=== PATIENT | female | born 1940 | race Caucasian/White ===

== ENCOUNTER 2021-10-03 10:54 | Outpatient (REF) | payer MEDICARE, SELFPAY ==
[2021-10-03 12:48] LABS: Erythrocyte Sedimentation Rate 58 MM/HR (0-20)
== END 2021-10-03 10:55 | disposition home or self-care (01) ==
LOC: HO.LAB 10:54
PROVIDERS: PCP Pediatrics; Visit Provider Psychiatry & Neurology Neurology
DX: G44.209 Tension-type headache, unspecified, not intractable (principal)
CPT/HCPCS: 36415; 85652

== ENCOUNTER 2021-10-26 10:11 | Outpatient (REF) | payer MEDICARE, SELFPAY ==
[2021-10-26 12:42] LABS: Erythrocyte Sedimentation Rate 16 MM/HR (0-20)
== END 2021-10-26 10:12 | disposition home or self-care (01) ==
LOC: HO.LAB 10:11
PROVIDERS: PCP Pediatrics; Visit Provider Psychiatry & Neurology Neurology
DX: G47.00 Insomnia, unspecified (principal)
CPT/HCPCS: 36415; 85652

== ENCOUNTER 2021-12-05 10:27 | Outpatient (REF) | payer MEDICARE, SELFPAY ==
[2021-12-05 12:14] LABS: Erythrocyte Sedimentation Rate 6 MM/HR (0-20)
== END 2021-12-05 10:28 | disposition home or self-care (01) ==
LOC: HO.LAB 10:27
PROVIDERS: Visit Provider Psychiatry & Neurology Neurology
DX: M31.6 Other giant cell arteritis (principal)
CPT/HCPCS: 36415; 85652

== ENCOUNTER 2022-03-06 11:34 | Outpatient (REF) | payer MEDICARE, SELFPAY ==
[2022-03-06 13:15] LABS: C Reactive Protein 0.15 mg/dL (< or = 0.50); T4 Thyroxine 7.5 ug/dL (4.5-12.0); Thyroid Stimulating Hormone 3.64 uIU/mL (0.32-4.0)
[2022-03-06 13:18] LABS: Erythrocyte Sedimentation Rate 10 MM/HR (0-20)
[2022-03-06 13:30] LABS: Folate > 20.0 ng/mL (> or = 4.0); Vitamin B12 740 pg/mL (200-900)
[2022-03-10 17:08] LABS: Homocysteine 11.4 umol/L (<10.4)
== END 2022-03-06 11:35 | disposition home or self-care (01) ==
LOC: HO.LAB 11:34
PROVIDERS: Visit Provider Psychiatry & Neurology Neurology
DX: M31.6 Other giant cell arteritis (principal); F03.90 Unspecified dementia, unspecified severity, without behavioral disturbance, psychotic disturbance, mood disturbance, and anxiety
CPT/HCPCS: 36415; 82607; 82746; 83090; 84436; 84443; 85652; 86140

== ENCOUNTER 2022-03-21 12:51 | Outpatient (REF) | payer MEDICARE, SELFPAY ==
--- NOTE | ~2022-03-21 | CT_ITS ---
EXAMINATION: CT HEAD WITHOUT CONTRAST CLINICAL INFORMATION: Dementia COMPARISON: None TECHNIQUE: Contiguous axial imaging was performed from the skull base to vertex without intravenous administration of contrast. This CT examination was performed using dose optimization techniques as appropriate, variously including the following: *Automated exposure control *Adjustment of mA and/or kV according to patient size (this includes techniques or standardized protocols for targeted exams where dose is matched to indication/reason for exam; i.e. extremities or head) *Use of iterative reconstruction technique DLP: 789 mGy-cm FINDINGS: No intracranial hemorrhage is seen. No abnormal extra-axial fluid collection. No significant mass effect or midline structure shift. [place] to white matter interface maintained. There is some prominence of ventricles, sulci, and cisterns consistent with generalized atrophy. There is mild periventricular white matter low density seen consistent with microangiopathy. There are some regions of diminished density within the insular cortices bilaterally likely related to small vessel disease. There is an approximately 1 cm region of diminished density along the left anterior limb of the internal capsule and putamen without adjacent mass effect. CT/CT head/brain wo IV con IMPRESSION: 1. No acute intracranial pathology. 2. Findings consistent with generalized atrophy and microangiopathy. 3. Low-density region within the left putamen likely ischemic in etiology.
== END 2022-03-21 12:52 | disposition home or self-care (01) ==
LOC: HO.CT 12:51
PROVIDERS: Visit Provider Psychiatry & Neurology Neurology
DX: F03.90 Unspecified dementia, unspecified severity, without behavioral disturbance, psychotic disturbance, mood disturbance, and anxiety (principal)
CPT/HCPCS: 70450

== ENCOUNTER 2022-07-10 13:02 | Outpatient (REF) | payer MEDICARE, SELFPAY ==
[2022-07-10 15:23] LABS: Erythrocyte Sedimentation Rate 8 MM/HR (0-20)
== END 2022-07-10 13:03 | disposition home or self-care (01) ==
LOC: HO.LAB 13:02
PROVIDERS: PCP Pediatrics; Visit Provider Psychiatry & Neurology Neurology
DX: M31.6 Other giant cell arteritis (principal)
CPT/HCPCS: 36415; 85652

== ENCOUNTER 2022-08-10 11:53 | Outpatient (REF) | payer MEDICARE, SELFPAY ==
[2022-08-10 12:32] LABS: MANUAL DIFF FLAG NO
[2022-08-10 12:49] LABS: Basophils Percent Auto 0.4 % (0-2); Eosinophils Absolute Auto 0.1 X10*3/uL (0.0-0.4); Eosinophils Percent Auto 0.8 % (0-4); Hematocrit 45.9 % (37.0-47.0); Hemoglobin 14.9 g/dl (12.0-16.0); Imm Gran Abs Auto 0.04 X10*3/uL (0.00-0.03); Imm Gran Pct Auto 0.5 % (0.0-0.4); Lymphocytes Absolute Auto 1.5 X10*3/uL (1.2-4.9); Lymphocytes Percent Auto 20.4 % (20-40); Mean Corpuscular HGB Conc 32.5 g/dl (31.0-35.0); Mean Corpuscular Hemoglobin 32.2 pg (27.0-33.0); Mean Corpuscular Volume 99.1 fL (80.0-98.0); Mean Platelet Volume 8.9 fL (9.4-12.3); Monocytes Absolute Auto 0.7 X10*3/uL (0.1-1.2); Monocytes Percent Auto 9.2 % (2-11); Neutrophils Absolute Auto 5.1 x10*3/uL (2.0-8.3); Neutrophils Percent Auto 68.7 % (45-73); Platelet Count 243 X10*3/uL (160-400); Red Blood Count 4.63 X10*6/uL (4.20-5.50); Red Cell Distribution Width 12.9 % (11.0-16.0); White Blood Count 7.5 X10*3/uL (4.8-10.8)
[2022-08-10 13:19] LABS: Alanine Aminotransferase 22 U/L (0-31); Albumin Level 4.1 g/dL (3.5-5.0); Alkaline Phosphatase 44 U/L (39-117); Anion Gap 14 (12-20); Aspartate Amino Transferase 22 U/L (5-31); Bilirubin Total 0.8 mg/dL (0.0-1.0); Blood Urea Nitrogen 13 mg/dL (9-16); Calcium 9.4 mg/dL (8.4-10.2); Carbon Dioxide 27 mmol/L (22-29); Chloride 103 mmol/L (96-108); Estimated Glomerular Filt Rate > 60; Glucose Random 81 mg/dL (60-115); Potassium 4.3 mmol/L (3.3-5.1); Sodium 140 mmol/L (135-145); Total Protein 6.5 g/dL (6.5-8.0)
== END 2022-08-10 11:54 | disposition home or self-care (01) ==
LOC: HO.LAB 11:53
PROVIDERS: PCP Pediatrics; Visit Provider Psychiatry & Neurology Neurology
DX: R44.3 Hallucinations, unspecified (principal); R51.9 Headache, unspecified
CPT/HCPCS: 36415; 80053; 85025

== ENCOUNTER 2022-08-11 10:41 | Outpatient (REF) | payer MEDICARE, SELFPAY ==
[2022-08-11 10:50] LABS: Appearance Urine Cloudy; Color Urine Yellow; Glucose Urine UA Negative (Negative); Leukocyte Esterase Urine Small (1+) (Negative); Nitrite Urine Negative (Negative); UMIC TRIGGER UA YES; Urine Blood Negative (Negative); Urine Ketones Negative (Negative); Urine Protein Negative (Neg-Trace)
[2022-08-11 10:56] LABS: Bacteria Urine None Seen (None Seen); Hyaline Casts Urine 0-2 /LPF (0-2); RBC Urine 0-2 /HPF (0-2); Squamous Epithelial Cell Urine 0-2 /HPF (0-2)
== END 2022-08-11 10:42 | disposition home or self-care (01) ==
LOC: HO.LNP 10:41
PROVIDERS: Visit Provider Psychiatry & Neurology Neurology
DX: R44.3 Hallucinations, unspecified (principal)
CPT/HCPCS: 81001

== ENCOUNTER 2023-01-22 06:31 | Outpatient (REF) | payer MEDICARE, SELFPAY ==
[2023-01-22 06:28] LABS: MANUAL DIFF FLAG NO
[2023-01-22 07:20] LABS: Basophils Percent Auto 0.6 % (0-2); Eosinophils Absolute Auto 0.2 X10*3/uL (0.0-0.4); Eosinophils Percent Auto 4.8 % (0-4); Hematocrit 37.8 % (37.0-47.0); Hemoglobin 11.9 g/dl (12.0-16.0); Imm Gran Abs Auto 0.02 X10*3/uL (0.00-0.03); Imm Gran Pct Auto 0.4 % (0.0-0.4); Lymphocytes Absolute Auto 1.9 X10*3/uL (1.2-4.9); Lymphocytes Percent Auto 37.2 % (20-40); Mean Corpuscular HGB Conc 31.5 g/dl (31.0-35.0); Mean Corpuscular Hemoglobin 30.3 pg (27.0-33.0); Mean Corpuscular Volume 96.2 fL (80.0-98.0); Monocytes Absolute Auto 0.6 X10*3/uL (0.1-1.2); Monocytes Percent Auto 12.5 % (2-11); Neutrophils Absolute Auto 2.2 x10*3/uL (2.0-8.3); Neutrophils Percent Auto 44.5 % (45-73); Platelet Count 352 X10*3/uL (160-400); Red Blood Count 3.93 X10*6/uL (4.20-5.50)
[2023-01-22 08:05] LABS: Anion Gap 14 (12-20); Blood Urea Nitrogen 4 mg/dL (9-16); Calcium 8.9 mg/dL (8.4-10.2); Carbon Dioxide 23 mmol/L (22-29); Chloride 106 mmol/L (96-108); Estimated Glomerular Filt Rate > 60; Glucose Random 79 mg/dL (60-115); Potassium 3.7 mmol/L (3.3-5.1); Sodium 139 mmol/L (135-145)
== END 2023-01-22 06:32 | disposition home or self-care (01) ==
LOC: HO.MMNH2L 06:31
PROVIDERS: Visit Provider Family Medicine
DX: Z02.2 Encounter for examination for admission to residential institution (principal); I10 Essential (primary) hypertension
CPT/HCPCS: 36415; 80048; 85025

== ENCOUNTER 2023-01-29 06:10 | Outpatient (REF) | payer MEDICARE, SELFPAY ==
[2023-01-29 06:07] LABS: MANUAL DIFF FLAG NO
[2023-01-29 07:04] LABS: Basophils Percent Auto 0.2 % (0-2); Eosinophils Absolute Auto 0.3 X10*3/uL (0.0-0.4); Eosinophils Percent Auto 5.3 % (0-4); Hematocrit 38.4 % (37.0-47.0); Hemoglobin 12.3 g/dl (12.0-16.0); Imm Gran Abs Auto 0.02 X10*3/uL (0.00-0.03); Imm Gran Pct Auto 0.4 % (0.0-0.4); Lymphocytes Absolute Auto 1.6 X10*3/uL (1.2-4.9); Lymphocytes Percent Auto 33.3 % (20-40); Mean Corpuscular Hemoglobin 30.4 pg (27.0-33.0); Mean Corpuscular Volume 94.8 fL (80.0-98.0); Monocytes Absolute Auto 0.7 X10*3/uL (0.1-1.2); Monocytes Percent Auto 13.7 % (2-11); Neutrophils Absolute Auto 2.3 x10*3/uL (2.0-8.3); Neutrophils Percent Auto 47.1 % (45-73); Platelet Count 273 X10*3/uL (160-400); Red Blood Count 4.05 X10*6/uL (4.20-5.50); Red Cell Distribution Width 14.2 % (11.0-16.0); White Blood Count 4.9 X10*3/uL (4.8-10.8)
[2023-01-29 07:22] LABS: Anion Gap 11 (12-20); Blood Urea Nitrogen 8 mg/dL (9-16); Calcium 8.9 mg/dL (8.4-10.2); Carbon Dioxide 27 mmol/L (22-29); Chloride 107 mmol/L (96-108); Estimated Glomerular Filt Rate > 60; Glucose Random 86 mg/dL (60-115); Potassium 3.5 mmol/L (3.3-5.1); Sodium 141 mmol/L (135-145)
== END 2023-01-29 06:11 | disposition home or self-care (01) ==
LOC: HO.MMNH2L 06:10
PROVIDERS: Visit Provider Family Medicine
DX: Z02.2 Encounter for examination for admission to residential institution (principal); I10 Essential (primary) hypertension
CPT/HCPCS: 36415; 80048; 85025

== ENCOUNTER 2023-02-05 06:18 | Outpatient (REF) | payer MEDICARE, SELFPAY ==
[2023-02-05 06:09] LABS: MANUAL DIFF FLAG NO
[2023-02-05 06:56] LABS: Basophils Percent Auto 0.3 % (0-2); Eosinophils Absolute Auto 0.2 X10*3/uL (0.0-0.4); Eosinophils Percent Auto 2.4 % (0-4); Hematocrit 34.8 % (37.0-47.0); Hemoglobin 11.2 g/dl (12.0-16.0); Imm Gran Abs Auto 0.03 X10*3/uL (0.00-0.03); Imm Gran Pct Auto 0.4 % (0.0-0.4); Lymphocytes Absolute Auto 1.8 X10*3/uL (1.2-4.9); Lymphocytes Percent Auto 24.9 % (20-40); Mean Corpuscular HGB Conc 32.2 g/dl (31.0-35.0); Mean Corpuscular Hemoglobin 30.6 pg (27.0-33.0); Mean Corpuscular Volume 95.1 fL (80.0-98.0); Mean Platelet Volume 9.4 fL (9.4-12.3); Monocytes Percent Auto 13.8 % (2-11); Neutrophils Absolute Auto 4.3 x10*3/uL (2.0-8.3); Neutrophils Percent Auto 58.2 % (45-73); Platelet Count 301 X10*3/uL (160-400); Red Blood Count 3.66 X10*6/uL (4.20-5.50); Red Cell Distribution Width 13.6 % (11.0-16.0); White Blood Count 7.4 X10*3/uL (4.8-10.8)
[2023-02-05 07:30] LABS: Anion Gap 14 (12-20); Blood Urea Nitrogen 6 mg/dL (9-16); Calcium 9.1 mg/dL (8.4-10.2); Carbon Dioxide 25 mmol/L (22-29); Chloride 103 mmol/L (96-108); Estimated Glomerular Filt Rate > 60; Glucose Random 85 mg/dL (60-115); Potassium 3.3 mmol/L (3.3-5.1); Sodium 139 mmol/L (135-145)
== END 2023-02-05 06:19 | disposition home or self-care (01) ==
LOC: HO.MMNH2L 06:18
PROVIDERS: Visit Provider Family Medicine
DX: Z02.2 Encounter for examination for admission to residential institution (principal); I10 Essential (primary) hypertension
CPT/HCPCS: 36415; 80048; 85025

== ENCOUNTER 2023-02-12 07:42 | Outpatient (REF) | payer MEDICARE, SELFPAY ==
[2023-02-12 06:19] LABS: MANUAL DIFF FLAG NO
[2023-02-12 07:30] LABS: Anion Gap 12 (12-20); Blood Urea Nitrogen 5 mg/dL (9-16); Calcium 8.8 mg/dL (8.4-10.2); Carbon Dioxide 26 mmol/L (22-29); Chloride 104 mmol/L (96-108); Estimated Glomerular Filt Rate > 60; Glucose Random 86 mg/dL (60-115); Potassium 3.3 mmol/L (3.3-5.1); Sodium 139 mmol/L (135-145)
[2023-02-12 07:35] LABS: Basophils Percent Auto 0.3 % (0-2); Eosinophils Absolute Auto 0.2 X10*3/uL (0.0-0.4); Eosinophils Percent Auto 3.1 % (0-4); Hematocrit 36.4 % (37.0-47.0); Hemoglobin 11.6 g/dl (12.0-16.0); Imm Gran Abs Auto 0.01 X10*3/uL (0.00-0.03); Imm Gran Pct Auto 0.2 % (0.0-0.4); Lymphocytes Absolute Auto 1.9 X10*3/uL (1.2-4.9); Lymphocytes Percent Auto 30.7 % (20-40); Mean Corpuscular HGB Conc 31.9 g/dl (31.0-35.0); Mean Corpuscular Hemoglobin 30.5 pg (27.0-33.0); Mean Corpuscular Volume 95.8 fL (80.0-98.0); Monocytes Absolute Auto 0.9 X10*3/uL (0.1-1.2); Monocytes Percent Auto 14.7 % (2-11); Neutrophils Absolute Auto 3.1 x10*3/uL (2.0-8.3); Platelet Count 434 X10*3/uL (160-400); Red Cell Distribution Width 13.9 % (11.0-16.0); White Blood Count 6.1 X10*3/uL (4.8-10.8)
== END 2023-02-12 07:43 | disposition home or self-care (01) ==
LOC: HO.MMNH2L 07:42
PROVIDERS: Visit Provider Family Medicine
DX: I10 Essential (primary) hypertension (principal)
CPT/HCPCS: 36415; 80048; 85025

== ENCOUNTER 2023-02-19 06:22 | Outpatient (REF) | payer MEDICARE, SELFPAY ==
[2023-02-19 06:19] LABS: MANUAL DIFF FLAG NO
[2023-02-19 07:07] LABS: Basophils Percent Auto 0.5 % (0-2); Eosinophils Absolute Auto 0.1 X10*3/uL (0.0-0.4); Eosinophils Percent Auto 2.1 % (0-4); Hematocrit 37.6 % (37.0-47.0); Hemoglobin 11.9 g/dl (12.0-16.0); Imm Gran Abs Auto 0.02 X10*3/uL (0.00-0.03); Imm Gran Pct Auto 0.3 % (0.0-0.4); Lymphocytes Absolute Auto 2.5 X10*3/uL (1.2-4.9); Lymphocytes Percent Auto 39.7 % (20-40); Mean Corpuscular HGB Conc 31.6 g/dl (31.0-35.0); Mean Corpuscular Hemoglobin 30.2 pg (27.0-33.0); Mean Corpuscular Volume 95.4 fL (80.0-98.0); Monocytes Absolute Auto 0.6 X10*3/uL (0.1-1.2); Monocytes Percent Auto 10.2 % (2-11); Neutrophils Absolute Auto 2.9 x10*3/uL (2.0-8.3); Neutrophils Percent Auto 47.2 % (45-73); Platelet Count 410 X10*3/uL (160-400); Red Blood Count 3.94 X10*6/uL (4.20-5.50); Red Cell Distribution Width 13.2 % (11.0-16.0); White Blood Count 6.2 X10*3/uL (4.8-10.8)
[2023-02-19 07:17] LABS: Anion Gap 11 (12-20); Blood Urea Nitrogen 6 mg/dL (9-16); Calcium 8.9 mg/dL (8.4-10.2); Carbon Dioxide 28 mmol/L (22-29); Chloride 105 mmol/L (96-108); Estimated Glomerular Filt Rate > 60; Glucose Random 80 mg/dL (60-115); Potassium 3.2 mmol/L (3.3-5.1); Sodium 141 mmol/L (135-145)
== END 2023-02-19 06:23 | disposition home or self-care (01) ==
LOC: HO.MMNH2L 06:22
PROVIDERS: Visit Provider Family Medicine
DX: I10 Essential (primary) hypertension (principal)
CPT/HCPCS: 36415; 80048; 85025

== ENCOUNTER 2023-02-21 05:55 | Outpatient (REF) | payer MEDICARE, SELFPAY ==
[2023-02-21 06:12] LABS: Appearance Urine Cloudy; Color Urine Dark Yellow; Glucose Urine UA Negative (Negative); Leukocyte Esterase Urine Moderate (2+) (Negative); Nitrite Urine Positive (Negative); PH 5.5 (5.0-9.0); UMIC TRIGGER UA YES; Urine Blood Trace (Negative); Urine Ketones Negative (Negative); Urine Protein Trace mg/dL (Neg-Trace)
[2023-02-21 06:29] LABS: Bacteria Urine 4+ (None Seen); Calcium Oxalate Crystals Urine Present; Hyaline Casts Urine 0-2 /LPF (0-2); RBC Urine 0-2 /HPF (0-2); Squamous Epithelial Cell Urine 0-2 /HPF (0-2); WBC Urine >50 /HPF (0-5)
== END 2023-02-21 05:56 | disposition home or self-care (01) ==
LOC: HO.MMNH2L 05:55
PROVIDERS: Visit Provider Family Medicine
DX: R33.9 Retention of urine, unspecified (principal)
CPT/HCPCS: 81001; 87086; 87088; 87186

== ENCOUNTER 2023-02-26 06:45 | Outpatient (REF) | payer MEDICARE, SELFPAY ==
[2023-02-26 06:45] LABS: MANUAL DIFF FLAG NO
[2023-02-26 07:10] LABS: Basophils Percent Auto 0.3 % (0-2); Eosinophils Absolute Auto 0.1 X10*3/uL (0.0-0.4); Eosinophils Percent Auto 1.4 % (0-4); Hematocrit 37.6 % (37.0-47.0); Hemoglobin 12.1 g/dl (12.0-16.0); Imm Gran Abs Auto 0.02 X10*3/uL (0.00-0.03); Imm Gran Pct Auto 0.3 % (0.0-0.4); Lymphocytes Absolute Auto 2.4 X10*3/uL (1.2-4.9); Lymphocytes Percent Auto 33.4 % (20-40); Mean Corpuscular HGB Conc 32.2 g/dl (31.0-35.0); Mean Corpuscular Hemoglobin 30.1 pg (27.0-33.0); Mean Corpuscular Volume 93.5 fL (80.0-98.0); Mean Platelet Volume 8.8 fL (9.4-12.3); Monocytes Absolute Auto 0.7 X10*3/uL (0.1-1.2); Neutrophils Absolute Auto 3.9 x10*3/uL (2.0-8.3); Neutrophils Percent Auto 54.6 % (45-73); Platelet Count 281 X10*3/uL (160-400); Red Blood Count 4.02 X10*6/uL (4.20-5.50); Red Cell Distribution Width 13.8 % (11.0-16.0); White Blood Count 7.2 X10*3/uL (4.8-10.8)
[2023-02-26 07:31] LABS: Anion Gap 11 (12-20); Blood Urea Nitrogen 7 mg/dL (9-16); Calcium 8.9 mg/dL (8.4-10.2); Carbon Dioxide 28 mmol/L (22-29); Chloride 104 mmol/L (96-108); Estimated Glomerular Filt Rate > 60; Glucose Random 76 mg/dL (60-115); Potassium 3.3 mmol/L (3.3-5.1); Sodium 140 mmol/L (135-145)
== END 2023-02-26 06:46 | disposition home or self-care (01) ==
LOC: HO.MMNH2L 06:45
PROVIDERS: Visit Provider Family Medicine
DX: Z02.2 Encounter for examination for admission to residential institution (principal); I10 Essential (primary) hypertension
CPT/HCPCS: 36415; 80048; 85025

== ENCOUNTER 2023-03-12 07:16 | Outpatient (REF) | payer MEDICARE, SELFPAY ==
[2023-03-12 06:12] LABS: MANUAL DIFF FLAG NO
[2023-03-12 07:05] LABS: Basophils Percent Auto 0.2 % (0-2); Eosinophils Percent Auto 0.7 % (0-4); Hematocrit 36.1 % (37.0-47.0); Hemoglobin 11.5 g/dl (12.0-16.0); Imm Gran Abs Auto 0.02 X10*3/uL (0.00-0.03); Imm Gran Pct Auto 0.4 % (0.0-0.4); Lymphocytes Absolute Auto 1.5 X10*3/uL (1.2-4.9); Lymphocytes Percent Auto 27.3 % (20-40); Mean Corpuscular HGB Conc 31.9 g/dl (31.0-35.0); Mean Corpuscular Hemoglobin 30.1 pg (27.0-33.0); Mean Corpuscular Volume 94.5 fL (80.0-98.0); Mean Platelet Volume 9.4 fL (9.4-12.3); Monocytes Percent Auto 17.4 % (2-11); Platelet Count 284 X10*3/uL (160-400); Red Blood Count 3.82 X10*6/uL (4.20-5.50); Red Cell Distribution Width 13.9 % (11.0-16.0); White Blood Count 5.5 X10*3/uL (4.8-10.8)
[2023-03-12 07:47] LABS: Alanine Aminotransferase 9 U/L (0-31); Albumin Level 3.2 g/dL (3.5-5.0); Alkaline Phosphatase 46 U/L (39-117); Anion Gap 14 (12-20); Aspartate Amino Transferase 13 U/L (5-31); Bilirubin Total 0.7 mg/dL (0.0-1.0); Blood Urea Nitrogen 9 mg/dL (9-16); Calcium 9.1 mg/dL (8.4-10.2); Carbon Dioxide 25 mmol/L (22-29); Chloride 104 mmol/L (96-108); Estimated Glomerular Filt Rate > 60; Glucose Random 82 mg/dL (60-115); Potassium 3.5 mmol/L (3.3-5.1); Sodium 139 mmol/L (135-145)
== END 2023-03-12 07:17 | disposition home or self-care (01) ==
LOC: HO.MMNH2L 07:16
PROVIDERS: Visit Provider Family Medicine
DX: R27.8 Other lack of coordination (principal); K52.89 Other specified noninfective gastroenteritis and colitis
CPT/HCPCS: 36415; 80053; 85025

== ENCOUNTER 2023-04-10 06:24 | Outpatient (REF) | payer MEDICARE, SELFPAY ==
[2023-04-10 06:13] LABS: MANUAL DIFF FLAG NO
[2023-04-10 06:31] LABS: Basophils Percent Auto 0.4 % (0-2); Eosinophils Absolute Auto 0.1 X10*3/uL (0.0-0.4); Eosinophils Percent Auto 1.4 % (0-4); Hematocrit 38.7 % (37.0-47.0); Hemoglobin 12.4 g/dl (12.0-16.0); Imm Gran Abs Auto 0.02 X10*3/uL (0.00-0.03); Imm Gran Pct Auto 0.3 % (0.0-0.4); Lymphocytes Absolute Auto 2.9 X10*3/uL (1.2-4.9); Lymphocytes Percent Auto 41.3 % (20-40); Mean Corpuscular Volume 93.5 fL (80.0-98.0); Mean Platelet Volume 9.2 fL (9.4-12.3); Monocytes Absolute Auto 0.7 X10*3/uL (0.1-1.2); Monocytes Percent Auto 9.9 % (2-11); Neutrophils Absolute Auto 3.3 x10*3/uL (2.0-8.3); Neutrophils Percent Auto 46.7 % (45-73); Platelet Count 291 X10*3/uL (160-400); Red Blood Count 4.14 X10*6/uL (4.20-5.50); Red Cell Distribution Width 14.6 % (11.0-16.0)
[2023-04-10 07:10] LABS: Anion Gap 13 (12-20); Blood Urea Nitrogen 11 mg/dL (9-16); Calcium 8.9 mg/dL (8.4-10.2); Carbon Dioxide 27 mmol/L (22-29); Chloride 106 mmol/L (96-108); Estimated Glomerular Filt Rate > 60; Glucose Random 68 mg/dL (60-115); Potassium 3.7 mmol/L (3.3-5.1); Sodium 142 mmol/L (135-145)
== END 2023-04-10 06:25 | disposition home or self-care (01) ==
LOC: HO.MMNH2L 06:24
PROVIDERS: Visit Provider Family Medicine
DX: R27.8 Other lack of coordination (principal); K52.89 Other specified noninfective gastroenteritis and colitis
CPT/HCPCS: 36415; 80048; 85025

== ENCOUNTER 2023-04-14 14:19 | Emergency (ER) | payer MEDICARE, SELFPAY ==
[2023-04-14 14:34] VITALS: BP 113/48; BP 96/50; PULSE 67; RESP 16; TEMP 36.3; O2SAT 96; O2SAT 97; BMI 23.3
--- NOTE | 2023-04-14 15:00 | ED.SYNCOPE ---
HPI - Syncope General Chief Complaint: Syncope Stated Complaint: PERIOD OF UNRESPONSIVENESS Time Seen by Provider: 04/14/23 14:45 Source: patient and family Mode of arrival: EMS History of Present Illness HPI narrative: 82-year-old female who comes from [facility] with son's concerns regarding 2 episodes of his mother not being responsive to him after she ate lunch. When I asked him whether or not she was sleeping he states he did not think so because when he shook her she did not respond. There are no reported fevers, chills, urinary symptoms. And all history is obtained from the son, as patient has dementia. Related Data Allergies Allergy/AdvReac Type Severity Reaction Status Date / Time Penicillins Allergy Unknown Verified 04/14/23 14:42 Review of Systems Review of Systems: Pertinent positives and negatives as stated in [facility] Past Medical History Source: nursing notes reviewed Onset Date is defined in the Problem List Problems that require an onset date and time if occurred within 24 hrs of arrival to the ED Aortic Dissection and Rupture; Neurologic impairment; Cardiopulmonary Arrest; Endotracheal Intubation; Insertion or Replacement of Mechanical Circulatory Assist Device Social History Social History Advance Directives: No Advance Directives Information Provided: No Physical Exam Vital Signs: Vital Signs: Last Vital Signs Temp 97.4 F 04/14/23 14:34 Pulse 71 04/14/23 15:33 Resp 16 04/14/23 15:33 BP 140/73 H 04/14/23 15:33 Pulse Ox 95 04/14/23 15:33 O2 Del Method Room Air 04/14/23 15:33 BMI result Body Mass Index 23.3 VITAL SIGNS: Reviewed. GENERAL: Well developed, well nourished, in no acute distress. HEAD: Normocephalic/atraumatic EYES: PERRLA, EOMI EARS: Ext canals without abnormality NOSE: Nares patent bilateral OROPHARYNX: no oral lesions noted, posterior pharynx clear NECK: Supple, no adenopathy LUNGS: Normal breath sounds. No adventitious sounds or accessory muscle use. SpO2<95> CARDIOVASCULAR: Regular rate and rhythm without noted murmurs, no JVD or lower extremity edema. ABDOMEN: Soft, non-tender, non-distended with bowel sounds. MUSCULOSKELETAL: No tenderness, deformities, or effusions noted on gross inspection. EXTREMITIES: No cyanosis, clubbing or edema. SKIN: Inspection of the skin reveals no rashes NEUROLOGIC: Alert and oriented x 1. Strength and sensation to light touch were grossly intact x 4. Medical Decision Making Medical Decision Making [facility] Narrative: 82-year-old female with history and clinical presentation after review of problem list in documentation it appears that patient has a history of syncopal episodes since November of 2022 and is been worked up for these. We will ensure that there is no evidence arrhythmia, infection, anemia, electrolyte abnormalities for viral illnesses that may be contributing to this episode today. Patient arrives and is noted be hemodynamically stable and responsive on verbal prompting. I reviewed all investigations and hematologic indices are negative for leukocytosis/left shift and there is no anemia or thrombocytopenia. Coagulation studies are within normal limits. Viral testing is negative. Signed out to Dr Russel foreman/radha chemistries Differential Diagnosis Differential Diagnoses: The differential diagnosis associated with the presentation includes Please see the discussion above Admission/Observation Consideration of admission/observation: Escalation of care including admission/observation considered Please see the discussion above Lab Data [facility] Lab Attestation statement: I reviewed the patient's lab results. Please see the discussion above 04/14/23 15:01 04/14/23 15:01 Labs: Lab Results 04/14/23 Range/Units 15:01 WBC 8.9 (4.8-10.8) X10*3/uL RBC 4.25 (4.20-5.50) X10*6/uL Hgb 12.7 (12.0-16.0) g/dl Hct 39.5 (37.0-47.0) % MCV 92.9 (80.0-98.0) fL MCH 29.9 (27.0-33.0) pg MCHC 32.2 (31.0-35.0) g/dl RDW 15.0 (11.0-16.0) % Plt Count 259 (160-400) X10*3/uL MPV 8.6 L (9.4-12.3) fL Immature Gran % (Auto) 0.5 H (0.0-0.4) % Neut % (Auto) 70.9 (45-73) % Lymph % (Auto) 16.1 L (20-40) % [place]clennan % (Auto) 11.3 H (2-11) % Eos % (Auto) 1.0 (0-4) % Baso % (Auto) 0.2 (0-2) % Lymph # (Auto) 1.4 (1.2-4.9) X10*3/uL [place]cl[place]an # (Auto) 1.0 (0.1-1.2) X10*3/uL Eos # (Auto) 0.1 (0.0-0.4) X10*3/uL Baso # (Auto) 0.0 (0.0-0.2) X10*3/uL Abs Immat Gran (auto) 0.04 H (0.00-0.03) X10*3/uL Absolute Neuts (auto) 6.3 (2.0-8.3) x10*3/uL Absolute Nucleated RBC 0.000 (0.0-0.012) X10*3/uL Nucleated RBC % (auto) 0.0 (0.0-0.2) /100WBC PT 11.4 (11.1-13.3) SEC INR 0.9 (0.9-1.1) Troponin I High Sens < 2.7 (<3.5-17.0) ng/L Urine Color Dark Yellow Urine Appearance Turbid Urine pH 5.0 (5.0-9.0) Ur Specific [place] >= 1.030 H (1.005-1.025) Urine Protein 100 (2+) H (Neg-Trace) mg/dL Urine Glucose (UA) Negative (Negative) mg/dL Urine Ketones Trace (Negative) mg/dL Urine Blood Large (3+) H (Negative) Urine Nitrite Negative (Negative) Ur Leukocyte Esterase Large (3+) H (Negative) Influenza Type A (PCR) NEGATIVE (Negative) Influenza Type B (PCR) NEGATIVE (Negative) RSV RNA Qual (PCR) NEGATIVE (Negative) SARS-CoV-2 RNA (RT-PCR) NEGATIVE (Negative) Independent Interpretation I performed an independent interpretation of an: EKG Interpretation: Sinus rhythm with PACs, HR-68, no STEMI, IL/QRS/QTC is within normal limits. External Record Review External record reviewed: Outpatient record, Prior outpatient labs and Prior outpatient radiology Chronic Conditions Dementia Critical Care Time Critical Care Time Critical Care Time: Yes Total Critical Care Time: 30 Attestation: I personally attest to this time spent taking care of the patient. Discharge Plan Discharge Clinical Impression: Vasovagal syncope Patient Disposition: Xfer Other Instructions: Syncope in Older Adults (ED) Additional Instructions: 1. Resume all home medications as prescribed. 2. Recommend follow-up with primary care doctor on Sunday morning for further outpatient evaluation regarding recurrent syncopal episodes. Return to the ER for any worsening symptoms. Referrals: Joseph Mccormakc MD [Primary Care Provider] -
[2023-04-14 15:33] VITALS: BP 140/73; PULSE 71; RESP 16; O2SAT 95
--- NOTE | 2023-04-14 15:48 | MHC.EDTECH ---
THIS PCT ASSUMED CARE OF PT AT 1500 ,PT WAS INCONTINENT OF LARGE AMOUNT OF STOOL ,CARE GIVEN ,BEDDING CHANGE,PT RESTING QUIETLY IN BED .
--- NOTE | 2023-04-14 17:39 | PC.NURSE ---
PT REMAINS A&OX3, MENTATING AT BASELINE. VS WNL. REPORT GIVENT TO RN AT [facility].
== END 2023-04-14 19:30 | disposition other institution (70) ==
PROVIDERS: Emergency Provider Student in an Organized Health Care Education/Training Program; PCP Pediatrics
DX: N39.0 Urinary tract infection, site not specified (principal); B96.4 Proteus (mirabilis) (morganii) as the cause of diseases classified elsewhere; R55 Syncope and collapse; Z20.822 Contact with and (suspected) exposure to COVID-19; Z20.828 Contact with and (suspected) exposure to other viral communicable diseases
CPT/HCPCS: 0241U; 80053; 81001; 84484; 85025; 85610; 87086; 87088; 87186; 93005; 99285

== ENCOUNTER → 2023-04-14 14:45 | Outpatient (BNV) | payer MEDICARE, SELFPAY | PROVIDERS: Emergency Provider Student in an Organized Health Care Education/Training Program; PCP Pediatrics; Visit Provider Internal Medicine Cardiovascular Disease | DX: I49.1 Atrial premature depolarization (principal); R94.31 Abnormal electrocardiogram [ECG] [EKG] | CPT/HCPCS: 93010 ==

== ENCOUNTER 2023-04-18 05:20 | Outpatient (REF) | payer MEDICARE, SELFPAY ==
[2023-04-18 06:33] LABS: Thyroid Stimulating Hormone 1.64 uIU/mL (0.32-4.0)
[2023-04-18 06:39] LABS: Vitamin B12 221 pg/mL (200-900)
[2023-04-20 01:09] LABS: Triiodothyronine T3 Free 2.8 pg/mL (2.3-4.2)
== END 2023-04-18 05:21 | disposition home or self-care (01) ==
LOC: HO.MMNH2L 05:20
PROVIDERS: Visit Provider Family Medicine
DX: E46 Unspecified protein-calorie malnutrition (principal)
CPT/HCPCS: 36415; 82607; 84439; 84443; 84481

== ENCOUNTER 2023-04-30 15:14 | Outpatient (REF) | payer MEDICARE, SELFPAY ==
[2023-04-30 15:32] LABS: Appearance Urine Turbid; Color Urine Yellow; Glucose Urine UA Negative (Negative); Leukocyte Esterase Urine Large (3+) (Negative); Nitrite Urine Positive (Negative); PH >= 9.0 (5.0-9.0); UMIC TRIGGER UA YES; Urine Blood Negative (Negative); Urine Ketones Negative (Negative); Urine Protein Trace mg/dL (Neg-Trace)
[2023-04-30 15:45] LABS: Bacteria Urine 4+ (None Seen); Hyaline Casts Urine 0-2 /LPF (0-2); Other Crystals Urine Present; RBC Urine 0-2 /HPF (0-2); Squamous Epithelial Cell Urine 0-2 /HPF (0-2)
== END 2023-04-30 15:15 | disposition home or self-care (01) ==
LOC: HO.MMNH3L 15:14
PROVIDERS: Visit Provider Family Medicine
DX: R33.8 Other retention of urine (principal)
CPT/HCPCS: 81001; 87086; 87088; 87186

== ENCOUNTER 2023-05-21 06:29 | Outpatient (REF) | payer MEDICARE, SELFPAY ==
[2023-05-21 06:31] LABS: MANUAL DIFF FLAG NO
[2023-05-21 07:27] LABS: Basophils Percent Auto 0.3 % (0-2); Eosinophils Absolute Auto 0.1 X10*3/uL (0.0-0.4); Hematocrit 38.5 % (37.0-47.0); Hemoglobin 12.6 g/dl (12.0-16.0); Imm Gran Abs Auto 0.01 X10*3/uL (0.00-0.03); Imm Gran Pct Auto 0.2 % (0.0-0.4); Lymphocytes Absolute Auto 2.5 X10*3/uL (1.2-4.9); Lymphocytes Percent Auto 42.5 % (20-40); Mean Corpuscular HGB Conc 32.7 g/dl (31.0-35.0); Mean Corpuscular Hemoglobin 30.2 pg (27.0-33.0); Mean Corpuscular Volume 92.3 fL (80.0-98.0); Mean Platelet Volume 8.9 fL (9.4-12.3); Monocytes Absolute Auto 0.7 X10*3/uL (0.1-1.2); Monocytes Percent Auto 12.4 % (2-11); Neutrophils Absolute Auto 2.5 x10*3/uL (2.0-8.3); Neutrophils Percent Auto 42.6 % (45-73); Platelet Count 295 X10*3/uL (160-400); Red Blood Count 4.17 X10*6/uL (4.20-5.50); Red Cell Distribution Width 14.8 % (11.0-16.0); White Blood Count 5.9 X10*3/uL (4.8-10.8)
[2023-05-21 07:38] LABS: Anion Gap 13 (12-20); Blood Urea Nitrogen 10 mg/dL (9-16); Carbon Dioxide 24 mmol/L (22-29); Chloride 107 mmol/L (96-108); Estimated Glomerular Filt Rate > 60; Glucose Random 79 mg/dL (60-115); Potassium 3.6 mmol/L (3.3-5.1); Sodium 140 mmol/L (135-145)
== END 2023-05-21 06:30 | disposition home or self-care (01) ==
LOC: HO.MMNH3L 06:29
PROVIDERS: Visit Provider Family Medicine
DX: R33.8 Other retention of urine (principal); F03.B0 Unspecified dementia, moderate, without behavioral disturbance, psychotic disturbance, mood disturbance, and anxiety; R55 Syncope and collapse
CPT/HCPCS: 36415; 80048; 85025

== ENCOUNTER 2023-06-11 06:18 | Outpatient (REF) | payer MEDICARE, SELFPAY ==
[2023-06-11 05:52] LABS: MANUAL DIFF FLAG NO
[2023-06-11 06:01] LABS: Basophils Percent Auto 0.3 % (0-2); Eosinophils Absolute Auto 0.1 X10*3/uL (0.0-0.4); Hematocrit 40.2 % (37.0-47.0); Hemoglobin 13.2 g/dl (12.0-16.0); Imm Gran Abs Auto 0.02 X10*3/uL (0.00-0.03); Imm Gran Pct Auto 0.3 % (0.0-0.4); Lymphocytes Absolute Auto 2.4 X10*3/uL (1.2-4.9); Mean Corpuscular HGB Conc 32.8 g/dl (31.0-35.0); Mean Corpuscular Hemoglobin 30.2 pg (27.0-33.0); Mean Platelet Volume 8.8 fL (9.4-12.3); Monocytes Absolute Auto 0.6 X10*3/uL (0.1-1.2); Monocytes Percent Auto 9.3 % (2-11); Neutrophils Absolute Auto 2.9 x10*3/uL (2.0-8.3); Neutrophils Percent Auto 48.1 % (45-73); Platelet Count 271 X10*3/uL (160-400); Red Blood Count 4.37 X10*6/uL (4.20-5.50); Red Cell Distribution Width 14.2 % (11.0-16.0); White Blood Count 6.1 X10*3/uL (4.8-10.8)
[2023-06-11 06:36] LABS: Alanine Aminotransferase 15 U/L (0-31); Albumin Level 3.5 g/dL (3.5-5.0); Alkaline Phosphatase 50 U/L (39-117); Anion Gap 10 (12-20); Aspartate Amino Transferase 12 U/L (5-31); Bilirubin Total 0.3 mg/dL (0.0-1.0); Blood Urea Nitrogen 11 mg/dL (9-16); Carbon Dioxide 28 mmol/L (22-29); Chloride 106 mmol/L (96-108); Estimated Glomerular Filt Rate > 60; Glucose Random 73 mg/dL (60-115); Potassium 3.9 mmol/L (3.3-5.1); Sodium 140 mmol/L (135-145); Total Protein 6.2 g/dL (6.5-8.0)
== END 2023-06-11 06:19 | disposition home or self-care (01) ==
LOC: HO.MMNH2L 06:18
PROVIDERS: Visit Provider Family Medicine
DX: R27.8 Other lack of coordination (principal); K52.89 Other specified noninfective gastroenteritis and colitis
CPT/HCPCS: 36415; 80053; 85025

== ENCOUNTER 2023-07-09 06:48 | Outpatient (REF) | payer MEDICARE, SELFPAY ==
[2023-07-09 06:00] LABS: MANUAL DIFF FLAG NO
[2023-07-09 06:23] LABS: Basophils Percent Auto 0.2 % (0-2); Eosinophils Absolute Auto 0.1 X10*3/uL (0.0-0.4); Hematocrit 39.7 % (37.0-47.0); Hemoglobin 13.1 g/dl (12.0-16.0); Imm Gran Abs Auto 0.02 X10*3/uL (0.00-0.03); Imm Gran Pct Auto 0.3 % (0.0-0.4); Lymphocytes Absolute Auto 1.9 X10*3/uL (1.2-4.9); Lymphocytes Percent Auto 33.3 % (20-40); Mean Corpuscular Hemoglobin 30.2 pg (27.0-33.0); Mean Corpuscular Volume 91.5 fL (80.0-98.0); Mean Platelet Volume 8.7 fL (9.4-12.3); Monocytes Absolute Auto 0.6 X10*3/uL (0.1-1.2); Monocytes Percent Auto 9.9 % (2-11); Neutrophils Absolute Auto 3.2 x10*3/uL (2.0-8.3); Neutrophils Percent Auto 55.3 % (45-73); Platelet Count 259 X10*3/uL (160-400); Red Blood Count 4.34 X10*6/uL (4.20-5.50); Red Cell Distribution Width 13.3 % (11.0-16.0); White Blood Count 5.8 X10*3/uL (4.8-10.8)
[2023-07-09 06:37] LABS: Alanine Aminotransferase 25 U/L (0-31); Albumin Level 3.5 g/dL (3.5-5.0); Alkaline Phosphatase 47 U/L (39-117); Anion Gap 11 (12-20); Aspartate Amino Transferase 18 U/L (5-31); Bilirubin Total 0.3 mg/dL (0.0-1.0); Blood Urea Nitrogen 9 mg/dL (9-16); Calcium 8.3 mg/dL (8.4-10.2); Carbon Dioxide 28 mmol/L (22-29); Chloride 106 mmol/L (96-108); Estimated Glomerular Filt Rate > 60; Glucose Random 79 mg/dL (60-115); Potassium 3.8 mmol/L (3.3-5.1); Sodium 141 mmol/L (135-145); Total Protein 5.9 g/dL (6.5-8.0)
== END 2023-07-09 06:49 | disposition home or self-care (01) ==
LOC: HO.MMNH2L 06:48
PROVIDERS: Visit Provider Family Medicine
DX: R27.8 Other lack of coordination (principal); K52.89 Other specified noninfective gastroenteritis and colitis
CPT/HCPCS: 36415; 80053; 85025

== ENCOUNTER 2023-08-13 06:35 | Outpatient (REF) | payer MEDICARE, SELFPAY ==
[2023-08-13 07:37] LABS: Anion Gap 15 (12-20); Blood Urea Nitrogen 9 mg/dL (9-16); Calcium 9.6 mg/dL (8.4-10.2); Carbon Dioxide 28 mmol/L (22-29); Chloride 103 mmol/L (96-108); Estimated Glomerular Filt Rate > 60; Glucose Random 75 mg/dL (60-115); Potassium 3.9 mmol/L (3.3-5.1); Sodium 142 mmol/L (135-145)
[2023-08-13 07:48] LABS: Basophils Percent Auto 0.2 % (0-2); Eosinophils Absolute Auto 0.1 X10*3/uL (0.0-0.4); Hematocrit 43.9 % (37.0-47.0); Hemoglobin 14.4 g/dl (12.0-16.0); Imm Gran Abs Auto 0.02 X10*3/uL (0.00-0.03); Imm Gran Pct Auto 0.3 % (0.0-0.4); Lymphocytes Absolute Auto 2.6 X10*3/uL (1.2-4.9); Lymphocytes Percent Auto 43.8 % (20-40); Mean Corpuscular HGB Conc 32.8 g/dl (31.0-35.0); Mean Corpuscular Hemoglobin 30.7 pg (27.0-33.0); Mean Corpuscular Volume 93.6 fL (80.0-98.0); Mean Platelet Volume 8.9 fL (9.4-12.3); Monocytes Absolute Auto 0.7 X10*3/uL (0.1-1.2); Monocytes Percent Auto 10.9 % (2-11); Neutrophils Absolute Auto 2.6 x10*3/uL (2.0-8.3); Neutrophils Percent Auto 43.8 % (45-73); Platelet Count 293 X10*3/uL (160-400); Red Blood Count 4.69 X10*6/uL (4.20-5.50); Red Cell Distribution Width 13.2 % (11.0-16.0)
== END 2023-08-13 06:36 | disposition home or self-care (01) ==
LOC: HO.MMNH2L 06:35
PROVIDERS: Visit Provider Family Medicine
DX: R27.8 Other lack of coordination (principal); K52.89 Other specified noninfective gastroenteritis and colitis
CPT/HCPCS: 36415; 80048; 85025

== ENCOUNTER 2023-09-10 06:04 | Outpatient (REF) | payer MEDICARE, SELFPAY ==
[2023-09-10 05:49] LABS: MANUAL DIFF FLAG NO
[2023-09-10 07:01] LABS: Basophils Percent Auto 0.3 % (0-2); Eosinophils Absolute Auto 0.1 X10*3/uL (0.0-0.4); Eosinophils Percent Auto 1.3 % (0-4); Hematocrit 40.2 % (37.0-47.0); Hemoglobin 12.9 g/dl (12.0-16.0); Imm Gran Abs Auto 0.02 X10*3/uL (0.00-0.03); Imm Gran Pct Auto 0.3 % (0.0-0.4); Lymphocytes Absolute Auto 2.4 X10*3/uL (1.2-4.9); Lymphocytes Percent Auto 40.7 % (20-40); Mean Corpuscular HGB Conc 32.1 g/dl (31.0-35.0); Mean Corpuscular Hemoglobin 30.6 pg (27.0-33.0); Mean Corpuscular Volume 95.5 fL (80.0-98.0); Mean Platelet Volume 9.2 fL (9.4-12.3); Monocytes Absolute Auto 0.7 X10*3/uL (0.1-1.2); Monocytes Percent Auto 11.4 % (2-11); Neutrophils Absolute Auto 2.8 x10*3/uL (2.0-8.3); Platelet Count 281 X10*3/uL (160-400); Red Blood Count 4.21 X10*6/uL (4.20-5.50); Red Cell Distribution Width 13.4 % (11.0-16.0)
[2023-09-10 07:04] LABS: Alanine Aminotransferase 11 U/L (0-31); Albumin Level 3.6 g/dL (3.5-5.0); Alkaline Phosphatase 47 U/L (39-117); Anion Gap 14 (12-20); Aspartate Amino Transferase 12 U/L (5-31); Bilirubin Total 0.5 mg/dL (0.0-1.0); Blood Urea Nitrogen 10 mg/dL (9-16); Calcium 9.3 mg/dL (8.4-10.2); Carbon Dioxide 25 mmol/L (22-29); Chloride 107 mmol/L (96-108); Estimated Glomerular Filt Rate > 60; Glucose Random 79 mg/dL (60-115); Potassium 3.6 mmol/L (3.3-5.1); Sodium 142 mmol/L (135-145); Total Protein 6.2 g/dL (6.5-8.0)
== END 2023-09-10 06:05 | disposition home or self-care (01) ==
LOC: HO.MMNH2L 06:04
PROVIDERS: Visit Provider Family Medicine
DX: R27.8 Other lack of coordination (principal); K52.89 Other specified noninfective gastroenteritis and colitis
CPT/HCPCS: 36415; 80053; 85025

== ENCOUNTER 2023-09-11 15:30 | Outpatient (REF) | payer MEDICARE, SELFPAY ==
[2023-09-12 07:55] LABS: Appearance Urine Cloudy; Color Urine Yellow; Glucose Urine UA Negative (Negative); Leukocyte Esterase Urine Large (3+) (Negative); Nitrite Urine Negative (Negative); PH 5.5 (5.0-9.0); UMIC TRIGGER UA YES; Urine Blood Small (1+) (Negative); Urine Ketones Negative (Negative); Urine Protein Negative (Neg-Trace)
[2023-09-12 08:08] LABS: Bacteria Urine 3+ (None Seen); Hyaline Casts Urine 0-2 /LPF (0-2); RBC Urine 0-2 /HPF (0-2); Squamous Epithelial Cell Urine 0-2 /HPF (0-2); WBC Urine >50 /HPF (0-5)
== END 2023-09-11 15:31 | disposition home or self-care (01) ==
LOC: HO.MMNH3L 15:30
PROVIDERS: Visit Provider Family Medicine
DX: R41.82 Altered mental status, unspecified (principal); F03.90 Unspecified dementia, unspecified severity, without behavioral disturbance, psychotic disturbance, mood disturbance, and anxiety
CPT/HCPCS: 81001; 87086; 87088; 87186

== ENCOUNTER 2023-10-08 07:02 | Outpatient (REF) | payer MEDICARE, SELFPAY ==
[2023-10-08 06:16] LABS: MANUAL DIFF FLAG NO
[2023-10-08 07:04] LABS: Basophils Percent Auto 0.3 % (0-2); Eosinophils Absolute Auto 0.1 X10*3/uL (0.0-0.4); Eosinophils Percent Auto 1.9 % (0-4); Hematocrit 39.4 % (37.0-47.0); Hemoglobin 12.9 g/dl (12.0-16.0); Imm Gran Abs Auto 0.02 X10*3/uL (0.00-0.03); Imm Gran Pct Auto 0.3 % (0.0-0.4); Lymphocytes Absolute Auto 2.2 X10*3/uL (1.2-4.9); Lymphocytes Percent Auto 37.5 % (20-40); Mean Corpuscular HGB Conc 32.7 g/dl (31.0-35.0); Mean Corpuscular Hemoglobin 30.8 pg (27.0-33.0); Mean Platelet Volume 8.9 fL (9.4-12.3); Monocytes Absolute Auto 0.6 X10*3/uL (0.1-1.2); Monocytes Percent Auto 10.9 % (2-11); Neutrophils Absolute Auto 2.8 x10*3/uL (2.0-8.3); Neutrophils Percent Auto 49.1 % (45-73); Platelet Count 249 X10*3/uL (160-400); Red Blood Count 4.19 X10*6/uL (4.20-5.50); Red Cell Distribution Width 13.2 % (11.0-16.0); White Blood Count 5.8 X10*3/uL (4.8-10.8)
[2023-10-08 07:43] LABS: Anion Gap 13 (12-20); Blood Urea Nitrogen 8 mg/dL (9-16); Calcium 9.3 mg/dL (8.4-10.2); Carbon Dioxide 25 mmol/L (22-29); Chloride 107 mmol/L (96-108); Estimated Glomerular Filt Rate > 60; Glucose Random 69 mg/dL (60-115); Potassium 3.8 mmol/L (3.3-5.1); Sodium 141 mmol/L (135-145)
== END 2023-10-08 07:03 | disposition home or self-care (01) ==
LOC: HO.MMNH2L 07:02
PROVIDERS: Visit Provider Family Medicine
DX: R27.8 Other lack of coordination (principal); K52.89 Other specified noninfective gastroenteritis and colitis
CPT/HCPCS: 36415; 80048; 85025

== ENCOUNTER 2023-11-12 06:13 | Outpatient (REF) | payer MEDICARE, SELFPAY ==
[2023-11-12 06:00] LABS: MANUAL DIFF FLAG NO
[2023-11-12 06:44] LABS: Anion Gap 12 (12-20); Blood Urea Nitrogen 9 mg/dL (9-16); Calcium 8.6 mg/dL (8.4-10.2); Carbon Dioxide 28 mmol/L (22-29); Chloride 103 mmol/L (96-108); Estimated Glomerular Filt Rate > 60; Glucose Random 81 mg/dL (60-115); Potassium 3.6 mmol/L (3.3-5.1); Sodium 139 mmol/L (135-145)
[2023-11-12 07:08] LABS: Basophils Percent Auto 0.3 % (0-2); Eosinophils Absolute Auto 0.1 X10*3/uL (0.0-0.4); Eosinophils Percent Auto 1.5 % (0-4); Hematocrit 39.9 % (37.0-47.0); Hemoglobin 13.1 g/dl (12.0-16.0); Imm Gran Abs Auto 0.03 X10*3/uL (0.00-0.03); Imm Gran Pct Auto 0.5 % (0.0-0.4); Lymphocytes Absolute Auto 2.3 X10*3/uL (1.2-4.9); Lymphocytes Percent Auto 37.6 % (20-40); Mean Corpuscular HGB Conc 32.8 g/dl (31.0-35.0); Mean Corpuscular Hemoglobin 30.9 pg (27.0-33.0); Mean Corpuscular Volume 94.1 fL (80.0-98.0); Mean Platelet Volume 9.1 fL (9.4-12.3); Monocytes Absolute Auto 0.7 X10*3/uL (0.1-1.2); Monocytes Percent Auto 12.1 % (2-11); Platelet Count 253 X10*3/uL (160-400); Red Blood Count 4.24 X10*6/uL (4.20-5.50); Red Cell Distribution Width 13.2 % (11.0-16.0); White Blood Count 6.1 X10*3/uL (4.8-10.8)
== END 2023-11-12 06:14 | disposition home or self-care (01) ==
LOC: HO.MMNH2L 06:13
PROVIDERS: Visit Provider Family Medicine
DX: R27.8 Other lack of coordination (principal); K52.89 Other specified noninfective gastroenteritis and colitis
CPT/HCPCS: 36415; 80048; 85025

== ENCOUNTER 2023-12-11 06:43 | Outpatient (REF) | payer MEDICARE, SELFPAY ==
[2023-12-11 05:53] LABS: MANUAL DIFF FLAG NO
[2023-12-11 06:32] LABS: Basophils Percent Auto 0.2 % (0-2); Eosinophils Absolute Auto 0.1 X10*3/uL (0.0-0.4); Hematocrit 38.2 % (37.0-47.0); Hemoglobin 12.2 g/dl (12.0-16.0); Imm Gran Abs Auto 0.02 X10*3/uL (0.00-0.03); Imm Gran Pct Auto 0.3 % (0.0-0.4); Lymphocytes Absolute Auto 2.3 X10*3/uL (1.2-4.9); Lymphocytes Percent Auto 37.6 % (20-40); Mean Corpuscular HGB Conc 31.9 g/dl (31.0-35.0); Mean Corpuscular Hemoglobin 30.7 pg (27.0-33.0); Mean Corpuscular Volume 96.2 fL (80.0-98.0); Mean Platelet Volume 8.8 fL (9.4-12.3); Monocytes Absolute Auto 0.8 X10*3/uL (0.1-1.2); Monocytes Percent Auto 13.4 % (2-11); Neutrophils Absolute Auto 2.9 x10*3/uL (2.0-8.3); Neutrophils Percent Auto 46.5 % (45-73); Platelet Count 277 X10*3/uL (160-400); Red Blood Count 3.97 X10*6/uL (4.20-5.50); Red Cell Distribution Width 13.2 % (11.0-16.0); White Blood Count 6.1 X10*3/uL (4.8-10.8)
[2023-12-11 07:15] LABS: Alanine Aminotransferase 13 U/L (0-31); Albumin Level 3.3 g/dL (3.5-5.0); Alkaline Phosphatase 42 U/L (39-117); Anion Gap 11 (12-20); Aspartate Amino Transferase 14 U/L (5-31); Blood Urea Nitrogen 9 mg/dL (9-16); Calcium 8.4 mg/dL (8.4-10.2); Carbon Dioxide 26 mmol/L (22-29); Chloride 108 mmol/L (96-108); Estimated Glomerular Filt Rate > 60; Glucose Random 80 mg/dL (60-115); Potassium 3.5 mmol/L (3.3-5.1); Sodium 141 mmol/L (135-145); Total Protein 5.5 g/dL (6.5-8.0)
[2023-12-11 07:31] LABS: Bilirubin Total 0.4 mg/dL (0.0-1.0)
== END 2023-12-11 06:44 | disposition home or self-care (01) ==
LOC: HO.MMNH2L 06:43
PROVIDERS: Visit Provider Hospitalist
DX: R27.8 Other lack of coordination (principal); K52.89 Other specified noninfective gastroenteritis and colitis
CPT/HCPCS: 36415; 80053; 85025

== ENCOUNTER 2023-12-17 05:57 | Outpatient (REF) | payer MEDICARE, SELFPAY ==
[2023-12-17 06:00] LABS: MANUAL DIFF FLAG NO
[2023-12-17 06:54] LABS: Anion Gap 12 (12-20); Basophils Percent Auto 0.3 % (0-2); Blood Urea Nitrogen 7 mg/dL (9-16); Carbon Dioxide 29 mmol/L (22-29); Chloride 106 mmol/L (96-108); Eosinophils Absolute Auto 0.1 X10*3/uL (0.0-0.4); Eosinophils Percent Auto 1.5 % (0-4); Estimated Glomerular Filt Rate > 60; Glucose Random 84 mg/dL (60-115); Hematocrit 40.2 % (37.0-47.0); Imm Gran Abs Auto 0.02 X10*3/uL (0.00-0.03); Imm Gran Pct Auto 0.3 % (0.0-0.4); Lymphocytes Absolute Auto 2.2 X10*3/uL (1.2-4.9); Mean Corpuscular HGB Conc 32.3 g/dl (31.0-35.0); Mean Corpuscular Hemoglobin 30.5 pg (27.0-33.0); Mean Corpuscular Volume 94.4 fL (80.0-98.0); Mean Platelet Volume 9.1 fL (9.4-12.3); Monocytes Absolute Auto 0.7 X10*3/uL (0.1-1.2); Monocytes Percent Auto 11.1 % (2-11); Neutrophils Absolute Auto 2.9 x10*3/uL (2.0-8.3); Neutrophils Percent Auto 49.8 % (45-73); Platelet Count 274 X10*3/uL (160-400); Potassium 3.8 mmol/L (3.3-5.1); Red Blood Count 4.26 X10*6/uL (4.20-5.50); Red Cell Distribution Width 13.2 % (11.0-16.0); Sodium 143 mmol/L (135-145); White Blood Count 5.8 X10*3/uL (4.8-10.8)
[2023-12-17 07:31] LABS: B Type Natriuretic Peptide 23 pg/mL (<100)
== END 2023-12-17 05:58 | disposition home or self-care (01) ==
LOC: HO.MMNH3L 05:57
PROVIDERS: Visit Provider Family Medicine
DX: I10 Essential (primary) hypertension (principal)
CPT/HCPCS: 36415; 80048; 83880; 85025

== ENCOUNTER 2024-01-14 06:38 | Outpatient (REF) | payer MEDICARE, SELFPAY ==
[2024-01-14 06:14] LABS: MANUAL DIFF FLAG NO
[2024-01-14 07:00] LABS: Basophils Percent Auto 0.3 % (0-2); Eosinophils Absolute Auto 0.1 X10*3/uL (0.0-0.4); Eosinophils Percent Auto 1.7 % (0-4); Hematocrit 39.2 % (37.0-47.0); Hemoglobin 12.7 g/dl (12.0-16.0); Imm Gran Abs Auto 0.02 X10*3/uL (0.00-0.03); Imm Gran Pct Auto 0.3 % (0.0-0.4); Lymphocytes Absolute Auto 2.5 X10*3/uL (1.2-4.9); Lymphocytes Percent Auto 38.7 % (20-40); Mean Corpuscular HGB Conc 32.4 g/dl (31.0-35.0); Mean Corpuscular Hemoglobin 30.6 pg (27.0-33.0); Mean Corpuscular Volume 94.5 fL (80.0-98.0); Mean Platelet Volume 8.9 fL (9.4-12.3); Monocytes Absolute Auto 0.6 X10*3/uL (0.1-1.2); Monocytes Percent Auto 9.6 % (2-11); Neutrophils Absolute Auto 3.2 x10*3/uL (2.0-8.3); Neutrophils Percent Auto 49.4 % (45-73); Platelet Count 255 X10*3/uL (160-400); Red Blood Count 4.15 X10*6/uL (4.20-5.50); Red Cell Distribution Width 13.2 % (11.0-16.0); White Blood Count 6.6 X10*3/uL (4.8-10.8)
[2024-01-14 07:25] LABS: Anion Gap 9 (12-20); Blood Urea Nitrogen 8 mg/dL (9-16); Calcium 8.6 mg/dL (8.4-10.2); Carbon Dioxide 27 mmol/L (22-29); Chloride 107 mmol/L (96-108); Estimated Glomerular Filt Rate > 60; Glucose Random 76 mg/dL (60-115); Potassium 3.5 mmol/L (3.3-5.1); Sodium 139 mmol/L (135-145)
== END 2024-01-14 06:39 | disposition home or self-care (01) ==
LOC: HO.MMNH3L 06:38
PROVIDERS: Visit Provider Family Medicine
DX: R27.8 Other lack of coordination (principal); K52.89 Other specified noninfective gastroenteritis and colitis
CPT/HCPCS: 36415; 80048; 85025

== ENCOUNTER 2024-02-11 06:20 | Outpatient (REF) | payer MEDICARE, SELFPAY ==
[2024-02-11 06:00] LABS: MANUAL DIFF FLAG NO
[2024-02-11 07:06] LABS: Basophils Percent Auto 0.3 % (0-2); Eosinophils Absolute Auto 0.1 X10*3/uL (0.0-0.4); Eosinophils Percent Auto 2.1 % (0-4); Hematocrit 41.1 % (37.0-47.0); Hemoglobin 13.3 g/dl (12.0-16.0); Imm Gran Abs Auto 0.01 X10*3/uL (0.00-0.03); Imm Gran Pct Auto 0.2 % (0.0-0.4); Lymphocytes Absolute Auto 2.4 X10*3/uL (1.2-4.9); Lymphocytes Percent Auto 38.6 % (20-40); Mean Corpuscular HGB Conc 32.4 g/dl (31.0-35.0); Mean Corpuscular Hemoglobin 30.6 pg (27.0-33.0); Mean Corpuscular Volume 94.7 fL (80.0-98.0); Mean Platelet Volume 10.1 fL (9.4-12.3); Monocytes Absolute Auto 0.8 X10*3/uL (0.1-1.2); Monocytes Percent Auto 11.9 % (2-11); Neutrophils Percent Auto 46.9 % (45-73); Platelet Count 268 X10*3/uL (160-400); Red Blood Count 4.34 X10*6/uL (4.20-5.50); Red Cell Distribution Width 13.5 % (11.0-16.0); White Blood Count 6.3 X10*3/uL (4.8-10.8)
== END 2024-02-11 06:21 | disposition home or self-care (01) ==
LOC: HO.MMNH2L 06:20
PROVIDERS: Visit Provider Family Medicine
DX: R27.8 Other lack of coordination (principal)
CPT/HCPCS: 36415; 80053; 85025

== ENCOUNTER 2024-03-10 06:30 | Outpatient (REF) | payer MEDICARE, SELFPAY ==
[2024-03-10 06:19] LABS: MANUAL DIFF FLAG NO
[2024-03-10 06:28] LABS: Basophils Percent Auto 0.3 % (0-2); Eosinophils Absolute Auto 0.1 X10*3/uL (0.0-0.4); Eosinophils Percent Auto 1.3 % (0-4); Hematocrit 42.2 % (37.0-47.0); Hemoglobin 13.8 g/dl (12.0-16.0); Imm Gran Abs Auto 0.02 X10*3/uL (0.00-0.03); Imm Gran Pct Auto 0.3 % (0.0-0.4); Lymphocytes Absolute Auto 1.7 X10*3/uL (1.2-4.9); Lymphocytes Percent Auto 28.4 % (20-40); Mean Corpuscular HGB Conc 32.7 g/dl (31.0-35.0); Mean Corpuscular Hemoglobin 30.5 pg (27.0-33.0); Mean Corpuscular Volume 93.4 fL (80.0-98.0); Monocytes Absolute Auto 0.6 X10*3/uL (0.1-1.2); Monocytes Percent Auto 10.4 % (2-11); Neutrophils Absolute Auto 3.6 x10*3/uL (2.0-8.3); Neutrophils Percent Auto 59.3 % (45-73); Platelet Count 261 X10*3/uL (160-400); Red Blood Count 4.52 X10*6/uL (4.20-5.50); Red Cell Distribution Width 13.7 % (11.0-16.0); White Blood Count 6.1 X10*3/uL (4.8-10.8)
[2024-03-10 06:46] LABS: Alanine Aminotransferase 19 U/L (0-31); Albumin Level 3.6 g/dL (3.5-5.0); Alkaline Phosphatase 47 U/L (39-117); Anion Gap 10 (12-20); Aspartate Amino Transferase 18 U/L (5-31); Bilirubin Total 0.5 mg/dL (0.0-1.0); Blood Urea Nitrogen 9 mg/dL (9-16); Calcium 8.6 mg/dL (8.4-10.2); Carbon Dioxide 26 mmol/L (22-29); Chloride 108 mmol/L (96-108); Estimated Glomerular Filt Rate > 60; Glucose Random 85 mg/dL (60-115); Potassium 3.7 mmol/L (3.3-5.1); Sodium 140 mmol/L (135-145); Total Protein 6.1 g/dL (6.5-8.0)
== END 2024-03-10 06:31 | disposition home or self-care (01) ==
LOC: HO.MMNH2L 06:30
PROVIDERS: Visit Provider Family Medicine
DX: R27.8 Other lack of coordination (principal); K52.89 Other specified noninfective gastroenteritis and colitis
CPT/HCPCS: 36415; 80053; 85025

== ENCOUNTER 2024-04-14 06:19 | Outpatient (REF) | payer MEDICARE, SELFPAY ==
[2024-04-14 06:03] LABS: MANUAL DIFF FLAG NO
[2024-04-14 06:44] LABS: Basophils Percent Auto 0.4 % (0-2); Eosinophils Absolute Auto 0.2 X10*3/uL (0.0-0.4); Eosinophils Percent Auto 2.5 % (0-4); Hematocrit 42.6 % (37.0-47.0); Imm Gran Abs Auto 0.02 X10*3/uL (0.00-0.03); Imm Gran Pct Auto 0.3 % (0.0-0.4); Lymphocytes Absolute Auto 2.2 X10*3/uL (1.2-4.9); Lymphocytes Percent Auto 33.4 % (20-40); Mean Corpuscular HGB Conc 32.9 g/dl (31.0-35.0); Mean Corpuscular Hemoglobin 30.6 pg (27.0-33.0); Monocytes Absolute Auto 0.6 X10*3/uL (0.1-1.2); Monocytes Percent Auto 8.8 % (2-11); Neutrophils Absolute Auto 3.6 x10*3/uL (2.0-8.3); Neutrophils Percent Auto 54.6 % (45-73); Platelet Count 264 X10*3/uL (160-400); Red Blood Count 4.58 X10*6/uL (4.20-5.50); Red Cell Distribution Width 13.7 % (11.0-16.0); White Blood Count 6.7 X10*3/uL (4.8-10.8)
[2024-04-14 06:51] LABS: Alanine Aminotransferase 17 U/L (0-31); Albumin Level 3.5 g/dL (3.5-5.0); Alkaline Phosphatase 46 U/L (39-117); Anion Gap 13 (12-20); Aspartate Amino Transferase 19 U/L (5-31); Bilirubin Total 0.4 mg/dL (0.0-1.0); Blood Urea Nitrogen 10 mg/dL (9-16); Calcium 8.8 mg/dL (8.4-10.2); Carbon Dioxide 24 mmol/L (22-29); Chloride 108 mmol/L (96-108); Estimated Glomerular Filt Rate > 60; Glucose Random 78 mg/dL (60-115); Potassium 3.4 mmol/L (3.3-5.1); Sodium 142 mmol/L (135-145); Total Protein 6.1 g/dL (6.5-8.0)
== END 2024-04-14 06:20 | disposition home or self-care (01) ==
LOC: HO.MMNH2L 06:19
PROVIDERS: Visit Provider Family Medicine
DX: R27.8 Other lack of coordination (principal); K52.89 Other specified noninfective gastroenteritis and colitis
CPT/HCPCS: 36415; 80053; 85025

== ENCOUNTER 2024-05-12 06:14 | Outpatient (REF) | payer MEDICARE, SELFPAY ==
[2024-05-12 06:04] LABS: MANUAL DIFF FLAG NO
--- OUTSIDE RECORDS SUMMARY | 2024-05-12 06:16 | XMS_ITS | Clinical Summary ---
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 Better to avoid if possible. Penicillins 01/12/2006 years ago doesn't remember reaction Medications Medication Sig Dispensed Refills Start Date End Date Status donepeziL (ARICEPT) 10 mg tablet TAKE 1 TABLET BY MOUTH AT BEDTIME 10/12/2022 Active QUEtiapine (SEROquel) 25 mg tablet Take 2 Tablets by mouth at bedtime. 09/18/2022 Active diclofenac (VOLTAREN) 1 % topical gel Apply 1 Dose topically 2 times daily. 09/27/2021 Active gabapentin (NEURONTIN) 300 mg capsule Take 1 Capsule by mouth at bedtime. 07/26/2021 Active mometasone (ELOCON) 0.1 % topical solution Apply to scalp hs prn 07/13/2021 Active Lactobac no.41/Bifidobact no.7 (PROBIOTIC-10 ORAL) Take by mouth. A ctive fluticasone (VERAMYST) 27.5 mcg/actuation nasal spray 2 Sprays by Nasal route daily. Active brimonidine-timoloL (Combigan) 0.2-0.5 % ophthalmic solution INSTILL 1 DROP IN BOTH EYES TWICE DAILY DIRECTED 04/13/2021 Active melatonin 3 mg tablet Take 1 tablet by mouth daily as needed (insomnia). 06/07/2021 Active loratadine (CLARITIN) 10 mg tablet TAKE 1 TABLET BY MOUTH DAILY 04/20/2021 Active travoprost (TRAVATAN Z) 0.004 % drops apply to the eye. 04/26/2017 A ctive propylene glycol/peg 400/PF (SYSTANE, PF, OPHT) apply 1 Drop to the eye daily as needed. Active OMEGA-3 FATTY ACIDS ORAL Take by mouth daily. Active LATANOPROST OPHT apply to the eye. A ctive simethicone (MYLICON,GAS-X) 125 mg capsule Take 2 Caps by mouth daily as needed. Active multivit-min/ferrous fumarate (MULTI VITAMIN ORAL) 1 daily Active calcium carbonate-vitamin D3 600 mg-5 mcg (200 unit) per tablet 1 Tab 2 times daily. Active Active Problems Problem Noted Date Diagnosed Date Syncope 10/16/2022 Overview (04/30/2024): 09/29. hosp eval neg. Loop monitor returned unused. Moderate dementia without be havioral disturbance, psychotic disturbance, mood disturbance, or anxiety 04/20/2022 Elevated WBC count 02/06/2022 Overview (04/30/2024): 01/28 Elevated cholesterol 08/02/2015 Wheezing 07/31/2014 Overview (04/30/2024): occ with uri. ?mild underlying asthma Chest pain 07/17/2011 Overview (04/30/2024): 07/19---Mibi normal Irritable bowel 02/13/2011 Overview (04/30/2024): Normal EGD 08/18 Insomnia 08/12/2007 Allergic rhinitis 01/12/2006 Immunizations Name Administration Dates Next Due H1N1 Inj Preservative Free 04/23/2009 Influenza trivalent, 0.5mL ( Fluad) 65yo and older 01/10/2016,01/11/2015 Influenza trivalent, 0.5mL, preservative free (Fluarix; FluLaval; Fluzone) ages 6mo and older (Afluria) 3 years and older 01/08/2017,01/14/2014,12/26/2012,12/13,01/26/2011,01/24/2010,12/30/2008 ,01/16/2008,01/18/2007,02/12/2006,02/07 Influenza, Unspecified 02/20/2021,01/08/2017 Moderna SARS-CoV-2 COVID-19, mRNA, LNP-S, preservative free 02/11/2021 Pneumococcal conjugate 13 va lent (Prevnar 13, PCV13) 2mo and older 02/10/2015 Pneumococcal polysaccharide 23 valent (Pneumovax 23) 2yo and older 03/07/2010 Td Tetanus diptheria (Tdvax) 7yo and older 01/18/2007 Tdap Tetanus diptheria acell ular pertussis (Boostrix; Adacel) 7yo and older 07/11/2016 Varicella live (Varivax) 12m o and older 07/09/2013,03/31/2013 Surgical History Surgery Date Site/Laterality Comments ESOPHAGOGASTRODUODENOSCOPY 08/29/11 PROCEDURE: [place] ESOPHAGOGASTRODUODENOSCOPY TRANSORAL DIAGNOSTIC; COMMENT: normal COLONOSCOPY 2004 PROCEDURE: HISTORICAL COLONOSCOPY; COMMENT: no polyps Medical History Medical History Date Comments Insomnia, unspecified 01/12/2006 DX:Insomni a, unspecified Jaw dislocation 08/12/2007 DX:Jaw dislocati on; COMMENT: , surgery lt. side Allergic rhinitis 01/12/2006 DX:Allergic rh initis Irritable bowel 02/13/2011 DX:Irritable bow el; COMMENT: Normal EGD 08/18 Atrophic vaginitis 07/07/2009 DX:Atrophic v aginitis Anxiety state DX:Anxiety state Depressive disorder DX:Depressiv e disorder Family History Medical History Relation Name Comments Other cancer Father stomach Heart attack Mother Hypertension Mother Hypertension Son 1 Asthma Son 2 Relation Name Status Comments Brother Alive Father Maternal Grandfather Maternal Grandmother Mother Alive Paternal Grandfather Paternal Grandmother Son 1 Son 2 Social History Tobacco Use Types Packs/Day Years Used Date Smoking Tobacco: Never Smokeless Tobacco: Never Alcohol Use Standard Drinks/Week Comments Not Currently 0 (1 standard drink = 0.6 oz pur e alcohol) Sex and Gender Information Value Date Recorded Sex Assigned at Not on file Gender Identity Not on file Sexual Orientation Not on file Obstetrics History Last Filed Vital Signs Vital Sign Reading Time Taken Comments Blood Pressure 135/85 10/03/2022 11:02 AM EDT Pulse 94 10/03/2022 11:02 AM EDT Temperature - - Respiratory Rate - - Oxygen Saturation - - Inhaled Oxygen Concentration - - Weight 67.4 kg (148 lb 9.6 oz) 10/03/2022 11:02 AM EDT Height 154.9 cm (5' 1 ) 10/03/2022 11:02 AM EDT Body Mass Index 28.08 10/03/2022 11:02 AM EDT Plan of Treatment Health Maintenance Due Date Last Done Comments Zoster Vaccines (1 of 2) 09/03/2013 07/09/2013, 03/10 RSV Immunization Patients 60+ Years Old (1 - 1-dose 75+ series) 2013 Depression Screening 03/12/2022 Falls Risk Assessment 03/12/2022 Medicare Annual Wellness Visit 03/12/2022 Social Influencers of Health Screening 03/12/2022 Hypertension/CHF/CAD Annual BMP Blood Test 07/11/2023 02/01/2022 COVID-19 Vaccine ( season) 2023 02/11/2021, 06/16/2020, 05/12/2020 Influenza Vaccine (#1) 2023 , 03/25/2021, 02/20/2021, Additional history exists Cholesterol Screening (Lipid Panel) 01/26/2026 01/26/2021 DTaP,Tdap,and Td Vaccines (3 - Td or Tdap) 07/11/2026 07/11/2016, 01/18/2007 Osteoporosis Screening (Bone Density Screening) 09/02/2030 09/02/2020, 07/30/2017 Varicella Vaccines Aged Out 07/09/2013, 03/31/2013 No longer eligible based on patient's age to complete this topic Pneumococcal Vaccine: 65+ Years Completed 02/10/2015, 03/07/2010 HIB Vaccines Aged Out No longer eligi ble based on patient's age to complete this topic HPV Vaccines Aged Out No longer eligi ble based on patient's age to complete this topic Hepatitis A Vaccines Aged Out No long er eligible based on patient's age to complete this topic Hepatitis B Vaccines Aged Out No long er eligible based on patient's age to complete this topic IPV Vaccines Aged Out No longer eligi ble based on patient's age to complete this topic MMR Vaccines Aged Out No longer eligi ble based on patient's age to complete this topic Meningococcal ACWY Vaccine Aged Out N o longer eligible based on patient's age to complete this topic RSV Immunization Patients Under 20 months Aged Out No longer eligible based on patient's age to complete this topic Procedures Procedure Name Priority Date/Time Associated Diagnosis Comments ANNUAL BMP BLOOD TEST Routine 02/01/2022 LIPID PANEL Routine 01/26/2021 DXA BONE DENSITY STUDY 1+ SITS AXIAL SKEL Routine 09/02/2020 2:47 PM EDT Encounter for screening for osteoporosis from Last 3 Months or Most Recently Relevant to Health Maintenance Results * Annual BMP Blood Test (02/01/2022) [facility] Annual BMP Blood Test abstracted Historical Provider MD CHIRAG JHA E * (ABNORMAL) Lipid panel (01/26/2021) [facility] LDL/HDL Ratio 2 0 - 4 Triglycerides 120 0 - 150 mg/dL Cholesterol 208(A) 0 - 200 mg/dL HDL 102 40 mg/dL LDL Cholesterol 82 0 - 100 mg/dL Blood Venous blood specimen / Unknown Historical Provider LAB BLOOD ORDERAB LES * DXA BONE DENSITY STUDY 1+ SITS AXIAL SKEL (09/02/2020 2:47 PM EDT) Anatomical Region Laterality Modality Bone Densitometr y 07/02/2020 1:10 PM EDT Narrative 09/02/2020 4:13 PM EDT BONE DENSITY ? Lumbar Spine T-score is +1.1 ?? (SD relative to 20-29 y/o adult) Z-score is +3.8 ??(SD relative to age matched peers) This is normal by criteria defined by the WHO. Left Hip T-score is -1.2 Z-score is +1.2 This is consistent with osteopenia by criteria defined by the WHO. Comparison exam(s): no statistically significant change in the bone density of the hip when compared to most recent bone density examination ?? Confidence level is +/-95%. Impression: Based on the World Health Organization criteria, Deann Eduardo should be classified as having osteopenia. This patient has a 21% risk of major osteoporotic fracture and a 11% risk of hip fracture over the next 10 years. (World Health Organization Fracture Risk Assessment) [facility] Department of Internal Medicine recommends using National Osteoporosis Foundation (NOF) guidelines in treatment decisions related to osteoporosis. NOF guidelines suggest considering treatment for postmenopausal women and men aged 50 or older presenting with the following: History of hip or vertebral fracture. T-score less than or equal to -2.5 (DXA) at the femoral neck, total hip, or spine, after appropriate evaluation to exclude secondary causes. Low bone mass (T-score between -1.0 and -2.5 at the femoral neck or spine) AND a 10-year probability of a hip fracture greater than or equal to 3% OR a 10-year probability of a major osteoporosis-related fracture greater than or equal to 20% based on the [place]-adapted WHO algorithm Please note that all treatment decisions require clinical judgment and consideration of individual patient factors, including patient preferences, co-morbidities, previous drug use, risk factors not captured in the FRAX model (e.g., frailty, falls, vitamin D deficiency, increased bone turnover, interval significant decline in bone density) and possible under- or over-estimation of fracture risk by FRAX. Procedure Note Haja Jeter MD - 03/28/2022 BONE DENSITY Lumbar Spine T-score is +1.1 (SD relative to 20-29 y/o adult) Z-score is +3.8 (SD relative to age matched peers) This is normal by criteria defined by the WHO. Left Hip T-score is -1.2 Z-score is +1.2 This is consistent with osteopenia by criteria defined by the WHO. Comparison exam(s): no statistically significant change in the bonedensity of the hip when compared to most recent bone density examination Confidence level is +/-95%. Impression: Based on the World Health Organization criteria, Deann Coeould be classified as having osteopenia. This patient has a 21% risk ofmajor osteoporotic fracture and a 11% risk of hip fracture over the next10 years. (World Health Organization Fracture Risk Assessment) [facility] Department of Internal Medicine recommendsusing National Osteoporosis Foundation (NOF) guidelines in treatmentdecisions related to osteoporosis. NOF guidelines suggest consideringtreatment for postmenopausal women and men aged 50 or older presentingwith the following: History of hip or vertebral fracture. T-score less than or equal to -2.5 (DXA) at the femoral neck, total hip,or spine, after appropriate evaluation to exclude secondary causes. Low bone mass (T-score between -1.0 and -2.5 at the femoral neck or spine)AND a 10-year probability of a hip fracture greater than or equal to 3% ORa 10-year probability of a major osteoporosis-related fracture greaterthan or equal to 20% based on the [place]-adapted WHO algorithm Please note that all treatment decisions require clinical judgment andconsideration of individual patient factors, including patientpreferences, co-morbidities, previous drug use, risk factors not capturedin the FRAX model (e.g., frailty, falls, vitamin D deficiency, increasedbone turnover, interval significant decline in bone density) and possibleunder- or over-estimation of fracture risk by FRAX. C Al Mccormack MD IMG DXA PROCEDURES from Last 3 Months or Most Recently Relevant to Health Maintenance Care Teams Handhole Machine Operator Relationship Specialty Start Date End Date Melchor Mccormack MD [address] [place] [id number] PCP - General 05/21/10
--- OUTSIDE RECORDS SUMMARY | 2024-05-12 06:16 | XMS_ITS | Data Portability ---
Author Organization [facility] [employer] [facility], Main Office Address 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 Role Phone CHRIS GARCIA Primary Care Provider [phone] RODERICK RASTA 3RD FLOOR OTHER [phone] Assessment Encounter Date Assessment Date Assessment LastModified by Organization Details LastModified Time 10/26/2023 10/26/2023 Spent 30 reviewing records, seeing pt, consulting with staff and documenting [email or web address] Not available 10/26/2023 12:34:28 12/19/2023 12/19/2023 Labs 12/16: Na 143-K 3.8-Bun 7-cr 0.7-wbc 5.8-hgb 13-hct 40.2-plt 274 Not available 12/23/2023 22:53:26 02/14/2024 02/14/2024 Labs 12/16: Na 143-K 3.8-Bun 7-cr 0.7-wbc 5.8-hgb 13-hct 40.2-plt 274 Not available 02/18/2024 11:21:33 Plan of Treatment Reminders Order Date Submit Date Provider Last Modified By Organization Details Last Modified Time Details Appointments None record ed. Lab None record ed. Referral None record ed. Procedures None record ed. Surgeries None record ed. Imaging None record ed. Medication Orders None record ed. Patient TargetsNo targets recorded. Patient InstructionsNo instructions recorded. Reason for Referral None Reported. Problems Name Problem SNOMED Code Status Onset Date Resolution Date Notes Provider Name and Address Organization Details Recorded Time Dementia 99287742 Active 2022 DMITRIY LEBRON NP [address] [facility], [address], [place], [address], [facility] 12:17:21 Retention of urine 840371003 Active 2022 DMITRIY LEBRON, [employer] [address], [address], [place], [address], [facility] 3 12:17:26 Constipatio n 04074193 Active 2022 DMITRIY LEBRON, [employer] [address], [address], [place], [address], [facility] 3 12:17:32 Glaucoma 96604586 Active 2022 DMITRIY LEBRON, [employer] [address], [address], [place], [address], [facility] 3 12:17:39 Falls 833624152 Active 2022 DMITRIY LEBRON, [employer] [address], [address], [place], [address], [facility] 3 12:19:11 History of syncope 5694536917522 09 Active 2022 DMITRIY LEBRON, [employer] [address], [address], [place], [address], [facility] 3 12:19:19 Chronic migraine without aura 3722500623902 05 Active 2022 DMITRIY LEBRON, [employer] [address], [address], [place], [address], [facility] 3 12:24:31 COVID-19 415417085 Active 2022 DMITRIY LEBRON, [employer] [address] [facility], [address], [place], [address], [facility] 3 13:42:03 Stercoral colitis 871650097 Active 2022 Odalys Barber MD [address], [address], [place], [address], [facility] 3 10:42:17 Glaucoma 34207937 Active 2022 Odalys Barber MD [address], [address], [place], [address], [facility] 3 10:50:01 Acute urinary tract infection 601499930 Active 2022 DMITRIY LEBRON NP [address] [facility], [address], [place], [address], [facility] 3 13:22:34 Recurrent urinary tract infection 281792176 Active 2022 Odalys Barber MD [address], [address], [place], [address], [facility] [employer] [facility] 3 21:21:00 Chronic pain 43872050 Active 2023 Odalys Barber MD [address], [address], [place], [address], [facility] [facility] 4 14:05:27 Indigestion 991012601 Active 2023 KEVIN ESPINOZA [address] [facility], [address], [place], [address], [facility] [employer] [facility] 4 13:47:57 Problem Notes None recorded. Medical Equipment None Reported. Allergies Allergen ID Allergen Name Allergen Category Reaction Reaction Severity Criticality Documentation Date Start Date Code Code System Note Provider Name and Address Organization Details Recorded Time 97575 Product containin g penicilli n and antibioti c (product) medicatio n Not available Not available Not available 11/17/2022 06946 05 SNOMED Not Available Not Available Not Available Medications Name Sig Start Date Stop Date Status Note LastModified by Organization Details LastModified Time Flomax 0.4 mg capsule Take 2 capsules every day by oral route. 2022 active Not Available Not Available Not Avai lable prednisone 10 mg tablet Take 1 tablet every day by oral route. 2022 active Not Available Not Available Not Avai lable lorazepam 0.5 mg tablet take 2 tabs one time only. then take 1 tab every 6 hours prn for 14 days 2023 active Not Available Not Available Not Avai lable amitriptyline 10 mg tablet Take 1 tablet every day by oral route at bedtime. 2022 active Not Available Not Available Not Avai lable Aricept 10 mg tablet Take 1 tablet every day by oral route. 2022 active Not Available Not Available Not Avai lable oxycodone 5 mg tablet Take 1 tablet every 6 hours by oral route as needed. 2022 active Not Available Not Available Not Avai lable Seroquel 50 mg tablet Take 1 tablet every day by oral route at bedtime. 2022 active Not Available Not Available Not Avai lable AZO D-Mannose 500 mg capsule Take 2 capsules twice a day by oral route. 2022 active Not Available Not Available Not Avai lable Vitals Date Recorded Body height Heart rate Systolic blood pressure Diastolic blood pressure Provider Name and Address Organization Details Last Updated DateTime 10/26/2023 157.48 cm 86 /min 138 mm[Hg] 82 mm[Hg] Barbara Anton [address] [facility], [facility] [address], [place], [address] , [facility] 10/26/2023 12:28:05 Date Recorded Body height Body temperature Oxygen saturation Oxygen saturation in Arterial blood by Pulse oximetry Respiratory rate Heart rate Systolic blood pressure Diastolic blood pressure Provider Name and Address Organization Details Last Updated DateTime 4 157.48 cm 97.6 [degF] 94 % 94 % 18 /min 87 /min 124 mm[Hg] 76 mm[Hg] KEVIN ESPINOZA [address] [place] [address], [facility] [address], [place], [address], [facility] 4 19:07:01 Date Recorded Body height Heart rate Respiratory rate Body temperature Oxygen saturation Oxygen saturation in Arterial blood by Pulse oximetry Provider Name and Address Organization Details Last Updated DateTime 4 157.48 cm 80 /min 18 /min 98 [degF] 95 % 95 % KEVIN ESPINOZA [address] [facility], [facility] [address], [place], [address], [facility] 4 22:44:52 Date Recorded Body height Heart rate Respiratory rate Oxygen saturation Oxygen saturation in Arterial blood by Pulse oximetry Systolic blood pressure Diastolic blood pressure Provider Name and Address Organization Details Last Updated DateTime 4 157.48 cm 92 /min 18 /min 96 % 96 % 133 mm[Hg] 72 mm[Hg] KEVIN ESPINOZA [address] [facility], [facility] [address], [place], [address], [facility] 4 11:20:33 Date Recorded Body height Heart rate Respiratory rate Body temperature Oxygen saturation Oxygen saturation in Arterial blood by Pulse oximetry Systolic blood pressure Diastolic blood pressure Provider Name and Address Organization Details Last Updated DateTime 4 157.48 cm 88 /min 18 /min 98 [degF] 97 % 97 % 124 mm[Hg] 72 mm[Hg] KEVIN ESPINOZA [address] [facility], [address], [place], [address], [facility] 5 11:11:16 Social History Question Answer Notes LastModified by Organizat ion Details LastModified Time Tobacco Smoking Status Unknown If Ever Smoked DMITRIY LEBRON NP [address] [facility], [address], [place], [address], [facility] 11/17/2022 11:50:31 Do You Have An Advance Directive? Yes Information not available 11/21/2022 What Is Your Code Status? Full Code [email or web address] Information not available 11/20/2022 Do You Have A Medical Power Of Assignment Manager? Yes HCP Invoked Information not available 11/21/2022 What Was The Date Of Your Most Recent Tobacco Screening? 11/21/2022 Information not available 11/21/2022 Do You Have An Out Of Hospital DNR? No Information not available 11/21/2022 Sex: Unknown Functional Status None recorded. Mental Status None recorded. Family History Nothing Reported Notes:Father: stomach CA Mot her: unknown Medical History No medical history recorded. Gynecological HistoryNo gynecological history recorded. Obstetrics History GPAL:G 0 P 0 0 0 0 Immunizations Vaccine Type Date Status Note Provider Nam e and Address Organization Details Recorded Time Influenza, adjuvanted, quadrivalent, PF 01/09/2023 completed Anjana zimmer, [facility] 04/27/2023 13:03:23 Past Encounters Encounter ID Performer Location Encounter Start Date Encounter Closed Date Diagnosis/Indication Diagnosis SNOMED-CT Code Diagnosis ICD10 Code Diagnosis Note [id number] NAN ALEXANDRA [address] [facility] ROB FERNANDEZ [address] 11/17/2022 10:29:24 11/21/2022 15:53:20 Constipation 41430701 K59.00 miralax dailysenna plus bidmonitio r bm Retention of urine 79754 4002 R33.9 flomax 0.4 mg hsvoiding trial today 11/17monito r urine output Dementia 54309600 F03.90 aricept 10 mg hsseroquel 50 mg hs psych prnAIMS 0 Glaucoma 79559424 H40.9 combigan ou bidrocklat an hs [place] 844777933 R29.6 PT OT eval and treatfall precaution sfrequent safety checks History of syncope 74618 34274 39182 Z86.79 monitor ortho vs prn Chronic mi graine without aura 7581470901 83413 G43.709 prednisone 10 mg dailyamitr iptylline 10 mg hs COVID-19 652514959 U07.1 No symptoms To use paxlovid, dexamethas one, fluids, supplement al O2 prn for sxs. Continue to monitor O2 sats, temp, GI sxs and po intake. [id number] DMITRIY LEBRON NP [facility] [address] [place] [address] 11/20/2022 14:15:54 11/23/2022 11:39:23 COVID-19 019185674 U07.1 monitor congestion paxlovid 150/100 bid for 5 daysTo use paxlovid, dexamethas one, fluids, supplement al O2 prn for sxs.Contin ue to monitor O2 sats, temp, GI sxs and po intake. [id number] Odalys Barber MD [facility] [address] [place] [address] 11/21/2022 13:51:52 11/28/2022 16:22:18 COVID-19 807495492 U07.1 With mild coughConti nue paxlovid 150/100 BID for 5 day courseWill use dexamethas one, fluids, supplement al O2 prn for sxs.Contin ue to monitor O2 sats, temp, GI sxs and po intake. Retention of urine 92573 4002 R33.8 Successful voiding trial on ontin ue tamsulosin 0.4 mg qdMonitor urinary function. Dementia 57547665 F03.90 Continues at baselineCo ntinue aricept 10 mg qhs, seroquel 50 mg qhs and amitriptyl ine 10 mg qhs.Contin ue supportive care, expect decline.HC P invokedMon itor mood and behaviors. Psych consult prn. Glaucoma 65080451 H40.89 Continue combigan ou BID and rocklatan qhsF/U with eye dr as planned. Falls 263431897 R29.6 Very deconditio vane and with balance issuesNeed s PT/OT for strengthen ing, balance, gait training, safety and function.C ontinue fall precaution s.Monitor for safety. History of syncope 11501 60207 27908 Z86.79 Monitor vitals and MS. Chronic mi graine without aura 6946729709 66003 G43.709 No current sxs.Contin ue prednisone 10 mg qd and amitriptyl ine 10 mg qhsMonitor sxs. Stercoral colitis 109059 001 K52.89 Resolved.C ontinue bowel meds as ordered.Mo nitor bowel function. [id number] NAN ALEXANDRA RASTA [address] [place] [address] 11/22/2022 13:40:59 11/29/2022 08:17:42 COVID-19 797208918 U07.1 monitor congestion paxlovid 150/100 bid for 5 days to 11/25To use paxlovid, dexamethas one, fluids, supplement al O2 prn for sxs.Contin ue to monitor O2 sats, temp, GI sxs and po intake. [id number] DMITRIY LEBRON NP [facility] [address] [place] [address] 12/04/2022 13:19:24 12/06/2022 13:36:36 Dementia 71774080 F03.90 aricept 10 mg hsseroquel 50 mg hspsych prnAIMS 0did not tolerate slums COVID-19 690599185 U07.1 recoveredm onitor congestion paxlovid 150/100 bid for 5 days to 11/25To use paxlovid, dexamethas one, fluids, supplement al O2 prn for sxs.Contin ue to monitor O2 sats, temp, GI sxs and po intake. Acute urin marcie tract infection 283830157 N39.0 macrobid 100 mg bid for 7 days [id number] DMITRIY LEBRON NP [address] [address] 12/13/2022 11:22:57 12/15/2022 15:54:33 Retention of urine 987564487 R33.8 flomax 0.4 mg hsvoiding trial today 11/17-fail d, cath restartedm onitor urine outputurol ogy consult [place] 717106949 R29.6 PT OT eval and treatfall precaution sfrequent safety checks Dementia 39888902 F03.90 aricept 10 mg hsseroquel 50 mg hspsych prnAIMS 0did not tolerate slums [id number] DMITRIY LEBRON NP [address] [address] 12/20/2022 10:10:14 12/22/2022 11:38:53 Constipation 23237436 K59.00 miralax dailysenna plus bidmonitio r bm Retention of urine 09033 4002 R33.9 flomax 0.4 mg hs-increas ed to 0.8 mg hsvoiding trial today 11/17-fail d, will try again 12/21monito r urine outputurol ogy consult Dementia 88535486 F03.90 aricept 10 mg hsseroquel 50 mg hspsych prnAIMS 0 Glaucoma 58257840 H40.9 combigan ou bidrocklat an hs [place] 354941007 R29.6 PT OT eval and treatfall precaution sfrequent safety checks History of syncope 39384 49681 34282 Z86.79 monitor ortho vs prn Chronic mi graine without aura 9109723843 85473 G43.709 prednisone 10 mg dailyamitr iptylline 10 mg hs COVID-19 941513046 U07.1 No symptoms-r ecovered by dateTo use paxlovid, dexamethas one, fluids, supplement al O2 prn for sxs.Contin ue to monitor O2 sats, temp, GI sxs and po intake. [id number] DMITRIY LEBRON NP [address] [address] 12/28/2022 14:59:22 01/02/2023 15:51:32 Retention of urine 541157152 R33.9 flomax 0.4 mg hs-increas ed to 0.8 mg hsvoiding trial today 11/17-faile d, will try again 12/21-faile d againmonit or urine outputurol ogy consult [id number] DMITRIY LEBRON NP [address] [place] [address] 01/03/2023 13:43:31 01/09/2023 11:51:30 Dementia 60725202 F03.90 aricept 10 mg hsseroquel 50 mg hspsych prnAIMS 0 Retention of urine 02561 4002 R33.9 flomax 0.8 mg hsvoiding trial today 11/17-faile d, will try again 12/21-faile d againmonit or urine outputurol ogy consult Constipation 71780353 K5 9.00 miralax dailysenna plus bidmonitio r bm Glaucoma 15155432 H40.9 combigan ou bidrocklat an hs [place] 571608604 R29.6 PT OT eval and treatfall precaution sfrequent safety checks History of syncope 51239 20844 73305 Z86.79 monitor ortho vs prn Chronic mi graine without aura 9189620499 81440 G43.709 prednisone 10 mg dailyamitr iptylline 10 mg hs COVID-19 327251916 U07.1 recoveredN o symptomsTo use paxlovid, dexamethas one, fluids, supplement al O2 prn for sxs.Contin ue to monitor O2 sats, temp, GI sxs and po intake. [id number] DMITRIY LEBRON NP [address] [place] [address] 01/08/2023 16:14:21 01/12/2023 13:04:50 Dementia 23832017 F03.90 aricept 10 mg hsseroquel 50 mg hspsych prnAIMS 0 Retention of urine 58464 4002 R33.9 flomax 0.8 mg hsvoiding trial today 11/17-faile d, will try again 9/14-faile d againmonit or urine outputurol ogy consult 01/10 Constipation 32195806 K5 9.00 miralax dailysenna plus bidmonitio r bm Glaucoma 07708872 H40.9 combigan ou bidrocklat an hs [place] 673652173 R29.6 PT OT eval and treatfall precaution sfrequent safety checks History of syncope 18213 96188 19295 Z86.79 monitor ortho vs prn Chronic mi graine without aura 6922251449 85590 G43.709 prednisone 10 mg dailyamitr iptylline 10 mg hs COVID-19 010129478 U07.1 recoveredN o symptomsTo use paxlovid, dexamethas one, fluids, supplement al O2 prn for sxs.Contin ue to monitor O2 sats, temp, GI sxs and po intake. [id number] Odalys Barber MD [address] [place] [address] 02/09/2023 20:19:12 02/23/2023 13:46:06 Dementia 00130462 F02.B0 Continues at baselineCo ntinue aricept 10 mg qhs, seroquel 50 mg qhs and amitriptyl ine 10 mg qhs.Contin ue supportive care, expect decline.HC P invokedMon itor mood and behaviors. Psych consult prn. Retention of urine 72914 4002 R33.8 Has failed 2 voiding trials.Rep ortedly had uro appt on 01/10, no notes in chart.Cont inue tamsulosin 0.8 mg qd and bethanecol 25 mg TIDContinu e arana and f/u with uro as planned. Falls 668746024 R29.6 Remains deconditio vane.Contin ue PT/OT for strengthen ing, balance, gait training, safety and function.C ontinue fall precaution s.Monitor for safety. Chronic mi graine without aura 9340334060 81051 G43.709 Continue prednisone 10 mg qd and amitriptyl ine 10 mg qhs.Monito r sxs. COVID-19 595228076 U07.1 Tested + on 11/20Now recovered. Monitor for sequelae. Recurrent urinary tract infection 895004816 N30.20 Continue Vitamin C 500 mg BID and D-Mannose 1000 mg BID for prophylaxi s.Continue Elmiron 100 mg TID for IC pain.Monit or sxs. [id number] DMITRIY LEBRON NP [address] [place] [address] 03/07/2023 10:57:58 03/20/2023 08:53:34 Dementia 17706113 F03.90 aricept 10 mg hsseroquel 50 mg hspsych prnAIMS 0 Retention of urine 83057 4002 R33.9 flomax 0.8 mg hsvoiding trial today 11/17-faile d, will try again 12/21-faile d againd-man nose 1000 bidmonitor urine outputurol ogy consult prn Constipation 17390983 K5 9.00 miralax dailysenna plus bidmonitio r bm Glaucoma 90278257 H40.9 combigan ou bidrocklat an hs [place] 992553914 R29.6 PT OT eval and treatfall precaution sfrequent safety checks History of syncope 35044 94217 28759 Z86.79 monitor ortho vs prn Chronic mi graine without aura 9052502206 31842 G43.709 prednisone 10 mg dailyamitr iptylline 10 mg hs COVID-19 226581123 U07.1 recoveredN o symptomsTo use paxlovid, dexamethas one, fluids, supplement al O2 prn for sxs.Contin ue to monitor O2 sats, temp, GI sxs and po intake. [id number] KEVIN ESPINOZA [address] [place] [address] 05/03/2023 09:01:35 05/05/2023 03:52:24 Urinary tract infectious disease 33328127 N39.0 + UA with proteus mirabilisB actrim DS BID for 5 daysprobio tic for 7 daysmonito r for improvemen t. Dementia 55503575 F03.90 aricept 10 mg hsseroquel 50 mg hspsych prnmonitor for mood and behavior cahnges. [id number] Odalys Barber MD [address] [place] [address] 05/03/2023 20:12:49 05/16/2023 12:09:34 Urinary tract infectious disease 94773810 N30.00 + UA with proteus mirabilisB actrim DS BID for 5 d course until 05/08 and probiotic BID until 05/09.Monit or sxs. Dementia 26160413 F02.B0 Remains at baselineCo ntinue aricept 10 mg qhs, seroquel 50 mg qhs and amitriptyl ine 10 mg qhs.Contin ue supportive care, expect decline.HC P invokedMon itor mood and behaviors. Psych follows, last seen 04/30, no med changes. Retention of urine 56430 4002 R33.8 No further issues since arana d/c'dConti nue bethanecol 25 mg TID and tamsulosin 0.8 mg qdMonitor urinary function. Falls R29.6 Remains deconditio vane.Use PT/OT as ablle/need ed.Continu e fall precaution s.Monitor for safety. Recurrent urinary tract infection N30.20 Continue Vitamin C 500 mg BID and D-Mannose 1000 mg BID for prophylaxi s.Monitor sxs. Chronic mi graine without aura 1264847010 32066 G43.709 Continue prednisone 10 mg qd and amitriptyl ine 10 mg qhs.Monito r sxs. COVID-19 677759148 U07.1 Tested + on 11/20/22Now recovered. Monitor for sequelae. [id number] Barbara MAGDALENO [address] [place] [address] 06/28/2023 09:24:56 07/04/2023 14:27:17 Dementia 56932692 F02.B0 Remains at baselineCo ntinue aricept 10 mg qhs, seroquel 50 mg qhs and amitriptyl ine 10 mg qhs.Contin ue supportive care, expect decline.HC P invokedMon itor mood and behaviors. psych prn Retention of urine 74154 4002 R33.8 Continue bethanecol 25 mg TIDtamsulo sin 0.8 mg qdMonitor urinary function. Falls 112838460 R29.6 no reported recent fallsConti nue fall precaution s.Monitor for safety.Mor se 60 Recurrent urinary tract infection N30.20 Continue Vitamin C 500 mg BIDD-Vineet se 1000 mg BID for prophylaxi s.Monitor sxs. Chronic mi graine without aura 7211696125 17312 G43.709 stableCont inue prednisone 10 mg qdamitript yline 10 mg qhs.Monito r sxs. COVID-19 297797643 U07.1 With mild coughConti nue paxlovid 150/100 BID for 5 day courseWill use dexamethas one, fluids, supplement al O2 prn for sxs.Contin ue to monitor O2 sats, temp, GI sxs and po intake. Stercoral colitis 177980 001 K52.89 Resolved.C ontinue bowel meds as ordered.Mo nitor bowel function. Glaucoma 22225444 H40.89 Continue combigan ou BID and rocklatan qhsF/U with eye dr as planned. History of syncope 62473 28295 56978 Z86.79 Monitor vitals and MS. Constipation 48742787 K5 9.00 miralax dailysenna plus bidmonitio r bm Chronic pain 07154937 G8 9.29 abdominal and back painoxycod one 5 mg q 6 prn [id number] Odalys Barber MD [address] [place] [address] 09/04/2023 13:20:07 09/11/2023 11:21:18 Dementia 41971780 F02.B0 MS remains stable.Moo d good after d/c seroquel.C ontinue aricept 10 mg qhs and amitriptyl ine 10 mg qhs.Contin ue supportive care, expect decline.HC P invokedMon itor mood and behaviors. Psych continues to follow Retention of urine 48675 4002 R33.8 No further issues since arana d/c'dConti nue bethanecol 25 mg TID and tamsulosin 0.8 mg qdMonitor urinary function. Falls 882117189 R29.6 Remains deconditio vane.Use PT/OT as able/neede d.Continue fall precaution s.Monitor for safety. Recurrent urinary tract infection N30.20 Continue Vitamin C 500 mg BID and D-Mannose 1000 mg BID for prophylaxi s.Monitor sxs. Chronic mi graine without aura 7003025091 92318 G43.709 Continue prednisone 10 mg qd and amitriptyl ine 10 mg qhs.Monito r sxs. COVID-19 381344859 U07.1 Tested + on 11/20/22Now recovered. Monitor for sequelae. Constipation 64553319 K5 9.09 Continue bowel meds as ordered.Mo nitor bowel function. Chronic pain 97370071 G8 9.29 Continue oxycodone 5 mg q 6 prn and APAP 650 mg q 6 hrs prn.Monito r sxs. [id number] KEVIN ESPINOZA [address] [address] 09/07/2023 13:56:21 09/11/2023 12:23:12 Indigestion 970919657 R10.13 see hpistart Tums 2 tabs Q4 prn TIDencoura ged to eat slowly, avoid caffeinate d drinksnurs ing to monitor for unrelieved sx nursing and update provider with changes Dysuria 02603397 R30.0 send urine for UA with C&S. [id number] KEVIN ESPINOZA [address] [address] 09/10/2023 12:44:19 09/17/2023 15:09:43 Dysuria 50783449 R30.0 send urine for UA with C&Snursing encouraged to reattemptw ill order one time dose of ativan to be given prior to attempt, hopefully to decrease resistence and combativen ess. [id number] KEVIN ESPINOZA [address] [address] 09/17/2023 08:54:06 09/20/2023 16:22:04 Recurrent urinary tract infection 829832592 N30.20 nursing was finally able to obtain clean catch on ulture positive for gram neg rods, ecoli and P. mirabiliss tarted on bactrim DS q12 for 7 days with probitoic bid for 10 day.will start on Methenamin e Hippurate 1 gm BID for uti prophylact ic, was previous on D-mannose provided by facility- have not had in a few months.patricio sing updated to offers more fluids [id number] Barbara GatesEmiliano Anton [address] [place] [address] 10/26/2023 09:48:50 10/30/2023 09:29:54 Dementia 56614351 F02.B0 MS remains stable.Moo d good after d/c seroquel.C ontinue aricept 10 mg qhs and amitriptyl ine 10 mg qhs.Contin ue supportive care, expect decline.HC P invokedMon itor mood and behaviors. Psych continues to follow [place] 008071064 R29.6 Remains deconditio vane.Use PT/OT as able/neede d.Continue fall precaution s.Monitor for safety. Recurrent urinary tract infection 473475087 N30.20 Continue Vitamin C 500 mg BID and methanamin eMonitor sxs.treate d last month for UTI with bactrim Retention of urine 47246 4002 R33.8 No further issues since arana d/c'dConti nue bethanecol 25 mg TID and tamsulosin 0.8 mg qdMonitor urinary function. Chronic pain 96928887 G8 9.29 Continue oxycodone 5 mg q 6 prn and APAP 650 mg q 6 hrs prn.Monito r sxs. [id number] KEVIN ESPINOZA [address] [place] [address] 12/11/2023 11:12:57 12/13/2023 14:34:20 Bilateral lower limb edema 554163790 R60.0 see hpiappears dependent, pt sits in wheelchair for long periods of timerefer to therapy for wheelchair with leg rest for elevationc heck labs proBNP, CBC, and BMP on 12/12/23will start compressio n stocking to wear dailyconsi flo giving diuretic for worsening edemarecom mend no added salt to diet.will monitor for changes Dementia [id number] F02.B0 alert at her baseline with confusione xpect declineCon tinue aricept 10 mg qhs, seroquel 50 mg qhs and amitriptyl ine 10 mg qhs.Contin ue supportive care, expect decline.HC P invoked- updated at bedside on above plan and is in agreementM onitor mood and behaviors. psych prn [id number] KEVIN ESPINOZA [facility] [address] [place] [address] [place] [id number] 12/19/2023 08:36:46 12/24/2023 09:37:20 Dementia [id number] F02.B0 MS remains stable.Con tinue aricept 10 mg qhs and amitriptyl ine 10 mg qhs.Contin ue supportive care, expect decline.HC P invokedMon itor mood and behaviors. Psych continues to follow Falls [id number] R29.6 Remains deconditio vane.Use PT/OT as able/neede d.Continue fall precaution s.Monitor for safety. Recurrent urinary tract infection [id number] N30.20 Continue Vitamin C 500 mg BID and methenamin eMonitor sxs.treate d last month for UTI with bactrim Retention of urine 90727 4002 R33.8 No further issues since arana d/c'dConti nue bethanecol 25 mg TID and tamsulosin 0.8 mg qdMonitor urinary function. Chronic pain [id number] G8 9.29 Continue oxycodone 5 mg q 6 prn and APAP 650 mg q 6 hrs prn.Monito r sxs. Bilateral lower limb edema [id number] R60.0 appears dependent, pt sits in wheelchair for long periods of timerefer to therapy for wheelchair with leg rest for elevationc ompression stocking to wear dailyconsi flo giving diuretic for worsening edemarecom mend no added salt to diet.will monitor for changes [id number] KEVIN ESPINOZA [facility] [address] [place] [address] [place] [phone] 02/14/2024 09:38:47 02/18/2024 12:51:21 Dementia [id number] F02.B0 MS remains stable.Con tinue aricept 10 mg qhs and amitriptyl ine 10 mg qhs.Contin ue supportive care, expect decline.HC P invokedMon itor mood and behaviors. Psych continues to follow [place] [id number] R29.6 Remains deconditio vane.Use PT/OT as able/neede d.Continue fall precaution s.Monitor for safety. Recurrent urinary tract infection N30.20 Continue Vitamin C 500 mg BID and methenamin eMonitor sxs.treate d last month for UTI with bactrim Retention of urine 48612 4002 R33.8 No further issues since arana d/c'dConti nue bethanecol 25 mg TID and tamsulosin 0.8 mg qdMonitor urinary function. Chronic pain [id number] G8 9.29 Continue oxycodone 5 mg q 6 prn and APAP 650 mg q 6 hrs prn.Monito r sxs. Bilateral lower limb edema [id number] R60.0 stable/ tracecompr ession stocking to wear dailyconsi flo giving diuretic for worsening edemarecom mend no added salt to diet.will monitor for changes Bereavement [id number] Z63 .4 son 02/02- He visited with her everyday. so far she has been doing well with lost, due to her dementia she may have forgotten that her son has passed, there has been no agitation or other behaviors of expression . She will be attending his services today.will provide support along with nursing.travon mcbride need to restart ativan . [id number] MARY JOHNSON, [facility] [address] [place] [id number] 04/07/2024 15:04:30 04/16/2024 11:19:45 Dementia [id number] F02.B0 MS remains stable.Con tinue aricept 10 mg qhs and amitriptyl ine 10 mg qhs.Contin ue supportive care, expect decline.HC P invokedMon itor mood and behaviors. Psych continues to follow Recurrent urinary tract infection N30.20 Continue Vitamin C 500 mg BID and methenamin eMonitor sxs.treate d last month for UTI with bactrim Chronic pain [id number] G8 9.29 Continue oxycodone 5 mg q 6 prn and APAP 650 mg q 6 hrs prn.Monito r sxs. Bilateral lower limb edema [id number] R60.0 stable/ tracecompr ession stocking to wear dailyconsi flo giving diuretic for worsening edemarecom mend no added salt to diet.will monitor for changes COVID-19 [id number] U07.1 without sxdiscusse d with nursing, will provide supportive therapyupd ate provider with acute changes Health Concerns Section Related Observation LastModified by Organization Detai ls LastModified Time None Recorded Concern Status LastModified by Organization Details LastModified Time None Recorded Advance Directives Directive Y: Payers Encounter Date Sequence Insurance Name Policy Number Policy [place] Covered Member ID [place] Member ID Guarantor Name 10/26/2023 2 [place] [id number] Deann Eduardo [id number] Deann Eduardo 10/26/2023 1 [place] [employer] [place] Deann Eduardo [id number] Deann Eduardo 12/11/2023 2 [place] [id number] Deann Eduardo [id number] Deann Eduardo 12/11/2023 1 [place] [employer] Deann Eduardo [id number] Deann Eduardo 12/19/2023 2 [place] [id number] Deann Eduardo [id number] 401 Deann Eduardo 12/19/2023 1 [place] [employer] Deann Eduardo [id number] Deann Eduardo 02/14/2024 2 [place] [id number] Deann Eduardo [id number] Deann Eduardo 02/14/2024 1 [place] [employer] Deann Eduardo [id number] Deann Eduardo 04/07/2024 2 [place] [id number] Deann Eduardo [id number] Deann Eduardo 04/07/2024 1 [place] [employer] Deann Eduardo [id number] 62 Deann Eduardo Notes Date Note Type Note Provider Name and Address Organization Details Recorded Time 10/26/2023 text/html 82 year old fema le seen for routine rounding. complains of right shoulder/arm achy which happens regularly and under right breast. nsg gives tums for gas which seems to help. ?arthritic v GI. urology consult yesterday doing well with U/O. continues on bladder meds. no new UTIs. her son is with her. pt reports seeing things at night in bed but not sure if she is dreaming or hallucinations. otherwise at her baseline. Barbara Willis kla [address] [facility], [address], [place], [address], [facility] [employer] 10/26/2023 12:37:53 12/11/2023 text/html This is an 83 yr old female with a past medical history that includes dementia, constipation, hx of urinary retention, recurrent UTI. Seen today for acute care visit per nursing request for BLE edema. on exam she is stable, OOB sitting in wheelchair. Baseline she is alert with confusion. she is noted with bilateral feet 2+ pitting edema and + 1 non pitting bilateral lower extremity edema. there is no pain, erythema or tenderness. She denies any cardiopulmonary symptoms. KEVIN ESPINOZA [address] [facility], [address], [place], [address], [facility] [employer] 12/11/2023 19:25:59 12/19/2023 text/html This is an 83 yr old female with a past medical history that includes dementia, constipation, hx of urinary retention, recurrent UTI. 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 Patient due for annual examon exam she is stable, OOB sitting in wheelchair. Baseline she is alert with confusion. She is eating and drinking ok, occasionally incontinent of urine, dependent on nursing staff to assist with daily needs, participates in recreational activities. KEVIN ESPINOZA [address] [facility], [address], [place], [address], [facility] [employer] 12/23/2023 22:55:29 02/14/2024 text/html This is an 83 yr old female with a past medical history that includes dementia, constipation, hx of urinary retention, recurrent UTI. 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 Seen for routine rounding visit. on exam she is stable at baseline with dementia. OOB sitting in wheelchair. Baseline she is alert with confusion.she tells me that she is doing ok, She is eating and drinking ok. Her son recently , ( I did not mention his passing )she has been handling this lost well, ativan was initially ordered but has been discontinued as she has not utilized. KEVIN ESPINOZA [address] [facility], [address], [place], [address], [facility] [employer] [facility] 02/18/2024 11:34:01 04/07/2024 text/html This is an 83 yr old female with a past medical history that includes dementia, constipation, hx of urinary retention, recurrent UTI. 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 Seen for routine rounding visit. she is at her baseline in [facility], recently tested positive for COVID, she is without sx, there are no acute nursing concerns. KEVIN ESPINOZA [address] [facility], [address], [place], [address], [facility] [employer] [facility] 04/16/2024 11:15:18 OBGyn Episode No OBEpisode recorded.
[2024-05-12 06:33] LABS: Basophils Percent Auto 0.3 % (0-2); Eosinophils Absolute Auto 0.1 X10*3/uL (0.0-0.4); Hematocrit 41.4 % (37.0-47.0); Hemoglobin 13.6 g/dl (12.0-16.0); Imm Gran Abs Auto 0.02 X10*3/uL (0.00-0.03); Imm Gran Pct Auto 0.3 % (0.0-0.4); Lymphocytes Absolute Auto 2.4 X10*3/uL (1.2-4.9); Lymphocytes Percent Auto 39.2 % (20-40); Mean Corpuscular HGB Conc 32.9 g/dl (31.0-35.0); Mean Corpuscular Volume 94.3 fL (80.0-98.0); Mean Platelet Volume 8.9 fL (9.4-12.3); Monocytes Absolute Auto 0.7 X10*3/uL (0.1-1.2); Monocytes Percent Auto 11.2 % (2-11); Neutrophils Absolute Auto 2.9 x10*3/uL (2.0-8.3); Platelet Count 239 X10*3/uL (160-400); Red Blood Count 4.39 X10*6/uL (4.20-5.50); Red Cell Distribution Width 13.7 % (11.0-16.0); White Blood Count 6.2 X10*3/uL (4.8-10.8)
[2024-05-12 06:53] LABS: Alanine Aminotransferase 16 U/L (0-31); Albumin Level 3.5 g/dL (3.5-5.0); Alkaline Phosphatase 46 U/L (39-117); Anion Gap 14 (12-20); Aspartate Amino Transferase 16 U/L (5-31); Bilirubin Total 0.5 mg/dL (0.0-1.0); Blood Urea Nitrogen 11 mg/dL (9-16); Calcium 8.8 mg/dL (8.4-10.2); Carbon Dioxide 26 mmol/L (22-29); Chloride 104 mmol/L (96-108); Estimated Glomerular Filt Rate > 60; Glucose Random 77 mg/dL (60-115); Sodium 140 mmol/L (135-145); Total Protein 6.2 g/dL (6.5-8.0)
== END 2024-05-12 06:15 | disposition home or self-care (01) ==
LOC: HO.MMNH3L 06:14
PROVIDERS: Visit Provider Family Medicine
DX: R27.8 Other lack of coordination (principal); K52.89 Other specified noninfective gastroenteritis and colitis
CPT/HCPCS: 36415; 80053; 85025

== ENCOUNTER 2024-05-13 05:24 | Outpatient (REF) | payer MEDICARE, SELFPAY ==
[2024-05-13 05:27] LABS: MANUAL DIFF FLAG NO
[2024-05-13 06:13] LABS: Anion Gap 12 (12-20); Blood Urea Nitrogen 10 mg/dL (9-16); Calcium 8.9 mg/dL (8.4-10.2); Carbon Dioxide 26 mmol/L (22-29); Chloride 107 mmol/L (96-108); Estimated Glomerular Filt Rate > 60; Glucose Random 79 mg/dL (60-115); Sodium 141 mmol/L (135-145)
[2024-05-13 06:20] LABS: Basophils Percent Auto 0.3 % (0-2); Eosinophils Absolute Auto 0.1 X10*3/uL (0.0-0.4); Eosinophils Percent Auto 1.5 % (0-4); Hematocrit 40.7 % (37.0-47.0); Hemoglobin 13.4 g/dl (12.0-16.0); Imm Gran Abs Auto 0.02 X10*3/uL (0.00-0.03); Imm Gran Pct Auto 0.3 % (0.0-0.4); Lymphocytes Absolute Auto 2.4 X10*3/uL (1.2-4.9); Lymphocytes Percent Auto 34.5 % (20-40); Mean Corpuscular HGB Conc 32.9 g/dl (31.0-35.0); Mean Corpuscular Hemoglobin 31.1 pg (27.0-33.0); Mean Corpuscular Volume 94.4 fL (80.0-98.0); Mean Platelet Volume 9.2 fL (9.4-12.3); Monocytes Absolute Auto 0.6 X10*3/uL (0.1-1.2); Monocytes Percent Auto 9.4 % (2-11); Neutrophils Absolute Auto 3.7 x10*3/uL (2.0-8.3); Platelet Count 254 X10*3/uL (160-400); Red Blood Count 4.31 X10*6/uL (4.20-5.50); Red Cell Distribution Width 13.5 % (11.0-16.0); White Blood Count 6.8 X10*3/uL (4.8-10.8)
== END 2024-05-13 05:25 | disposition home or self-care (01) ==
LOC: HO.MMNH3L 05:24
PROVIDERS: Visit Provider Family Medicine
DX: E86.0 Dehydration (principal)
CPT/HCPCS: 36415; 80048; 85025

== ENCOUNTER 2024-05-23 08:11 | Outpatient (REF) | payer MEDICARE, SELFPAY ==
--- OUTSIDE RECORDS SUMMARY | 2024-05-23 08:21 | XMS_ITS | Clinical Summary ---
Author Organization [facility] ity Address [address] [place] [address] Care Team Providers Care Singer Back Tender Name Role Phone Melchor Mccormack MD Primary Care Provider [phone] Allergies Active Allergy Reactions Criticality Noted Date Comments Codeine Hallucinations High 11/12/2017 Doxycycline 10/28/2015 Possible reaction with hives, not definitely caused by doxycycline. Better to avoid if possible. Penicillins 01/12/2006 years ago doesn't remember reaction Medications donepeziL (ARICEPT) 10 mg tablet TAKE 1 TABLET BY MOUTH AT BEDTIME 3 Active QUEtiapine (SEROquel) 25 mg tablet Take 2 Tablets by mouth at bedtime. 3 Active diclofenac (VOLTAREN) 1 % topical gel Apply 1 Dose topically 2 times daily. 2 Active gabapentin (NEURONTIN) 300 mg capsule Take 1 Capsule by mouth at bedtime. 2 Active mometasone (ELOCON) 0.1 % topical solution Apply to scalp hs prn 2 Active Lactobac no.41/Bifidobac t no.7 (PROBIOTIC-10 ORAL) Take by mouth. Activ e fluticasone (VERAMYST) 27.5 mcg/actuation nasal spray 2 Sprays by Nasal route daily. Active brimonidine-jesus oloL (Combigan) 0.2-0.5 % ophthalmic solution INSTILL 1 DROP IN BOTH EYES TWICE DAILY DIRECTED 2 Active melatonin 3 mg tablet Take 1 tablet by mouth daily as needed (insomnia). 2 Active loratadine (CLARITIN) 10 mg tablet TAKE 1 TABLET BY MOUTH DAILY 2 Active travoprost (TRAVATAN Z) 0.004 % drops apply to the eye. 8 Active propylene glycol/peg 400/PF (SYSTANE, PF, OPHT) apply 1 Drop to the eye daily as needed. Active OMEGA-3 FATTY ACIDS ORAL Take by mouth daily. Active LATANOPROST OPHT apply to the eye. Active simethicone (MYLICON,GAS-X) 125 mg capsule Take 2 Caps by mouth daily as needed. Active multivit-min/fe rrous fumarate (MULTI VITAMIN ORAL) 1 daily Active calcium carbonate-vitam in D3 600 mg-5 mcg (200 unit) per [...] Surgery Date Site/Laterality Comments ESOPHAGOGASTRODUODENOSCOPY 08/29/11 PROCEDURE: ID ESOPHAGOGASTRODUODENOSCOPY TRANSORAL DIAGNOSTIC; COMMENT: normal COLONOSCOPY 2004 [...] drink = 0.6 oz pur e alcohol) Comments Unknown Sex and Gender Information Value Date Recorded Sex Assigned at Not on file Legal Sex Female 10:26 PM EST Gender Identity Not on file Sexual Orientation [...] Blood Test 07/11/2023 02/01/2022 COVID-19 Vaccine ( - season) 2023 02/11/2021, 06/16/2020, 05/12/2020 Influenza Vaccine (#1) 2023 , 03/25/2021, 02/20/2021, Additional history exists Cholesterol Screening (Lipid Panel) 01/26/2026 01/26/2021 DTaP,Tdap,and Td Vaccines (3 - Td or Tdap) 07/11/2026 07/11/2016, 01/18/2007 Osteoporosis Screening (Bone Density Screening) 09/02/2030 09/02/2020, 07/30/2017 Varicella Vaccines Aged Out 07/09/2013, 03/31/2013 No longer eligible based on patient's age to complete this topic Pneumococcal Vaccine: 50+ Years Completed 02/10/2015, 03/07/2010 HIB Vaccines Aged [...] patient's age to complete this topic Meningococcal B Vacine Aged Out No lo nger eligible based on patient's age to complete [...] Results * Annual BMP Blood Test (02/01/2022) Pathologist [facility] Annual BMP Blood Test abstracted Historical Provider HEALTH MAINTENANCE Final Result * (ABNORMAL) Lipid panel (01/26/2021) [facility] LDL/HDL Ratio 2 0 - 4 Triglycerides 120 0 - 150 mg/dL Cholesterol 208(A) 0 - 200 mg/dL HDL 102 >=40 mg/dL LDL Cholesterol 82 0 - 100 mg/dL Blood Venous blood specimen / Unknown Historical Provider LAB BLOOD ORDERABLES Margy l Result * DXA BONE DENSITY STUDY 1+ SITS [...] (World Health Organization Fracture Risk Assessment) [facility] Department of Internal Medicine recommends using National [...] (World Health Organization Fracture Risk Assessment) [facility] Department of Internal Medicine recommendsusing National Osteoporosis [...] or over-estimation of fracture risk by FRAX. Melchor Mccormack MD IMG DXA PROCEDURES Final Resul t from Last 3 Months or Most Recently Relevant to Health Maintenance Care Teams Singer Back Tender Relationship Specialty Start Date End Date Melchor Mccormack MD [address] [place] [address] ROB Han [id number] PCP - General 05/21/10
--- OUTSIDE RECORDS SUMMARY | 2024-05-23 08:22 | XMS_ITS | Data Portability ---
Author Organization [facility], Main Office Address [address] [place] [address] Care Team Providers Care Agriculture Engineer Name Role Phone CHRIS GARCIA Primary Care Provider RODERICK RASTA 3RD FLOOR OTHER Assessment Encounter Date Assessment Date Assessment LastModified [...] and Address Organization Details Recorded Time Dementia 20820415 Active 2022 DMITRIY LEBRON NP [address] [facility], [address], [place], [address], [employer] 12:17:21 Retention of urine 040478274 Active 2022 DMITRIY LEBRON, RESISTANCE WELDING MACHINE OPERATOR [address], [address], [place], [address], [facility] 12:17:26 Constipatio n 07066533 Active 2022 DMITRIY LEBRON, RESISTANCE WELDING MACHINE OPERATOR [address], [address], [place], [address], [facility] 3 12:17:32 Glaucoma 35651730 Active 2022 DMITRIY LEBRON, RESISTANCE WELDING MACHINE OPERATOR [address], [address], [place], [address], [facility] 3 12:17:39 Falls 572440863 Active 2022 DMITRIY LEBRON, RESISTANCE WELDING MACHINE OPERATOR [address], [address], [place], [address], [facility] 3 12:19:11 History of syncope 6324475170352 09 Active 2022 DMITRIY LEBRON, RESISTANCE WELDING MACHINE OPERATOR [address], [address], [place], [address], [facility] 3 12:19:19 Chronic migraine without aura 9986921321266 05 Active 2022 DMITRIY LEBRON, RESISTANCE WELDING MACHINE OPERATOR [address], [address], [place], [address], [facility] 3 12:24:31 COVID-19 599228601 Active 2022 DMITRIY LEBRON, RESISTANCE WELDING MACHINE OPERATOR [address] [facility], [address], [place], [address], [facility] 3 13:42:03 Stercoral colitis 677242584 Active 2022 Odalys Barber MD [address], [address], [place], [address], [facility] 3 10:42:17 Glaucoma 96933552 Active 2022 Odalys Barber MD [address], [address], [place], [address], [facility] 3 10:50:01 Acute urinary tract infection 593429684 Active 2022 DMITRIY LEBRON NP [address] [facility], [address], [place], [address], [facility] 13:22:34 Recurrent urinary tract infection 568569276 Active 2022 Odalys Barber MD [address], [address], [place], [address], [facility] 3 21:21:00 Chronic pain 84296092 Active 2023 Odalys Barber MD [address], [address], [place], [address], [facility] 4 14:05:27 Indigestion 575761521 Active 2023 KEVIN ESPINOZA [address] [facility], [address], [place], [address], [facility] 4 13:47:57 Problem Notes None recorded. Medical Equipment None Reported. Allergies Allergen ID Allergen Name Allergen Category Reaction Reaction Severity Criticality Documentation Date Start Date Code Code System Note Provider Name and Address Organization Details Recorded Time 31357 Product containin g penicilli n and antibioti c (product) medicatio n Not available Not available Not available 11/17/2022 12101 05 SNOMED Not Available Not Available Not [...] 138 mm[Hg] 82 mm[Hg] Barbara Anton [address] [facility], [facility] [address], [place], [address] , [facility] 10/26/2023 12:28:05 Date Recorded Body height Body temperature Oxygen saturation Oxygen saturation in Arterial blood by Pulse oximetry Respiratory rate Heart rate Systolic blood pressure Diastolic blood pressure Provider Name and Address Organization Details Last Updated DateTime 4 157.48 cm 97.6 [degF] 94 % 94 % 18 /min 87 /min 124 mm[Hg] 76 mm[Hg] KEVIN ESPINOZA [address] [place] [address], [facility] [address], [place], [address], [facility] 4 19:07:01 Date Recorded Body height Heart rate Respiratory rate Body temperature Oxygen saturation Oxygen saturation in Arterial blood by Pulse oximetry Provider Name and Address Organization Details Last Updated DateTime 4 157.48 cm 80 /min 18 /min 98 [degF] 95 % 95 % KEVIN ESPINOZA [address] [facility], [facility] [address], [place], [address], [facility] 4 22:44:52 Date Recorded Body height Heart rate Respiratory rate Oxygen saturation Oxygen saturation in Arterial blood by Pulse oximetry Systolic blood pressure Diastolic blood pressure Provider Name and Address Organization Details Last Updated DateTime 4 157.48 cm 92 /min 18 /min 96 % 96 % 133 mm[Hg] 72 mm[Hg] KEVIN ESPINOZA [address] [facility], [facility] [address], [place], [address], [facility] 4 11:20:33 Date Recorded Body height Heart rate Respiratory rate Body temperature Oxygen saturation Oxygen saturation in Arterial blood by Pulse oximetry Systolic blood pressure Diastolic blood pressure Provider Name and Address Organization Details Last Updated DateTime 4 157.48 cm 88 /min 18 /min 98 [degF] 97 % 97 % 124 mm[Hg] 72 mm[Hg] KEVIN ESPINOZA [address] [facility], [address], [place], [address], [facility] [employer] 5 11:11:16 Social History Question Answer Notes LastModified by Organizat ion Details LastModified Time Tobacco Smoking Status Unknown If Ever Smoked DMITRIY LEBRON NP [address] [facility], [address], [place], [address], [facility] [employer] 11/17/2022 11:50:31 Do You Have An Advance Directive? Yes Information not available 11/21/2022 What Is Your Code Status? Full Code [email or web address] Information not available 11/20/2022 Do You Have A Medical Power Of [place]? Yes HCP Invoked Information not available 11/21/2022 [...] adjuvanted, quadrivalent, PF 01/09/2023 completed Anjana zimmer, [facility] [employer] 04/27/2023 13:03:23 Past Encounters Encounter ID Performer Location Encounter Start Date Encounter Closed Date Diagnosis/Indication Diagnosis SNOMED-CT Code Diagnosis ICD10 Code Diagnosis Note [id number] NAN ALEXANDRA [address] [facility] ROB FERNANDEZ [address] 11/17/2022 10:29:24 11/21/2022 15:53:20 Constipation 52826994 K59.00 miralax dailysenna plus bidmonitio r bm Retention of urine 64148 4002 R33.9 flomax 0.4 mg hsvoiding trial today 11/17monito r urine output Dementia 60138411 F03.90 aricept 10 mg hsseroquel 50 mg hs psych prnAIMS 0 Glaucoma 95892424 H40.9 combigan ou bidrocklat an hs Falls 590745646 R29.6 PT OT eval and treatfall precaution sfrequent safety checks History of syncope 40309 51176 03459 Z86.79 monitor ortho vs prn Chronic mi graine without aura 5411206206 60142 G43.709 prednisone 10 mg dailyamitr iptylline 10 mg hs COVID-19 978164528 U07.1 No symptoms To use paxlovid, dexamethas one, fluids, supplement al O2 prn for sxs. Continue to monitor O2 sats, temp, GI sxs and po intake. [id number] DMITRIY LEBRON NP [facility] [address] [place] [address] 11/20/2022 14:15:54 11/23/2022 11:39:23 COVID-19 538591646 U07.1 monitor congestion paxlovid 150/100 bid for 5 daysTo use paxlovid, dexamethas one, fluids, supplement al O2 prn for sxs.Contin ue to monitor O2 sats, temp, GI sxs and po intake. [id number] Odalys Barber MD [facility] [address] [place] [address] 11/21/2022 13:51:52 11/28/2022 16:22:18 COVID-19 912932789 U07.1 With mild coughConti nue paxlovid 150/100 BID for 5 day courseWill use dexamethas one, fluids, supplement al O2 prn for sxs.Contin ue to monitor O2 sats, temp, GI sxs and po intake. Retention of urine 94179 4002 R33.8 Successful voiding trial on ontin ue tamsulosin 0.4 mg qdMonitor urinary function. Dementia 83504980 F03.90 Continues at baselineCo ntinue aricept 10 mg qhs, seroquel 50 mg qhs and amitriptyl ine 10 mg qhs.Contin ue supportive care, expect decline.HC P invokedMon itor mood and behaviors. Psych consult prn. Glaucoma 48219601 H40.89 Continue combigan ou BID and rocklatan qhsF/U with eye dr as planned. Falls 714478990 R29.6 Very deconditio vane and with balance issuesNeed s PT/OT for strengthen ing, balance, gait training, safety and function.C ontinue fall precaution s.Monitor for safety. History of syncope 41547 96526 01382 Z86.79 Monitor vitals and MS. Chronic mi graine without aura 2758302948 61911 G43.709 No current sxs.Contin ue prednisone 10 mg qd and amitriptyl ine 10 mg qhsMonitor sxs. Stercoral colitis 860141 001 K52.89 Resolved.C ontinue bowel meds as ordered.Mo nitor bowel function. [id number] NAN ALEXANDRA RASTA [address] [place] [id number] 11/22/2022 13:40:59 11/29/2022 08:17:42 COVID-19 522392226 U07.1 monitor congestion paxlovid 150/100 bid for 5 days to 11/25To use paxlovid, dexamethas one, fluids, supplement al O2 prn for sxs.Contin ue to monitor O2 sats, temp, GI sxs and po intake. [id number] DMITRIY LEBRON NP [facility] [address] [place] [address] 12/04/2022 13:19:24 12/06/2022 13:36:36 Dementia 33574078 F03.90 aricept 10 mg hsseroquel 50 mg hspsych prnAIMS 0did not tolerate slums COVID-19 944021414 U07.1 recoveredm onitor congestion paxlovid 150/100 bid for 5 days to 11/25To use paxlovid, dexamethas one, fluids, supplement al O2 prn for sxs.Contin ue to monitor O2 sats, temp, GI sxs and po intake. Acute urin marcie tract infection 635436990 N39.0 macrobid 100 mg bid for 7 days [id number] DMITRIY LEBRON NP [address] [address] 12/13/2022 11:22:57 12/15/2022 15:54:33 Retention of urine 731844963 R33.8 flomax 0.4 mg hsvoiding trial today 11/17-fail d, cath restartedm onitor urine outputurol ogy consult Falls 491412034 R29.6 PT OT eval and treatfall precaution sfrequent safety checks Dementia 01841090 F03.90 aricept 10 mg hsseroquel 50 mg hspsych prnAIMS 0did not tolerate slums [id number] DMITRIY LEBRON NP [address] [address] 12/20/2022 10:10:14 12/22/2022 11:38:53 Constipation 80580063 K59.00 miralax dailysenna plus bidmonitio r bm Retention of urine 45658 4002 R33.9 flomax 0.4 mg hs-increas ed to 0.8 mg hsvoiding trial today 11/17-fail d, will try again 12/21monito r urine outputurol ogy consult Dementia 57021624 F03.90 aricept 10 mg hsseroquel 50 mg hspsych prnAIMS 0 Glaucoma 68446215 H40.9 combigan ou bidrocklat an hs Falls 260073749 R29.6 PT OT eval and treatfall precaution sfrequent safety checks History of syncope 53523 01628 63739 Z86.79 monitor ortho vs prn Chronic mi graine without aura 0678497691 81399 G43.709 prednisone 10 mg dailyamitr iptylline 10 mg hs COVID-19 840730014 U07.1 No symptoms-r ecovered by dateTo use paxlovid, dexamethas one, fluids, supplement al O2 prn for sxs.Contin ue to monitor O2 sats, temp, GI sxs and po intake. [id number] DMITRIY LEBRON NP [address] [address] 12/28/2022 14:59:22 01/02/2023 15:51:32 Retention of urine 841588517 R33.9 flomax 0.4 mg hs-increas ed to 0.8 mg hsvoiding trial today 11/17-faile d, will try again 12/21-faile d againmonit or urine outputurol ogy consult [id number] DMITRIY LEBRON NP [address] [place] [address] 01/03/2023 13:43:31 01/09/2023 11:51:30 Dementia 82140969 F03.90 aricept 10 mg hsseroquel 50 mg hspsych prnAIMS 0 Retention of urine 99705 4002 R33.9 flomax 0.8 mg hsvoiding trial today 11/17-faile d, will try again 12/21-faile d againmonit or urine outputurol ogy consult Constipation 70142451 K5 9.00 miralax dailysenna plus bidmonitio r bm Glaucoma 06372224 H40.9 combigan ou bidrocklat an hs Falls 325501305 R29.6 PT OT eval and treatfall precaution sfrequent safety checks History of syncope 41051 62786 12657 Z86.79 monitor ortho vs prn Chronic mi graine without aura 7978542621 74986 G43.709 prednisone 10 mg dailyamitr iptylline 10 mg hs COVID-19 947434104 U07.1 recoveredN o symptomsTo use paxlovid, dexamethas one, fluids, supplement al O2 prn for sxs.Contin ue to monitor O2 sats, temp, GI sxs and po intake. [id number] DMITRIY LEBRON NP [address] [place] [address] 01/08/2023 16:14:21 01/12/2023 13:04:50 Dementia 31745463 F03.90 aricept 10 mg hsseroquel 50 mg hspsych prnAIMS 0 Retention of urine 01650 4002 R33.9 flomax 0.8 mg hsvoiding trial today 11/17-faile d, will try again 9/14-faile d againmonit or urine outputurol ogy consult 01/10 Constipation 91368446 K5 9.00 miralax dailysenna plus bidmonitio r bm Glaucoma 85263495 H40.9 combigan ou bidrocklat an hs Falls 328476944 R29.6 PT OT eval and treatfall precaution sfrequent safety checks History of syncope 03456 41554 39015 Z86.79 monitor ortho vs prn Chronic mi graine without aura 8443083869 93462 G43.709 prednisone 10 mg dailyamitr iptylline 10 mg hs COVID-19 827982224 U07.1 recoveredN o symptomsTo use paxlovid, dexamethas one, fluids, supplement al O2 prn for sxs.Contin ue to monitor O2 sats, temp, GI sxs and po intake. [id number] Odalys Barber MD [address] [place] [address] 02/09/2023 20:19:12 02/23/2023 13:46:06 Dementia 41809280 F02.B0 Continues at baselineCo ntinue aricept 10 mg qhs, seroquel 50 mg qhs and amitriptyl ine 10 mg qhs.Contin ue supportive care, expect decline.HC P invokedMon itor mood and behaviors. Psych consult prn. Retention of urine 04060 4002 R33.8 Has failed 2 voiding trials.Rep ortedly had uro appt on 01/10, no notes in chart.Cont inue tamsulosin 0.8 mg qd and bethanecol 25 mg TIDContinu e arana and f/u with uro as planned. Falls 477712800 R29.6 Remains deconditio vane.Contin ue PT/OT for strengthen ing, balance, gait training, safety and function.C ontinue fall precaution s.Monitor for safety. Chronic mi graine without aura 7095680444 68558 G43.709 Continue prednisone 10 mg qd and amitriptyl ine 10 mg qhs.Monito r sxs. COVID-19 324921920 U07.1 Tested + on 11/20Now recovered. Monitor for sequelae. Recurrent urinary tract infection 445475117 N30.20 Continue Vitamin C 500 mg BID and D-Mannose 1000 mg BID for prophylaxi s.Continue Elmiron 100 mg TID for IC pain.Monit or sxs. [id number] DMITRIY LEBRON NP [address] [place] [address] 03/07/2023 10:57:58 03/20/2023 08:53:34 Dementia 36176225 F03.90 aricept 10 mg hsseroquel 50 mg hspsych prnAIMS 0 Retention of urine 51794 4002 R33.9 flomax 0.8 mg hsvoiding trial today 11/17-faile d, will try again 12/21-faile d againd-man nose 1000 bidmonitor urine outputurol ogy consult prn Constipation 41634265 K5 9.00 miralax dailysenna plus bidmonitio r bm Glaucoma 06933642 H40.9 combigan ou bidrocklat an hs Falls 952609261 R29.6 PT OT eval and treatfall precaution sfrequent safety checks History of syncope 64519 87790 29606 Z86.79 monitor ortho vs prn Chronic mi graine without aura 5337922140 28327 G43.709 prednisone 10 mg dailyamitr iptylline 10 mg hs COVID-19 290500351 U07.1 recoveredN o symptomsTo use paxlovid, dexamethas one, fluids, supplement al O2 prn for sxs.Contin ue to monitor O2 sats, temp, GI sxs and po intake. [id number] KEVIN ESPINOZA [address] [place] [address] 05/03/2023 09:01:35 05/05/2023 03:52:24 Urinary tract infectious disease 46137611 N39.0 + UA with proteus mirabilisB actrim DS BID for 5 daysprobio tic for 7 daysmonito r for improvemen t. Dementia 62269403 F03.90 aricept 10 mg hsseroquel 50 mg hspsych prnmonitor for mood and behavior cahnges. [id number] Odalys Barber MD [address] [place] [address] 05/03/2023 20:12:49 05/16/2023 12:09:34 Urinary tract infectious disease 44347400 N30.00 + UA with proteus mirabilisB actrim DS BID for 5 d course until 05/08 and probiotic BID until 05/09.Monit or sxs. Dementia 30986958 F02.B0 Remains at baselineCo ntinue aricept 10 mg qhs, seroquel 50 mg qhs and amitriptyl ine 10 mg qhs.Contin ue supportive care, expect decline.HC P invokedMon itor mood and behaviors. Psych follows, last seen 04/30, no med changes. Retention of urine 61311 4002 R33.8 No further issues since arana d/c'dConti nue bethanecol 25 mg TID and tamsulosin 0.8 mg qdMonitor urinary function. Falls R29.6 Remains deconditio vane.Use PT/OT as ablle/need ed.Continu e fall precaution s.Monitor for safety. Recurrent urinary tract infection N30.20 Continue Vitamin C 500 mg BID and D-Mannose 1000 mg BID for prophylaxi s.Monitor sxs. Chronic mi graine without aura 3678812874 61408 G43.709 Continue prednisone 10 mg qd and amitriptyl ine 10 mg qhs.Monito r sxs. COVID-19 194859324 U07.1 Tested + on 11/20/22Now recovered. Monitor for sequelae. [id number] Barbara MAGDALENO [address] [place] [address] 06/28/2023 09:24:56 07/04/2023 14:27:17 Dementia 81746672 F02.B0 Remains at baselineCo ntinue aricept 10 mg qhs, seroquel 50 mg qhs and amitriptyl ine 10 mg qhs.Contin ue supportive care, expect decline.HC P invokedMon itor mood and behaviors. psych prn Retention of urine 65042 4002 R33.8 Continue bethanecol 25 mg TIDtamsulo sin 0.8 mg qdMonitor urinary function. Falls 263720847 R29.6 no reported recent fallsConti nue fall precaution s.Monitor for safety.Mor se 60 Recurrent urinary tract infection N30.20 Continue Vitamin C 500 mg BIDD-Vineet se 1000 mg BID for prophylaxi s.Monitor sxs. Chronic mi graine without aura 2058016527 88717 G43.709 stableCont inue prednisone 10 mg qdamitript yline 10 mg qhs.Monito r sxs. COVID-19 136029937 U07.1 With mild coughConti nue paxlovid 150/100 BID for 5 day courseWill use dexamethas one, fluids, supplement al O2 prn for sxs.Contin ue to monitor O2 sats, temp, GI sxs and po intake. Stercoral colitis 543559 001 K52.89 Resolved.C ontinue bowel meds as ordered.Mo nitor bowel function. Glaucoma 66546340 H40.89 Continue combigan ou BID and rocklatan qhsF/U with eye dr as planned. History of syncope 07716 [address]655 46149 Z86.79 Monitor vitals and MS. Constipation 19084663 K5 9.00 miralax dailysenna plus bidmonitio r bm Chronic pain 41886313 G8 9.29 abdominal and back painoxycod one 5 mg q 6 prn [id number] Odalys Barber MD [address] [place] [address] 09/04/2023 13:20:07 09/11/2023 11:21:18 Dementia 81976252 F02.B0 MS remains stable.Moo d good after d/c seroquel.C ontinue aricept 10 mg qhs and amitriptyl ine 10 mg qhs.Contin ue supportive care, expect decline.HC P invokedMon itor mood and behaviors. Psych continues to follow Retention of urine 77306 4002 R33.8 No further issues since arana d/c'dConti nue bethanecol 25 mg TID and tamsulosin 0.8 mg qdMonitor urinary function. Falls 411274768 R29.6 Remains deconditio vane.Use PT/OT as able/neede d.Continue fall precaution s.Monitor for safety. Recurrent urinary tract infection N30.20 Continue Vitamin C 500 mg BID and D-Mannose 1000 mg BID for prophylaxi s.Monitor sxs. Chronic mi graine without aura 5057423060 18503 G43.709 Continue prednisone 10 mg qd and amitriptyl ine 10 mg qhs.Monito r sxs. COVID-19 044195347 U07.1 Tested + on 11/20/22Now recovered. Monitor for sequelae. Constipation 27604619 K5 9.09 Continue bowel meds as ordered.Mo nitor bowel function. Chronic pain 49810595 G8 9.29 Continue oxycodone 5 mg q 6 prn and APAP 650 mg q 6 hrs prn.Monito r sxs. [id number] KEVIN ESPINOZA [address] [address] 09/07/2023 13:56:21 09/11/2023 12:23:12 Indigestion 984938474 R10.13 see hpistart Tums 2 tabs Q4 prn TIDencoura ged to eat slowly, avoid caffeinate d drinksnurs ing to monitor for unrelieved sx nursing and update provider with changes Dysuria 31947648 R30.0 send urine for UA with C&S. [id number] KEVIN ESPINOZA [address] [address] 09/10/2023 12:44:19 09/17/2023 15:09:43 Dysuria 88553582 R30.0 send urine for UA with C&Snursing encouraged to reattemptw ill order one time dose of ativan to be given prior to attempt, hopefully to decrease resistence and combativen ess. [id number] KEVIN ESPINOZA [address] [address] 09/17/2023 08:54:06 09/20/2023 16:22:04 Recurrent urinary tract infection 237261475 N30.20 nursing was finally able to obtain [...] months.patricio sing updated to offers more fluids [id number] Barbara GatesEmiliano Anton [address] [place] [address] 10/26/2023 09:48:50 10/30/2023 09:29:54 Dementia 06085950 F02.B0 MS remains stable.Moo d good after d/c seroquel.C ontinue aricept 10 mg qhs and amitriptyl ine 10 mg qhs.Contin ue supportive care, expect decline.HC P invokedMon itor mood and behaviors. Psych continues to follow Falls 796430016 R29.6 Remains deconditio vane.Use PT/OT as able/neede d.Continue fall precaution s.Monitor for safety. Recurrent urinary tract infection 816072316 N30.20 Continue Vitamin C 500 mg BID and methanamin eMonitor sxs.treate d last month for UTI with bactrim Retention of urine 68391 4002 R33.8 No further issues since arana d/c'dConti nue bethanecol 25 mg TID and tamsulosin 0.8 mg qdMonitor urinary function. Chronic pain 71418429 G8 9.29 Continue oxycodone 5 mg q 6 prn and APAP 650 mg q 6 hrs prn.Monito r sxs. [id number] KEVIN ESPINOZA [address] [place] [address] 12/11/2023 11:12:57 12/13/2023 14:34:20 Bilateral lower limb edema 582536958 R60.0 see hpiappears dependent, pt sits in wheelchair for long periods of timerefer to therapy for wheelchair with leg rest for elevationc heck labs proBNP, CBC, and BMP on 12/12/23will start compressio n stocking to wear dailyconsi flo giving diuretic for worsening edemarecom mend no added salt to diet.will monitor for changes Dementia 58128002 F02.B0 alert at her baseline with confusione xpect declineCon tinue aricept 10 mg qhs, seroquel 50 mg qhs and amitriptyl ine 10 mg qhs.Contin ue supportive care, expect decline.HC P invoked- updated at bedside on above plan and is in agreementM onitor mood and behaviors. psych prn [id number] KEVIN ESPINOZA [facility] [address] [place] [address] [place] [address] 12/19/2023 08:36:46 12/24/2023 09:37:20 Dementia 60890237 F02.B0 MS remains stable.Con tinue aricept 10 mg qhs and amitriptyl ine 10 mg qhs.Contin ue supportive care, expect decline.HC P invokedMon itor mood and behaviors. Psych continues to follow Falls 406280918 R29.6 Remains deconditio vane.Use PT/OT as able/neede d.Continue fall precaution s.Monitor for safety. Recurrent urinary tract infection 762989189 N30.20 Continue Vitamin C 500 mg BID and methenamin eMonitor sxs.treate d last month for UTI with bactrim Retention of urine 88229 4002 R33.8 No further issues since arana d/c'dConti nue bethanecol 25 mg TID and tamsulosin 0.8 mg qdMonitor urinary function. Chronic pain 26104543 G8 9.29 Continue oxycodone 5 mg q 6 prn and APAP 650 mg q 6 hrs prn.Monito r sxs. Bilateral lower limb edema 514220912 R60.0 appears dependent, pt sits in wheelchair for long periods of timerefer to therapy for wheelchair with leg rest for elevationc ompression stocking to wear dailyconsi flo giving diuretic for worsening edemarecom mend no added salt to diet.will monitor for changes [id number] KEVIN ESPINOZA [facility] [address] [place] [address] [place] [address] 02/14/2024 09:38:47 02/18/2024 12:51:21 Dementia 96230496 F02.B0 MS remains stable.Con tinue aricept 10 mg qhs and amitriptyl ine 10 mg qhs.Contin ue supportive care, expect decline.HC P invokedMon itor mood and behaviors. Psych continues to follow Falls 420277067 R29.6 Remains deconditio vane.Use PT/OT as able/neede d.Continue fall precaution s.Monitor for safety. Recurrent urinary tract infection N30.20 Continue Vitamin C 500 mg BID and methenamin eMonitor sxs.treate d last month for UTI with bactrim Retention of urine 90844 4002 R33.8 No further issues since arana d/c'dConti nue bethanecol 25 mg TID and tamsulosin 0.8 mg qdMonitor urinary function. Chronic pain 19470044 G8 9.29 Continue oxycodone 5 mg q 6 prn and APAP 650 mg q 6 hrs prn.Monito r sxs. Bilateral lower limb edema 374025540 R60.0 stable/ tracecompr ession stocking to wear dailyconsi flo giving diuretic for worsening edemarecom mend no added salt to diet.will monitor for changes Bereavement 64793603 Z63 .4 son 02/02- He visited with her everyday. so far she has been doing well with lost, due to her dementia she may have forgotten that her son has passed, there has been no agitation or other behaviors of expression . She will be attending his services today.will provide support along with nursing.travon mcbride need to restart ativan . [id number] MARY JOHNSON, [facility] [address] [place] [phone] 04/07/2024 15:04:30 04/16/2024 11:19:45 Dementia [id number] F02.B0 MS remains stable.Con tinue aricept 10 mg qhs and amitriptyl ine 10 mg qhs.Contin ue supportive care, expect decline.HC P invokedMon itor mood and behaviors. Psych continues to follow Recurrent urinary tract infection N30.20 Continue Vitamin C 500 mg BID and methenamin eMonitor sxs.treate d last month for UTI with bactrim Chronic pain [id number] G8 9.29 Continue oxycodone 5 mg q 6 prn and APAP 650 mg q 6 hrs prn.Monito r sxs. Bilateral lower limb edema [id number] R60.0 stable/ tracecompr ession stocking to wear dailyconsi flo giving diuretic for worsening edemarecom mend no added salt to diet.will monitor for changes COVID-19 [id number] U07.1 without sxdiscusse d with nursing, will [...] Name 10/26/2023 2 [place] [id number] Deann Eduardo [id number] 401 Deann Eduardo 10/26/2023 1 [place] Deann Eduardo [id number] 62 Deann Eduardo 12/11/2023 2 [place] [id number] Deann Eduardo [id number] Deann Eduardo 12/11/2023 1 [place] [employer] [place] Deann Eduardo [id number] 62 Deann Eduardo 12/19/2023 2 [place] [id number] Deann Eduardo [id number] 401 Deann Eduardo 12/19/2023 1 [place] [place] Deann Eduardo [id number] 62 Deann Eduardo 02/14/2024 2 [place] [id number] Deann Eduardo [id number] 401 Deann Eduardo 02/14/2024 1 [place] [place] Deann Eduardo [id number] 62 Deann Eduardo 04/07/2024 2 [place] [id number] Deann Eduardo [id number] 401 Deann Eduardo 04/07/2024 1 [place] [place] Deann Eduardo [id number] 62 Deann Eduardo Notes Date Note Type [...] at her baseline. Barbara Willis kla [address] [facility], [address], [place], [address], [facility] [employer] 10/26/2023 12:37:53 12/11/2023 text/html This is an [...] denies any cardiopulmonary symptoms. KEVIN ESPINOZA [address] [facility], [address], [place], [address], [facility] [employer] 12/11/2023 19:25:59 12/19/2023 text/html This is an [...] participates in recreational activities. KEVIN ESPINOZA [address] [facility], [address], [place], [address], [facility] [employer] 12/23/2023 22:55:29 02/14/2024 text/html This is [...] she has not utilized. KEVIN ESPINOZA [address] [facility], [address], [place], [address], [facility] [employer] [facility] 02/18/2024 11:34:01 04/07/2024 text/html This is an 83 yr old female with a past medical history that includes dementia, constipation, hx of urinary retention, recurrent UTI. 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 Seen for routine rounding visit. she is at her baseline in [facility], recently tested positive for COVID, she is without sx, there are no acute nursing concerns. KEVIN ESPINOZA [address] [facility], [address], [place], [address], [facility] [employer] [facility] 04/16/2024 11:15:18 OBGyn Episode No OBEpisode recorded.
[2024-05-23 10:09] LABS: CDiff Gene PCR NEGATIVE (Negative)
== END 2024-05-23 08:12 | disposition home or self-care (01) ==
LOC: HO.MMNH3L 08:11
PROVIDERS: Visit Provider Internal Medicine
DX: R19.5 Other fecal abnormalities (principal)
CPT/HCPCS: 87493

== ENCOUNTER 2024-06-09 | Outpatient (REF) | payer MEDICARE, SELFPAY ==
[2024-06-09 06:10] LABS: MANUAL DIFF FLAG NO
[2024-06-09 06:50] LABS: Basophils Percent Auto 0.3 % (0-2); Eosinophils Absolute Auto 0.1 X10*3/uL (0.0-0.4); Eosinophils Percent Auto 1.4 % (0-4); Hematocrit 44.9 % (37.0-47.0); Hemoglobin 14.6 g/dl (12.0-16.0); Imm Gran Abs Auto 0.02 X10*3/uL (0.00-0.03); Imm Gran Pct Auto 0.3 % (0.0-0.4); Lymphocytes Absolute Auto 2.3 X10*3/uL (1.2-4.9); Lymphocytes Percent Auto 32.4 % (20-40); Mean Corpuscular HGB Conc 32.5 g/dl (31.0-35.0); Mean Corpuscular Hemoglobin 31.1 pg (27.0-33.0); Mean Corpuscular Volume 95.5 fL (80.0-98.0); Mean Platelet Volume 9.5 fL (9.4-12.3); Monocytes Absolute Auto 0.7 X10*3/uL (0.1-1.2); Monocytes Percent Auto 9.4 % (2-11); Neutrophils Percent Auto 56.2 % (45-73); Platelet Count 225 X10*3/uL (160-400); Red Cell Distribution Width 13.3 % (11.0-16.0); White Blood Count 7.1 X10*3/uL (4.8-10.8)
== END 2024-06-09 00:01 | disposition home or self-care (01) ==
LOC: HO.MMNH2L
PROVIDERS: Visit Provider Family Medicine
DX: R27.8 Other lack of coordination (principal); K52.89 Other specified noninfective gastroenteritis and colitis
CPT/HCPCS: 36415; 85025

== ENCOUNTER 2024-06-15 12:45 | Outpatient (REF) | payer MEDICARE, SELFPAY ==
[2024-06-16 10:49] LABS: Adenovirus PCR Not Detected (Not Detect.); Bordetella parapertussis PCR Not Detected (Not Detect.); Bordetella pertussis PCR Not Detected (Not Detect.); Chlamydia pneumoniae PCR Not Detected (Not Detect.); Coronavirus 229E PCR Not Detected (Not Detect.); Coronavirus HKU1 PCR Not Detected (Not Detect.); Coronavirus NL63 PCR Not Detected (Not Detect.); Coronavirus OC43 PCR Not Detected (Not Detect.); Human metapneumovirus PCR Not Detected (Not Detect.); Influenza B PCR Not Detected (Not Detect.); Mycoplasma pneumoniae PCR Not Detected (Not Detect.); Parainfluenza 1 PCR Not Detected (Not Detect.); Parainfluenza 2 PCR Not Detected (Not Detect.); Parainfluenza 3 PCR Not Detected (Not Detect.); Parainfluenza 4 PCR Not Detected (Not Detect.); RSV PCR Not Detected (Not Detect.); Rhino/Enterovirus PCR Not Detected (Not Detect.)
[2024-06-16 11:31] LABS: Influenza A PCR Detected (Not Detect.); SARS-CoV-2 PCR Not Detected (Not Detect.)
== END 2024-06-15 12:46 | disposition home or self-care (01) ==
LOC: HO.MMNH3L 12:45
PROVIDERS: Student in an Organized Health Care Education/Training Program; Visit Provider Family Medicine
DX: U07.1 COVID-19 (principal)
CPT/HCPCS: 87633

== ENCOUNTER 2024-06-16 06:37 | Outpatient (REF) | payer MEDICARE, SELFPAY ==
[2024-06-16 06:40] LABS: MANUAL DIFF FLAG NO
--- OUTSIDE RECORDS SUMMARY | 2024-06-16 06:41 | XMS_ITS | Data Portability ---
Author Organization [facility], Main Office Address [address] [facility], [address] [place] [address] Care Team Providers Care Sizing End Bander Name Role Phone CHRIS GARCIA Primary Care [...] and Address Organization Details Recorded Time Dementia 96772862 Active 2022 DMITRIY LEBRON NP [address] [facility], [address], [place], [address], [employer] 12:17:21 Retention of urine 842829685 Active 2022 DMITRIY LEBRON, EDGE STRIPPER [address], [address], [place], [address], [facility] 3 12:17:26 Constipatio n 04761940 Active 2022 DMITRIY LEBRON, EDGE STRIPPER [address], [address], [place], [address], [facility] 3 12:17:32 Glaucoma 94293034 Active 2022 DMITRIY LEBRON, EDGE STRIPPER [address], [address], [place], [address], [facility] 3 12:17:39 Falls 918399875 Active 2022 DMITRIY LEBRON, EDGE STRIPPER [address], [address], [place], [address], [facility] 3 12:19:11 History of syncope 9606399342733 09 Active 2022 DMITRIY LEBRON, EDGE STRIPPER [address], [address], [place], [address], [facility] 3 12:19:19 Chronic migraine without aura 5883403894882 05 Active 2022 DMITRIY LEBRON, EDGE STRIPPER [address], [address], [place], [address], [facility] 3 12:24:31 COVID-19 310414579 Active 2022 DMITRIY LEBRON, EDGE STRIPPER [address] [facility], [address], [place], [address], [facility] 3 13:42:03 Stercoral colitis 522064111 Active 2022 Odalys Barber MD [address], [address], [place], [address], [facility] 3 10:42:17 Glaucoma 73942571 Active 2022 Odalys Barber MD [address], [address], [place], [address], [facility] 3 10:50:01 Acute urinary tract infection 545980368 Active 2022 DMITRIY LEBRON NP [address] [facility], [address], [place], [address], [facility] 3 13:22:34 Recurrent urinary tract infection 485761070 Active 2022 Odalys Barber MD [address], [address], [place], [address], [facility] [employer] [facility] 3 21:21:00 Chronic pain 56960918 Active 2023 Odalys Barber MD [address], [address], [place], [address], [facility] [employer] [facility] 4 14:05:27 Indigestion 667841419 Active 2023 KEVIN ESPINOZA [address] [facility], [address], [place], [address], [facility] [employer] [facility] 4 13:47:57 Problem Notes None recorded. Medical Equipment None Reported. Allergies Allergen ID Allergen Name Allergen Category Reaction Reaction Severity Criticality Documentation Date Start Date Code Code System Note Provider Name and Address Organization Details Recorded Time 73264 Product containin g penicilli n (product) medicatio n Not available Not available Not available 11/17/2022 23151 8001 SNOMED Not Available Not Available Not Available [...] 86 /min 138 mm[Hg] 82 mm[Hg] Barbara Modesta Anton [address] [facility], [facility] [address], [place], [address] , [facility] 10/26/2023 12:28:05 Date Recorded Body height Body temperature Oxygen saturation Oxygen saturation in Arterial blood by Pulse oximetry Respiratory rate Heart rate Systolic blood pressure Diastolic blood pressure Provider Name and Address Organization Details Last Updated DateTime 4 157.48 cm 97.6 [degF] 94 % 94 % 18 /min 87 /min 124 mm[Hg] 76 mm[Hg] KEVIN ESPINOZA [address] [place] [address], [address], [place], [address], [facility] 4 19:07:01 Date Recorded Body height Heart rate Respiratory rate Body temperature Oxygen saturation Oxygen saturation in Arterial blood by Pulse oximetry Provider Name and Address Organization Details Last Updated DateTime 4 157.48 cm 80 /min 18 /min 98 [degF] 95 % 95 % KEVIN ESPINOZA [address] [place] [address], [address], [place], [address], [facility] 4 22:44:52 Date Recorded Body height Heart rate Respiratory rate Oxygen saturation Oxygen saturation in Arterial blood by Pulse oximetry Systolic blood pressure Diastolic blood pressure Provider Name and Address Organization Details Last Updated DateTime 4 157.48 cm 92 /min 18 /min 96 % 96 % 133 mm[Hg] 72 mm[Hg] KEVIN ESPINOZA [address] [facility], [address], [place], [address], [facility] 4 11:20:33 Date Recorded Body height Heart rate Respiratory rate Body temperature Oxygen saturation Oxygen saturation in Arterial blood by Pulse oximetry Systolic blood pressure Diastolic blood pressure Provider Name and Address Organization Details Last Updated DateTime 4 157.48 cm 88 /min 18 /min 98 [degF] 97 % 97 % 124 mm[Hg] 72 mm[Hg] MARY JOHNSON, KEVIN [address] [facility], [address], [place], [address], [facility] 5 11:11:16 Social History Question Answer Notes LastModified by Organizat ion Details LastModified Time Tobacco Smoking Status Unknown If Ever Smoked DMITRIY LEBRON NP [address] [facility], [address], [place], [address], [facility] [employer] 11/17/2022 11:50:31 Do You Have An Advance Directive? Yes Information not available 11/21/2022 What Is Your Code Status? Full Code [email or web address] Information not available 11/20/2022 Do You Have A Medical Power Of Key Account Coordinator? Yes HCP Invoked Information not available 11/21/2022 [...] adjuvanted, quadrivalent, PF 01/09/2023 completed Anjana zimmer, [facility] 04/27/2023 13:03:23 Past Encounters Encounter ID Performer Location Encounter Start Date Encounter Closed Date Diagnosis/Indication Diagnosis SNOMED-CT Code Diagnosis ICD10 Code Diagnosis Note [id number] NAN ALEXANDRA [address] [facility] ROB FERNANDEZ [address] 11/17/2022 10:29:24 11/21/2022 15:53:20 Constipation 46716985 K59.00 miralax dailysenna plus bidmonitio r bm Retention of urine 64557 4002 R33.9 flomax 0.4 mg hsvoiding trial today 11/17monito r urine output Dementia 37651299 F03.90 aricept 10 mg hsseroquel 50 mg hs psych prnAIMS 0 Glaucoma 89066425 H40.9 combigan ou bidrocklat an hs Falls 832099288 R29.6 PT OT eval and treatfall precaution sfrequent safety checks History of syncope 01030 91356 70348 Z86.79 monitor ortho vs prn Chronic mi graine without aura 1817792358 18645 G43.709 prednisone 10 mg dailyamitr iptylline 10 mg hs COVID-19 630156862 U07.1 No symptoms To use paxlovid, dexamethas one, fluids, supplement al O2 prn for sxs. Continue to monitor O2 sats, temp, GI sxs and po intake. [id number] DMITRIY LEBRON NP [facility] [address] [place] [address] 11/20/2022 14:15:54 11/23/2022 11:39:23 COVID-19 909977555 U07.1 monitor congestion paxlovid 150/100 bid for 5 daysTo use paxlovid, dexamethas one, fluids, supplement al O2 prn for sxs.Contin ue to monitor O2 sats, temp, GI sxs and po intake. [id number] Odalys Barber MD [facility] [address] [place] [address] 11/21/2022 13:51:52 11/28/2022 16:22:18 COVID-19 536371310 U07.1 With mild coughConti nue paxlovid 150/100 BID for 5 day courseWill use dexamethas one, fluids, supplement al O2 prn for sxs.Contin ue to monitor O2 sats, temp, GI sxs and po intake. Retention of urine 62705 4002 R33.8 Successful voiding trial on ontin ue tamsulosin 0.4 mg qdMonitor urinary function. Dementia 31508513 F03.90 Continues at baselineCo ntinue aricept 10 mg qhs, seroquel 50 mg qhs and amitriptyl ine 10 mg qhs.Contin ue supportive care, expect decline.HC P invokedMon itor mood and behaviors. Psych consult prn. Glaucoma 55142922 H40.89 Continue combigan ou BID and rocklatan qhsF/U with eye dr as planned. Falls 623334173 R29.6 Very deconditio vane and with balance issuesNeed s PT/OT for strengthen ing, balance, gait training, safety and function.C ontinue fall precaution s.Monitor for safety. History of syncope 36171 79768 68675 Z86.79 Monitor vitals and MS. Chronic mi graine without aura 6922743315 74470 G43.709 No current sxs.Contin ue prednisone 10 mg qd and amitriptyl ine 10 mg qhsMonitor sxs. Stercoral colitis 885309 001 K52.89 Resolved.C ontinue bowel meds as ordered.Mo nitor bowel function. [id number] DMITRIY LEBRON NP [address] [address] 11/22/2022 13:40:59 11/29/2022 08:17:42 COVID-19 740803128 U07.1 monitor congestion paxlovid 150/100 bid for 5 days to 11/25To use paxlovid, dexamethas one, fluids, supplement al O2 prn for sxs.Contin ue to monitor O2 sats, temp, GI sxs and po intake. [id number] DMITRIY LEBRON NP [address] [address] 12/04/2022 13:19:24 12/06/2022 13:36:36 Dementia 66458164 F03.90 aricept 10 mg hsseroquel 50 mg hspsych prnAIMS 0did not tolerate slums COVID-19 893764800 U07.1 recoveredm onitor congestion paxlovid 150/100 bid for 5 days to 11/25To use paxlovid, dexamethas one, fluids, supplement al O2 prn for sxs.Contin ue to monitor O2 sats, temp, GI sxs and po intake. Acute urin marcie tract infection 895385476 N39.0 macrobid 100 mg bid for 7 days [id number] DMITRIY LEBRON NP [address] [address] 12/13/2022 11:22:57 12/15/2022 15:54:33 Retention of urine 735102551 R33.8 flomax 0.4 mg hsvoiding trial today 11/17-faile d, cath restartedm onitor urine outputurol ogy consult Falls 305046359 R29.6 PT OT eval and treatfall precaution sfrequent safety checks Dementia 10301675 F03.90 aricept 10 mg hsseroquel 50 mg hspsych prnAIMS 0did not tolerate slums [id number] DMITRIY LEBRON NP [address] [address] 12/20/2022 10:10:14 12/22/2022 11:38:53 Constipation 66211248 K59.00 miralax dailysenna plus bidmonitio r bm Retention of urine 83210 4002 R33.9 flomax 0.4 mg hs-increas ed to 0.8 mg hsvoiding trial today 11/17-faile d, will try again 12/21monito r urine outputurol ogy consult Dementia 67080652 F03.90 aricept 10 mg hsseroquel 50 mg hspsych prnAIMS 0 Glaucoma 04245293 H40.9 combigan ou bidrocklat an hs Falls 511341472 R29.6 PT OT eval and treatfall precaution sfrequent safety checks History of syncope 45554 67550 43044 Z86.79 monitor ortho vs prn Chronic mi graine without aura 8350396329 46184 G43.709 prednisone 10 mg dailyamitr iptylline 10 mg hs COVID-19 679763989 U07.1 No symptoms-r ecovered by dateTo use paxlovid, dexamethas one, fluids, supplement al O2 prn for sxs.Contin ue to monitor O2 sats, temp, GI sxs and po intake. [id number] DMITRIY LEBRON NP [address] [address] 12/28/2022 14:59:22 01/02/2023 15:51:32 Retention of urine 706866607 R33.9 flomax 0.4 mg hs-increas ed to 0.8 mg hsvoiding trial today 11/17-faile d, will try again 12/21-faile d againmonit or urine outputurol ogy consult [id number] DMITRIY LEBRON NP [address] [place] [address] 01/03/2023 13:43:31 01/09/2023 11:51:30 Dementia 86074294 F03.90 aricept 10 mg hsseroquel 50 mg hspsych prnAIMS 0 Retention of urine 87747 4002 R33.9 flomax 0.8 mg hsvoiding trial today 11/17-faile d, will try again 12/21-faile d againmonit or urine outputurol ogy consult Constipation 23623066 K5 9.00 miralax dailysenna plus bidmonitio r bm Glaucoma 71219287 H40.9 combigan ou bidrocklat an hs Falls 197501489 R29.6 PT OT eval and treatfall precaution sfrequent safety checks History of syncope 08011 95237 81745 Z86.79 monitor ortho vs prn Chronic mi graine without aura 3561191101 95521 G43.709 prednisone 10 mg dailyamitr iptylline 10 mg hs COVID-19 447033041 U07.1 recoveredN o symptomsTo use paxlovid, dexamethas one, fluids, supplement al O2 prn for sxs.Contin ue to monitor O2 sats, temp, GI sxs and po intake. [id number] DMITRIY LEBRON NP [address] [place] [address] 01/08/2023 16:14:21 01/12/2023 13:04:50 Dementia 38463043 F03.90 aricept 10 mg hsseroquel 50 mg hspsych prnAIMS 0 Retention of urine 68294 4002 R33.9 flomax 0.8 mg hsvoiding trial today 11/17-faile d, will try again 12/21-faile d againmonit or urine outputurol ogy consult 01/10 Constipation 99036051 K5 9.00 miralax dailysenna plus bidmonitio r bm Glaucoma 17683452 H40.9 combigan ou bidrocklat an hs Falls 437588798 R29.6 PT OT eval and treatfall precaution sfrequent safety checks History of syncope 10457 40274 18462 Z86.79 monitor ortho vs prn Chronic mi graine without aura 8747538469 00875 G43.709 prednisone 10 mg dailyamitr iptylline 10 mg hs COVID-19 841638335 U07.1 recoveredN o symptomsTo use paxlovid, dexamethas one, fluids, supplement al O2 prn for sxs.Contin ue to monitor O2 sats, temp, GI sxs and po intake. [id number] Odalys Barber MD [address] [place] [address] 02/09/2023 20:19:12 02/23/2023 13:46:06 Dementia 26975738 F02.B0 Continues at baselineCo ntinue aricept 10 mg qhs, seroquel 50 mg qhs and amitriptyl ine 10 mg qhs.Contin ue supportive care, expect decline.HC P invokedMon itor mood and behaviors. Psych consult prn. Retention of urine 02713 4002 R33.8 Has failed 2 voiding trials.Rep ortedly had uro appt on 01/10, no notes in chart.Cont inue tamsulosin 0.8 mg qd and bethanecol 25 mg TIDContinu e arana and f/u with uro as planned. Falls 526833697 R29.6 Remains deconditio vane.Contin ue PT/OT for strengthen ing, balance, gait training, safety and function.C ontinue fall precaution s.Monitor for safety. Chronic mi graine without aura 4856692217 69219 G43.709 Continue prednisone 10 mg qd and amitriptyl ine 10 mg qhs.Monito r sxs. COVID-19 524651532 U07.1 Tested + on 11/20Now recovered. Monitor for sequelae. Recurrent urinary tract infection 948894071 N30.20 Continue Vitamin C 500 mg BID and D-Mannose 1000 mg BID for prophylaxi s.Continue Elmiron 100 mg TID for IC pain.Monit or sxs. [id number] DMITRIY LEBRON NP [address] [address] 03/07/2023 10:57:58 03/20/2023 08:53:34 Dementia 83732731 F03.90 aricept 10 mg hsseroquel 50 mg hspsych prnAIMS 0 Retention of urine 36754 4002 R33.9 flomax 0.8 mg hsvoiding trial today 11/17-faile d, will try again 12/21-faile d againd-man nose 1000 bidmonitor urine outputurol ogy consult prn Constipation 12274243 K5 9.00 miralax dailysenna plus bidmonitio r bm Glaucoma 08561515 H40.9 combigan ou bidrocklat an hs Falls 479312368 R29.6 PT OT eval and treatfall precaution sfrequent safety checks History of syncope 20382 92072 25474 Z86.79 monitor ortho vs prn Chronic mi graine without aura 1807116035 58653 G43.709 prednisone 10 mg dailyamitr iptylline 10 mg hs COVID-19 131540949 U07.1 recoveredN o symptomsTo use paxlovid, dexamethas one, fluids, supplement al O2 prn for sxs.Contin ue to monitor O2 sats, temp, GI sxs and po intake. [id number] KEVIN ESPINOZA [address] [address] 05/03/2023 09:01:35 05/05/2023 03:52:24 Urinary tract infectious disease 28334767 N39.0 + UA with proteus mirabilisB actrim DS BID for 5 daysprobio tic for 7 daysmonito r for improvemen t. Dementia 56901794 F03.90 aricept 10 mg hsseroquel 50 mg hspsych prnmonitor for mood and behavior cahnges. [id number] Odalys Barber MD [address] [address] 05/03/2023 20:12:49 05/16/2023 12:09:34 Urinary tract infectious disease 90461314 N30.00 + UA with proteus mirabilisB actrim DS BID for 5 d course until 05/08 and probiotic BID until 05/09.Monit or sxs. Dementia 48905960 F02.B0 Remains at baselineCo ntinue aricept 10 mg qhs, seroquel 50 mg qhs and amitriptyl ine 10 mg qhs.Contin ue supportive care, expect decline.HC P invokedMon itor mood and behaviors. Psych follows, last seen 04/30, no med changes. Retention of urine 79966 4002 R33.8 No further issues since arana d/c'dConti nue bethanecol 25 mg TID and tamsulosin 0.8 mg qdMonitor urinary function. Falls 506984708 R29.6 Remains deconditio vane.Use PT/OT as ablle/need ed.Continu e fall precaution s.Monitor for safety. Recurrent urinary tract infection N30.20 Continue Vitamin C 500 mg BID and D-Mannose 1000 mg BID for prophylaxi s.Monitor sxs. Chronic mi graine without aura 5456492817 24509 G43.709 Continue prednisone 10 mg qd and amitriptyl ine 10 mg qhs.Monito r sxs. COVID-19 781149734 U07.1 Tested + on 11/20/22Now recovered. Monitor for sequelae. [id number] Barbara [address] [address] 06/28/2023 09:24:56 07/04/2023 14:27:17 Dementia 93161618 F02.B0 Remains at baselineCo ntinue aricept 10 mg qhs, seroquel 50 mg qhs and amitriptyl ine 10 mg qhs.Contin ue supportive care, expect decline.HC P invokedMon itor mood and behaviors. psych prn Retention of urine 31633 4002 R33.8 Continue bethanecol 25 mg TIDtamsulo sin 0.8 mg qdMonitor urinary function. Falls 599006034 R29.6 no reported recent fallsConti nue fall precaution s.Monitor for safety.Mor se 60 Recurrent urinary tract infection N30.20 Continue Vitamin C 500 mg BIDD-Vineet se 1000 mg BID for prophylaxi s.Monitor sxs. Chronic mi graine without aura 6362053655 35279 G43.709 stableCont inue prednisone 10 mg qdamitript yline 10 mg qhs.Monito r sxs. COVID-19 971667608 U07.1 With mild coughConti nue paxlovid 150/100 BID for 5 day courseWill use dexamethas one, fluids, supplement al O2 prn for sxs.Contin ue to monitor O2 sats, temp, GI sxs and po intake. Stercoral colitis 985304 001 K52.89 Resolved.C ontinue bowel meds as ordered.Mo nitor bowel function. Glaucoma 26587409 H40.89 Continue combigan ou BID and rocklatan qhsF/U with eye dr as planned. History of syncope 60874 67857 87757 Z86.79 Monitor vitals and MS. Constipation 84652061 K5 9.00 miralax dailysenna plus bidmonitio r bm Chronic pain 15469112 G8 9.29 abdominal and back painoxycod one 5 mg q 6 prn [id number] Odalys Barber MD [address] [place] [address] 09/04/2023 13:20:07 09/11/2023 11:21:18 Dementia 46245606 F02.B0 MS remains stable.Moo d good after d/c seroquel.C ontinue aricept 10 mg qhs and amitriptyl ine 10 mg qhs.Contin ue supportive care, expect decline.HC P invokedMon itor mood and behaviors. Psych continues to follow Retention of urine 25949 4002 R33.8 No further issues since arana d/c'dConti nue bethanecol 25 mg TID and tamsulosin 0.8 mg qdMonitor urinary function. Falls 828778505 R29.6 Remains deconditio vane.Use PT/OT as able/neede d.Continue fall precaution s.Monitor for safety. Recurrent urinary tract infection 832010235 N30.20 Continue Vitamin C 500 mg BID and D-Mannose 1000 mg BID for prophylaxi s.Monitor sxs. Chronic mi graine without aura 5271636162 77259 G43.709 Continue prednisone 10 mg qd and amitriptyl ine 10 mg qhs.Monito r sxs. COVID-19 190806102 U07.1 Tested + on 11/20/22Now recovered. Monitor for sequelae. Constipation 25376510 K5 9.09 Continue bowel meds as ordered.Mo nitor bowel function. Chronic pain 12814065 G8 9.29 Continue oxycodone 5 mg q 6 prn and APAP 650 mg q 6 hrs prn.Monito r sxs. [id number] KEVIN ESPINOZA [address] [address] 09/07/2023 13:56:21 09/11/2023 12:23:12 Indigestion 792206777 R10.13 see hpistart Tums 2 tabs Q4 prn TIDencoura ged to eat slowly, avoid caffeinate d drinksnurs ing to monitor for unrelieved sx nursing and update provider with changes Dysuria 27989765 R30.0 send urine for UA with C&S. [id number] KEVIN ESPINOZA [address] [address] 09/10/2023 12:44:19 09/17/2023 15:09:43 Dysuria 72459625 R30.0 send urine for UA with C&Snursing encouraged to reattemptw ill order one time dose of ativan to be given prior to attempt, hopefully to decrease resistence and combativen ess. [id number] KEVIN ESPINOZA [address] [address] 09/17/2023 08:54:06 09/20/2023 16:22:04 Recurrent urinary tract infection 060227261 N30.20 nursing was finally able to obtain [...] months.patricio sing updated to offers more fluids [id number] Barbara GatesEmiliano Anton [address] [place] [address] 10/26/2023 09:48:50 10/30/2023 09:29:54 Dementia 96766444 F02.B0 MS remains stable.Moo d good after d/c seroquel.C ontinue aricept 10 mg qhs and amitriptyl ine 10 mg qhs.Contin ue supportive care, expect decline.HC P invokedMon itor mood and behaviors. Psych continues to follow Falls 352424139 R29.6 Remains deconditio vane.Use PT/OT as able/neede d.Continue fall precaution s.Monitor for safety. Recurrent urinary tract infection 681632044 N30.20 Continue Vitamin C 500 mg BID and methanamin eMonitor sxs.treate d last month for UTI with bactrim Retention of urine 94507 4002 R33.8 No further issues since arana d/c'dConti nue bethanecol 25 mg TID and tamsulosin 0.8 mg qdMonitor urinary function. Chronic pain 77928244 G8 9.29 Continue oxycodone 5 mg q 6 prn and APAP 650 mg q 6 hrs prn.Monito r sxs. [id number] KEVIN ESPINOZA [address] [place] [address] 12/11/2023 11:12:57 12/13/2023 14:34:20 Bilateral lower limb edema 416805443 R60.0 see hpiappears dependent, pt sits in wheelchair for long periods of timerefer to therapy for wheelchair with leg rest for elevationc heck labs proBNP, CBC, and BMP on 12/12/23will start compressio n stocking to wear dailyconsi flo giving diuretic for worsening edemarecom mend no added salt to diet.will monitor for changes Dementia 87991688 F02.B0 alert at her baseline with confusione xpect declineCon tinue aricept 10 mg qhs, seroquel 50 mg qhs and amitriptyl ine 10 mg qhs.Contin ue supportive care, expect decline.HC P invoked- updated at bedside on above plan and is in agreementM onitor mood and behaviors. psych prn [id number] KEVIN ESPINOZA [facility] [address] [place] [address] [place] [address] 12/19/2023 08:36:46 12/24/2023 09:37:20 Dementia 01543947 F02.B0 MS remains stable.Con tinue aricept 10 mg qhs and amitriptyl ine 10 mg qhs.Contin ue supportive care, expect decline.HC P invokedMon itor mood and behaviors. Psych continues to follow Falls R29.6 Remains deconditio vane.Use PT/OT as able/neede d.Continue fall precaution s.Monitor for safety. Recurrent urinary tract infection N30.20 Continue Vitamin C 500 mg BID and methenamin eMonitor sxs.treate d last month for UTI with bactrim Retention of urine 41419 4002 R33.8 No further issues since arana d/c'dConti nue bethanecol 25 mg TID and tamsulosin 0.8 mg qdMonitor urinary function. Chronic pain 28672211 G8 9.29 Continue oxycodone 5 mg q 6 prn and APAP 650 mg q 6 hrs prn.Monito r sxs. Bilateral lower limb edema 724475283 R60.0 appears dependent, pt sits in wheelchair for long periods of timerefer to therapy for wheelchair with leg rest for elevationc ompression stocking to wear dailyconsi flo giving diuretic for worsening edemarecom mend no added salt to diet.will monitor for changes [id number] KEVIN ESPINOZA [facility] [address] [place] [address] [place] [address] 02/14/2024 09:38:47 02/18/2024 12:51:21 Dementia 97612894 F02.B0 MS remains stable.Con tinue aricept 10 mg qhs and amitriptyl ine 10 mg qhs.Contin ue supportive care, expect decline.HC P invokedMon itor mood and behaviors. Psych continues to follow Falls 539465380 R29.6 Remains deconditio vane.Use PT/OT as able/neede d.Continue fall precaution s.Monitor for safety. Recurrent urinary tract infection N30.20 Continue Vitamin C 500 mg BID and methenamin eMonitor sxs.treate d last month for UTI with bactrim Retention of urine 48865 4002 R33.8 No further issues since arana d/c'dConti nue bethanecol 25 mg TID and tamsulosin 0.8 mg qdMonitor urinary function. Chronic pain 04469645 G8 9.29 Continue oxycodone 5 mg q 6 prn and APAP 650 mg q 6 hrs prn.Monito r sxs. Bilateral lower limb edema 022049997 R60.0 stable/ tracecompr ession stocking to wear dailyconsi flo giving diuretic for worsening edemarecom mend no added salt to diet.will monitor for changes Bereavement 30320778 Z63 .4 son 02/02- He visited with her everyday. so far she has been doing well with lost, due to her dementia she may have forgotten that her son has passed, there has been no agitation or other behaviors of expression . She will be attending his services today.will provide support along with nursing.travon mcbride need to restart ativan . [id number] MARY JOHNSON, KEVIN MAGDALENO [address] [place] [address] 04/07/2024 15:04:30 04/16/2024 11:19:45 Dementia 57085775 F02.B0 MS remains stable.Con tinue aricept 10 mg qhs and amitriptyl ine 10 mg qhs.Contin ue supportive care, expect decline.HC P invokedMon itor mood and behaviors. Psych continues to follow Recurrent urinary tract infection N30.20 Continue Vitamin C 500 mg BID and methenamin eMonitor sxs.treate d last month for UTI with bactrim Chronic pain [id number] G8 9.29 Continue oxycodone 5 mg q 6 prn and APAP 650 mg q 6 hrs prn.Monito r sxs. Bilateral lower limb edema [id number] R60.0 stable/ tracecompr ession stocking to wear dailyconsi flo giving diuretic for worsening edemarecom mend no added salt to diet.will monitor for changes COVID-19 [id number] U07.1 without sxdiscusse d with nursing, will [...] Name 10/26/2023 2 [place] [id number] Deann Eduardo [id number] Deann Eduardo 10/26/2023 1 [place] Deann Eduardo [id number] Deann Eduardo 12/11/2023 2 [place] [id number] Deann Eduardo [id number] Deann Eduardo 12/11/2023 1 [place]MENT [place] Deann Eduardo [id number] 62 Deann Eduardo 12/19/2023 2 [place] [id number] Deann Eduardo [id number] 401 Deann Alesha 12/19/2023 1 [place]MENT [place] Deann Eduardo [id number] 62 Deann Eduardo 02/14/2024 2 [place] [id number] Deann Eduardo [id number] 401 Deann Eduardo 02/14/2024 1 [place]ERNMENT [place] Deann Eduardo [id number] 62 Deann Eduardo 04/07/2024 2 [place] [id number] Deann Eduardo [id number] Deann Eduardo 04/07/2024 1 [place] Deann Eduardo [id number] Deann Eduardo Notes Date Note Type [...] at her baseline. Barbara Willis kla [address], [address], [place], [address], [employer] 10/26/2023 12:37:53 12/11/2023 text/html This is an [...] denies any cardiopulmonary symptoms. KEVIN ESPINOZA [address], [address], [place], [address], [facility] [employer] 12/11/2023 19:25:59 12/19/2023 text/html This is an [...] participates in recreational activities. KEVIN ESPINOZA [address], [address], [place], [address], [employer] 12/23/2023 22:55:29 02/14/2024 text/html This is an [...] she has not utilized. KEVIN ESPINOZA [address], [address], [place], [address], [employer] [facility] 02/18/2024 11:34:01 04/07/2024 text/html This is an 83 yr old female with a past medical history that includes dementia, constipation, hx of urinary retention, recurrent UTI. 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 Seen for routine rounding visit. she is at her baseline in NAD, recently tested positive for COVID, she is without sx, there are no acute nursing concerns. KEVIN ESPINOZA [address], [address], [place], [address], [employer] 04/16/2024 11:15:18 OBGyn Episode No OBEpisode recorded.
--- OUTSIDE RECORDS SUMMARY | 2024-06-16 06:41 | XMS_ITS | Clinical Summary ---
Author Organization [facility] it Address [address] [place] [address] Care Team Providers Care Clinical Unit Coordinator Name Role Phone Melchor Mccormack MD Primary Care Provider [phone] Allergies Active Allergy Reactions Criticality Noted Date [...] Surgery Date Site/Laterality Comments ESOPHAGOGASTRODUODENOSCOPY 08/29/11 PROCEDURE: [facility] ESOPHAGOGASTRODUODENOSCOPY TRANSORAL DIAGNOSTIC; COMMENT: normal COLONOSCOPY 2004 [...] BMP Blood Test (02/01/2022) Pathologist [facility] Annual BMP Blood Test abstracted Historical Provider HEALTH MAINTENANCE Final Result * (ABNORMAL) Lipid panel (01/26/2021) [facility] LDL/HDL Ratio 2 0 - 4 Triglycerides [...] on the World Health Organization criteria, Deann Eudardo should be classified as having osteopenia. This patient has a 21% risk of major osteoporotic fracture and a 11% risk of hip fracture over the next 10 years. (World Health Organization Fracture Risk Assessment) [facility] Department of Internal Medicine recommends using [...] (World Health Organization Fracture Risk Assessment) [facility] Department of Internal Medicine recommendsusing National [...] Recently Relevant to Health Maintenance Care Teams Clinical Unit Coordinator Relationship Specialty Start Date End Date Melchor Mccormack MD [address] [place] [address] ROB Han [address] PCP - General 05/21/10
[2024-06-16 07:24] LABS: Basophils Percent Auto 0.2 % (0-2); Hemoglobin 14.2 g/dl (12.0-16.0); Imm Gran Abs Auto 0.03 X10*3/uL (0.00-0.03); Imm Gran Pct Auto 0.5 % (0.0-0.4); Lymphocytes Absolute Auto 0.6 X10*3/uL (1.2-4.9); Lymphocytes Percent Auto 10.5 % (20-40); Mean Corpuscular Hemoglobin 31.3 pg (27.0-33.0); Mean Corpuscular Volume 94.9 fL (80.0-98.0); Mean Platelet Volume 9.1 fL (9.4-12.3); Monocytes Percent Auto 16.2 % (2-11); Neutrophils Absolute Auto 4.4 x10*3/uL (2.0-8.3); Neutrophils Percent Auto 72.6 % (45-73); Platelet Count 232 X10*3/uL (160-400); Red Blood Count 4.53 X10*6/uL (4.20-5.50); Red Cell Distribution Width 13.5 % (11.0-16.0)
[2024-06-16 07:31] LABS: Anion Gap 14 (12-20); Blood Urea Nitrogen 6 mg/dL (9-16); Calcium 8.9 mg/dL (8.4-10.2); Carbon Dioxide 25 mmol/L (22-29); Chloride 103 mmol/L (96-108); Estimated Glomerular Filt Rate > 60; Glucose Random 108 mg/dL (60-115); Potassium 3.7 mmol/L (3.3-5.1); Sodium 138 mmol/L (135-145)
== END 2024-06-16 06:38 | disposition home or self-care (01) ==
LOC: HO.MMNH3L 06:37
PROVIDERS: Visit Provider Family Medicine
DX: U07.1 COVID-19 (principal)
CPT/HCPCS: 36415; 80048; 85025

== ENCOUNTER 2024-06-30 10:09 | Inpatient (IN) | payer MEDICARE, SELFPAY ==
[2024-06-30] VITALS (9 sets, daily range): BP systolic 129–153; BP diastolic 69–90; PULSE 80–100; RESP 16–26; TEMP 36.6–36.8; O2SAT 90–96; BMI 29.4
--- NOTE | ~2024-06-30 | XR_ITS ---
EXAMINATION: XR CHEST CLINICAL INFORMATION: cp COMPARISON: None available. TECHNIQUE: AP view of the chest was obtained. FINDINGS: The cardiac, hilar, and mediastinal contours are normal. Aortic mural calcifications and aortic tortuosity. Lungs demonstrate patchy retrocardiac opacity. Lungs otherwise clear. No pneumothorax or effusion. No focal osseous or soft tissue abnormality. Mild degenerative shoulder joint and spinal changes. Mild calcific tendinopathy of the right rotator cuff. XR/XR chest 1V IMPRESSION: 1. Patchy retrocardiac opacity, possibly representing pneumonia in the appropriate clinical setting. A lateral view may be of benefit. Electronically signed by: Benedict Boyd MD 06/30/2024 10:59 AM EDT RP
--- NOTE | ~2024-06-30 | XR_ITS ---
EXAMINATION: XR WRIST, LEFT CLINICAL INFORMATION: ? fx COMPARISON: None available. TECHNIQUE: PA, lateral, and oblique views of the left wrist. FINDINGS: No fracture, dislocation, or suspicious bone lesion. Osteopenia. Normal alignment. Moderate moderate to severe degenerative arthrosis first CMC joint, with milder changes STT joints. Mild radiocarpal joint space narrowing. Carpus appear intact. Soft tissues appear normal. XR/XR wrist LT min 3V IMPRESSION: 1. No acute findings of the left wrist. Electronically signed by: Benedict Boyd MD 06/30/2024 04:17 PM EDT
--- NOTE | ~2024-06-30 | CT_ITS ---
EXAMINATION: CT WRIST WITHOUT IV CONTRAST LEFT HISTORY: wrist pain s/p fall, ? fx. TECHNIQUE: Serial 2 mm helically acquired images were obtained through the left wrist per standard departmental protocol. Coronal and sagittal reformats were also obtained and evaluated. One or more of the following techniques was used for dose reduction: Automated exposure control, adjustment of the mA and/or kV according to patient size, use of iterative reconstruction technique. DLP: 79 mGy-cm COMPARISON: There are no prior studies for comparison. FINDINGS: Alignment appears anatomic. Evaluation for fractures is not possible due to artifact from scanning the patient with the wrist at her side. There is degenerative change of the 1st carpometacarpal joint. CT/CT wrist LT wo IV con IMPRESSION: Nondiagnostic examination for fracture as the patient's arm need to be scanned at her side. If there is clinical concern for a fracture of the wrist, plain films are recommended. Electronically signed by: Caio Thomas MD 06/30/2024 03:15 PM EDT
--- NOTE | ~2024-06-30 | CT_ITS ---
EXAMINATION: CT CHEST ANGIOGRAPHY WITH IV CONTRAST INDICATION: sob COMPARISON: There are no prior studies available for comparison. TECHNIQUE: Helical CT scan of the chest was performed following administration of intravenous contrast (65 mL Omnipaque 350). The contrast bolus was timed to optimally opacify the pulmonary arteries. Thin sections were obtained through the pulmonary arteries. Coronal and sagittal reformatted images were generated. 3D/MIP reconstructed images are also obtained and reviewed. This CT exam was performed with one or more of the following dose reduction techniques: automated exposure control, adjustment of the mA and/or kV according to patient size, use of iterative reconstruction technique. DLP: 171 mGy-cm CHEST: THYROID: The thyroid gland is unremarkable. PULMONARY ARTERIES: No intraluminal filling defects are identified within the pulmonary arteries to suggest pulmonary emboli. LUNGS: There are patchy groundglass opacities which are nonspecific. There is dependent atelectasis in the lower lobes. MEDIASTINUM: There is no mediastinal lymphadenopathy. ABDIRIZAK: There is no hilar lymphadenopathy. CARDIOVASCULATURE: The heart is normal in size. There is no pericardial effusion. The thoracic aorta is normal in caliber. DEGREE OF CORONARY CALCIFICATION: not evaluable, due to dense contrast in the coronary arteries. PLEURA: There is no pleural effusion. No pneumothorax. MAIN AIRWAYS: The mainstem bronchi and proximal branches are patent. AXILLA: There is no axillary lymphadenopathy. UPPER ABDOMEN: There is a probable 1.8 cm cyst at the dome of the liver. The visualized portions of the spleen and adrenals are unremarkable. BONES AND SOFT TISSUES: There is degenerative disc disease of the spine. CT/CT angio chest PE protocol IMPRESSION: No evidence of pulmonary emboli. Dependent atelectasis in both lower lobes. Electronically signed by: Caio Thomas MD 06/30/2024 02:18 PM EDT
--- NOTE | 2024-06-30 10:31 | ED_ITS ---
HPI - General Adult General Chief complaint: General Medical Stated complaint: LT HAND FRACTURE,DEMENTIA PER EMS Time Seen by Provider: 06/30/24 10:10 Related Data Previous Rx's ?Medication ?Instructions ?Recorded cefuroxime axetil 250 mg tablet 250 mg PO BID 7 days #14 tabs 04/20/23 Allergies Allergy/AdvReac Type Severity Reaction Status Date / Time Penicillins Allergy Unknown Verified 06/30/24 10:25 REPLACED BY [facility] Social History Social History Smoked in Last 30 Days: No Use of substances other than those prescribed or required for medical reasons: No Advance Directives: Yes Advance Directives Information Provided: Yes Advance Directives on File: No Physical Exam ED Vital Signs: Vital Signs - 24 hr 06/30/24 10:17 06/30/24 12:54 06/30/24 14:00 Temperature 98.3 F 97.8 F 98.1 F Pulse Rate 100 93 88 Respiratory Rate 16 26 H 16 Blood Pressure 134/69 153/80 H 129/74 Pulse Oximetry 90 L 94 95 Oxygen Delivery Method Room Air Nasal Cannula Nasal Cannula Oxygen Flow Rate 1 2 06/30/24 15:26 06/30/24 16:31 Temperature 98.1 F Pulse Rate 80 92 Respiratory Rate 24 H 17 Blood Pressure 136/70 Pulse Oximetry 96 Oxygen Delivery Method Nasal Cannula Oxygen Flow Rate 2 BMI result Body Mass Index 29.4 Medications Administered Discontinued Medications Generic Name Dose Route Start Last Admin Trade Name Freq PRN Reason Stop Dose Admin Albuterol/Ipratropium 3 ml 06/30/24 16:12 06/30/24 16:31 Albuterol/Iprat 2.5/0.5mg 3 Ml Ampul.Neb INHALE 06/30/24 16:13 3 ml ONCE ONE Administration Benzonatate 200 mg 06/30/24 14:56 06/30/24 15:03 Benzonatate 100 Mg Capsule PO 06/30/24 14:57 200 mg ONCE ONE Administration Iohexol 100 ml 06/30/24 13:40 06/30/24 13:40 Iohexol 350 Mg/Ml 100 Ml Infus..Btl IV 06/30/24 13:41 65 ml ONCE ONE Administration Ketorolac Tromethamine 15 mg 06/30/24 13:40 06/30/24 14:01 Ketorolac Tromethamine 15 Mg/Ml Vial IVPUSH 06/30/24 13:41 15 mg ONCE ONE Administration Methylprednisolone Sodium Succinate 125 mg 06/30/24 16:12 06/30/24 16:34 Methylprednisolone Sod Succ 125 Mg/2 Ml Vial IVPUSH 06/30/24 16:13 125 mg ONCE ONE Administration Medical Decision Making Medical Decision Making [facility] Narrative: Patient is 83 years old presents today with having generalized malaise. Having pain to the left wrist. Question fell. Also been coughing for 2 weeks. We did an initial chest x-ray my initial interpretation is that it was grossly negative radiology read it as a possible retrocardiac infiltrate. Patient was noted to have an O2 sat of 88-91% on room air. I did a venous blood gas which did not show any CO2 retention. Patient COVID flu RSV were all negative. No history of blood clots in the past. A CTA of the chest was done. The CTA showed no evidence of pneumonia. No evidence of pneumothorax. No evidence for congestive heart failure. No PE. Atelectasis was noted. Patient's lungs are slightly diminished with the decreased oxygenation. Discussed with patient's son. Stated patient never had shortness of breath with decreased oxygenation in the past. Will start patient on some steroid and some nebulized treatment. Place patient on 2 L of oxygen. Will admit for further evaluation. Contacted the hospitalist team. Dr. Florian notified. Dr. Florian wanted to send the patient home does not want to keep patient in the hospital. He does not want to write a full consult. He is aware of the finding. He felt the patient did not meet inpatient criteria. I discussed the finding with patient's son. He is aware. Patient is being sent back to the longterm. Differential Diagnosis Differential Diagnoses: The differential diagnosis associated with the presentation includes Shortness of breath, COVID, flu, congestive heart failure, PE Admission/Observation Consideration of admission/observation: Escalation of care including admission/observation considered Consult Healthcare Provider Management of the patient was discussed with: Hospitalist (Consulted the hospitalist team) Lab Data [facility] Lab Attestation statement: I reviewed the patient's lab results. 06/30/24 10:59 06/30/24 10:59 Labs: Lab Results 06/30/24 06/30/24 Range/Units 10:59 11:08 WBC 7.1 (4.8-10.8) X10*3/uL RBC 4.55 (4.20-5.50) X10*6/uL Hgb 14.1 (12.0-16.0) g/dl Hct 43.2 (37.0-47.0) % MCV 94.9 (80.0-98.0) fL MCH 31.0 (27.0-33.0) pg MCHC 32.6 (31.0-35.0) g/dl RDW 13.2 (11.0-16.0) % Plt Count 407 H D (160-400) X10*3/uL MPV 9.4 (9.4-12.3) fL Immature Gran % (Auto) 0.4 (0.0-0.4) % Neut % (Auto) 83.4 H (45-73) % Lymph % (Auto) 10.2 L (20-40) % [place] % (Auto) 5.8 (2-11) % Eos % (Auto) 0.1 (0-4) % Baso % (Auto) 0.1 (0-2) % Lymph # (Auto) 0.7 L (1.2-4.9) X10*3/uL [place] # (Auto) 0.4 (0.1-1.2) X10*3/uL Eos # (Auto) 0.0 (0.0-0.4) X10*3/uL Baso # (Auto) 0.0 (0.0-0.2) X10*3/uL Abs Immat Gran (auto) 0.03 (0.00-0.03) X10*3/uL Absolute Neuts (auto) 5.9 (2.0-8.3) x10*3/uL Absolute Nucleated RBC 0.000 (0.0-0.012) X10*3/uL Nucleated RBC % (auto) 0.0 (0.0-0.2) /100WBC VBG pH 7.51 H (7.32-7.43) VBG pCO2 40 mmHg VBG pO2 67 mmHg VBG HCO3 32 H (22-26) mmol/L VBG O2 Saturation 92.0 % VBG Base Excess 8.3 mmol/L Sodium 146 H (135-145) mmol/L Potassium 3.1 L (3.3-5.1) mmol/L Chloride 109 H (96-108) mmol/L Carbon Dioxide 27 (22-29) mmol/L Anion Gap 13 (12-20) BUN 22 H (9-16) mg/dL Creatinine 0.69 (0.5-1.4) mg/dL Estim Creat Clear Calc 55.8 Estimated GFR > 60 Random Glucose 180 H (60-115) mg/dL Lactic Acid 1.7 (0.5-2.0) mmol/L Calcium 9.1 (8.4-10.2) mg/dL Troponin I High Sens 6.1 D (<3.5-17.0) ng/L B-Natriuretic Peptide 24 (<100) pg/mL Influenza Type A (PCR) NEGATIVE (Negative) Influenza Type B (PCR) NEGATIVE (Negative) RSV RNA Qual (PCR) NEGATIVE (Negative) SARS-CoV-2 RNA (RT-PCR) NEGATIVE (Negative) Independent Interpretation I performed an independent interpretation of an: Plain X-Ray (My interpretation patient's chest x-ray was negative for pneumonia pneumothorax. My interpretation of patient's wrist x-ray was grossly negative for any acute evidence of fracture.) and CT Scan (I reviewed radiology's reading of the CTA which was grossly negative) Radiology Impression Discussion of test interpretation with radiology: I have reviewed the radiologist's reading. Radiologist Impression: Radiologist reading of the CT wrist was inconclusive. Difficult for patient to hold her arm in place to get the CT. An x-ray of the wrist was done. The x-ray the wrist showed no acute fracture. Independent Historian Clinical information obtained from an independent historian. History obtained from or confirmed by: Other (Discussed with patient's son) Chronic Conditions History of dementia Discharge Plan Discharge Clinical Impression: Acute upper respiratory infection Patient Disposition: Home, Self-Care Instructions: Suspected Fracture (ED), Shortness of Breath (ED) Additional Instructions: Risk of fracture exists. Please use the splint and get a repeat x-ray of the wrist in approximately 1 week. Follow-up with orthopedics in a week. Prescriptions: No Action cefuroxime axetil 250 mg tablet 250 mg PO BID 7 Days Qty: 14 0RF Referrals: Jameel Garcia MD [Physician] - Print Language: Iranian
[2024-06-30 11:04] LABS: MANUAL DIFF FLAG NO
[2024-06-30 11:12] LABS: Basophils Percent Auto 0.1 % (0-2); Eosinophils Percent Auto 0.1 % (0-4); Hematocrit 43.2 % (37.0-47.0); Hemoglobin 14.1 g/dl (12.0-16.0); Imm Gran Abs Auto 0.03 X10*3/uL (0.00-0.03); Imm Gran Pct Auto 0.4 % (0.0-0.4); Lymphocytes Absolute Auto 0.7 X10*3/uL (1.2-4.9); Lymphocytes Percent Auto 10.2 % (20-40); Mean Corpuscular HGB Conc 32.6 g/dl (31.0-35.0); Mean Corpuscular Volume 94.9 fL (80.0-98.0); Mean Platelet Volume 9.4 fL (9.4-12.3); Monocytes Absolute Auto 0.4 X10*3/uL (0.1-1.2); Monocytes Percent Auto 5.8 % (2-11); Neutrophils Absolute Auto 5.9 x10*3/uL (2.0-8.3); Neutrophils Percent Auto 83.4 % (45-73); Platelet Count 407 X10*3/uL (160-400); Red Blood Count 4.55 X10*6/uL (4.20-5.50); Red Cell Distribution Width 13.2 % (11.0-16.0); White Blood Count 7.1 X10*3/uL (4.8-10.8)
[2024-06-30 11:12] LABS: VBG Base Excess 8.3 mmol/L; VBG HCO3 32 mmol/L (22-26); VBG pCO2 40 mmHg; VBG pH 7.51 (7.32-7.43); VBG pO2 67 mmHg
[2024-06-30 11:12] LABS: Venous Blood Gas Refer to POC result
[2024-06-30 11:29] LABS: Anion Gap 13 (12-20); Blood Urea Nitrogen 22 mg/dL (9-16); Calcium 9.1 mg/dL (8.4-10.2); Carbon Dioxide 27 mmol/L (22-29); Chloride 109 mmol/L (96-108); Creatinine Clr Calc Pharmacy 55.8; Estimated Glomerular Filt Rate > 60; Glucose Random 180 mg/dL (60-115); Potassium 3.1 mmol/L (3.3-5.1); Sodium 146 mmol/L (135-145)
[2024-06-30 11:30] LABS: Lactic Acid 1.7 mmol/L (0.5-2.0)
[2024-06-30 11:36] LABS: B Type Natriuretic Peptide 24 pg/mL (<100)
[2024-06-30 11:37] LABS: Troponin-I High Sensitivity 6.1 ng/L (<3.5-17.0)
[2024-06-30 11:46] LABS: Influenza A PCR NEGATIVE (Negative); Influenza B PCR NEGATIVE (Negative); Resp Syncy Virus RNA Qual PCR NEGATIVE (Negative); SARS COV2 PCR INHOUSE NEGATIVE (Negative)
--- NOTE | 2024-06-30 12:52 | PC.NURSE ---
Assumed care of this patient at 1100, patient ordered CTA, IV line placed in L AC, patient placed on ekg monitor, resting queitly awaiting CT at this time.
[2024-06-30] MEDS: iohexoL 350 MG/ML 100 ML INFUS..BTL IV (13:40)
[2024-06-30] MEDS: Ketorolac Tromethamine 15 MG/ML VIAL IVPUSH (14:01)
[2024-06-30] MEDS: Benzonatate 100 MG CAPSULE 200 MG PO (15:03)
--- NOTE | 2024-06-30 16:04 | PC.NURSE ---
Patient noted to be desatting to 89% on RA, Dr. Beltran made aware, requested ambulation trial, patient states she does not walk, following up w/ son to determine whether patient can walk
[2024-06-30] MEDS: Albuterol/Iprat 2.5/0.5MG 3 ML AMPUL.NEB INHALE ×2 (16:31→17:29)
[2024-06-30] MEDS: methylPREDNISolone Sod Succ 125 MG/2 ML VIAL IVPUSH (16:34)
--- NOTE | 2024-06-30 17:18 | P.HPHOSP_ITS ---
History of Present Illness Date of Service: 06/30/24 Attending physician on admission: Rito Florian Chief Complaint: L wrist pain, malaise 83-year-old female with history of unspecified dementia, history of UTI and urinary retention, chronic migraine headaches on chronic steroids, glaucoma presented to the ED due to generalized malaise and pain in the left wrist. She denies any known injury. She is able to answer orientation questions but is not able to provide much history. History is obtained from her son. Per her son, she has been coughing for the past 3 weeks, now productive. He denies any known chronic lung disease though she does have albuterol inhalers on her home medications list. The patient denies any smoking history. No fevers, chills, sore throat, congestion, abdominal pain, nausea, vomiting, diarrhea, chest pain per son's report. He reports he was sick with similar symptoms about 3 weeks ago. He states that she has not been eating or drinking much. On review of the chart, it appears she did have influenza and was prescribed Tamiflu on 06/16. Since arrival, patient has been intermittently tachypneic and has been hypoxic on room air to 88-90% placed on 2 L supplemental O2. There is no leukocytosis. Creatinine baseline, BUN slightly elevated at 22. Sodium 146, potassium 3.1, chloride 109. BNP 24. Negative for COVID, flu, RSV. CTA of the chest negative for pulmonary emboli but shows dependent atelectasis in both lower lobes. Risks CT nondiagnostic for fracture as patient's arm needed to be scanned at her side, however x-ray of the wrist was negative for any fracture. In the ED, has been given ketorolac, methylprednisolone, benzonatate and DuoNebs. Review of Systems 2 Review of Systems: Yes Unobtainable due to mental status [facility] Medical History Glaucoma Migraines Dementia Hypothyroidism Social History Smoked in Last 30 Days: No Use of substances other than those prescribed or required for medical reasons: No Advance Directives: Yes Advance Directives Information Provided: Yes Advance Directives on File: No Meds Allergies Allergy/AdvReac Type Severity Reaction Status Date / Time Penicillins Allergy Unknown Verified 06/30/24 10:25 Active Medications: Current Medications Acetaminophen (Acetaminophen 325 Mg Tablet) 650 mg PO Q6H PRN PRN Reason: Pain, Mild 1-3,fever,headache Benzonatate (Benzonatate 100 Mg Capsule) 100 mg PO TID PRN PRN Reason: Cough Calcium Carbonate (Calcium Carbonate 750 Mg Tab.Chew) 750 mg PO Q4H PRN PRN Reason: Heartburn Enoxaparin Sodium (Enoxaparin Sodium 40 Mg/0.4 Ml Syringe) 40 mg SUBCUT Q24H [place] Azithromycin 500 mg/ Sodium (Chloride) 250 mls @ 125 mls/hr IV Q24H [place] Magnesium Hydroxide (Milk Of Magnesia 30 Ml Oral.Susp) 30 ml PO DAILY PRN PRN Reason: Constipation Melatonin (Melatonin 3 Mg Tablet) 6 mg PO BEDTIME PRN PRN Reason: Insomnia Methylprednisolone Sodium Succinate (Methylprednisolone Sod Succ 40 Mg/Ml Vial) 40 mg IVPUSH Q12H [place] Sodium Chloride (0.9 % Sodium Chloride Flush 3 Ml Syringe) 3 ml IVFLUSH QSHIFT [facility] Physical Exam 2 Vital Signs and Narrative: Vital Signs: Last Vital Signs Temp 98.1 F 06/30/24 15:26 Pulse 92 06/30/24 16:31 Resp 17 06/30/24 16:31 BP 136/70 06/30/24 15:26 Pulse Ox 96 06/30/24 15:26 O2 Del Method Nasal Cannula 06/30/24 15:26 O2 Flow Rate 2 06/30/24 15:26 BMI result Body Mass Index 29.4 Constitutional - Awake and Alert, No apparent distress Eyes - PERRLA, EOMI Cardiovascular - S1S2, RRR, No edema Respiratory - Normal lung expansion, Normal respiratory effort, No respiratory distress, bilateral wheezing and rhonchi RLL Gastrointestinal - NT / ND; +BS; No rebound or guarding Extremities - no calf tenderness bilaterally, no swelling. Ecchymosis of the radial aspect of the L wrist with full ROM Skin - Warm/Dry Neurological - Alert & oriented x3,but unable to provide much history Results Labs 06/30/24 10:59 06/30/24 10:59 Labs: Laboratory Results - last 24 hr 06/30/24 06/30/24 10:59 11:08 MCV 94.9 MCH 31.0 MCHC 32.6 RDW 13.2 Plt Count 407 H D MPV 9.4 Immature Gran % (Auto) 0.4 Neut % (Auto) 83.4 H Lymph % (Auto) 10.2 L [place] % (Auto) 5.8 Eos % (Auto) 0.1 Baso % (Auto) 0.1 Lymph # (Auto) 0.7 L [place] # (Auto) 0.4 Eos # (Auto) 0.0 Baso # (Auto) 0.0 Abs Immat Gran (auto) 0.03 Absolute Neuts (auto) 5.9 Absolute Nucleated RBC 0.000 Nucleated RBC % (auto) 0.0 VBG pH 7.51 H VBG pCO2 40 VBG pO2 67 VBG HCO3 32 H VBG O2 Saturation 92.0 VBG Base Excess 8.3 Anion Gap 13 Estim Creat Clear Calc 55.8 Estimated GFR > 60 Random Glucose 180 H Lactic Acid 1.7 Calcium 9.1 B-Natriuretic Peptide 24 Influenza Type A (PCR) NEGATIVE Influenza Type B (PCR) NEGATIVE RSV RNA Qual (PCR) NEGATIVE SARS-CoV-2 RNA (RT-PCR) NEGATIVE Imaging Radiologist's Impressions: Impressions Chest X-Ray 06/30/24 10:30 IMPRESSION: 1. Patchy retrocardiac opacity, possibly representing pneumonia in the appropriate clinical setting. A lateral view may be of benefit. Electronically signed by: Benedict Boyd MD 06/30/2024 10:59 AM EDT RP Wrist CT 06/30/24 10:30 IMPRESSION: Nondiagnostic examination for fracture as the patient's arm need to be scanned at her side. If there is clinical concern for a fracture of the wrist, plain films are recommended. Electronically signed by: Caio Thomas MD 06/30/2024 03:15 PM EDT RP Chest CTA 06/30/24 12:35 IMPRESSION: No evidence of pulmonary emboli. Dependent atelectasis in both lower lobes. Electronically signed by: Caio Thomas MD 06/30/2024 02:18 PM EDT RP Wrist X-Ray 06/30/24 16:00 IMPRESSION: 1. No acute findings of the left wrist. Electronically signed by: Benedict Boyd MD 06/30/2024 04:17 PM EDT RP Assessment and Plan (1) Encephalopathy: Status: Acute (2) Bronchitis: Status: Acute Plan 83-year-old female with history of unspecified dementia, history of UTI and urinary retention, chronic migraine headaches on chronic steroids, glaucoma admitted for further management of acute bronchitis with acute hypoxemic respiratory failure and encephalopathy Acute metabolic encephalopathy baseline unspecified dementia but per son has been confused from baseline Rule out UTI with UA/UC Versus related to viral respiratory infection Acute hypoxemic respiratory failure Likely multifactorial secondary to atelectasis and acute bronchitis Diagnosed with influenza 06/16. Recheck viral respiratory panel IV methylprednisolone DuoNebs p.r.n. IV azithromycin for pleiotropic effect Encourage deep breathing. If able to follow commands, consider incentive spirometry Wean supplemental O2 as tolerated ?UTI UA/UC ordered with straight catheterization Acute hypokalemia Repleted. Follow lytes Migraine headaches Continue amitriptyline. Hold prednisone as patient is on IV steroids Glaucoma Continue eye drops DVT prophylaxis-Lovenox Full code Patient requires inpatient stay at least 2 midnights due to acute metabolic encephalopathy and hypoxemic respiratory failure secondary to atelectasis and viral infection as well as possible UTI and will require IV antibiotics, IV steroids and close monitoring of mentation Quality Stroke Does the patient have a stroke diagnosis?: No VTE Prior VTE?: No VTE Risk Level:: Medical - moderate - high VTE Device Contraindication: Treatment Not Indicated VTE Drug Contraindication: N/A - Med Ordered
[2024-06-30] MEDS: Lactated Ringers 1,000 ML 80 ML IVCONT (18:09)
[2024-06-30] MEDS: Enoxaparin Sodium 40 MG/0.4 ML SYRINGE SUBCUT (18:33)
[2024-06-30] MEDS: Azithromycin 500 MG in 0.9 % Sodium Chloride 250 ML 125 MG IV (18:33)
[2024-06-30] MEDS: Potassium Chloride Packet 20 MEQ PACKET 40 MEQ PO (18:33)
[2024-06-30] MEDS: methylPREDNISolone Sod Succ 40 MG/ML VIAL IVPUSH (18:34)
--- NOTE | 2024-06-30 19:20 | PC.NURSE ---
Attempted to straight cath patient w/ oncoming RN Meeta, scant urine output, patient did not tolerate procedure well at all. Purewick applied will attempt again later.
--- NOTE | 2024-06-30 21:43 | PHA.MEDREC ---
Pharmacy Consult ? Medication Reconciliation Pharmacy has completed the medication reconciliation.
[2024-06-30 22:14] LABS: Appearance Urine Cloudy; Color Urine Yellow; Glucose Urine UA Negative (Negative); Leukocyte Esterase Urine Negative (Negative); Nitrite Urine Positive (Negative); PH 6.5 (5.0-9.0); Specific Gravity - Urine >= 1.030 (1.005-1.025); UMIC TRIGGER UACC YES; Urine Blood Moderate (2+) (Negative); Urine Ketones 15 mg/dL (Negative); Urine Protein 300 (3+) mg/dL (Neg-Trace)
[2024-06-30 22:33] LABS: Bacteria Urine None Seen (None Seen); Hyaline Casts Urine 0-2 /LPF (0-2); Squamous Epithelial Cell Urine 0-2 /HPF (0-2); UACC Culture Trigger YES; WBC Urine 0-5 /HPF (0-5)
[2024-07-01] VITALS (9 sets, daily range): BP systolic 119–149; BP diastolic 72–90; PULSE 92–104; RESP 12–18; TEMP 36.8–36.9; O2SAT 89–94
[2024-07-01] MEDS: Lactated Ringers 1,000 ML 80 ML IVCONT (05:57)
[2024-07-01] MEDS: methylPREDNISolone Sod Succ 40 MG/ML VIAL IVPUSH ×2 (05:58→18:38)
[2024-07-01 06:38] LABS: MANUAL DIFF FLAG NO
[2024-07-01 06:49] LABS: Hemoglobin 13.6 g/dl (12.0-16.0); Imm Gran Abs Auto 0.02 X10*3/uL (0.00-0.03); Imm Gran Pct Auto 0.4 % (0.0-0.4); Lymphocytes Absolute Auto 0.7 X10*3/uL (1.2-4.9); Lymphocytes Percent Auto 12.6 % (20-40); Mean Corpuscular HGB Conc 31.6 g/dl (31.0-35.0); Mean Corpuscular Volume 94.7 fL (80.0-98.0); Mean Platelet Volume 9.8 fL (9.4-12.3); Monocytes Absolute Auto 0.3 X10*3/uL (0.1-1.2); Monocytes Percent Auto 5.3 % (2-11); Neutrophils Absolute Auto 4.5 x10*3/uL (2.0-8.3); Neutrophils Percent Auto 81.7 % (45-73); Platelet Count 420 X10*3/uL (160-400); Red Blood Count 4.54 X10*6/uL (4.20-5.50); White Blood Count 5.5 X10*3/uL (4.8-10.8)
[2024-07-01 07:04] LABS: Anion Gap 14 (12-20); Blood Urea Nitrogen 18 mg/dL (9-16); Calcium 8.9 mg/dL (8.4-10.2); Carbon Dioxide 24 mmol/L (22-29); Chloride 111 mmol/L (96-108); Estimated Glomerular Filt Rate > 60; Glucose Random 129 mg/dL (60-115); Potassium 3.9 mmol/L (3.3-5.1); Sodium 145 mmol/L (135-145)
[2024-07-01 09:02] LABS: Adenovirus PCR Not Detected (Not Detect.); Bordetella parapertussis PCR Not Detected (Not Detect.); Bordetella pertussis PCR Not Detected (Not Detect.); Chlamydia pneumoniae PCR Not Detected (Not Detect.); Coronavirus 229E PCR Not Detected (Not Detect.); Coronavirus HKU1 PCR Not Detected (Not Detect.); Coronavirus NL63 PCR Not Detected (Not Detect.); Coronavirus OC43 PCR Not Detected (Not Detect.); Human metapneumovirus PCR Not Detected (Not Detect.); Influenza B PCR Not Detected (Not Detect.); Mycoplasma pneumoniae PCR Not Detected (Not Detect.); Parainfluenza 1 PCR Not Detected (Not Detect.); Parainfluenza 2 PCR Not Detected (Not Detect.); Parainfluenza 3 PCR Not Detected (Not Detect.); Parainfluenza 4 PCR Not Detected (Not Detect.); RSV PCR Not Detected (Not Detect.); Rhino/Enterovirus PCR Not Detected (Not Detect.)
--- NOTE | 2024-07-01 09:46 | HO.PM.IMPN ---
Subjective Subjective Date of Service: 07/01/24 Interval History: Seen and evaluated this morning Feels better more alert and interactive breathing improved no other events Review of Systems Review of Systems: Yes all other systems are reviewed and are negative Physical Exam Vital Signs: Vital Signs: Last Vital Signs Temp 98.2 F 07/01/24 07:41 Pulse 104 H 07/01/24 07:41 Resp 16 07/01/24 07:41 BP 133/79 07/01/24 07:41 Pulse Ox 92 07/01/24 07:41 O2 Del Method Nasal Cannula 07/01/24 07:41 O2 Flow Rate 2 07/01/24 07:41 BMI result Body Mass Index 29.4 Const: Other: Constitutional : Awake, interactive, not in distress Neck : Normal inspection, Supple Cardiovascular : RRR, no JVP, trace lower extremity edema Respiratory : improved bilateral air entry, no crackles, bilaterally expiratory wheezes Gastrointestinal: soft, lax, Normal bowel sounds, Non tender Skin : Warm, Dry Neurological : Alert & oriented x3, No focal deficit Objective Data Active Medications Acetaminophen (Acetaminophen 325 Mg Tablet) 650 mg PO Q6H PRN PRN Reason: Pain, Mild 1-3,fever,headache Benzonatate (Benzonatate 100 Mg Capsule) 100 mg PO TID PRN PRN Reason: Cough Brimonidine Tartrate (Brimonidine Tartrate 0.2% Oph 5 Ml Bottle) 1 drop EYE-BOTH BID [facility] Calcium Carbonate (Calcium Carbonate 750 Mg Tab.Chew) 750 mg PO Q4H PRN PRN Reason: Heartburn Enoxaparin Sodium (Enoxaparin Sodium 40 Mg/0.4 Ml Syringe) 40 mg SUBCUT Q24H [facility] Last Admin: 06/30/24 18:33 Dose: 40 mg Documented By: RIVER Azithromycin 500 mg/ Sodium (Chloride) 250 mls @ 125 mls/hr IV Q24H [facility] Last Infusion: 06/30/24 21:55 Dose: Infused Documented By: CLARITA Lactated Ringer's (Lr) 1,000 mls @ 80 mls/hr IVCONT .[id number] [facility] Last Admin: 07/01/24 05:57 Dose: 80 mls/hr Documented By: CLARITA Magnesium Hydroxide (Milk Of Magnesia 30 Ml Oral.Susp) 30 ml PO DAILY PRN PRN Reason: Constipation Melatonin (Melatonin 3 Mg Tablet) 6 mg PO BEDTIME PRN PRN Reason: Insomnia Methenamine Hippurate (Methenamine Hippurate 1 Gm Tablet) 1 gm PO BID [facility] Methylprednisolone Sodium Succinate (Methylprednisolone Sod Succ 40 Mg/Ml Vial) 40 mg IVPUSH Q12H [facility] Last Admin: 07/01/24 05:58 Dose: 40 mg Documented By: CLARITA Non-Formulary Medication (Netarsudil-Latanoprost [Rocklatan]) 1 drop EYE-BOTH BEDTIME [facility] Nystatin (Nystatin Cream 15 Gm Tube) 1 appl TOPICAL QID PRN; Protocol PRN Reason: Rash Sodium Chloride (0.9 % Sodium Chloride Flush 3 Ml Syringe) 3 ml IVFLUSH QSHIFT [facility] Last Admin: 07/01/24 09:45 Dose: Not Given Documented By: JAMES Non-Admin Reason: IV Running Tamsulosin HCl (Tamsulosin Hcl 0.4 Mg Capsule) 0.8 mg PO BEDTIME [facility] Timolol Maleate (Timolol Maleate 0.5 % Oph Maxine 5 Ml Drbtl) 1 drop EYE-BOTH BID [facility] Labs 07/01/24 05:29 07/01/24 05:29 Labs: Laboratory Results - last 24 hr 06/30/24 06/30/24 06/30/24 10:59 11:08 22:07 MCV 94.9 MCH 31.0 MCHC 32.6 RDW 13.2 Plt Count 407 H D MPV 9.4 Immature Gran % (Auto) 0.4 Neut % (Auto) 83.4 H Lymph % (Auto) 10.2 L Hawkins % (Auto) 5.8 Eos % (Auto) 0.1 Baso % (Auto) 0.1 Lymph # (Auto) 0.7 L Hawkins # (Auto) 0.4 Eos # (Auto) 0.0 Baso # (Auto) 0.0 Abs Immat Gran (auto) 0.03 Absolute Neuts (auto) 5.9 Absolute Nucleated RBC 0.000 Nucleated RBC % (auto) 0.0 VBG pH 7.51 H VBG pCO2 40 VBG pO2 67 VBG HCO3 32 H VBG O2 Saturation 92.0 VBG Base Excess 8.3 Anion Gap 13 Estim Creat Clear Calc 55.8 Estimated GFR > 60 Random Glucose 180 H Lactic Acid 1.7 Calcium 9.1 B-Natriuretic Peptide 24 Urine Color Yellow Urine Appearance Cloudy Urine pH 6.5 Ur Specific Avery >= 1.030 H Urine Protein 300 (3+) H Urine Glucose (UA) Negative Urine Ketones 15 Urine Blood Moderate (2+) H Urine Nitrite Positive H Ur Leukocyte Esterase Negative Urine RBC 3-5 H Urine WBC 0-5 Ur Squamous Epith Cells 0-2 Urine Bacteria None Seen Hyaline Casts 0-2 Influenza Type A (PCR) NEGATIVE Influenza Type B (PCR) NEGATIVE RSV RNA Qual (PCR) NEGATIVE SARS-CoV-2 RNA (RT-PCR) NEGATIVE 07/01/24 05:29 MCV 94.7 MCH 30.0 MCHC 31.6 RDW 13.0 Plt Count 420 H MPV 9.8 Immature Gran % (Auto) 0.4 Neut % (Auto) 81.7 H Lymph % (Auto) 12.6 L Hawkins % (Auto) 5.3 Eos % (Auto) 0.0 Baso % (Auto) 0.0 Lymph # (Auto) 0.7 L Hawkins # (Auto) 0.3 Eos # (Auto) 0.0 Baso # (Auto) 0.0 Abs Immat Gran (auto) 0.02 Absolute Neuts (auto) 4.5 Absolute Nucleated RBC 0.000 Nucleated RBC % (auto) 0.0 VBG pH VBG pCO2 VBG pO2 VBG HCO3 VBG O2 Saturation VBG Base Excess Anion Gap 14 Estim Creat Clear Calc 70.0 Estimated GFR > 60 Random Glucose 129 H Lactic Acid Calcium 8.9 B-Natriuretic Peptide Urine Color Urine Appearance Urine pH Ur Specific Avery Urine Protein Urine Glucose (UA) Urine Ketones Urine Blood Urine Nitrite Ur Leukocyte Esterase Urine RBC Urine WBC Ur Squamous Epith Cells Urine Bacteria Hyaline Casts Influenza Type A (PCR) Influenza Type B (PCR) RSV RNA Qual (PCR) SARS-CoV-2 RNA (RT-PCR) Assessment and Plan (1) Encephalopathy: Status: Acute (2) Bronchitis: Status: Acute (3) Acute upper respiratory infection: Status: Acute (4) Hypoxia: Status: Acute (5) Physical deconditioning: Status: Acute Plan 83-year-old female with history of unspecified dementia, history of UTI and urinary retention, chronic migraine headaches on chronic steroids, glaucoma admitted for further management of acute bronchitis with acute hypoxemic respiratory failure and encephalopathy Acute metabolic encephalopathy 2/2 hypoxia Improved baseline unspecified dementia and has been confused from baseline no evidence of UTI Acute hypoxemic respiratory failure 2/2 atelectasis and acute bronchitis negative viral respiratory panel continue IV methylprednisolone DuoNebs scheduled IV azithromycin for pleiotropic effect incentive spirometry Wean supplemental O2 as tolerated Physical deconditioning PT eval Acute hypokalemia Repleted. Follow lytes Migraine headaches Continue amitriptyline. Hold prednisone as patient is on IV steroids Glaucoma Continue eye drops DVT prophylaxis Lovenox Full code Patient requires inpatient stay overnight due to acute metabolic encephalopathy and hypoxemic respiratory failure secondary to atelectasis and viral infection require IV antibiotics, IV steroids and close monitoring of mentation Quality Stroke Does the patient have a stroke diagnosis?: No VTE Prior VTE?: No VTE Risk Level:: Medical - moderate - high VTE Device Contraindication: Treatment Not Indicated VTE Drug Contraindication: N/A - Med Ordered
[2024-07-01 10:07] LABS: Influenza A H1 PCR Not Detected (Not Detect.); Influenza A H1-2009 PCR Not Detected (Not Detect.); Influenza A H3 PCR Not Detected (Not Detect.); Influenza A PCR Detected (Not Detect.); SARS-CoV-2 PCR Not Detected (Not Detect.)
[2024-07-01] MEDS: guaiFENesin LA 600 MG TAB.ER.12H PO ×2 (10:09→21:58)
--- NOTE | 2024-07-01 10:14 | PC.NURSE ---
assumed care of patient at 0700, patient is awake and alert, pleasantly confused. patient stated she was wet, new linens and gown, patient is on purewick, was not incontinent. patient medicated per JUN, patient has wrist splint on left wrist, cap refill wnl.
[2024-07-01] MEDS: Brimonidine Tartrate 0.2% Oph 5 ML BOTTLE 1 DROP EYE-BOTH ×2 (11:31→20:50)
[2024-07-01] MEDS: timoloL maleate 0.5 % Oph Sol 5 ML DRBTL 1 DROP EYE-BOTH ×2 (11:31→20:54)
[2024-07-01] MEDS: Albuterol/Iprat 2.5/0.5MG 3 ML AMPUL.NEB INHALE ×3 (11:56→20:12)
--- NOTE | 2024-07-01 14:05 | MHC.CM.PN ---
pt from [facility] where she will return when dcd
--- NOTE | 2024-07-01 16:48 | PC.NURSE ---
appears patient removed IV, #22 placed in the left hand. LR running 85 ml/hr
[2024-07-01] MEDS: Azithromycin 500 MG in 0.9 % Sodium Chloride 250 ML 125 MG IV (18:28)
[2024-07-01] MEDS: Enoxaparin Sodium 40 MG/0.4 ML SYRINGE SUBCUT (18:38)
--- NOTE | 2024-07-01 19:28 | PC.NURSE ---
pt self removed IV, 22g IV placed to R wrist. 3rd IV. Camera now in place at bedside . IV admin as been delayed d/t frequent IV removal by pt
[2024-07-01] MEDS: Tamsulosin HCL 0.4 MG CAPSULE 0.8 MG PO (21:58)
[2024-07-01] MEDS: Methenamine Hippurate 1 GM TABLET PO (21:58)
--- NOTE | 2024-07-01 22:03 | PC.NURSE ---
difficulty taking pills. pocketing and chewing, unable to follow commands to swallow pills
--- NOTE | 2024-07-01 22:07 | PC.NURSE ---
pt incont of urine, assist with washing and bed change
--- NOTE | 2024-07-01 22:48 | PC.NURSE ---
89% on room air, resting quietly with eye closed. pt placed on 2L NC. 94%
[2024-07-02] MEDS: Lactated Ringers 1,000 ML 80 ML IVCONT ×2 (03:26→17:10)
--- NOTE | 2024-07-02 06:02 | PC.NURSE ---
pt incont of urine, assist with washing and bed change
[2024-07-02 06:07] VITALS: BP 110/78; PULSE 94; RESP 18; TEMP 36; O2SAT 96
[2024-07-02 06:11] VITALS: BMI 28.3
[2024-07-02] MEDS: methylPREDNISolone Sod Succ 40 MG/ML VIAL IVPUSH ×2 (06:36→17:09)
[2024-07-02 07:20] VITALS: BP 134/80; PULSE 86; RESP 18; TEMP 36.2; O2SAT 93
[2024-07-02] MEDS: guaiFENesin LA 600 MG TAB.ER.12H PO (08:02)
[2024-07-02] MEDS: Methenamine Hippurate 1 GM TABLET PO (08:02)
[2024-07-02] MEDS: Benzonatate 100 MG CAPSULE PO (08:02)
[2024-07-02 08:17] VITALS: PULSE 86; RESP 18; O2SAT 93
[2024-07-02] MEDS: Albuterol/Iprat 2.5/0.5MG 3 ML AMPUL.NEB INHALE ×2 (08:17→15:50)
[2024-07-02 08:30] LABS: MANUAL DIFF FLAG NO
[2024-07-02 08:37] LABS: Basophils Percent Auto 0.1 % (0-2); Hematocrit 42.1 % (37.0-47.0); Hemoglobin 13.6 g/dl (12.0-16.0); Imm Gran Abs Auto 0.03 X10*3/uL (0.00-0.03); Imm Gran Pct Auto 0.4 % (0.0-0.4); Lymphocytes Percent Auto 14.5 % (20-40); Mean Corpuscular HGB Conc 32.3 g/dl (31.0-35.0); Mean Corpuscular Hemoglobin 30.8 pg (27.0-33.0); Mean Corpuscular Volume 95.5 fL (80.0-98.0); Mean Platelet Volume 9.9 fL (9.4-12.3); Monocytes Absolute Auto 0.5 X10*3/uL (0.1-1.2); Monocytes Percent Auto 7.7 % (2-11); Neutrophils Absolute Auto 5.4 x10*3/uL (2.0-8.3); Neutrophils Percent Auto 77.3 % (45-73); Platelet Count 368 X10*3/uL (160-400); Red Blood Count 4.41 X10*6/uL (4.20-5.50); Red Cell Distribution Width 12.9 % (11.0-16.0); White Blood Count 6.9 X10*3/uL (4.8-10.8)
[2024-07-02 08:53] LABS: Anion Gap 13 (12-20); Blood Urea Nitrogen 18 mg/dL (9-16); Calcium 8.5 mg/dL (8.4-10.2); Carbon Dioxide 27 mmol/L (22-29); Chloride 106 mmol/L (96-108); Estimated Glomerular Filt Rate > 60; Glucose Random 107 mg/dL (60-115); Potassium 3.6 mmol/L (3.3-5.1); Sodium 142 mmol/L (135-145)
--- NOTE | 2024-07-02 09:46 | P.PNIM_ITS ---
Subjective Subjective Date of Service: 07/02/24 Interval History: cough, lethargy Physical Exam 2 Vital Signs: Vital Signs: Last Vital Signs Temp 97.1 F 07/02/24 07:20 Pulse 86 07/02/24 08:17 Resp 18 07/02/24 08:17 BP 134/80 07/02/24 07:20 Pulse Ox 93 07/02/24 07:20 O2 Del Method Nasal Cannula 07/02/24 07:20 O2 Flow Rate 2 07/02/24 07:20 BMI result Body Mass Index 28.3 Lethargic, answers questions appropriately but then falls quickly back to sleep, lungs mostly clear with some mild rhonchi Objective Data Active Medications Acetaminophen (Acetaminophen 325 Mg Tablet) 650 mg PO Q6H PRN PRN Reason: Pain, Mild 1-3,fever,headache Albuterol Sulfate (Albuterol Sulfate (0.083%) 2.5 Mg/3 Ml Vial.Neb) 2.5 mg INHALE Q4H PRN PRN Reason: Shortness of Breath/Wheezing Albuterol/Ipratropium (Albuterol/Iprat 2.5/0.5mg 3 Ml Ampul.Neb) 3 ml INHALE RQ4H WHILE AWAKE [facility] Last Admin: 07/02/24 08:17 Dose: 3 ml Documented By: IFTIKHAR Benzonatate (Benzonatate 100 Mg Capsule) 100 mg PO TID PRN PRN Reason: Cough Last Admin: 07/02/24 08:02 Dose: 100 mg Documented By: TYESHA Brimonidine Tartrate (Brimonidine Tartrate 0.2% Oph 5 Ml Bottle) 1 drop EYE- BOTH BID [facility] Last Admin: 07/02/24 08:01 Dose: Not Given Documented By: TYESHA Non-Admin Reason: waiting on pharmacy Calcium Carbonate (Calcium Carbonate 750 Mg Tab.Chew) 750 mg PO Q4H PRN PRN Reason: Heartburn Enoxaparin Sodium (Enoxaparin Sodium 40 Mg/0.4 Ml Syringe) 40 mg SUBCUT Q24H [facility] Last Admin: 07/01/24 18:38 Dose: 40 mg Documented By: JAMES Guaifenesin (Guaifenesin La 600 Mg Tab.Er.12h) 600 mg PO BID [facility] Last Admin: 07/02/24 08:02 Dose: 600 mg Documented By: TYESHA Azithromycin 500 mg/ Sodium (Chloride) 250 mls @ 125 mls/hr IV Q24H [facility] Last Infusion: 07/01/24 20:59 Dose: Infused Documented By: SHARON Lactated Ringer's (Lr) 1,000 mls @ 80 mls/hr IVCONT .[id number] [facility] Last Admin: 07/02/24 03:26 Dose: 80 mls/hr Documented By: SHARON Magnesium Hydroxide (Milk Of Magnesia 30 Ml Oral.Susp) 30 ml PO DAILY PRN PRN Reason: Constipation Melatonin (Melatonin 3 Mg Tablet) 6 mg PO BEDTIME PRN PRN Reason: Insomnia Methenamine Hippurate (Methenamine Hippurate 1 Gm Tablet) 1 gm PO BID [facility] Last Admin: 07/02/24 08:02 Dose: 1 gm Documented By: TYESHA Methylprednisolone Sodium Succinate (Methylprednisolone Sod Succ 40 Mg/Ml Vial) 40 mg IVPUSH Q12H [facility] Last Admin: 07/02/24 06:36 Dose: 40 mg Documented By: ZULAY Patient Own Medication ( Netarsudil- Latanoprost [ Rocklatan] 0.02-0. 005 % Drops) 1 drop EYE-BOTH BEDTIME [facility] Last Admin: 07/01/24 20:58 Dose: 1 drop Documented By: SHARON Nystatin (Nystatin Cream 15 Gm Tube) 1 appl TOPICAL QID PRN; Protocol PRN Reason: Rash Sodium Chloride (0.9 % Sodium Chloride Flush 3 Ml Syringe) 3 ml IVFLUSH QSHIFT [facility] Last Admin: 07/02/24 08:02 Dose: Not Given Documented By: TYESHA Non-Admin Reason: IV Running Tamsulosin HCl (Tamsulosin Hcl 0.4 Mg Capsule) 0.8 mg PO BEDTIME [facility] Last Admin: 07/01/24 21:58 Dose: 0.8 mg Documented By: SHARON Timolol Maleate (Timolol Maleate 0.5 % Oph Maxine 5 Ml Drbtl) 1 drop EYE-BOTH BID [facility] Last Admin: 07/02/24 08:01 Dose: Not Given Documented By: TYESHA Non-Admin Reason: waiting on pharmacy Labs 07/02/24 07:38 07/02/24 07:38 Labs: Laboratory Results - last 24 hr 06/30/24 07/02/24 18:44 07:38 MCV 95.5 MCH 30.8 MCHC 32.3 RDW 12.9 Plt Count 368 MPV 9.9 Immature Gran % (Auto) 0.4 Neut % (Auto) 77.3 H Lymph % (Auto) 14.5 L [place] % (Auto) 7.7 Eos % (Auto) 0.0 Baso % (Auto) 0.1 Lymph # (Auto) 1.0 L [place] # (Auto) 0.5 Eos # (Auto) 0.0 Baso # (Auto) 0.0 Abs Immat Gran (auto) 0.03 Absolute Neuts (auto) 5.4 Absolute Nucleated RBC 0.000 Nucleated RBC % (auto) 0.0 Anion Gap 13 Estim Creat Clear Calc 65.0 Estimated GFR > 60 Random Glucose 107 Calcium 8.5 Respiratory Panel [place] See Note Adenovirus (Rapid PCR) Not Detected B.pert (TEM-PCR) Not Detected B.parapertussis DNA PCR Not Detected C. pneumoniae DNA (PCR) Not Detected Coronavirus OC43 (PCR) Not Detected Coronavirus HKU1 (PCR) Not Detected Coronavirus 229E (PCR) Not Detected Coronavirus NL63 (PCR) Not Detected Human Metapneumovir PCR Not Detected Influenza A (RT-PCR) Detected A Influenza A (H1) PCR Not Detected Influ A (H1/09) PCR Not Detected Influenza A (H3) PCR Not Detected Influenza B (RT-PCR) Not Detected M. pneumoniae (PCR) Not Detected Parainfluenza 1 (PCR) Not Detected Parainfluenza 2 (PCR) Not Detected Parainfluenza 3 (PCR) Not Detected Parainfluenza 4 (PCR) Not Detected RSV (PCR) Not Detected Entero/Rhino (PCR) Not Detected SARS-CoV-2 RNA (RT-PCR) Not Detected Microbiology Microbiology Results: Microbiology 06/30/24 11:09 Blood Culture - Preliminary Blood - Venous No growth after 24 hours. 06/30/24 10:59 Blood Culture - Preliminary Blood - Venous No growth after 24 hours. 06/30/24 Unknown Urine Culture - Preliminary Urine Catheterized - Straight Catheter Culture in progress. Assessment and Plan (1) Encephalopathy: Status: Acute (2) Bronchitis: Status: Acute (3) Acute upper respiratory infection: Status: Acute (4) Hypoxia: Status: Acute (5) Physical deconditioning: Status: Acute Plan 83F PMH unspecified dementia, history of UTI and urinary retention, chronic migraine headaches on chronic steroids, glaucoma admitted for further management of acute bronchitis with acute hypoxemic respiratory failure and encephalopathy Acute hypoxic respiratory failure due to acute bronchitis with atelectasis complicated by acute metabolic encephalopathy likely unspecified dementia with hypoactive hospital delirium Improving mental status but not at baseline, continue steroids, DuoNebs, azithromycin Still requiring 2 L to maintain oxygen, continue to wean Physical deconditioning Plan to continue physical therapy at long-term care at [facility] Acute hypokalemia Repleted Migraine headaches Continue amitriptyline. Hold prednisone as patient is on IV steroids Glaucoma Continue eye drops DVT prophylaxis Lovenox Full code reason for continued hospitalization:hypoxia Quality Stroke Does the patient have a stroke diagnosis?: No VTE Prior VTE?: No VTE Risk Level:: Medical - moderate - high VTE Device Contraindication: Treatment Not Indicated VTE Drug Contraindication: N/A - Med Ordered
[2024-07-02 15:21] VITALS: BP 111/58; PULSE 94; RESP 19; TEMP 36.2; O2SAT 92
[2024-07-02 15:50] VITALS: PULSE 93; RESP 24
[2024-07-02] MEDS: Enoxaparin Sodium 40 MG/0.4 ML SYRINGE SUBCUT (17:09)
[2024-07-02] MEDS: Azithromycin 500 MG in 0.9 % Sodium Chloride 250 ML 125 MG IV (17:10)
[2024-07-02] MEDS: 0.9 % Sodium Chloride Flush 3 ML SYRINGE IVFLUSH (17:18)
--- NOTE | 2024-07-02 18:49 | HO.SKINPHOTO ---
Location: Coccyx Category: Stage: Length: Width: Depth: cm Location: Category: Stage: Length: Width: Depth: cm Location: Category: Stage: Length: Width: Depth: cm Location: Category: Stage: Length: Width: Depth: cm Location: Category: Stage: Length: Width: Depth: cm Location: Category: Stage: Length: Width: Depth: cm
[2024-07-02 19:24] VITALS: BP 111/55; PULSE 79; RESP 20; TEMP 36.2; O2SAT 95
[2024-07-02] MEDS: Brimonidine Tartrate 0.2% Oph 5 ML BOTTLE 1 DROP EYE-BOTH (21:48)
[2024-07-02] MEDS: timoloL maleate 0.5 % Oph Sol 5 ML DRBTL 1 DROP EYE-BOTH (21:49)
[2024-07-03] MEDS: 0.9 % Sodium Chloride Flush 3 ML SYRINGE IVFLUSH ×2 (01:18→08:41)
[2024-07-03 03:02] VITALS: BP 121/60; PULSE 72; RESP 20; TEMP 37.1; O2SAT 96
[2024-07-03] MEDS: Lactated Ringers 1,000 ML 80 ML IVCONT (05:42)
[2024-07-03] MEDS: methylPREDNISolone Sod Succ 40 MG/ML VIAL IVPUSH (05:42)
--- NOTE | 2024-07-03 06:52 | PC.NURSE ---
Addendum entered by Ida Ambriz RN 07/03/24 06:55: Correction: Transportation Design Engineer assumed care of this patient at 23:45. Original Note: Assumed care of this patient at 23:15. Please see shift assessment, tasks, and MAR for full details. Handoff report given at 06:45.
[2024-07-03 07:39] VITALS: BP 136/63; PULSE 70; TEMP 36.3; O2SAT 95
[2024-07-03 08:03] LABS: Hematocrit 39.6 % (37.0-47.0); Mean Corpuscular HGB Conc 32.8 g/dl (31.0-35.0); Mean Corpuscular Hemoglobin 30.8 pg (27.0-33.0); Mean Corpuscular Volume 93.8 fL (80.0-98.0); Platelet Count 335 X10*3/uL (160-400); Red Blood Count 4.22 X10*6/uL (4.20-5.50); Red Cell Distribution Width 12.8 % (11.0-16.0)
[2024-07-03 08:16] LABS: Anion Gap 11 (12-20); Blood Urea Nitrogen 16 mg/dL (9-16); Calcium 8.5 mg/dL (8.4-10.2); Carbon Dioxide 26 mmol/L (22-29); Chloride 109 mmol/L (96-108); Creatinine Clr Calc Pharmacy 67.4; Estimated Glomerular Filt Rate > 60; Glucose Random 112 mg/dL (60-115); Potassium 3.8 mmol/L (3.3-5.1); Sodium 142 mmol/L (135-145)
[2024-07-03] MEDS: cefTRIAXone sodium 1 GM VIAL IVPUSH (08:35)
[2024-07-03] MEDS: Brimonidine Tartrate 0.2% Oph 5 ML BOTTLE 1 DROP EYE-BOTH (08:37)
[2024-07-03] MEDS: timoloL maleate 0.5 % Oph Sol 5 ML DRBTL 1 DROP EYE-BOTH (08:37)
[2024-07-03] MEDS: Albuterol/Iprat 2.5/0.5MG 3 ML AMPUL.NEB INHALE (08:39)
[2024-07-03 08:41] VITALS: PULSE 78; RESP 18; O2SAT 98
[2024-07-03] MEDS: Benzonatate 100 MG CAPSULE PO (09:09)
[2024-07-03] MEDS: guaiFENesin LA 600 MG TAB.ER.12H PO (09:09)
[2024-07-03] MEDS: Methenamine Hippurate 1 GM TABLET PO (09:09)
--- NOTE | 2024-07-03 10:42 | P.DS_ITS ---
DS: Providers Provider Date of Service: 07/03/24 Date of admission: 06/30/24 17:10 Date of discharge: 07/03/24 Primary care physician: Matt Lynn MD Consults: 07/02/24 10:57 Consult to Wound Care Routine Reason for consultation: Open areas on gluteal fold appears could be open blisters? DS: Diagnosis Discharge Diagnosis (1) Encephalopathy: Status: Acute (2) Bronchitis: Status: Acute (3) Acute upper respiratory infection: Status: Acute (4) Hypoxia: Status: Acute (5) Physical deconditioning: Status: Acute DS: Summary Hospital Course Hospital Course: from initial hpi: 83-year-old female with history of unspecified dementia, history of UTI and urinary retention, chronic migraine headaches on chronic steroids, glaucoma presented to the ED due to generalized malaise and pain in the left wrist. She denies any known injury. She is able to answer orientation questions but is not able to provide much history. History is obtained from her son. Per her son, she has been coughing for the past 3 weeks, now productive. He denies any known chronic lung disease though she does have albuterol inhalers on her home medications list. The patient denies any smoking history. No fevers, chills, sore throat, congestion, abdominal pain, nausea, vomiting, diarrhea, chest pain per son's report. He reports he was sick with similar symptoms about 3 weeks ago. He states that she has not been eating or drinking much. On review of the chart, it appears she did have influenza and was prescribed Tamiflu on 06/16. Since arrival, patient has been intermittently tachypneic and has been hypoxic on room air to 88-90% placed on 2 L supplemental O2. There is no leukocytosis. Creatinine baseline, BUN slightly elevated at 22. Sodium 146, potassium 3.1, chloride 109. BNP 24. Negative for COVID, flu, RSV. CTA of the chest negative for pulmonary emboli but shows dependent atelectasis in both lower lobes. Risks CT nondiagnostic for fracture as patient's arm needed to be scanned at her side, however x-ray of the wrist was negative for any fracture. In the ED, has been given ketorolac, methylprednisolone, benzonatate and DuoNebs. hospital course: She was admitted for acute hypoxic respiratory failure due to acute bronchitis with atelectasis with possible post flu pneumonia further complicated by acute metabolic encephalopathy likely unspecified dementia with hypoactive hospital delirium. Patient was treated with steroids, DuoNebs, azithromycin and ceftriaxone. Mental status improved was weaned off oxygen. Also noted to have urinary tract infection. On discharge will continue 5 more days of 40 mg of prednisone and then go back on baseline 10 mg, will continue 5 more days of Ceftin and azithromycin. For acute hypokalemia received replacement. For migraine headaches continue amitriptyline. For glaucoma continued with her eyedrops. Patient is back to baseline and will be discharged to long-term care. Time Attestation Discharge Coordination Time (in mins): 32 Quality: Safe Use of Opioids Does Pt have an Active Cancer Diagnosis on the Problem List?: No Quality: Stroke Does the patient have a stroke diagnosis?: No Physical Exam Vital Signs: Vital Signs: Last Vital Signs Temp 97.4 F 07/03/24 07:39 Pulse 78 07/03/24 08:41 Resp 18 07/03/24 08:41 BP 136/63 07/03/24 07:39 Pulse Ox 95 07/03/24 07:39 O2 Del Method Nasal Cannula 07/03/24 07:39 O2 Flow Rate 2 07/03/24 07:39 BMI result Body Mass Index 28.3 Alert, no acute distress, lungs clear DS: Data Data Completed and Pending Labs on day of discharge: Laboratory Results - last 24 hr 07/03/24 07:11 WBC 5.0 RBC 4.22 Hgb 13.0 Hct 39.6 MCV 93.8 MCH 30.8 MCHC 32.8 RDW 12.8 Plt Count 335 MPV 10.0 Absolute Nucleated RBC 0.000 Nucleated RBC % (auto) 0.0 Sodium 142 Potassium 3.8 Chloride 109 H Carbon Dioxide 26 Anion Gap 11 L BUN 16 Creatinine 0.56 Estim Creat Clear Calc 67.4 Estimated GFR > 60 Random Glucose 112 Calcium 8.5 Preliminary micro results at discharge 06/30/24 11:09 Blood Culture - Preliminary Blood - Venous No growth after 48 hours. 06/30/24 10:59 Blood Culture - Preliminary Blood - Venous No growth after 48 hours. Discharge Plan Discharge Anticipated Discharge Date/Time: 07/03/24 10:31 Patient Disposition: Xfer SNF Discharge Diagnosis: flu Referrals: Jameel Garcia MD [Physician] - Matt Lynn MD [Primary Care Provider] - 1 Week Discharge Medications: New prednisone 20 mg tablet 40 mg PO DAILY Qty: 10 0RF cefuroxime axetil 500 mg tablet 500 mg PO BID Qty: 10 0RF azithromycin 500 mg tablet 500 mg PO DAILY 5 Days Qty: 5 0RF Continued multivitamin Tablet 1 tab PO DAILY acetaminophen 325 mg Tablet 650 mg PO Q4H PRN (Reason: Wheezing) polyethylene glycol 3350 17 gram Powder In Packet 17 g PO DAILY PRN (Reason: Constipation) donepezil 10 mg tablet 10 mg PO BEDTIME sennosides-docusate sodium 8.6-50 mg Tablet 1 tab-cap PO BID PRN (Reason: Constipation) bethanechol chloride 25 mg tablet 25 mg PO TIDWM methenamine hippurate 1 gram Tablet 1 g PO BID magnesium hydroxide [Milk of Magnesia] 400 mg/5 mL Suspension 30 ml PO DAILY PRN (Reason: Constipation) cyanocobalamin (vitamin B-12) 500 mcg Tablet 500 mcg PO DAILY calcium carbonate 500 mg calcium (1,250 mg) Tablet 1,000 mg PO TID PRN (Reason: Dyspepsia) ascorbic acid (vitamin C) 500 mg Tablet 500 mg PO BID tamsulosin 0.4 mg capsule 0.8 mg PO BEDTIME amitriptyline 10 mg tablet 10 mg PO BEDTIME bisacodyl [Dulcolax (bisacodyl)] 10 mg Suppository 10 mg OK DAILY PRN (Reason: Constipation) nystatin 100,000 unit/gram Cream 1 appl TOPICAL QID PRN (Reason: Rash) Rx Instructions: APPLY TO BOTH BUTTOCKS NEEDED FOR RASHES/LESIONS. APPLY TO GROIN AND BUTTOCKS AFTER EACH INCONTINENCE Fleet Enema 19-7 gram/118 mL Enema 118 ml OK DAILY PRN (Reason: Constipation) albuterol sulfate 90 mcg/actuation HFA aerosol inhaler 2 puff inhalation Q4H PRN (Reason: Wheezing) oxycodone 5 mg Tablet 5 mg PO Q6H PRN (Reason: Pain) eucalyptus-menthol Lozenge 3.1 mg MUCOUS MEMBRANE Q2-3H PRN (Reason: Cough) brimonidine-timolol [Combigan] 0.2-0.5 % drops 1 drp ophthalmic (eye) BID diclofenac sodium 1 % Gel 4 g TOPICAL BID Rx Instructions: APPLY TO NECK EVERY AM AND PM Rocklatan 0.02-0.005 % Drops 1 drp OPHTHALMIC (EYE) QPM Held prednisone 10 mg Tablet 10 mg PO DAILY Hold Instructions: Resume on 07/07/24. Discharge Orders: Discharge Order (Routine); Ordered 07/03/24 Ordered By: Xander Covarrubias Diet: Advance to usual diet Activity on Discharge: As tolerated Stand Alone Forms: Patient Portal Discharge page Print Language: Yoruba Activity Restrictions/Additional Instructions: Risk of fracture exists. Please use the splint and get a repeat x-ray of the wrist in approximately 1 week. Follow-up with orthopedics in a week. Care Plan Goals: recovery Health Concerns: flu, pna Plan of Treatment: 5 more days prednisone, ceftin, azithro Assessment: see above Patient Instructions: Suspected Fracture (ED), Shortness of Breath (ED)
--- NOTE | 2024-07-03 10:53 | MHC.CM.PN ---
Per MD rounds patient medically cleared for dc back to [facility] @ [facility]. HCP/son Hemanth aware. BLS transport scheduled for 1130. RN aware.
[2024-07-03 11:33] VITALS: BP 121/61; PULSE 70; TEMP 36.6; O2SAT 94
== END 2024-07-03 11:52 | disposition skilled nursing facility (03) | DRG 193 ==
LOC: HO.ED 16:32 → HO.EDOVER 19:35 → HO.S3 07-01 07:06 → HO.EDOVER 07-01 07:13 → HO.S3 07-01 14:56 → HO.EDOVER 07-01 15:28 → HO.S3 07-02 04:31
PROVIDERS: Student in an Organized Health Care Education/Training Program; Admitting Provider Physician Assistant; Emergency Provider Emergency Medicine Emergency Medical Services; PCP Family Medicine; Visit Provider Internal Medicine
DX: J18.9 Pneumonia, unspecified organism (principal); G93.41 Metabolic encephalopathy; J96.01 Acute respiratory failure with hypoxia; J98.11 Atelectasis; F05 Delirium due to known physiological condition; N39.0 Urinary tract infection, site not specified; R53.81 Other malaise; J20.9 Acute bronchitis, unspecified; E03.9 Hypothyroidism, unspecified; F03.90 Unspecified dementia, unspecified severity, without behavioral disturbance, psychotic disturbance, mood disturbance, and anxiety; E87.6 Hypokalemia; G43.909 Migraine, unspecified, not intractable, without status migrainosus; H40.9 Unspecified glaucoma; Z79.52 Long term (current) use of systemic steroids; Z79.899 Other long term (current) drug therapy
CPT/HCPCS: 0241U; 36415; 71045; 71275; 73110; 73200; 80048; 81001; 82803; 83605; 83880; 84484; 85025; 85027; 87040; 87086; 87088; 87186; 87633; 94640; 97162; 99285; J0456; J0696; J1650; J1885; J2919; J7120; Q9967

== ENCOUNTER → 2024-06-30 10:30 | Outpatient (BNV) | payer MEDICARE, SELFPAY | PROVIDERS: Emergency Provider Emergency Medicine Emergency Medical Services; PCP Family Medicine; Visit Provider Radiology Diagnostic Radiology | DX: J98.11 Atelectasis (principal); M25.532 Pain in left wrist; R07.9 Chest pain, unspecified | CPT/HCPCS: 71045; 71275; 73110; 73200 ==

== ENCOUNTER → 2024-06-30 10:54 | Outpatient (BNV) | payer MEDICARE, SELFPAY | PROVIDERS: Emergency Provider Emergency Medicine Emergency Medical Services; PCP Family Medicine; Visit Provider Physician Assistant | DX: G93.40 Encephalopathy, unspecified (principal); J40 Bronchitis, not specified as acute or chronic; J06.9 Acute upper respiratory infection, unspecified; R09.02 Hypoxemia; R53.81 Other malaise | CPT/HCPCS: 99223; 99233; 99239 ==

== ENCOUNTER 2024-07-14 05:50 | Outpatient (REF) | payer MEDICARE, SELFPAY ==
[2024-07-14 05:41] LABS: MANUAL DIFF FLAG NO
--- OUTSIDE RECORDS SUMMARY | 2024-07-14 06:04 | XMS_ITS | Continuity of Care Document ---
Author Organization [facility], [facility] Address [address] [place] [address] Care Team Providers Care Excellence Specialist Name Role Phone CHRIS GARCIA Primary Care Provider [phone] RODERICK MAGDALENO 3RD FLOOR OTHER [phone] Assessment No assessment recorded. 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 DMITRIY LEBRON NP [address], [address], [place], [address], [facility] 3 12:17:26 Constipatio n 29729703 Active 2022 DMITRIY LEBRON NP [address], [place], [address], [facility] 3 12:17:32 Glaucoma 45713202 Active 2022 DMITRIY LEBRON NP [address], [place], [address], [facility] 3 12:17:39 Falls 706529903 Active 2022 DMITRIY LEBRON NP [address], [place], [address], [facility] 3 12:19:11 History of syncope 5748268478368 09 Active 2022 DMITRIY LEBRON NP [address], [place], [address], [facility] 3 12:19:19 Chronic migraine without aura 7857833890716 05 Active 2022 DMITRIY LEBRON NP [address], [place], [address], [facility] 3 12:24:31 COVID-19 357227601 Active 2022 DMITRIY LEBRON NP [address], [place], [address], [facility] 3 13:42:03 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 Odalys Barber MD [address], [place], [address], [facility] 3 10:42:17 Glaucoma 45254247 Active 2022 Odalys Barber MD [address], [place], [address], [facility] 3 10:50:01 Acute urinary tract infection 696819127 Active 2022 DMITRIY LEBRON NP [address], [place], [address], [facility] 3 13:22:34 Recurrent urinary tract infection 553070861 Active 2022 Odalys Barber MD [address], [place], [address], [facility] 3 21:21:00 Chronic pain 92927964 Active 2023 Odalys Barber MD [address], [place], [address], [facility] 4 14:05:27 Indigestion 535242690 Active 2023 KEVIN ESPINOZA [address], [place], [address], [facility] 4 13:47:57 Acute respiratory failure 19274179 Active 2024 BRENDA ESPINOZAP [address] [facility], [address], [place], [address], [facility] 5 22:54:27 Hypokalemia 81560373 Active [address], [address], [place], [address], [facility] 5 22:54:55 Problem Notes None recorded. Medical Equipment None Reported. Allergies Allergen ID Allergen Name Allergen Category Reaction Reaction Severity Criticality Documentation Date Start Date Code Code System Note Provider Name and Address Organization Details Recorded Time 34214 Product containin g penicilli n (product) medicatio n Not available Not available Not available 11/17/2022 10004 8001 SNOMED Not Available Not Available Not [...] Available Not Available Not Avai lable Vitals None Recorded Social History Question Answer Notes LastModified by Organizat ion Details LastModified Time Tobacco Smoking Status Unknown If Ever Smoked DMITRIY LEBRON NP [address] [facility], [address], [place], [address], [place] [facility] 11/17/2022 11:50:31 Do You Have An Advance Directive? Yes Information not available 11/21/2022 What Is Your Code Status? Full Code [email or web address] Information not available 11/20/2022 Do You Have A Medical Power Of Equipment Application Specialist? Yes HCP Invoked Information not available 11/21/2022 [...] adjuvanted, quadrivalent, PF 01/09/2023 completed Anjana zimmer, [facility] 04/27/2023 13:03:23 Past Encounters Encounter ID Performer Location Encounter Start Date Encounter Closed Date Diagnosis/Indication Diagnosis SNOMED-CT Code Diagnosis ICD10 Code Diagnosis Note [id number] KEVIN ESPINOZA [address] [place] [address] 07/06/2024 10:46:03 07/10/2024 16:17:30 Acute respiratory failure 50533185 J96.00 resolvedde conditione dmonitor resp. statusPT/O T eval and tx Hypokalemia 33321793 E87 .6 3.1/replet edfollow labs Dementia 69826495 F02.B0 stableCont inue aricept 10 mg qhs and amitriptyl ine 10 mg qhs.Contin ue supportive care, expect decline.HC P invokedMon itor mood and behaviors. Psych continues to follow Recurrent urinary tract infection 398988061 N30.20 stablecont Cefuroxime 500 mg BID until 07/08/24Cont inue Vitamin C 500 mg BID and methenamin eMonitor sxs.increa se hydration/ water preferred to flush out toxins. [id number] Matt Lynn MD [address] [place] [address] 07/09/2024 12:26:29 07/11/2024 08:35:31 Acute respiratory failure 47002279 J96.01 see HPI treated with abx coursemoni tor respirator y status and need for repeat imaging Dementia 36055211 F02.B0 baseline dementia with behaviorsH CP invokedcon tinue supportive carepsych eval prn Recurrent urinary tract infection N30.20 recently treated with rocephin for abovemonit or for recurrent infection Health Concerns Section Related Observation LastModified by Organization Detai ls LastModified Time None Recorded Concern Status LastModified by Organization Details LastModified Time None Recorded Payers Encounter Date Sequence Insurance Name Policy Number Policy [place] Covered Member ID [place] Member ID Guarantor Name 07/09/2024 2 [place] [id number] Deann Eduardo [id number] Deann Eduardo 07/09/2024 1 [place] [employer] Deann Eduardo [id number] Deann Eduardo Notes Date Note Type Note Provider Name and Address Organization Details Recorded Time 07/09/2024 text/html Patient is an 83 yo female resident seen for MD visit recently readmitted from hospital after acute transfer for respiratory failure. Dx with bronchitis and encephalopathy covered with rocephin and zithromax, steroids and nebs. PMH significant for dementia and constipation Matt Lynn MD [address] [facility], [address], [place], [address], [facility] 07/09/2024 12:38:08 OBGyn Episode No OBEpisode recorded.
--- OUTSIDE RECORDS SUMMARY | 2024-07-14 06:04 | XMS_ITS | Clinical Summary ---
Author Organization [facility] it Address [address] [place] [address] Care Team Providers Care Senior Telecommunications Consultant Name Role Phone Melchor Mccormack MD Primary Care Provider [phone] Allergies Active Allergy Reactions Criticality Noted Date [...] Surgery Date Site/Laterality Comments ESOPHAGOGASTRODUODENOSCOPY 08/29/11 PROCEDURE: [place] ESOPHAGOGASTRODUODENOSCOPY TRANSORAL DIAGNOSTIC; COMMENT: normal COLONOSCOPY 2004 [...] of 2) 09/03/2013 07/09/2013, 03/10 RSV Immunization Adult Patients (1 - 1-dose 75+ series) 2013 Depression [...] * Annual BMP Blood Test (02/01/2022) Pathologist [facility] Annual BMP Blood Test abstracted Historical Provider HEALTH MAINTENANCE Final Result * (ABNORMAL) Lipid panel (01/26/2021) [facility] LDL/HDL Ratio 2 0 - 4 Triglycerides [...] (World Health Organization Fracture Risk Assessment) [facility] Department of Internal Medicine recommends using [...] (World Health Organization Fracture Risk Assessment) [facility] Department of Internal Medicine recommendsusing National [...] or over-estimation of fracture risk by [employer]. [facility] Al Mccormack MD IMG DXA PROCEDURES Final Resul t from Last 3 Months or Most Recently Relevant to Health Maintenance Care Teams Senior Telecommunications Consultant Relationship Specialty Start Date End Date Melchor Mccormack MD [address] [place] [address] [place] [id number] PCP - General 05/21/10
--- OUTSIDE RECORDS SUMMARY | 2024-07-14 06:05 | XMS_ITS | Data Portability ---
Author Organization [employer] [facility] [employer] [facility], Main Office Address [address] [facility], [address] [place] [address] Care Team Providers Care Dynamic Balancer Name Role Phone CHRIS GARCIA Primary Care Provider [phone] [facility] 3RD FLOOR OTHER [phone] Assessment Encounter Date Assessment Date Assessment LastModified by Organization Details LastModified Time 12/19/2023 12/19/2023 Labs 12/16: Na 143-K 3.8-Bun 7-cr 0.7-wbc 5.8-hgb 13-hct 40.2-plt 274 Not available 12/23/2023 22:53:26 02/14/2024 02/14/2024 Labs 12/16: Na 143-K 3.8-Bun 7-cr 0.7-wbc 5.8-hgb 13-hct 40.2-plt 274 Not available 02/18/2024 11:21:33 07/06/2024 07/06/2024 Labs 07/03: Na 142-K 3.8-Bun 16-Cr 0.5 Not available 07/06/2024 23:02:21 Plan of Treatment Reminders Order Date Submit [...] and Address Organization Details Recorded Time Dementia 42351273 Active 2022 DMITRIY LEBRON NP [address] [facility], [address], [place], [address] , [employer] 08/11/202 3 12:17:21 Retention of urine 835113309 Active 2022 DIMTRIY LEBRON, [employer] [address], [address], [place], [address], [facility] 3 12:17:26 Constipatio n 92927207 Active 2022 DMITRIY LEBRON, [employer] [address], [address], [place], [address], [facility] 3 12:17:32 Glaucoma 08052590 Active 2022 DMITRIY LEBRON, [employer] [address], [address], [place], [address], [facility] 3 12:17:39 Falls 936032159 Active 2022 DMITRIY LEBRON, [employer] [address], [address], [place], [address], [facility] 3 12:19:11 History of syncope 7286363182190 09 Active 2022 DMITRIY LEBRON, [employer] [address], [address], [place], [address], [facility] 3 12:19:19 Chronic migraine without aura 3718338194545 05 Active 2022 DMITRIY LEBRON, [employer] [address], [address], [place], [address], [facility] 3 12:24:31 COVID-19 159325152 Active 2022 DMITRIY LEBRON, [employer] [address], [address], [place], [address], [facility] 3 13:42:03 Stercoral colitis 709305380 Active 2022 Odalys Barber MD [address], [address], [place], [address], [facility] 3 10:42:17 Glaucoma 79726567 Active 2022 Odalys Barber MD [address], [address], [place], [address], [facility] 3 10:50:01 Acute urinary tract infection 585999792 Active 2022 DMITRIY LEBRON NP [address], [address], [place], [address], [facility] 3 13:22:34 Recurrent urinary tract infection 461858153 Active 2022 Odalys Barber MD [address], [address], [place], [address], [facility] [employer] [facility] 3 21:21:00 Chronic pain 61328887 Active 2023 Odalys Barber MD [address], [address], [place], [address], [facility] [employer] [facility] 4 14:05:27 Indigestion 804274420 Active 2023 KEVIN ESPINOZA [address], [address], [place], [address], [facility] [employer] [facility] 4 13:47:57 Acute respiratory failure 99315954 Active 2024 KEVIN ESPINOZA [address], [address], [place], [address], [facility] [employer] [facility] 5 22:54:27 Hypokalemia 03850087 Active 2024 KEVIN ESPINOZA [address] [facility], [address], [place], [address], [facility] [employer] [facility] 5 22:54:55 Problem Notes None recorded. Medical Equipment None Reported. Allergies Allergen ID Allergen Name Allergen Category Reaction Reaction Severity Criticality Documentation Date Start Date Code Code System Note Provider Name and Address Organization Details Recorded Time 01274 Product containin g penicilli n (product) medicatio n Not available Not available Not available 11/17/2022 48067 8001 SNOMED Not Available Not Available Not [...] Vitals Date Recorded Body height Heart rate Respiratory rate Body temperature Oxygen saturation Oxygen saturation in Arterial blood by Pulse oximetry Provider Name and Address Organization Details Last Updated DateTime 4 157.48 cm 80 /min 18 /min 98 [degF] 95 % 95 % KEVIN ESPINOZA [address], [address] [place], [place] [facility] 4 22:44:52 Date Recorded Body height Heart rate Respiratory rate Oxygen saturation Oxygen saturation in Arterial blood by Pulse oximetry Systolic blood pressure Diastolic blood pressure Provider Name and Address Organization Details Last Updated DateTime 4 157.48 cm 92 /min 18 /min 96 % 96 % 133 mm[Hg] 72 mm[Hg] KEVIN ESPINOZA [address], [address] , [place] [facility] 4 11:20:33 Date Recorded Body height Heart rate Respiratory rate Body temperature Oxygen saturation Oxygen saturation in Arterial blood by Pulse oximetry Systolic blood pressure Diastolic blood pressure Provider Name and Address Organization Details Last Updated DateTime 4 157.48 cm 88 /min 18 /min 98 [degF] 97 % 97 % 124 mm[Hg] 72 mm[Hg] KEVIN ESPINOZA [address] [facility], [address], [place], [address], [facility] 5 11:11:16 Date Recorded Body height Body mass index (BMI) Body weight Heart rate Respiratory rate Body temperature Oxygen saturation Oxygen saturation in Arterial blood by Pulse oximetry Systolic blood pressure Diastolic blood pressure Provider Name and Address Organization Details Last Updated DateTime 5 157.48 cm 30 kg/m2 26489.8 7 g 99 /min 18 /min 97.4 [degF] 95 % 95 % 105 mm[Hg] 81 mm[Hg] KEVIN ESPINOZA [address] [facility], [address], [place], [address], [facility] 5 23:14:29 Social History Question Answer Notes LastModified by Organizat ion Details LastModified Time Tobacco Smoking Status Unknown If Ever Smoked DMITRIY LEBRON NP [address] [place] [address], [facility] [address], [place], [address], [employer] 11/17/2022 11:50:31 Do You Have An Advance Directive? Yes Information not available 11/21/2022 What Is Your Code Status? Full Code [email or web address] Information not available 11/20/2022 Do You Have A Medical Power Of Vamper? Yes HCP Invoked Information not available 11/21/2022 [...] adjuvanted, quadrivalent, PF 01/09/2023 completed Anjana zimmer, [facility] 04/27/2023 13:03:23 Past Encounters Encounter ID Performer Location Encounter Start Date Encounter Closed Date Diagnosis/Indication Diagnosis SNOMED-CT Code Diagnosis ICD10 Code Diagnosis Note [id number] DMITRIY GRIPPIN, [employer] OPER[employer] [address] [address] 11/17/2022 10:29:24 11/21/2022 15:53:20 Constipation 92867469 K59.00 miralax dailysenna plus bidmonitio r bm Retention of urine 39137 4002 R33.9 flomax 0.4 mg hsvoiding trial today 11/17monito r urine output Dementia 97445128 F03.90 aricept 10 mg hsseroquel 50 mg hs psych prnAIMS 0 Glaucoma 46729729 H40.9 combigan ou bidrocklat an hs [place] 510374524 R29.6 PT OT eval and treatfall precaution sfrequent safety checks History of syncope 88918 61287 29715 Z86.79 monitor ortho vs prn Chronic mi graine without aura 9694748165 38980 G43.709 prednisone 10 mg dailyamitr iptylline 10 mg hs COVID-19 052749607 U07.1 No symptoms To use paxlovid, dexamethas one, fluids, supplement al O2 prn for sxs. Continue to monitor O2 sats, temp, GI sxs and po intake. [id number] DMITRIY LEBRON NP [address] [address] 11/20/2022 14:15:54 11/23/2022 11:39:23 COVID-19 876863064 U07.1 monitor congestion paxlovid 150/100 bid for 5 daysTo use paxlovid, dexamethas one, fluids, supplement al O2 prn for sxs.Contin ue to monitor O2 sats, temp, GI sxs and po intake. [id number] Odalys Barber MD [address] [address] 11/21/2022 13:51:52 11/28/2022 16:22:18 COVID-19 690230022 U07.1 With mild coughConti nue paxlovid 150/100 BID for 5 day courseWill use dexamethas one, fluids, supplement al O2 prn for sxs.Contin ue to monitor O2 sats, temp, GI sxs and po intake. Retention of urine 79795 4002 R33.8 Successful voiding trial on ontin ue tamsulosin 0.4 mg qdMonitor urinary function. Dementia 83363031 F03.90 Continues at baselineCo ntinue aricept 10 mg qhs, seroquel 50 mg qhs and amitriptyl ine 10 mg qhs.Contin ue supportive care, expect decline.HC P invokedMon itor mood and behaviors. Psych consult prn. Glaucoma 45244429 H40.89 Continue combigan ou BID and rocklatan qhsF/U with eye dr as planned. Falls 680582562 R29.6 Very deconditio vane and with balance issuesNeed s PT/OT for strengthen ing, balance, gait training, safety and function.C ontinue fall precaution s.Monitor for safety. History of syncope 55078 87253 52397 Z86.79 Monitor vitals and MS. Chronic mi graine without aura 1304263930 68679 G43.709 No current sxs.Contin ue prednisone 10 mg qd and amitriptyl ine 10 mg qhsMonitor sxs. Stercoral colitis 604595 001 K52.89 Resolved.C ontinue bowel meds as ordered.Mo nitor bowel function. [id number] DMITRIY LEBRON NP [address] [address] 11/22/2022 13:40:59 11/29/2022 08:17:42 COVID-19 916830822 U07.1 monitor congestion paxlovid 150/100 bid for 5 days to 11/25To use paxlovid, dexamethas one, fluids, supplement al O2 prn for sxs.Contin ue to monitor O2 sats, temp, GI sxs and po intake. [id number] DMITRIY LEBRON NP [address] [address] 12/04/2022 13:19:24 12/06/2022 13:36:36 Dementia 70378704 F03.90 aricept 10 mg hsseroquel 50 mg hspsych prnAIMS 0did not tolerate slums COVID-19 077313745 U07.1 recoveredm onitor congestion paxlovid 150/100 bid for 5 days to 11/25To use paxlovid, dexamethas one, fluids, supplement al O2 prn for sxs.Contin ue to monitor O2 sats, temp, GI sxs and po intake. Acute urin marcie tract infection 299297276 N39.0 macrobid 100 mg bid for 7 days [id number] DMITRIY LEBRON NP [address] [address] 12/13/2022 11:22:57 12/15/2022 15:54:33 Retention of urine 664827178 R33.8 flomax 0.4 mg hsvoiding trial today 11/17-fail d, cath restartedm onitor urine outputurol ogy consult [place] 852936661 R29.6 PT OT eval and treatfall precaution sfrequent safety checks Dementia 70887990 F03.90 aricept 10 mg hsseroquel 50 mg hspsych prnAIMS 0did not tolerate slums [id number] DMITRIY LEBRON NP [address] [address] 12/20/2022 10:10:14 12/22/2022 11:38:53 Constipation 67375250 K59.00 miralax dailysenna plus bidmonitio r bm Retention of urine 61037 4002 R33.9 flomax 0.4 mg hs-increas ed to 0.8 mg hsvoiding trial today 11/17-faile d, will try again 12/21monito r urine outputurol ogy consult Dementia 52159712 F03.90 aricept 10 mg hsseroquel 50 mg hspsych prnAIMS 0 Glaucoma 30331231 H40.9 combigan ou bidrocklat an hs [place] 591704029 R29.6 PT OT eval and treatfall precaution sfrequent safety checks History of syncope 42086 41873 48461 Z86.79 monitor ortho vs prn Chronic mi graine without aura 2201026953 78789 G43.709 prednisone 10 mg dailyamitr iptylline 10 mg hs COVID-19 817908709 U07.1 No symptoms-r ecovered by dateTo use paxlovid, dexamethas one, fluids, supplement al O2 prn for sxs.Contin ue to monitor O2 sats, temp, GI sxs and po intake. [id number] DMITRIY LEBRON NP [address] [address] 12/28/2022 14:59:22 01/02/2023 15:51:32 Retention of urine 772935845 R33.9 flomax 0.4 mg hs-increas ed to 0.8 mg hsvoiding trial today 11/17-faile d, will try again 12/21-faile d againmonit or urine outputurol ogy consult [id number] DMITRIY LEBRON NP [address] [address] 01/03/2023 13:43:31 01/09/2023 11:51:30 Dementia 93158497 F03.90 aricept 10 mg hsseroquel 50 mg hspsych prnAIMS 0 Retention of urine 26442 4002 R33.9 flomax 0.8 mg hsvoiding trial today 11/17-faile d, will try again 12/21-faile d againmonit or urine outputurol ogy consult Constipation 21507666 K5 9.00 miralax dailysenna plus bidmonitio r bm Glaucoma 54744385 H40.9 combigan ou bidrocklat an hs [place] 286799363 R29.6 PT OT eval and treatfall precaution sfrequent safety checks History of syncope 36378 85306 23151 Z86.79 monitor ortho vs prn Chronic mi graine without aura 9548057595 69955 G43.709 prednisone 10 mg dailyamitr iptylline 10 mg hs COVID-19 491583600 U07.1 recoveredN o symptomsTo use paxlovid, dexamethas one, fluids, supplement al O2 prn for sxs.Contin ue to monitor O2 sats, temp, GI sxs and po intake. [id number] DMITRIY LEBRON NP [address] [address] 01/08/2023 16:14:21 01/12/2023 13:04:50 Dementia 99714769 F03.90 aricept 10 mg hsseroquel 50 mg hspsych prnAIMS 0 Retention of urine 21713 4002 R33.9 flomax 0.8 mg hsvoiding trial today 11/17-faile d, will try again 12/21-faile d againmonit or urine outputurol ogy consult 01/10 Constipation 83671764 K5 9.00 miralax dailysenna plus bidmonitio r bm Glaucoma 46527420 H40.9 combigan ou bidrocklat an hs [place] 015305512 R29.6 PT OT eval and treatfall precaution sfrequent safety checks History of syncope 50314 19422 01927 Z86.79 monitor ortho vs prn Chronic mi graine without aura 1322535900 79069 G43.709 prednisone 10 mg dailyamitr iptylline 10 mg hs COVID-19 525683772 U07.1 recoveredN o symptomsTo use paxlovid, dexamethas one, fluids, supplement al O2 prn for sxs.Contin ue to monitor O2 sats, temp, GI sxs and po intake. [id number] Odalys Barber MD [address] [address] 02/09/2023 20:19:12 02/23/2023 13:46:06 Dementia 77858970 F02.B0 Continues at baselineCo ntinue aricept 10 mg qhs, seroquel 50 mg qhs and amitriptyl ine 10 mg qhs.Contin ue supportive care, expect decline.HC P invokedMon itor mood and behaviors. Psych consult prn. Retention of urine 39425 4002 R33.8 Has failed 2 voiding trials.Rep ortedly had uro appt on 01/10, no notes in chart.Cont inue tamsulosin 0.8 mg qd and bethanecol 25 mg TIDContinu e arana and f/u with uro as planned. Falls 414736534 R29.6 Remains deconditio vane.Contin ue PT/OT for strengthen ing, balance, gait training, safety and function.C ontinue fall precaution s.Monitor for safety. Chronic mi graine without aura 6964713093 92620 G43.709 Continue prednisone 10 mg qd and amitriptyl ine 10 mg qhs.Monito r sxs. COVID-19 224469667 U07.1 Tested + on 11/20Now recovered. Monitor for sequelae. Recurrent urinary tract infection 427954253 N30.20 Continue Vitamin C 500 mg BID and D-Mannose 1000 mg BID for prophylaxi s.Continue Elmiron 100 mg TID for IC pain.Monit or sxs. [id number] DMITRIY LEBRON NP [address] [address] 03/07/2023 10:57:58 03/20/2023 08:53:34 Dementia 80997804 F03.90 aricept 10 mg hsseroquel 50 mg hspsych prnAIMS 0 Retention of urine 29463 4002 R33.9 flomax 0.8 mg hsvoiding trial today 11/17-faile d, will try again 12/21-faile d againd-man nose 1000 bidmonitor urine outputurol ogy consult prn Constipation 33586981 K5 9.00 miralax dailysenna plus bidmonitio r bm Glaucoma 31614540 H40.9 combigan ou bidrocklat an hs [place] 214858174 R29.6 PT OT eval and treatfall precaution sfrequent safety checks History of syncope 47300 39759 66834 Z86.79 monitor ortho vs prn Chronic mi graine without aura 3477758477 88976 G43.709 prednisone 10 mg dailyamitr iptylline 10 mg hs COVID-19 344192193 U07.1 recoveredN o symptomsTo use paxlovid, dexamethas one, fluids, supplement al O2 prn for sxs.Contin ue to monitor O2 sats, temp, GI sxs and po intake. [id number] KEVIN ESPINOZA [address] [address] 05/03/2023 09:01:35 05/05/2023 03:52:24 Urinary tract infectious disease 54786547 N39.0 + UA with proteus mirabilisB actrim DS BID for 5 daysprobio tic for 7 daysmonito r for improvemen t. Dementia 50210475 F03.90 aricept 10 mg hsseroquel 50 mg hspsych prnmonitor for mood and behavior cahnges. [id number] MD RODERICK Liriano [address] [facility] [place] [place] [address] 05/03/2023 20:12:49 05/16/2023 12:09:34 Urinary tract infectious disease 07671705 N30.00 + UA with proteus mirabilisB actrim DS BID for 5 d course until 05/08 and probiotic BID until 05/09.Monit or sxs. Dementia 37317541 F02.B0 Remains at baselineCo ntinue aricept 10 mg qhs, seroquel 50 mg qhs and amitriptyl ine 10 mg qhs.Contin ue supportive care, expect decline.HC P invokedMon itor mood and behaviors. Psych follows, last seen 04/30, no med changes. Retention of urine 30756 4002 R33.8 No further issues since arana d/c'dConti nue bethanecol 25 mg TID and tamsulosin 0.8 mg qdMonitor urinary function. Falls 409266641 R29.6 Remains deconditio vane.Use PT/OT as ablle/need ed.Continu e fall precaution s.Monitor for safety. Recurrent urinary tract infection 985402528 N30.20 Continue Vitamin C 500 mg BID and D-Mannose 1000 mg BID for prophylaxi s.Monitor sxs. Chronic mi graine without aura 4847571128 66244 G43.709 Continue prednisone 10 mg qd and amitriptyl ine 10 mg qhs.Monito r sxs. COVID-19 956645977 U07.1 Tested + on 11/20/22Now recovered. Monitor for sequelae. [id number] Barbara MAGDALENO [address] [facility] [place] [address] 06/28/2023 09:24:56 07/04/2023 14:27:17 Dementia 90247239 F02.B0 Remains at baselineCo ntinue aricept 10 mg qhs, seroquel 50 mg qhs and amitriptyl ine 10 mg qhs.Contin ue supportive care, expect decline.HC P invokedMon itor mood and behaviors. psych prn Retention of urine 78208 4002 R33.8 Continue bethanecol 25 mg TIDtamsulo sin 0.8 mg qdMonitor urinary function. Falls 476471541 R29.6 no reported recent fallsConti nue fall precaution s.Monitor for safety.Mor se 60 Recurrent urinary tract infection 874888919 N30.20 Continue Vitamin C 500 mg BIDD-Vineet se 1000 mg BID for prophylaxi s.Monitor sxs. Chronic mi graine without aura 2208325489 41408 G43.709 stableCont inue prednisone 10 mg qdamitript yline 10 mg qhs.Monito r sxs. COVID-19 395125774 U07.1 With mild coughConti nue paxlovid 150/100 BID for 5 day courseWill use dexamethas one, fluids, supplement al O2 prn for sxs.Contin ue to monitor O2 sats, temp, GI sxs and po intake. Stercoral colitis 847561 001 K52.89 Resolved.C ontinue bowel meds as ordered.Mo nitor bowel function. Glaucoma 10196367 H40.89 Continue combigan ou BID and rocklatan qhsF/U with eye dr as planned. History of syncope 91512 29574 41707 Z86.79 Monitor vitals and MS. Constipation 51185339 K5 9.00 miralax dailysenna plus bidmonitio r bm Chronic pain 69927107 G8 9.29 abdominal and back painoxycod one 5 mg q 6 prn [id number] MD RODERICK Liriano [facility] [address] [place] [address] 09/04/2023 13:20:07 09/11/2023 11:21:18 Dementia 87342767 F02.B0 MS remains stable.Moo d good after d/c seroquel.C ontinue aricept 10 mg qhs and amitriptyl ine 10 mg qhs.Contin ue supportive care, expect decline.HC P invokedMon itor mood and behaviors. Psych continues to follow Retention of urine 94641 4002 R33.8 No further issues since arana d/c'dConti nue bethanecol 25 mg TID and tamsulosin 0.8 mg qdMonitor urinary function. Falls 527323964 R29.6 Remains deconditio vane.Use PT/OT as able/neede d.Continue fall precaution s.Monitor for safety. Recurrent urinary tract infection N30.20 Continue Vitamin C 500 mg BID and D-Mannose 1000 mg BID for prophylaxi s.Monitor sxs. Chronic mi graine without aura 3111031324 26404 G43.709 Continue prednisone 10 mg qd and amitriptyl ine 10 mg qhs.Monito r sxs. COVID-19 618463556 U07.1 Tested + on 11/20/22Now recovered. Monitor for sequelae. Constipation 97154901 K5 9.09 Continue bowel meds as ordered.Mo nitor bowel function. Chronic pain 51741060 G8 9.29 Continue oxycodone 5 mg q 6 prn and APAP 650 mg q 6 hrs prn.Monito r sxs. [id number] KEVIN ESPINOZA [address] [address] 09/07/2023 13:56:21 09/11/2023 12:23:12 Indigestion 816707961 R10.13 see hpistart Tums 2 tabs Q4 prn TIDencoura ged to eat slowly, avoid caffeinate d drinksnurs ing to monitor for unrelieved sx nursing and update provider with changes Dysuria 11773046 R30.0 send urine for UA with C&S. [id number] KEVIN ESPINOZA [address] [address] 09/10/2023 12:44:19 09/17/2023 15:09:43 Dysuria 55212316 R30.0 send urine for UA with C&Snursing encouraged to reattemptw ill order one time dose of ativan to be given prior to attempt, hopefully to decrease resistence and combativen ess. [id number] KEVIN ESPINOZA [address] [address] 09/17/2023 08:54:06 09/20/2023 16:22:04 Recurrent urinary tract infection 598063826 N30.20 nursing was finally able to obtain clean catch on ulture positive for gram neg rods, ecoli and P. mirabiliss tarted on bactrim DS q12 for 7 days with probitoic bid for 10 day.will start on Methenamin e Hippurate 1 gm BID for uti prophylact ic, was previous on D-mannose provided by facility- have not had in a few months.patricio whatley updated to offers more fluids [id number] Barbara GatesEmiliano Anton [address] [place] [address] 10/26/2023 09:48:50 10/30/2023 09:29:54 Dementia 58111830 F02.B0 MS remains stable.Moo d good after d/c seroquel.C ontinue aricept 10 mg qhs and amitriptyl ine 10 mg qhs.Contin ue supportive care, expect decline.HC P invokedMon itor mood and behaviors. Psych continues to follow [place] 979294393 R29.6 Remains deconditio vane.Use PT/OT as able/neede d.Continue fall precaution s.Monitor for safety. Recurrent urinary tract infection 996347403 N30.20 Continue Vitamin C 500 mg BID and methanamin eMonitor sxs.treate d last month for UTI with bactrim Retention of urine 05323 4002 R33.8 No further issues since arana d/c'dConti nue bethanecol 25 mg TID and tamsulosin 0.8 mg qdMonitor urinary function. Chronic pain 15283991 G8 9.29 Continue oxycodone 5 mg q 6 prn and APAP 650 mg q 6 hrs prn.Monito r sxs. [id number] KEVIN ESPINOZA [address] [place] [address] 12/11/2023 11:12:57 12/13/2023 14:34:20 Bilateral lower limb edema 923430555 R60.0 see hpiappears dependent, pt sits in wheelchair for long periods of timerefer to therapy for wheelchair with leg rest for elevationc heck labs proBNP, CBC, and BMP on 12/12/23will start compressio n stocking to wear dailyconsi flo giving diuretic for worsening edemarecom mend no added salt to diet.will monitor for changes Dementia 85661853 F02.B0 alert at her baseline with confusione xpect declineCon tinue aricept 10 mg qhs, seroquel 50 mg qhs and amitriptyl ine 10 mg qhs.Contin ue supportive care, expect decline.HC P invoked- updated at bedside on above plan and is in agreementM onitor mood and behaviors. psych prn [id number] KEVIN ESPINOZA [facility] [address] [place] [address] [place] [address] 12/19/2023 08:36:46 12/24/2023 09:37:20 Dementia 31835073 F02.B0 MS remains stable.Con tinue aricept 10 mg qhs and amitriptyl ine 10 mg qhs.Contin ue supportive care, expect decline.HC P invokedMon itor mood and behaviors. Psych continues to follow Falls 160027360 R29.6 Remains deconditio vane.Use PT/OT as able/neede d.Continue fall precaution s.Monitor for safety. Recurrent urinary tract infection 741903146 N30.20 Continue Vitamin C 500 mg BID and methenamin eMonitor sxs.treate d last month for UTI with bactrim Retention of urine 44577 4002 R33.8 No further issues since arana d/c'dConti nue bethanecol 25 mg TID and tamsulosin 0.8 mg qdMonitor urinary function. Chronic pain 55586627 G8 9.29 Continue oxycodone 5 mg q 6 prn and APAP 650 mg q 6 hrs prn.Monito r sxs. Bilateral lower limb edema 049172977 R60.0 appears dependent, pt sits in wheelchair for long periods of timerefer to therapy for wheelchair with leg rest for elevationc ompression stocking to wear dailyconsi flo giving diuretic for worsening edemarecom mend no added salt to diet.will monitor for changes [id number] KEVIN ESPINOZA [facility] [address] [place] [address] 02/14/2024 09:38:47 02/18/2024 12:51:21 Dementia 65279220 F02.B0 MS remains stable.Con tinue aricept 10 mg qhs and amitriptyl ine 10 mg qhs.Contin ue supportive care, expect decline.HC P invokedMon itor mood and behaviors. Psych continues to follow [place] 529648849 R29.6 Remains deconditio vane.Use PT/OT as able/neede d.Continue fall precaution s.Monitor for safety. Recurrent urinary tract infection N30.20 Continue Vitamin C 500 mg BID and methenamin eMonitor sxs.treate d last month for UTI with bactrim Retention of urine 01368 4002 R33.8 No further issues since arana d/c'dConti nue bethanecol 25 mg TID and tamsulosin 0.8 mg qdMonitor urinary function. Chronic pain 51811720 G8 9.29 Continue oxycodone 5 mg q 6 prn and APAP 650 mg q 6 hrs prn.Monito r sxs. Bilateral lower limb edema 672845190 R60.0 stable/ tracecompr ession stocking to wear dailyconsi flo giving diuretic for worsening edemarecom mend no added salt to diet.will monitor for changes Bereavement 02199769 Z63 .4 son 02/02- He visited with her everyday. so far she has been doing well with lost, due to her dementia she may have forgotten that her son has passed, there has been no agitation or other behaviors of expression . She will be attending his services today.will provide support along with nursing.travon hungcarlos need to restart ativan . [id number] KEVIN ESPINOZA [address] [place] [address] 04/07/2024 15:04:30 04/16/2024 11:19:45 Dementia 12305493 F02.B0 MS remains stable.Con tinue aricept 10 mg qhs and amitriptyl ine 10 mg qhs.Contin ue supportive care, expect decline.HC P invokedMon itor mood and behaviors. Psych continues to follow Recurrent urinary tract infection N30.20 Continue Vitamin C 500 mg BID and methenamin eMonitor sxs.treate d last month for UTI with bactrim Chronic pain 35927838 G8 9.29 Continue oxycodone 5 mg q 6 prn and APAP 650 mg q 6 hrs prn.Monito r sxs. Bilateral lower limb edema 445171264 R60.0 stable/ tracecompr ession stocking to wear dailyconsi flo giving diuretic for worsening edemarecom mend no added salt to diet.will monitor for changes COVID-19 017750387 U07.1 without sxdiscusse d with nursing, will provide supportive therapyupd ate provider with acute changes [id number] KEVIN ESPINOZA [facility] [address] [place] [address] [place] [address] 07/06/2024 10:46:03 07/10/2024 16:17:30 Acute respiratory failure 61402255 J96.00 resolvedde conditione dmonitor resp. statusPT/O T eval and tx Hypokalemia 87767739 E87 .6 3.1/replet edfollow labs Dementia 98268083 F02.B0 stableCont inue aricept 10 mg qhs and amitriptyl ine 10 mg qhs.Contin ue supportive care, expect decline.HC P invokedMon itor mood and behaviors. Psych continues to follow Recurrent urinary tract infection N30.20 stablecont Cefuroxime 500 mg BID until 07/08/24Cont inue Vitamin C 500 mg BID and methenamin eMonitor sxs.increa se hydration/ water preferred to flush out toxins. [id number] Matt Lynn MD [address] [place] [address] 07/09/2024 12:26:29 07/11/2024 08:35:31 Acute respiratory failure 59958773 J96.01 see HPI treated with abx coursemoni tor respirator y status and need for repeat imaging Dementia 66444838 F02.B0 baseline dementia with behaviorsH CP invokedcon tinue supportive carepsych eval prn Recurrent urinary tract infection 538983927 N30.20 recently treated with rocephin for abovemonit or for recurrent infection Health Concerns Section Related Observation LastModified by Organization Detai ls LastModified Time None Recorded Concern Status LastModified by Organization Details LastModified Time None Recorded Advance Directives Directive Y: Payers Encounter Date Sequence Insurance Name Policy Number Policy [place] Covered Member ID [place] Member ID Guarantor Name 12/19/2023 2 [place] [id number] Deann Eduardo [id number] Deann Eduardo 12/19/2023 1 [place] [employer] Deann Eduardo [id number] Deann Eduardo 02/14/2024 2 [place] [id number] Deann Pangchiara [id number] Deann Eduardo 02/14/2024 1 [place] [employer] Deann Pangchiara [id number] Deann Thomasnschiara 04/07/2024 2 [place] [id number] Deann Metcalfira [id number] 401 Deann Thomaskathia 04/07/2024 1 [place] [facility] Deann Pangchiara [id number] Deann Pangchiara 07/06/2024 2 [place] [id number] Deann Metcalfira [id number] Deann Pangchiara 07/06/2024 1 [place] [employer] Deann Eduardo [id number] Deann Eduardo 07/09/2024 2 [place] [id number] Deann Thomaskathia [id number] Deann Eduardo 07/09/2024 1 [place] [facility] Deann Pangchiara [id number] Deann Eduardo Notes Date Note Type Note Provider Name and Address Organization Details Recorded Time 12/19/2023 text/html This is an 83 yr [...] participates in recreational activities. KEVIN ESPINOZA [address] [facility], [address], [place], [address], [facility] 12/23/2023 22:55:29 02/14/2024 text/html This is an [...] she has not utilized. KEVIN ESPINOZA [address] [facility], [address], [place], [address], [employer] 02/18/2024 11:34:01 04/07/2024 text/html This is an [...] no acute nursing concerns. KEVIN ESPINOZA [address] [facility], [address], [place], [address], [employer] 04/16/2024 11:15:18 07/06/2024 text/html This is an 83 yr old female seen for readmission. Patient readmitted to after an acute care stay for acute hypoxic respiratory failure due to acute bronchitis/pna; stay complicated by acute metabolic encephalopathy, delirium and UTI. She was tx with neb tx, steroids, and IV abx. Mentation improved and she was able to be wean off oxygen. KEVIN ESPINOZA [address] [facility], [address], [place], [address], [employer] 07/06/2024 23:15:06 07/09/2024 text/html Patient is an 83 yo female resident seen for MD visit recently readmitted from hospital after acute transfer for respiratory failure. Dx with bronchitis and encephalopathy covered with rocephin and zithromax, steroids and nebs. PMH significant for dementia and constipation Matt Lynn MD [address] [facility], [address], [place], [address], [facility] - [employer] 07/09/2024 12:38:08 OBGyn Episode No OBEpisode recorded.
[2024-07-14 06:37] LABS: Alanine Aminotransferase 51 U/L (0-31); Albumin Level 3.3 g/dL (3.5-5.0); Alkaline Phosphatase 58 U/L (39-117); Anion Gap 13 (12-20); Aspartate Amino Transferase 28 U/L (5-31); Bilirubin Total 0.6 mg/dL (0.0-1.0); Blood Urea Nitrogen 13 mg/dL (9-16); Calcium 8.2 mg/dL (8.4-10.2); Carbon Dioxide 23 mmol/L (22-29); Chloride 109 mmol/L (96-108); Estimated Glomerular Filt Rate > 60; Glucose Random 91 mg/dL (60-115); Potassium 3.6 mmol/L (3.3-5.1); Sodium 141 mmol/L (135-145); Total Protein 5.6 g/dL (6.5-8.0)
[2024-07-14 06:43] LABS: Basophils Percent Auto 0.1 % (0-2); Eosinophils Percent Auto 0.1 % (0-4); Hematocrit 41.8 % (37.0-47.0); Hemoglobin 13.5 g/dl (12.0-16.0); Imm Gran Abs Auto 0.05 X10*3/uL (0.00-0.03); Imm Gran Pct Auto 0.6 % (0.0-0.4); Lymphocytes Absolute Auto 1.6 X10*3/uL (1.2-4.9); Lymphocytes Percent Auto 20.5 % (20-40); Mean Corpuscular HGB Conc 32.3 g/dl (31.0-35.0); Mean Corpuscular Hemoglobin 30.5 pg (27.0-33.0); Mean Corpuscular Volume 94.4 fL (80.0-98.0); Mean Platelet Volume 9.4 fL (9.4-12.3); Monocytes Absolute Auto 0.8 X10*3/uL (0.1-1.2); Neutrophils Absolute Auto 5.4 x10*3/uL (2.0-8.3); Neutrophils Percent Auto 68.7 % (45-73); Platelet Count 245 X10*3/uL (160-400); Red Blood Count 4.43 X10*6/uL (4.20-5.50); Red Cell Distribution Width 13.9 % (11.0-16.0); White Blood Count 7.9 X10*3/uL (4.8-10.8)
== END 2024-07-14 05:51 | disposition home or self-care (01) ==
LOC: HO.MMNH2L 05:50
PROVIDERS: Visit Provider Family Medicine
DX: R27.8 Other lack of coordination (principal)
CPT/HCPCS: 36415; 80053; 85025

== ENCOUNTER 2024-07-15 05:38 | Outpatient (REF) | payer MEDICARE, SELFPAY ==
--- OUTSIDE RECORDS SUMMARY | 2024-07-15 05:41 | XMS_ITS | Clinical Summary ---
Author Organization [facility] it Address [address] [place] [address] Care Team Providers Care Radio Time Buyer Name Role Phone Melchor Mccormack MD Primary Care Provider [phone] Allergies Active Allergy Reactions Criticality Noted Date [...] Surgery Date Site/Laterality Comments ESOPHAGOGASTRODUODENOSCOPY 08/29/11 PROCEDURE: NC ESOPHAGOGASTRODUODENOSCOPY TRANSORAL DIAGNOSTIC; COMMENT: normal COLONOSCOPY 2004 [...] age to complete this topic Meningococcal B Vaccine Aged Out No l onger eligible based on patient's age to complete [...] * Annual BMP Blood Test (02/01/2022) Pathologist [facility] Annual BMP Blood Test abstracted Historical Provider HEALTH MAINTENANCE Final Result * (ABNORMAL) Lipid panel (01/26/2021) [facility] LDL/HDL Ratio 2 0 - 4 Triglycerides [...] (World Health Organization Fracture Risk Assessment) [facility] Department of Internal Medicine recommends using National [...] (World Health Organization Fracture Risk Assessment) [facility] Department of Internal Medicine recommendsusing National Osteoporosis [...] or over-estimation of fracture risk by FRAX. [facility] Al Mccormack MD IM DXA PROCEDURES Final Resul t from Last 3 Months or Most Recently Relevant to Health Maintenance Care Teams Radio Time Buyer Relationship Specialty Start Date End Date Melchor Mccormack MD [address] [place] [address] [place] [address] PCP - General 05/21/10
[2024-07-15 08:53] LABS: Adenovirus PCR Not Detected (Not Detect.); Bordetella parapertussis PCR Not Detected (Not Detect.); Bordetella pertussis PCR Not Detected (Not Detect.); Chlamydia pneumoniae PCR Not Detected (Not Detect.); Coronavirus 229E PCR Not Detected (Not Detect.); Coronavirus HKU1 PCR Not Detected (Not Detect.); Coronavirus NL63 PCR Not Detected (Not Detect.); Coronavirus OC43 PCR Not Detected (Not Detect.); Human metapneumovirus PCR Not Detected (Not Detect.); Influenza A PCR Not Detected (Not Detect.); Influenza B PCR Not Detected (Not Detect.); Mycoplasma pneumoniae PCR Not Detected (Not Detect.); Parainfluenza 1 PCR Not Detected (Not Detect.); Parainfluenza 2 PCR Not Detected (Not Detect.); Parainfluenza 3 PCR Not Detected (Not Detect.); Parainfluenza 4 PCR Not Detected (Not Detect.); RSV PCR Detected (Not Detect.); Rhino/Enterovirus PCR Not Detected (Not Detect.)
[2024-07-15 09:05] LABS: Influenza A H1 PCR Not Detected (Not Detect.); Influenza A H1-2009 PCR Not Detected (Not Detect.); Influenza A H3 PCR Not Detected (Not Detect.); SARS-CoV-2 PCR Not Detected (Not Detect.)
== END 2024-07-15 05:39 | disposition home or self-care (01) ==
LOC: HO.MMNH3L 05:38
PROVIDERS: Visit Provider Family Medicine
DX: R69 Illness, unspecified (principal)
CPT/HCPCS: 87633

== ENCOUNTER 2024-07-16 05:46 | Outpatient (REF) | payer MEDICARE, SELFPAY ==
--- OUTSIDE RECORDS SUMMARY | 2024-07-16 05:49 | XMS_ITS | Continuity of Care Document ---
Author Organization [facility], [facility] Address [address] [place] [address] Care Team Providers Care Welder Fitter Apprentice Name Role Phone CHRIS GARCIA Primary Care Provider [phone] RODERICK MAGDALENO 3RD FLOOR OTHER [phone] Assessment No assessment recorded. 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 2022 DMITRIY LEBRON NP [address], [address], [place], [address], [facility] 3 12:17:26 Constipatio n 58019875 Active 2022 DMITRIY LEBRON NP [address], [address], [place], [address], [facility] [employer] [facility] 3 12:17:32 Glaucoma 24672888 Active 2022 DMITRIY LEBRON NP [address], [address], [place], [address], [facility] 3 12:17:39 Falls 596738632 Active 2022 DMITRIY LEBRON NP [address], [address], [place], [address], [facility] [employer] [facility] 3 12:19:11 History of syncope 4490721600918 09 Active 2022 DMITRIY LEBRON NP [address], [address], [place], [address], [facility] 3 12:19:19 Chronic migraine without aura 9755674879599 05 Active 2022 DMITRIY LEBRON NP [address], [address], [place], [address], [facility] [employer] [facility] 3 12:24:31 COVID-19 031568275 Active 2022 DMITRIY LEBRON NP [address], [place], [address], [facility] 3 13:42:03 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 Odalys Barber MD [address], [place], [address], [facility] [employer] [facility] 3 10:42:17 Glaucoma 28455689 Active 2022 Odalys Barber MD [address], [place], [address], [facility] [employer] [facility] 3 10:50:01 Acute urinary tract infection 378061530 Active 2022 DMITRIY LEBRON NP [address], [place], [address], [facility] 3 13:22:34 Recurrent urinary tract infection 601234735 Active 2022 Odalys Barber MD [address], [place], [address], [facility] [employer] 3 21:21:00 Chronic pain 32958195 Active 2023 Odalys Barber MD [address], [place], [address], [facility] 4 14:05:27 Indigestion 557540814 Active 2023 KEVIN ESPINOZA [address], [address], [place], [address], [facility] 4 13:47:57 Acute respiratory failure 22056169 Active 2024 BRENDA ESPINOZAP [address] [facility], [address], [place], [address], [facility] 5 22:54:27 Hypokalemia 82481910 Active [address], [address], [place], [address], [facility] 5 22:54:55 Problem Notes None recorded. Medical Equipment None Reported. Allergies Allergen ID Allergen Name Allergen Category Reaction Reaction Severity Criticality Documentation Date Start Date Code Code System Note Provider Name and Address Organization Details Recorded Time 31676 Product containin g penicilli n (product) medicatio n Not available Not available Not available 11/17/2022 67828 8001 SNOMED Not Available Not Available Not [...] 6 hours by oral route as needed. 2024 active Not Available Not Available Not Avai [...] Details Last Updated DateTime 5 157.48 cm 95 /min 18 /min 97.2 [degF] 93 % 93 % 112 mm[Hg] 87 mm[Hg] FARHAD CHOW NP [address] [facility], [address], [place], [address], [employer] 5 10:28:22 Social History Question Answer Notes LastModified by Organizat ion Details LastModified Time Tobacco Smoking Status Unknown If Ever Smoked DMITRIY LEBRON NP [address] [facility], [address], [place], [address], [employer] 11/17/2022 11:50:31 Do You Have An Advance Directive? Yes Information not available 11/21/2022 What Is Your Code Status? Full Code [email or web address] Information not available 11/20/2022 Do You Have A Medical Power Of Thread Clipper? Yes HCP Invoked Information not available 11/21/2022 [...] adjuvanted, quadrivalent, PF 01/09/2023 completed Anjana zimmer, [facility] [employer] 04/27/2023 13:03:23 Past Encounters Encounter ID Performer Location Encounter Start Date Encounter Closed Date Diagnosis/Indication Diagnosis SNOMED-CT Code Diagnosis ICD10 Code Diagnosis Note [id number] KEVIN ESPINOZA [address] [place] [address] [place] [address] 07/06/2024 10:46:03 07/10/2024 16:17:30 Acute respiratory failure 00872687 J96.00 resolvedde conditione dmonitor resp. statusPT/O T eval and tx Hypokalemia 59012756 E87 .6 3.1/replet edfollow labs Dementia 39269028 F02.B0 stableCont inue aricept 10 mg qhs and amitriptyl ine 10 mg qhs.Contin ue supportive care, expect decline.HC P invokedMon itor mood and behaviors. Psych continues to follow Recurrent urinary tract infection N30.20 stablecont Cefuroxime 500 mg BID until 07/08/24Cont inue Vitamin C 500 mg BID and methenamin eMonitor sxs.increa se hydration/ water preferred to flush out toxins. [id number] Matt [facility] [address] [place] [address] 07/09/2024 12:26:29 07/11/2024 08:35:31 Acute respiratory failure 85869714 J96.01 see HPI treated with abx coursemoni tor respirator y status and need for repeat imaging Dementia 22005716 F02.B0 baseline dementia with behaviorsH CP invokedcon tinue supportive carepsych eval prn Recurrent urinary tract infection 872388402 N30.20 recently treated with rocephin for abovemonit or for recurrent infection [id number] FARHAD CHOW NP [address] [address] 07/15/2024 10:27:43 07/15/2024 11:13:26 Acute respiratory failure 46979073 J96.00 residual cough and congestion per staff.conc stephanie of acute 10/10 pain during the night associated with cough, now resolved.C XR ordered for today, pendingVir al panel obtained, pending.Ox ycodone prn available for painDuoneb s added prn? hx. of asthma, on daily prednisone . Plan -Schedule albuterol updrafts tid x 5 daysAdd mucinex 600 mg bid x 7 daysMonito r pain - unclear etiology - ? pleuritic, ? muscle strain, ? pain elsewhere. PRN APAP and oxycodone available. Trend VS, LS, satsCheck labs x 1 in am, CBC, BMPMonitor closely. Hypokalemia 28178972 E87 .6 3.1/replet edfollow labs - repeat in am Dementia 63011564 F02.B0 stableCont inue aricept 10 mg qhs and amitriptyl ine 10 mg qhs.Contin ue supportive care, expect decline.HC P invokedMon itor mood and behaviors. Psych continues to follow Recurrent urinary tract infection 453975466 N30.20 stablecomp leted Cefuroxime 500 mg BID on 07/08/24Cont inue Vitamin C 500 mg BID and methenamin eMonitor sxs., VSMaintain fluids Health Concerns Section Related Observation LastModified by Organization Detai ls LastModified Time None Recorded Concern Status LastModified by Organization Details LastModified Time None Recorded Payers Encounter Date Sequence Insurance Name Policy Number Policy [place] Covered Member ID [place] Member ID Guarantor Name 07/15/2024 2 [place] [id number] Deann Eduardo [id number] Deann Eduardo 07/15/2024 1 [place] [employer] Deann Eduardo [id number] Deann Eduardo Notes Date Note Type Note Provider Name and Address Organization Details Recorded Time 07/15/2024 text/html This is an 83 yr old female seen for an acute visit. She is a LTC resident, readmitted to after an acute care stay for acute hypoxic respiratory failure due to acute bronchitis/pna; stay complicated by acute metabolic encephalopathy, delirium and UTI. She was tx with neb tx, steroids, and IV abx. Mentation improved and she was able to be wean off oxygen. Asked to check pt. today due to reports of a cough and acute 10/10 pain during the night. Per nsg. note, she continued to have a worsening cough that caused 10/10 pain using non numerical pain scale. Patient kept stating sissy what is wrong, help me. Ouch this hurts please help . Patient was wheezing and RR rate of 22-24 with O2 of 93%. Reported to be unable to listen to patients lung sounds due to pain she was experiencing and her inability to move comfortably. call or contact centre operator provider notified, and duonebs and oxycodone ordered. Patient given oxycodone with no relief- still moaning and crying out in pain with cough. Respiratory panel and chest xray ordered. Case discussed with current day nurse, who reports Esthela is doing well and has no pain or resp. distress at present. She was doing better when she reported for her shift. Viral panel pending, CXR not done yet. No s/s pain currently, no reports of pain with am care and activity. Remains on prednisone 10 mg qd - states daily use for asthma. Upon exam, Esthela is resting comfortably in bed, alert, NAD, all smiles. She is a poor historian due to dementia, but says she feels good this morning. Denies pain now, does not recall any pain issues during the night. Denies SOB, distress. No CP. Denies GI or complaints. Loose congested cough. FARHAD CHOW, NAN [address] [facility], [address], [place], [address], [facility] - [employer] 07/15/2024 11:13:24 OBGyn Episode No OBEpisode recorded.
--- OUTSIDE RECORDS SUMMARY | 2024-07-16 05:49 | XMS_ITS | Data Portability ---
Author Organization [facility] [employer] [facility], Main Office Address [address] [facility], [address] [place] [address] Care Team Providers Care Medical Assistant Secretary Name Role Phone CHRIS GARCIA Primary Care Provider RODERICK MAGDALENO 3RD FLOOR OTHER [phone] Assessment Encounter Date Assessment Date Assessment LastModified by Organization Details LastModified Time 02/14/2024 02/14/2024 Labs 12/16: Na 143-K 3.8-Bun [...] and Address Organization Details Recorded Time Dementia 90167486 Active 2022 DMITRIY LEBRON NP [address] [facility], [address], [place], [address], [facility] [employer] 3 12:17:21 Retention of urine 499191761 Active 2022 DMITRIY LEBRON NP [address] , [address], [place], [address], [facility] [employer] 3 12:17:26 Constipatio n 06429486 Active 2022 DMITRIY LEBRON, [employer] [address], [address], [place], [address], [facility] [employer] [facility] 3 12:17:32 Glaucoma 22225180 Active 2022 DMITRIY LEBRON, [employer] [address], [address], [place], [address], [facility] 3 12:17:39 Falls 228839609 Active 2022 DMITRIY LEBRON, [employer] [address], [address], [place], [address], [facility] 3 12:19:11 History of syncope 0898422778445 09 Active 2022 DMITRIY LEBRON, [employer] [address], [address], [place], [address], [facility] 3 12:19:19 Chronic migraine without aura 1941602003484 05 Active 2022 DMITRIY LEBRON NP [address], [address], [place], [address], [facility] 3 12:24:31 COVID-19 637563641 Active 2022 DMITRIY LEBRON, NAN [address], [address], [place], [address], [facility] 3 13:42:03 Stercoral colitis 671445716 Active 2022 Odalys Barber MD [address], [address], [place], [address], [facility] 3 10:42:17 Glaucoma 30532630 Active 2022 Odalys Barber MD [address], [address], [place], [address], [facility] 3 10:50:01 Acute urinary tract infection 561655868 Active 2022 DMITRIY LEBRON NP [address], [address], [place], [address], [facility] 3 13:22:34 Recurrent urinary tract infection 452340505 Active 2022 Odalys Barber MD [address], [address], [place], [address], [facility] [employer] 3 21:21:00 Chronic pain 20395654 Active 2023 Odalys Barber MD [address], [address], [place], [address], [facility] [employer] 4 14:05:27 Indigestion 850962085 Active 2023 KEVIN ESPINOZA [address], [address], [place], [address], [facility] 4 13:47:57 Acute respiratory failure 07957176 Active 2024 KEVIN ESPINOZA [address] [facility], [address], [place], [address], [facility] [employer] 5 22:54:27 Hypokalemia 74083514 Active 2024 KEVIN ESPINOZA [address] [facility], [address], [place], [address], [facility] 5 22:54:55 Problem Notes None recorded. Medical Equipment None Reported. Allergies Allergen ID Allergen Name Allergen Category Reaction Reaction Severity Criticality Documentation Date Start Date Code Code System Note Provider Name and Address Organization Details Recorded Time 50225 Product containin g penicilli n (product) medicatio n Not available Not available Not available 11/17/2022 40236 8001 SNOMED Not Available Not Available Not [...] 133 mm[Hg] 72 mm[Hg] KEVIN ESPINOZA [address] [facility] [address], [place], [address] , [facility] 4 11:20:33 Date Recorded Body height Heart rate Respiratory rate Body temperature Oxygen saturation Oxygen saturation in Arterial blood by Pulse oximetry Systolic blood pressure Diastolic blood pressure Provider Name and Address Organization Details Last Updated DateTime 4 157.48 cm 88 /min 18 /min 98 [degF] 97 % 97 % 124 mm[Hg] 72 mm[Hg] KEVIN ESPINOZA [address] , [facility] [address], [place], [address], [facility] 5 11:11:16 Date Recorded Body height Body mass index (BMI) Body weight Heart rate Respiratory rate Body temperature Oxygen saturation Oxygen saturation in Arterial blood by Pulse oximetry Systolic blood pressure Diastolic blood pressure Provider Name and Address Organization Details Last Updated DateTime 5 157.48 cm 30 kg/m2 38147.8 7 g 99 /min 18 /min 97.4 [degF] 95 % 95 % 105 mm[Hg] 81 mm[Hg] KEVIN ESPINOZA [address] , [facility] [address], [place], [address] , [facility] 5 23:14:29 Date Recorded Body height Heart rate Respiratory rate Body temperature Oxygen saturation Oxygen saturation in Arterial blood by Pulse oximetry Systolic blood pressure Diastolic blood pressure Provider Name and Address Organization Details Last Updated DateTime 5 157.48 cm 95 /min 18 /min 97.2 [degF] 93 % 93 % 112 mm[Hg] 87 mm[Hg] FARHAD CHOW NP [address] [facility], [address], [place], [address], [employer] 5 10:28:22 Social History Question Answer Notes LastModified by Organizat ion Details LastModified Time Tobacco Smoking Status Unknown If Ever Smoked DMITRIY LEBRON NP [address] [facility], [address], [place], [address], [employer] 11/17/2022 11:50:31 Do You Have An Advance Directive? Yes Information not available 11/21/2022 What Is Your Code Status? Full Code [email or web address] Information not available 11/20/2022 Do You Have A Medical Power Of Emergency Spill Response Technician? Yes HCP Invoked Information not available 11/21/2022 [...] adjuvanted, quadrivalent, PF 01/09/2023 completed Anjana zimmer, [facility] [employer] 04/27/2023 13:03:23 Past Encounters Encounter ID Performer Location Encounter Start Date Encounter Closed Date Diagnosis/Indication Diagnosis SNOMED-CT Code Diagnosis ICD10 Code Diagnosis Note [id number] NAN ALEXANDRA [address] [facility] ROB FERNANDEZ [address] 11/17/2022 10:29:24 11/21/2022 15:53:20 Constipation 54006958 K59.00 miralax dailysenna plus bidmonitio r bm Retention of urine 61338 4002 R33.9 flomax 0.4 mg hsvoiding trial today 11/17monito r urine output Dementia 10839870 F03.90 aricept 10 mg hsseroquel 50 mg hs psych prnAIMS 0 Glaucoma 78987756 H40.9 combigan ou bidrocklat an hs Falls 416588834 R29.6 PT OT eval and treatfall precaution sfrequent safety checks History of syncope 41073 59508 35541 Z86.79 monitor ortho vs prn Chronic mi graine without aura 2683888578 94652 G43.709 prednisone 10 mg dailyamitr iptylline 10 mg hs COVID-19 974548109 U07.1 No symptoms To use paxlovid, dexamethas one, fluids, supplement al O2 prn for sxs. Continue to monitor O2 sats, temp, GI sxs and po intake. [id number] DMITRIY LEBRON NP [facility], [facility] [address] [place] [address] 11/20/2022 14:15:54 11/23/2022 11:39:23 COVID-19 102404890 U07.1 monitor congestion paxlovid 150/100 bid for 5 daysTo use paxlovid, dexamethas one, fluids, supplement al O2 prn for sxs.Contin ue to monitor O2 sats, temp, GI sxs and po intake. [id number] Odalys Barber MD [facility], [facility] [address] [place] [address] 11/21/2022 13:51:52 11/28/2022 16:22:18 COVID-19 911616225 U07.1 With mild coughConti nue paxlovid 150/100 BID for 5 day courseWill use dexamethas one, fluids, supplement al O2 prn for sxs.Contin ue to monitor O2 sats, temp, GI sxs and po intake. Retention of urine 45526 4002 R33.8 Successful voiding trial on ontin ue tamsulosin 0.4 mg qdMonitor urinary function. Dementia 29269651 F03.90 Continues at baselineCo ntinue aricept 10 mg qhs, seroquel 50 mg qhs and amitriptyl ine 10 mg qhs.Contin ue supportive care, expect decline.HC P invokedMon itor mood and behaviors. Psych consult prn. Glaucoma 94631140 H40.89 Continue combigan ou BID and rocklatan qhsF/U with eye dr as planned. Falls 908393890 R29.6 Very deconditio vane and with balance issuesNeed s PT/OT for strengthen ing, balance, gait training, safety and function.C ontinue fall precaution s.Monitor for safety. History of syncope 20133 95572 50954 Z86.79 Monitor vitals and MS. Chronic mi graine without aura 9577457889 47072 G43.709 No current sxs.Contin ue prednisone 10 mg qd and amitriptyl ine 10 mg qhsMonitor sxs. Stercoral colitis 550401 001 K52.89 Resolved.C ontinue bowel meds as ordered.Mo nitor bowel function. [id number] DMITRIY LEBRON NP [address] [address] 11/22/2022 13:40:59 11/29/2022 08:17:42 COVID-19 632202760 U07.1 monitor congestion paxlovid 150/100 bid for 5 days to 11/25To use paxlovid, dexamethas one, fluids, supplement al O2 prn for sxs.Contin ue to monitor O2 sats, temp, GI sxs and po intake. [id number] DMITRIY LEBRON NP [address] [address] 12/04/2022 13:19:24 12/06/2022 13:36:36 Dementia 30647713 F03.90 aricept 10 mg hsseroquel 50 mg hspsych prnAIMS 0did not tolerate slums COVID-19 868176642 U07.1 recoveredm onitor congestion paxlovid 150/100 bid for 5 days to 11/25To use paxlovid, dexamethas one, fluids, supplement al O2 prn for sxs.Contin ue to monitor O2 sats, temp, GI sxs and po intake. Acute urin marcie tract infection 378583433 N39.0 macrobid 100 mg bid for 7 days [id number] DMITRIY LEBRON NP [address] [address] 12/13/2022 11:22:57 12/15/2022 15:54:33 Retention of urine 251245313 R33.8 flomax 0.4 mg hsvoiding trial today 11/17-faile d, cath restartedm onitor urine outputurol ogy consult [place] 342600356 R29.6 PT OT eval and treatfall precaution sfrequent safety checks Dementia 17572986 F03.90 aricept 10 mg hsseroquel 50 mg hspsych prnAIMS 0did not tolerate slums [id number] DMITRIY LEBRON NP [address] [address] 12/20/2022 10:10:14 12/22/2022 11:38:53 Constipation 63717257 K59.00 miralax dailysenna plus bidmonitio r bm Retention of urine 83107 4002 R33.9 flomax 0.4 mg hs-increas ed to 0.8 mg hsvoiding trial today 11/17-fail d, will try again 12/21monito r urine outputurol ogy consult Dementia 77784314 F03.90 aricept 10 mg hsseroquel 50 mg hspsych prnAIMS 0 Glaucoma 91332095 H40.9 combigan ou bidrocklat an hs [place] 975036190 R29.6 PT OT eval and treatfall precaution sfrequent safety checks History of syncope 94527 91167 52363 Z86.79 monitor ortho vs prn Chronic mi graine without aura 6001673663 10422 G43.709 prednisone 10 mg dailyamitr iptylline 10 mg hs COVID-19 296160885 U07.1 No symptoms-r ecovered by dateTo use paxlovid, dexamethas one, fluids, supplement al O2 prn for sxs.Contin ue to monitor O2 sats, temp, GI sxs and po intake. [id number] DMITRIY LEBRON NP [address] [address] 12/28/2022 14:59:22 01/02/2023 15:51:32 Retention of urine 681719674 R33.9 flomax 0.4 mg hs-increas ed to 0.8 mg hsvoiding trial today 11/17-faile d, will try again 12/21-faile d againmonit or urine outputurol ogy consult [id number] DMITRIY LEBRON NP [address] [address] 01/03/2023 13:43:31 01/09/2023 11:51:30 Dementia 26783063 F03.90 aricept 10 mg hsseroquel 50 mg hspsych prnAIMS 0 Retention of urine 38859 4002 R33.9 flomax 0.8 mg hsvoiding trial today 11/17-faile d, will try again 12/21-faile d againmonit or urine outputurol ogy consult Constipation 01562095 K5 9.00 miralax dailysenna plus bidmonitio r bm Glaucoma 86960780 H40.9 combigan ou bidrocklat an hs [place] 467247034 R29.6 PT OT eval and treatfall precaution sfrequent safety checks History of syncope 08694 45781 94990 Z86.79 monitor ortho vs prn Chronic mi graine without aura 4459218021 15198 G43.709 prednisone 10 mg dailyamitr iptylline 10 mg hs COVID-19 220947787 U07.1 recoveredN o symptomsTo use paxlovid, dexamethas one, fluids, supplement al O2 prn for sxs.Contin ue to monitor O2 sats, temp, GI sxs and po intake. [id number] DMITRIY LEBRON NP [address] [place] [address] 01/08/2023 16:14:21 01/12/2023 13:04:50 Dementia 15954813 F03.90 aricept 10 mg hsseroquel 50 mg hspsych prnAIMS 0 Retention of urine 39522 4002 R33.9 flomax 0.8 mg hsvoiding trial today 11/17-faile d, will try again 12/21-faile d againmonit or urine outputurol ogy consult 01/10 Constipation 78785915 K5 9.00 miralax dailysenna plus bidmonitio r bm Glaucoma 84116315 H40.9 combigan ou bidrocklat an hs [place] 146687945 R29.6 PT OT eval and treatfall precaution sfrequent safety checks History of syncope 68318 49610 72091 Z86.79 monitor ortho vs prn Chronic mi graine without aura 3795536734 97486 G43.709 prednisone 10 mg dailyamitr iptylline 10 mg hs COVID-19 755677171 U07.1 recoveredN o symptomsTo use paxlovid, dexamethas one, fluids, supplement al O2 prn for sxs.Contin ue to monitor O2 sats, temp, GI sxs and po intake. [id number] Odalys Barber MD [address] [place] [address] 02/09/2023 20:19:12 02/23/2023 13:46:06 Dementia 69148499 F02.B0 Continues at baselineCo ntinue aricept 10 mg qhs, seroquel 50 mg qhs and amitriptyl ine 10 mg qhs.Contin ue supportive care, expect decline.HC P invokedMon itor mood and behaviors. Psych consult prn. Retention of urine 87716 4002 R33.8 Has failed 2 voiding trials.Rep ortedly had uro appt on 01/10, no notes in chart.Cont inue tamsulosin 0.8 mg qd and bethanecol 25 mg TIDContinu e arana and f/u with uro as planned. Falls 617284025 R29.6 Remains deconditio vane.Contin ue PT/OT for strengthen ing, balance, gait training, safety and function.C ontinue fall precaution s.Monitor for safety. Chronic mi graine without aura 8121714756 00971 G43.709 Continue prednisone 10 mg qd and amitriptyl ine 10 mg qhs.Monito r sxs. COVID-19 384481064 U07.1 Tested + on 11/20Now recovered. Monitor for sequelae. Recurrent urinary tract infection 865198461 N30.20 Continue Vitamin C 500 mg BID and D-Mannose 1000 mg BID for prophylaxi s.Continue Elmiron 100 mg TID for IC pain.Monit or sxs. [id number] DMITRIY LEBRON NP [address] [address] 03/07/2023 10:57:58 03/20/2023 08:53:34 Dementia 70155753 F03.90 aricept 10 mg hsseroquel 50 mg hspsych prnAIMS 0 Retention of urine 78732 4002 R33.9 flomax 0.8 mg hsvoiding trial today 11/17-faile d, will try again 12/21-faile d againd-man nose 1000 bidmonitor urine outputurol ogy consult prn Constipation 45015270 K5 9.00 miralax dailysenna plus bidmonitio r bm Glaucoma 44719631 H40.9 combigan ou bidrocklat an hs [place] 621731057 R29.6 PT OT eval and treatfall precaution sfrequent safety checks History of syncope 99230 30820 80690 Z86.79 monitor ortho vs prn Chronic mi graine without aura 8049832385 77223 G43.709 prednisone 10 mg dailyamitr iptylline 10 mg hs COVID-19 904217777 U07.1 recoveredN o symptomsTo use paxlovid, dexamethas one, fluids, supplement al O2 prn for sxs.Contin ue to monitor O2 sats, temp, GI sxs and po intake. [id number] KEVIN ESPINOZA [address] [address] 05/03/2023 09:01:35 05/05/2023 03:52:24 Urinary tract infectious disease 04474710 N39.0 + UA with proteus mirabilisB actrim DS BID for 5 daysprobio tic for 7 daysmonito r for improvemen t. Dementia 78233914 F03.90 aricept 10 mg hsseroquel 50 mg hspsych prnmonitor for mood and behavior cahnges. [id number] Odalys Barber MD [facility], [facility] [address] [place] [address] 05/03/2023 20:12:49 05/16/2023 12:09:34 Urinary tract infectious disease 95868314 N30.00 + UA with proteus mirabilisB actrim DS BID for 5 d course until 05/08 and probiotic BID until 05/09.Monit or sxs. Dementia 54214406 F02.B0 Remains at baselineCo ntinue aricept 10 mg qhs, seroquel 50 mg qhs and amitriptyl ine 10 mg qhs.Contin ue supportive care, expect decline.HC P invokedMon itor mood and behaviors. Psych follows, last seen 04/30, no med changes. Retention of urine 58126 4002 R33.8 No further issues since arana d/c'dConti nue bethanecol 25 mg TID and tamsulosin 0.8 mg qdMonitor urinary function. Falls R29.6 Remains deconditio vane.Use PT/OT as ablle/need ed.Continu e fall precaution s.Monitor for safety. Recurrent urinary tract infection N30.20 Continue Vitamin C 500 mg BID and D-Mannose 1000 mg BID for prophylaxi s.Monitor sxs. Chronic mi graine without aura 4537821112 39508 G43.709 Continue prednisone 10 mg qd and amitriptyl ine 10 mg qhs.Monito r sxs. COVID-19 696296057 U07.1 Tested + on 11/20/22Now recovered. Monitor for sequelae. [id number] Barbara Crystal MAGDALENO [address] [place] [address] 06/28/2023 09:24:56 07/04/2023 14:27:17 Dementia 17479248 F02.B0 Remains at baselineCo ntinue aricept 10 mg qhs, seroquel 50 mg qhs and amitriptyl ine 10 mg qhs.Contin ue supportive care, expect decline.HC P invokedMon itor mood and behaviors. psych prn Retention of urine 75974 4002 R33.8 Continue bethanecol 25 mg TIDtamsulo sin 0.8 mg qdMonitor urinary function. Falls 677209205 R29.6 no reported recent fallsConti nue fall precaution s.Monitor for safety.Mor se 60 Recurrent urinary tract infection N30.20 Continue Vitamin C 500 mg BIDD-Vineet se 1000 mg BID for prophylaxi s.Monitor sxs. Chronic mi graine without aura 8381632504 90217 G43.709 stableCont inue prednisone 10 mg qdamitript yline 10 mg qhs.Monito r sxs. COVID-19 556514125 U07.1 With mild coughConti nue paxlovid 150/100 BID for 5 day courseWill use dexamethas one, fluids, supplement al O2 prn for sxs.Contin ue to monitor O2 sats, temp, GI sxs and po intake. Stercoral colitis 030364 001 K52.89 Resolved.C ontinue bowel meds as ordered.Mo nitor bowel function. Glaucoma 53996103 H40.89 Continue combigan ou BID and rocklatan qhsF/U with eye dr as planned. History of syncope 92727 14720 54777 Z86.79 Monitor vitals and MS. Constipation 01466303 K5 9.00 miralax dailysenna plus bidmonitio r bm Chronic pain 04480397 G8 9.29 abdominal and back painoxycod one 5 mg q 6 prn [id number] Odalys Barber MD [address] [place] [address] 09/04/2023 13:20:07 09/11/2023 11:21:18 Dementia 27903954 F02.B0 MS remains stable.Moo d good after d/c seroquel.C ontinue aricept 10 mg qhs and amitriptyl ine 10 mg qhs.Contin ue supportive care, expect decline.HC P invokedMon itor mood and behaviors. Psych continues to follow Retention of urine 50123 4002 R33.8 No further issues since arana d/c'dConti nue bethanecol 25 mg TID and tamsulosin 0.8 mg qdMonitor urinary function. Falls 700307416 R29.6 Remains deconditio vane.Use PT/OT as able/neede d.Continue fall precaution s.Monitor for safety. Recurrent urinary tract infection 038515433 N30.20 Continue Vitamin C 500 mg BID and D-Mannose 1000 mg BID for prophylaxi s.Monitor sxs. Chronic mi graine without aura 8421420800 83503 G43.709 Continue prednisone 10 mg qd and amitriptyl ine 10 mg qhs.Monito r sxs. COVID-19 943669513 U07.1 Tested + on 11/20/22Now recovered. Monitor for sequelae. Constipation 34784176 K5 9.09 Continue bowel meds as ordered.Mo nitor bowel function. Chronic pain 03790256 G8 9.29 Continue oxycodone 5 mg q 6 prn and APAP 650 mg q 6 hrs prn.Monito r sxs. [id number] KEVIN ESPINOZA [address] [address] 09/07/2023 13:56:21 09/11/2023 12:23:12 Indigestion 746434941 R10.13 see hpistart Tums 2 tabs Q4 prn TIDencoura ged to eat slowly, avoid caffeinate d drinksnurs ing to monitor for unrelieved sx nursing and update provider with changes Dysuria 08267898 R30.0 send urine for UA with C&S. [id number] KEVIN ESPINOZA [address] [address] 09/10/2023 12:44:19 09/17/2023 15:09:43 Dysuria 57856453 R30.0 send urine for UA with C&Snursing encouraged to reattemptw ill order one time dose of ativan to be given prior to attempt, hopefully to decrease resistence and combativen ess. [id number] KEVIN ESPINOZA [address] [address] 09/17/2023 08:54:06 09/20/2023 16:22:04 Recurrent urinary tract infection 238651677 N30.20 nursing was finally able to obtain [...] months.patricio whatley updated to offers more fluids [id number] Barbara GatesEmiliano Anton [address] [place] [address] 10/26/2023 09:48:50 10/30/2023 09:29:54 Dementia 13941505 F02.B0 MS remains stable.Moo d good after d/c seroquel.C ontinue aricept 10 mg qhs and amitriptyl ine 10 mg qhs.Contin ue supportive care, expect decline.HC P invokedMon itor mood and behaviors. Psych continues to follow Falls 676840198 R29.6 Remains deconditio vane.Use PT/OT as able/neede d.Continue fall precaution s.Monitor for safety. Recurrent urinary tract infection 541922386 N30.20 Continue Vitamin C 500 mg BID and methanamin eMonitor sxs.treate d last month for UTI with bactrim Retention of urine 08939 4002 R33.8 No further issues since arana d/c'dConti nue bethanecol 25 mg TID and tamsulosin 0.8 mg qdMonitor urinary function. Chronic pain 47509456 G8 9.29 Continue oxycodone 5 mg q 6 prn and APAP 650 mg q 6 hrs prn.Monito r sxs. [id number] KEVIN ESPINOZA [address] [place] [address] 12/11/2023 11:12:57 12/13/2023 14:34:20 Bilateral lower limb edema 195947961 R60.0 see hpiappears dependent, pt sits in wheelchair for long periods of timerefer to therapy for wheelchair with leg rest for elevationc heck labs proBNP, CBC, and BMP on 12/12/23will start compressio n stocking to wear dailyconsi flo giving diuretic for worsening edemarecom mend no added salt to diet.will monitor for changes Dementia 05679998 F02.B0 alert at her baseline with confusione xpect declineCon tinue aricept 10 mg qhs, seroquel 50 mg qhs and amitriptyl ine 10 mg qhs.Contin ue supportive care, expect decline.HC P invoked- updated at bedside on above plan and is in agreementM onitor mood and behaviors. psych prn [id number] KEVIN ESPINOZA [facility] [address] [place] [address] [place] [address] 12/19/2023 08:36:46 12/24/2023 09:37:20 Dementia 93238658 F02.B0 MS remains stable.Con tinue aricept 10 [...] for UTI with bactrim Retention of urine 30546 4002 R33.8 No further issues since arana d/c'dConti nue bethanecol 25 mg TID and tamsulosin 0.8 mg qdMonitor urinary function. Chronic pain 19692400 G8 9.29 Continue oxycodone 5 mg q 6 prn and APAP 650 mg q 6 hrs prn.Monito r sxs. Bilateral lower limb edema 352288671 R60.0 appears dependent, pt sits in wheelchair for long periods of timerefer to therapy for wheelchair with leg rest for elevationc ompression stocking to wear dailyconsi flo giving diuretic for worsening edemarecom mend no added salt to diet.will monitor for changes [id number] KEVIN ESPINOZA RODERICK RASTA [address] [place] [address] [place] [address] 02/14/2024 09:38:47 02/18/2024 12:51:21 Dementia 04279015 F02.B0 MS remains stable.Con tinue aricept 10 mg qhs and amitriptyl ine 10 mg qhs.Contin ue supportive care, expect decline.HC P invokedMon itor mood and behaviors. Psych continues to follow Falls 390608774 R29.6 Remains deconditio vane.Use PT/OT as able/neede d.Continue fall precaution s.Monitor for safety. Recurrent urinary tract infection N30.20 Continue Vitamin C 500 mg BID and methenamin eMonitor sxs.treate d last month for UTI with bactrim Retention of urine 80559 4002 R33.8 No further issues since arana d/c'dConti nue bethanecol 25 mg TID and tamsulosin 0.8 mg qdMonitor urinary function. Chronic pain 33558995 G8 9.29 Continue oxycodone 5 mg q 6 prn and APAP 650 mg q 6 hrs prn.Monito r sxs. Bilateral lower limb edema 437921734 R60.0 stable/ tracecompr ession stocking to wear dailyconsi flo giving diuretic for worsening edemarecom mend no added salt to diet.will monitor for changes Bereavement 34136171 Z63 .4 son 02/02- He visited with her everyday. so far she has been doing well with lost, due to her dementia she may have forgotten that her son has passed, there has been no agitation or other behaviors of expression . She will be attending his services today.will provide support along with nursing.mo rae need to restart ativan . [id number] MARY JOHNSON, KEVIN VAUGHN RASTA [address] [place] [address] [place] [address] 04/07/2024 15:04:30 04/16/2024 11:19:45 Dementia 48741893 F02.B0 MS remains stable.Con tinue aricept 10 mg qhs and amitriptyl ine 10 mg qhs.Contin ue supportive care, expect decline.HC P invokedMon itor mood and behaviors. Psych continues to follow Recurrent urinary tract infection N30.20 Continue Vitamin C 500 mg BID and methenamin eMonitor sxs.treate d last month for UTI with bactrim Chronic pain 43902180 G8 9.29 Continue oxycodone 5 mg q 6 prn and APAP 650 mg q 6 hrs prn.Monito r sxs. Bilateral lower limb edema 243992029 R60.0 stable/ tracecompr ession stocking to wear dailyconsi flo giving diuretic for worsening edemarecom mend no added salt to diet.will monitor for changes COVID-19 274490102 U07.1 without sxdiscusse d with nursing, will provide supportive therapyupd ate provider with acute changes [id number] KEVIN ESPINOZA [address] [address] 07/06/2024 10:46:03 07/10/2024 16:17:30 Acute respiratory failure 89276000 J96.00 resolvedde conditione dmonitor resp. statusPT/O T eval and tx Hypokalemia 66779001 E87 .6 3.1/replet edfollow labs Dementia 52577403 F02.B0 stableCont inue aricept 10 mg qhs and amitriptyl ine 10 mg qhs.Contin ue supportive care, expect decline.HC P invokedMon itor mood and behaviors. Psych continues to follow Recurrent urinary tract infection N30.20 stablecont Cefuroxime 500 mg BID until 07/08/24Cont inue Vitamin C 500 mg BID and methenamin eMonitor sxs.increa se hydration/ water preferred to flush out toxins. [id number] Matt Lynn MD [address] [address] 07/09/2024 12:26:29 07/11/2024 08:35:31 Acute respiratory failure 13644032 J96.01 see HPI treated with abx coursemoni tor respirator y status and need for repeat imaging Dementia 11481337 F02.B0 baseline dementia with behaviorsH CP invokedcon tinue supportive carepsych eval prn Recurrent urinary tract infection 601901070 N30.20 recently treated with rocephin for abovemonit or for recurrent infection [id number] FARHAD CHOW NP [address] [address] 07/15/2024 10:27:43 07/15/2024 11:13:26 Acute respiratory failure 17818281 J96.00 residual cough and congestion per staff.conc [...] 1 in am, CBC, BMPMonitor closely. Hypokalemia 76942341 E87 .6 3.1/replet edfollow labs - repeat in am Dementia 28112277 F02.B0 stableCont inue aricept 10 mg qhs and amitriptyl ine 10 mg qhs.Contin ue supportive care, expect decline.HC P invokedMon itor mood and behaviors. Psych continues to follow Recurrent urinary tract infection 077363789 N30.20 stablecomp leted Cefuroxime 500 mg BID [...] Member ID [place] Member ID Guarantor Name 02/14/2024 2 [place] [id number] Deann Eduardo [id number] Deann Alesha 02/14/2024 1 [place] [employer] Deann Eduardo [id number] Deann Eduardo 04/07/2024 2 [place] [id number] Deann Eduardo [id number] Deann Eduardo 04/07/2024 1 [place] [employer] Deann Eduardo [id number] Deann Eduardo 07/06/2024 2 [place] [id number] Deann Eduardo [id number] Deann Eduardo 07/06/2024 1 [place] [employer] Deann Eduardo [id number] 62 Deann Eduardo 07/09/2024 2 [place] [id number] Deann Eduardo [id number] Deann Pangchiara 07/09/2024 1 MEDIC[place] B-[place]: [facility] Deann Eduardo [id number] 62 Deann Eduardo 07/15/2024 2 [place] [id number] Deann Pangchiara [id number] Deann Pangchiara 07/15/2024 1 MED[place]: [facility] Deann Eduardo [id number] 62 Deann Eduardo Notes Date Note Type Note Provider Name and Address Organization Details Recorded Time 02/14/2024 text/html This is an 83 yr [...] she has not utilized. KEVIN ESPINOZA [address] [facility], [address], [place], [address], [employer] 02/18/2024 11:34:01 04/07/2024 text/html This is an [...] no acute nursing concerns. KEVIN ESPINOZA [address] [facility], [address], [place], [address], [employer] 04/16/2024 11:15:18 07/06/2024 text/html This is an [...] be wean off oxygen. KEVIN ESPINOZA [address] [facility], [address], [place], [address], [facility] [employer] [facility] 07/06/2024 23:15:06 07/09/2024 text/html Patient is an 83 yo female resident seen for MD visit recently readmitted from hospital after acute transfer for respiratory failure. Dx with bronchitis and encephalopathy covered with rocephin and zithromax, steroids and nebs. PMH significant for dementia and constipation Matt Lynn MD [address] [facility], [address], [place], [address], [facility] [employer] [facility] 07/09/2024 12:38:08 07/15/2024 text/html This is an 83 yr [...] experiencing and her inability to move comfortably. clinic md associate provider notified, and duonebs and oxycodone ordered. [...] Loose congested cough. FARHAD CHOW, NAN [address] [facility], [address], [place], [address], [facility] [employer] 07/15/2024 11:13:24 OBGyn Episode No OBEpisode recorded.
--- OUTSIDE RECORDS SUMMARY | 2024-07-16 05:49 | XMS_ITS | Clinical Summary ---
Author Organization [facility] it Address [address] [place] [address] Care Team Providers Care Cleaner And Presser Name Role Phone Melchor Mccormack MD Primary Care Provider [phone] Allergies Active Allergy Reactions Criticality Noted Date [...] BMP Blood Test (02/01/2022) Pathologist [facility] Annual BMP Blood Test abstracted Historical Provider HEALTH MAINTENANCE Final Result * (ABNORMAL) Lipid panel (01/26/2021) [facility] LDL/HDL Ratio 2 0 - 4 Triglycerides [...] (World Health Organization Fracture Risk Assessment) The [facility] Department of Internal Medicine recommends using [...] (World Health Organization Fracture Risk Assessment) [facility] Department of Internal Medicine recommendsusing National [...] or over-estimation of fracture risk by FRAX. [facility] Mccormack MD IM DXA PROCEDURES Final Resul t from Last 3 Months or Most Recently Relevant to Health Maintenance Care Teams Cleaner And Presser Relationship Specialty Start Date End Date Melchor Mccormack MD [address] [place] [address] [place] [address] PCP - General 05/21/10
[2024-07-16 05:50] LABS: MANUAL DIFF FLAG NO
[2024-07-16 06:21] LABS: Basophils Percent Auto 0.3 % (0-2); Eosinophils Percent Auto 0.3 % (0-4); Hematocrit 45.7 % (37.0-47.0); Hemoglobin 15.3 g/dl (12.0-16.0); Imm Gran Abs Auto 0.05 X10*3/uL (0.00-0.03); Imm Gran Pct Auto 0.8 % (0.0-0.4); Lymphocytes Absolute Auto 1.3 X10*3/uL (1.2-4.9); Lymphocytes Percent Auto 21.7 % (20-40); Mean Corpuscular HGB Conc 33.5 g/dl (31.0-35.0); Mean Corpuscular Hemoglobin 30.5 pg (27.0-33.0); Mean Corpuscular Volume 91.2 fL (80.0-98.0); Monocytes Absolute Auto 0.7 X10*3/uL (0.1-1.2); Monocytes Percent Auto 11.2 % (2-11); Neutrophils Percent Auto 65.7 % (45-73); Platelet Count 187 X10*3/uL (160-400); Red Blood Count 5.01 X10*6/uL (4.20-5.50); Red Cell Distribution Width 14.3 % (11.0-16.0); White Blood Count 6.1 X10*3/uL (4.8-10.8)
[2024-07-16 06:37] LABS: Anion Gap 14 (12-20); Blood Urea Nitrogen 5 mg/dL (9-16); Calcium 8.4 mg/dL (8.4-10.2); Carbon Dioxide 25 mmol/L (22-29); Chloride 102 mmol/L (96-108); Estimated Glomerular Filt Rate > 60; Glucose Random 102 mg/dL (60-115); Potassium 3.1 mmol/L (3.3-5.1); Sodium 138 mmol/L (135-145)
== END 2024-07-16 05:47 | disposition home or self-care (01) ==
LOC: HO.MMNH3L 05:46
PROVIDERS: Visit Provider Family Medicine
DX: J20.9 Acute bronchitis, unspecified (principal); J10.1 Influenza due to other identified influenza virus with other respiratory manifestations
CPT/HCPCS: 36415; 80048; 85025

== ENCOUNTER 2024-07-16 13:05 | Outpatient (REF) | payer MEDICARE, SELFPAY ==
--- OUTSIDE RECORDS SUMMARY | 2024-07-16 15:09 | XMS_ITS | Clinical Summary ---
Author Organization [facility] it Address [address] [place] [address] Care Team Providers Care Branch Rental Manager Name Role Phone Melchor Mccormack MD Primary Care Provider [phone] Allergies Active Allergy Reactions Criticality Noted Date [...] Surgery Date Site/Laterality Comments ESOPHAGOGASTRODUODENOSCOPY 08/29/11 PROCEDURE: [place] ESOPHAGOGASTRODUODENOSCOPY TRANSORAL DIAGNOSTIC; COMMENT: normal COLONOSCOPY 2004 [...] BMP Blood Test (02/01/2022) Pathologist [facility] Annual BMP Blood Test abstracted Historical Provider HEALTH MAINTENANCE Final Result * (ABNORMAL) Lipid panel (01/26/2021) [facility] LDL/HDL Ratio 2 0 - 4 Triglycerides [...] (World Health Organization Fracture Risk Assessment) The [facility] Department of Internal Medicine recommends using [...] (World Health Organization Fracture Risk Assessment) [facility] Department of Internal Medicine recommendsusing National [...] or over-estimation of fracture risk by FRAX. [facility] Al Mccomrack MD IM DXA PROCEDURES Final Resul t from Last 3 Months or Most Recently Relevant to Health Maintenance Care Teams Branch Rental Manager Relationship Specialty Start Date End Date Melchor Mccormack MD [address] [place] [address] [place] [address] PCP - General 05/21/10
--- OUTSIDE RECORDS SUMMARY | 2024-07-16 15:09 | XMS_ITS | Continuity of Care Document ---
Author Organization [facility], [facility] Address [address] [place] [address] Care Team Providers Care Coffee Maker Servicer Name Role Phone CHRIS GARCIA Primary Care Provider [phone] RODERICK MAGDALENO 3RD FLOOR OTHER Assessment No assessment recorded. Plan of Treatment Reminders Order Date Submit Date Provider Last Modified By Organization Details Last Modified Time Details Appointments Acute Rounding Visit 2024 12:24P M MARIA EUGENIA BOLES, SUSAN Not available Not available Not available Lab None recorded. Referral None recorded. Procedures None recorded. Surgeries None recorded. Imaging None recorded. Medication Orders None recorded. Patient TargetsNo targets recorded. Patient InstructionsNo instructions recorded. Reason for Referral None Reported. Problems Name Problem SNOMED Code Status Onset Date Resolution Date Notes Provider Name and Address Organization Details Recorded Time Dementia 62912223 Active 2022 DMITRIY LEBRON NP 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, [address], [place], [address], [facility] 3 12:17:26 Constipatio n 60959480 Active 2022 DMITRIY LEBRON NP [address], [address], [place], [address], [facility] 3 12:17:32 Glaucoma 60324344 Active 2022 DMITRIY LEBRON NP [address], [address], [place], [address], [facility] 3 12:17:39 Falls 697298646 Active 2022 DMITRIY LEBRON NP [address], [address], [place], [address], [facility] 3 12:19:11 History of syncope 9896729930230 09 Active 2022 DMITRIY LEBRON NP [address], [address], [place], [address], [facility] 3 12:19:19 Chronic migraine without aura 1861941402181 05 Active 2022 DMITRIY LEBRON NP [address], [place], [address], [facility] 3 12:24:31 COVID-19 722603517 Active 2022 DMITRIY LEBRON NP [address], [address], [place], [address], [facility] 3 13:42:03 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 Odalys Barber MD [address], [place], [address], [facility] 3 10:42:17 Glaucoma 83631720 Active 2022 Odalys Barber MD [address], [place], [address], [facility] 3 10:50:01 Acute urinary tract infection 233690662 Active 2022 DMITRIY LEBRON NP [address], [place], [address], [facility] 3 13:22:34 Recurrent urinary tract infection 530306445 Active 2022 Odalys Barber MD [address], [place], [address], [facility] 3 21:21:00 Chronic pain 35978392 Active 2023 Odalys Barber MD [address], [place], [address], [facility] 4 14:05:27 Indigestion 976050863 Active 2023 MARY JOHNSON, [facility] [address], [address], [place], [address], [facility] 4 13:47:57 Acute respiratory failure 65939409 Active 2024 MARY JOHNSON [facility] [address], [address], [place], [address], [facility] 5 22:54:27 Hypokalemia 95075193 Active 2024 MARY JOHNSON [facility] [address], [address], [place], [address], [facility] 5 22:54:55 Problem Notes None recorded. Medical Equipment None Reported. Allergies Allergen ID Allergen Name Allergen Category Reaction Reaction Severity Criticality Documentation Date Start Date Code Code System Note Provider Name and Address Organization Details Recorded Time 59816 Product containin g penicilli n (product) medicatio n Not available Not available Not available 11/17/2022 25512 8001 SNOMED Not Available Not Available Not [...] If Ever Smoked DMITRIY LEBRON NP [address], [address], [place], [address], [facility] [employer] 11/17/2022 11:50:31 Do You Have An Advance Directive? Yes Information not available 11/21/2022 What Is Your Code Status? Full Code [email or web address] Information not available 11/20/2022 Do You Have A Medical Power Of City Wellness Coordinator? Yes HCP Invoked Information not available [...] PF 01/09/2023 completed Anjana zimmer, [facility] [employer] 04/27/2023 13:03:23 Past Encounters Encounter ID Performer Location Encounter Start Date Encounter Closed Date Diagnosis/Indication Diagnosis SNOMED-CT Code Diagnosis ICD10 Code Diagnosis Note [id number] [facility] [address] [place] [address] 07/06/2024 10:46:03 07/10/2024 16:17:30 Acute respiratory failure 91422882 J96.00 resolvedde conditione dmonitor resp. statusPT/O T eval and tx Hypokalemia 38532802 E87 .6 3.1/replet edfollow labs Dementia 02647274 F02.B0 stableCont inue aricept 10 mg qhs and amitriptyl ine 10 mg qhs.Contin ue supportive care, expect decline.HC P invokedMon itor mood and behaviors. Psych continues to follow Recurrent urinary tract infection N30.20 stablecont Cefuroxime 500 mg BID until 07/08/24Cont inue Vitamin C 500 mg BID and methenamin eMonitor sxs.increa se hydration/ water preferred to flush out toxins. [id number] MD RODERICK Mcmahon [address] [facility] [place] [address] 07/09/2024 12:26:29 07/11/2024 08:35:31 Acute respiratory failure 82466043 J96.01 see HPI treated with abx coursemoni tor respirator y status and need for repeat imaging Dementia 85309223 F02.B0 baseline dementia with behaviorsH CP invokedcon tinue supportive carepsych eval prn Recurrent urinary tract infection N30.20 recently treated with rocephin for abovemonit or for recurrent infection [id number] NAN GARCÍA [address] [place] [address] 07/15/2024 10:27:43 07/15/2024 11:13:26 Acute respiratory failure 59536285 J96.00 residual cough and congestion per staff.conc [...] 1 in am, CBC, BMPMonitor closely. Hypokalemia 83922402 E87 .6 3.1/replet edfollow labs - repeat in am Dementia 22564766 F02.B0 stableCont inue aricept 10 mg qhs and amitriptyl ine 10 mg qhs.Contin ue supportive care, expect decline.HC P invokedMon itor mood and behaviors. Psych continues to follow Recurrent urinary tract infection N30.20 stablecomp leted Cefuroxime 500 mg BID on 07/08/24Cont inue Vitamin C 500 mg BID and methenamin eMonitor sxs., VSMaintain fluids [id number] MARIA EUGENIA BOLES, [employer] [address] [place] [address] 07/16/2024 12:24:54 07/16/2024 12:42:29 Acute respiratory failure 54212376 J96.00 RSV positive.r esidual cough and congestion resolved.C ontinueSch edule albuterol updrafts tid x 5 daysAdd mucinex 600 mg bid x 7 daysTrend VS, LS, satsMonito r closely. Hypokalemia 78656691 E87 .6 3.1/replet edrepeat lab, pending. Dementia 76069545 F02.B0 stableCont inue aricept 10 mg qhs and amitriptyl ine 10 mg qhs.Contin ue supportive care, expect decline.HC P invokedMon itor mood and behaviors. Psych continues to follow Recurrent urinary tract infection N30.20 stablecomp leted Cefuroxime 500 mg BID on 07/08/24Cont inue Vitamin C 500 mg BID and methenamin eMonitor sxs., VSMaintain fluids Health Concerns Section Related Observation LastModified by Organization Detai ls LastModified Time None Recorded Concern Status LastModified by Organization Details LastModified Time None Recorded Payers Encounter Date Sequence Insurance Name Policy Number Policy [place] Covered Member ID [place] Member ID Guarantor Name 07/16/2024 2 [place] [id number] Deann Eduardo [id number] Deann Eduardo 07/16/2024 1 [place] [employer]MENT [employer] Deann Eduardo [id number] Deann Eduardo Notes Date Note Type Note Provider Name and Address Organization Details Recorded Time 07/16/2024 text/html This is an 83 yr old [...] was able to be wean off oxygen. Pt was seen yesterday for cough and acute pain. Respiratory panel was positive for RSV. CXR result shows mild cardiomegaly. There is no evidence of pneumonia or congestive heart failure. Upon exam, Esthela is resting comfortably in bed, alert, NAD, all smiles. She is a poor historian due to dementia, but says she feels ok, no cough reported. Denies pain or SOB today. MARIA EUGENIA BOLES, ASPNET DEVEL[employer] [address], [address], [place], [address], [facility] - [employer] 07/16/2024 12:42:28 OBGyn Episode No OBEpisode recorded.
== END 2024-07-16 13:06 | disposition home or self-care (01) ==
LOC: HO.HOSX 13:05
DX: Z13.89 Encounter for screening for other disorder (principal)

== ENCOUNTER 2024-09-08 05:51 | Outpatient (REF) | payer MEDICARE, SELFPAY ==
[2024-09-08 05:47] LABS: MANUAL DIFF FLAG NO
--- OUTSIDE RECORDS SUMMARY | 2024-09-08 05:53 | XMS_ITS | Clinical Summary ---
Author Organization [facility] it Address [address] [place] [address] Care Team Providers Care Pull Worker Name Role Phone Melchor Mccormack MD Primary Care Provider [phone] Allergies Active Allergy Reactions Criticality Noted Date [...] disturbance, psychotic disturbance, mood disturbance, or anxiety ([facility] V24, [facility] V28) 04/20/2022 Elevated WBC count 02/06/2022 Overview (04/30/2024): [...] Surgery Date Site/Laterality Comments ESOPHAGOGASTRODUODENOSCOPY 08/29/11 PROCEDURE: [place] ESOPHAGOGASTRODUODENOSCOPY TRANSORAL DIAGNOSTIC; COMMENT: normal COLONOSCOPY 2004 [...] Vaccine ( season) 2023 02/11/2021, 06/16/2020, 05/12/2020 Cholesterol Screening (Lipid Panel) 01/26/2026 01/26/2021 DTaP,Tdap,and Td Vaccines (3 - Td or Tdap) 07/11/2026 07/11/2016, 01/18/2007 Osteoporosis Screening (Bone Density Screening) 09/02/2030 09/02/2020, 07/30/2017 Varicella Vaccines Aged Out 07/09/2013, 03/31/2013 No longer eligible based on patient's age to complete this topic Pneumococcal Vaccine: 50+ Years Completed 02/10/2015, 03/07/2010 Influenza Vaccine Completed 12/27/2023, , 03/25/2021, Additional history exists HIB Vaccines Aged Out No longer eligi [...] * Annual BMP Blood Test (02/01/2022) Pathologist [facility] Annual BMP Blood Test abstracted Historical Provider HEALTH MAINTENANCE Final Result * (ABNORMAL) Lipid panel (01/26/2021) [facility] LDL/HDL Ratio 2 0 - [...] (World Health Organization Fracture Risk Assessment) [facility] Department of Internal Medicine recommends using [...] (World Health Organization Fracture Risk Assessment) [facility] Department of Internal Medicine recommendsusing National [...] Recently Relevant to Health Maintenance Care Teams Pull Worker Relationship Specialty Start Date End Date Melchor Mccormack MD [address] [place] [address] [place] [address] PCP - General 05/21/10
[2024-09-08 06:41] LABS: Anion Gap 13 (12-20); Blood Urea Nitrogen 7 mg/dL (9-16); Calcium 8.7 mg/dL (8.4-10.2); Carbon Dioxide 26 mmol/L (22-29); Chloride 107 mmol/L (96-108); Estimated Glomerular Filt Rate > 60; Glucose Random 86 mg/dL (60-115); Sodium 142 mmol/L (135-145)
[2024-09-08 07:22] LABS: Basophils Percent Auto 0.8 % (0-2); Eosinophils Absolute Auto 0.2 X10*3/uL (0.0-0.4); Eosinophils Percent Auto 4.1 % (0-4); Hematocrit 40.9 % (37.0-47.0); Hemoglobin 13.2 g/dl (12.0-16.0); Imm Gran Abs Auto 0.04 X10*3/uL (0.00-0.03); Imm Gran Pct Auto 0.8 % (0.0-0.4); Lymphocytes Percent Auto 39.3 % (20-40); Mean Corpuscular HGB Conc 32.3 g/dl (31.0-35.0); Mean Corpuscular Hemoglobin 30.9 pg (27.0-33.0); Mean Corpuscular Volume 95.8 fL (80.0-98.0); Mean Platelet Volume 9.4 fL (9.4-12.3); Monocytes Absolute Auto 0.5 X10*3/uL (0.1-1.2); Monocytes Percent Auto 10.4 % (2-11); Neutrophils Absolute Auto 2.3 x10*3/uL (2.0-8.3); Neutrophils Percent Auto 44.6 % (45-73); Platelet Count 363 X10*3/uL (160-400); Red Blood Count 4.27 X10*6/uL (4.20-5.50); White Blood Count 5.1 X10*3/uL (4.8-10.8)
== END 2024-09-08 05:52 | disposition home or self-care (01) ==
LOC: HO.MMNH2L 05:51
PROVIDERS: Visit Provider Family Medicine
DX: R27.8 Other lack of coordination (principal); K52.89 Other specified noninfective gastroenteritis and colitis
CPT/HCPCS: 36415; 80048; 85025

== ENCOUNTER 2024-10-06 07:49 | Outpatient (REF) | payer MEDICARE, SELFPAY ==
[2024-10-06 06:42] LABS: MANUAL DIFF FLAG NO
[2024-10-06 06:52] LABS: Basophils Percent Auto 0.2 % (0-2); Eosinophils Percent Auto 0.3 % (0-4); Hematocrit 39.2 % (37.0-47.0); Hemoglobin 12.8 g/dl (12.0-16.0); Imm Gran Abs Auto 0.01 X10*3/uL (0.00-0.03); Imm Gran Pct Auto 0.2 % (0.0-0.4); Lymphocytes Absolute Auto 1.7 X10*3/uL (1.2-4.9); Lymphocytes Percent Auto 28.9 % (20-40); Mean Corpuscular HGB Conc 32.7 g/dl (31.0-35.0); Mean Corpuscular Hemoglobin 30.6 pg (27.0-33.0); Mean Corpuscular Volume 93.8 fL (80.0-98.0); Mean Platelet Volume 9.3 fL (9.4-12.3); Monocytes Absolute Auto 0.6 X10*3/uL (0.1-1.2); Monocytes Percent Auto 10.7 % (2-11); Neutrophils Absolute Auto 3.5 x10*3/uL (2.0-8.3); Neutrophils Percent Auto 59.7 % (45-73); Platelet Count 303 X10*3/uL (160-400); Red Blood Count 4.18 X10*6/uL (4.20-5.50); White Blood Count 5.9 X10*3/uL (4.8-10.8)
[2024-10-06 07:07] LABS: Anion Gap 14 (12-20); Blood Urea Nitrogen 15 mg/dL (9-16); Calcium 8.5 mg/dL (8.4-10.2); Carbon Dioxide 25 mmol/L (22-29); Chloride 108 mmol/L (96-108); Estimated Glomerular Filt Rate > 60; Glucose Random 93 mg/dL (60-115); Potassium 3.3 mmol/L (3.3-5.1); Sodium 144 mmol/L (135-145)
--- OUTSIDE RECORDS SUMMARY | 2024-10-06 07:51 | XMS_ITS | Clinical Summary ---
Author Organization [facility] it Address [address] [place] [address] Care Team Providers Care Retail Field Supervisor Name Role Phone Melchor Mccormack MD Primary Care Provider [phone] Allergies Active Allergy Reactions Criticality Noted Date [...] disturbance, psychotic disturbance, mood disturbance, or anxiety ([facility] V24, [facility] V28) 04/20/2022 Elevated WBC count 02/06/2022 Overview [...] Surgery Date Site/Laterality Comments ESOPHAGOGASTRODUODENOSCOPY 08/29/11 PROCEDURE: [place] ESOPHAGOGASTRODUODENOSCOPY TRANSORAL DIAGNOSTIC; COMMENT: normal COLONOSCOPY 2004 [...] * Annual BMP Blood Test (02/01/2022) Pathologist [facility] Annual BMP Blood Test abstracted Historical Provider HEALTH MAINTENANCE Final Result * (ABNORMAL) Lipid panel (01/26/2021) [facility] LDL/HDL Ratio 2 0 - 4 Triglycerides [...] Narrative 09/02/2020 4:13 PM EDT BONE DENSITY Lumbar Spine T-score is +1.1 [...] Organization Fracture Risk Assessment) [facility] Department of Internal Medicine recommends using National [...] Organization Fracture Risk Assessment) [facility] Department of Internal Medicine recommendsusing National Osteoporosis [...] fracture risk by FRAX. Melchor Mccormack MD IM DXA PROCEDURES Final Resul t from Last 3 Months or Most Recently Relevant to Health Maintenance Care Teams Retail Field Supervisor Relationship Specialty Start Date End Date Melchor Mccormack MD [address] [place] [address] PCP - General 05/21/10
== END 2024-10-06 07:50 | disposition home or self-care (01) ==
LOC: HO.MMNH3L 07:49
PROVIDERS: Visit Provider Family Medicine
DX: R27.8 Other lack of coordination (principal); K52.89 Other specified noninfective gastroenteritis and colitis
CPT/HCPCS: 36415; 80048; 85025

== ENCOUNTER 2024-10-09 08:29 | Outpatient (REF) | payer MEDICARE, SELFPAY ==
[2024-10-09 08:31] LABS: MANUAL DIFF FLAG NO
--- OUTSIDE RECORDS SUMMARY | 2024-10-09 08:36 | XMS_ITS | Data Portability ---
Author Organization [facility] [employer] [facility], Main Office Address [address] [place] [address] Care Team Providers Care Manager Neonatal Name Role Phone CHRIS GARCIA Primary Care Provider RODERICK MAGDALENO 3RD FLOOR OTHER Assessment Encounter Date Assessment Date Assessment LastModified by Organization Details LastModified Time 07/06/2024 07/06/2024 Labs 07/03: Na 142-K 3.8-Bun 16-Cr 0.5 [email or web address] Not available 07/06/2024 23:02:21 07/23/2024 07/23/2024 Labs 07/03/24: wbc 5, hgb 13, plt 335. Na 142, K 3.8, Bun 16, Cr. 0.56, glu 112. 07/14/24: Wbc 7.9, Hgb 13.5, Plt 245. Na 141, K 3.6, Bun 13, Cr 0.62 [email or web address] Not available 07/23/2024 12:01:47 Plan of Treatment Reminders Order Date Submit [...] and Address Organization Details Recorded Time Dementia 19393798 Active 2022 DMITRIY LEBRON NP [address] [facility], [address], [place], [address], [facility] [employer] 12:17:21 Retention of urine 437050534 Active 2022 DMITRIY LEBRON NP [address], [address], [place], [address], 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 [employer] [facility] 3 12:17:39 Falls 175121930 Active 2022 DMITRIY LEBRON, NAN [address] [facility], [address], [place], [address], [facility] [employer] [facility] 3 12:19:11 History of syncope 1075389858676 09 Active 2022 DMITRIY LEBRON NP [address] [facility], [address], [place], [address], [facility] [employer] [facility] 3 12:19:19 Chronic migraine without aura 0574370904544 05 Active 2022 DMITRIY LEBRON NP [address] [facility], [address], [place], [address], [facility] [employer] [facility] 3 12:24:31 COVID-19 880954995 Active 2022 DMITRIY LEBRON NP [address] [facility], [address], [place], [address], [facility] [employer] [facility] 3 13:42:03 Stercoral colitis 824945066 Active 2022 Odalys Barber MD [address] [facility], [address], [place], [address], [employer] [facility] 3 10:42:17 Glaucoma 79638222 Active 2022 Odalys Barber MD [address], [place], [address], [employer] [facility] 3 10:50:01 Acute urinary tract infection 480878816 Active 2022 DMITRIY LEBRON NP [address] [facility], [address], [place], [address], [facility] [employer] [facility] 3 13:22:34 Recurrent urinary tract infection 112270996 Active 2022 Odalys Barber MD [address], [address], [place], [address], [facility] [employer] [facility] 3 21:21:00 Chronic pain 66725940 Active 2023 Odalys Barber MD [address], [address], [place], [address], [facility] [employer] [facility] 4 14:05:27 Indigestion 358077476 Active 2023 KEVIN ESPINOZA [address] [place] [address], [address], [place], [address], [facility] [employer] [facility] 4 13:47:57 Acute respiratory failure 52481316 Active 2024 KEVIN ESPINOZA [address] [place] [address], [facility] [address], [place], [address], [facility] [employer] [facility] 5 22:54:27 Hypokalemia 60710506 Active 2024 KEVIN ESPINOZA [address] [place] [address], [facility] [address], [place], [address], [facility] [employer] [facility] 5 22:54:55 Problem Notes None recorded. Medical Equipment None Reported. Allergies Allergen ID Allergen Name Allergen Category Reaction Reaction Severity Criticality Documentation Date Start Date Code Code System Note Provider Name and Address Organization Details Recorded Time 34367 Product containin g penicilli n (product) medicatio n Not available Not available Not available 11/17/2022 40511 8001 SNOMED DMITRIY LEBRON NP [address] [facility] [address] [facility], [facility] [address], [place], [address], [facility] [employer] [facility] 3 11:50:19 Medications Name Sig Start Date Stop Date [...] Avai lable Vitals Date Recorded Body height Body mass index (BMI) Body weight Heart rate Respiratory rate Body temperature Oxygen saturation Oxygen saturation in Arterial blood by Pulse oximetry Systolic And Diastolic Provider Name and Address Organization Details Last Updated DateTime 5 157.48 cm 30 kg/m2 92398.8 7 g 99 /min 18 /min 97.4 [degF] 95 % 95 % 105/81 mm[Hg] KEVIN ESPINOZA [address], [address] , [facility] [employer] [facility] 5 23:14:29 Date Recorded Body height Heart rate Respiratory rate Body temperature Oxygen saturation Oxygen saturation in Arterial blood by Pulse oximetry Systolic And Diastolic Provider Name and Address Organization Details Last Updated DateTime 5 157.48 cm 95 /min 18 /min 97.2 [degF] 93 % 93 % 112/87 mm[Hg] FARHAD CHOW NP [address] [facility], [facility] [address], [place], [address], [place] [employer] [facility] 5 10:28:22 Date Recorded Body height Heart rate Respiratory rate Body temperature Systolic And Diastolic Provider Name and Address Organization Details Last Updated DateTime 5 157.48 cm 74 /min 18 /min 97.2 [degF] 122/70 mm[Hg] MARIA EUGENIA BOLES, [employer] VESSEL OPERATOR [address], [address], [place], [address], [facility] [employer] 11:53:57 Social History Question Answer Notes LastModified by Organizat ion Details LastModified Time Tobacco Smoking Status Unknown If Ever Smoked DMITRIY LEBRON NP [address], [address], [place], [address], [facility] [employer] 11/17/2022 11:50:31 Do You Have An Advance Directive? Yes Information not available 11/21/2022 What Is Your Code Status? Full Code [email or web address] Information not available 11/20/2022 Do You Have A Medical Power Of Erp Engineer? Yes HCP Invoked Information not available 11/21/2022 [...] adjuvanted, quadrivalent, PF 01/09/2023 completed Anjana zimmer, [facility] [employer] 04/27/2023 13:03:23 Past Encounters Encounter ID Performer Location Encounter Start Date Encounter Closed Date Diagnosis/Indication Diagnosis SNOMED-CT Code Diagnosis ICD10 Code Diagnosis Note [id number] NAN ALEXANDRA RASTA [address] [facility] [place] [address] 11/17/2022 10:29:24 11/21/2022 15:53:20 Constipation 07686514 K59.00 miralax dailysenna plus bidmonitio r bm Retention of urine 21086 4002 R33.9 flomax 0.4 mg hsvoiding trial today 11/17monito r urine output Dementia 67385246 F03.90 aricept 10 mg hsseroquel 50 mg hs psych prnAIMS 0 Glaucoma 70358186 H40.9 combigan ou bidrocklat an hs Falls 850390497 R29.6 PT OT eval and treatfall precaution sfrequent safety checks History of syncope 86684 52887 29514 Z86.79 monitor ortho vs prn Chronic mi graine without aura 7787244309 94792 G43.709 prednisone 10 mg dailyamitr iptylline 10 mg hs COVID-19 413264525 U07.1 No symptoms To use paxlovid, dexamethas one, fluids, supplement al O2 prn for sxs. Continue to monitor O2 sats, temp, GI sxs and po intake. [id number] DMITRIY LEBRON NP [address] [address] 11/20/2022 14:15:54 11/23/2022 11:39:23 COVID-19 332544620 U07.1 monitor congestion paxlovid 150/100 bid for 5 daysTo use paxlovid, dexamethas one, fluids, supplement al O2 prn for sxs.Contin ue to monitor O2 sats, temp, GI sxs and po intake. [id number] Odalys Barber MD [address] [address] 11/21/2022 13:51:52 11/28/2022 16:22:18 COVID-19 809277110 U07.1 With mild coughConti nue paxlovid 150/100 BID for 5 day courseWill use dexamethas one, fluids, supplement al O2 prn for sxs.Contin ue to monitor O2 sats, temp, GI sxs and po intake. Retention of urine 71450 4002 R33.8 Successful voiding trial on ontin ue tamsulosin 0.4 mg qdMonitor urinary function. Dementia 50073832 F03.90 Continues at baselineCo ntinue aricept 10 mg qhs, seroquel 50 mg qhs and amitriptyl ine 10 mg qhs.Contin ue supportive care, expect decline.HC P invokedMon itor mood and behaviors. Psych consult prn. Glaucoma 56162237 H40.89 Continue combigan ou BID and rocklatan qhsF/U with eye dr as planned. Falls 722322737 R29.6 Very deconditio vane and with balance issuesNeed s PT/OT for strengthen ing, balance, gait training, safety and function.C ontinue fall precaution s.Monitor for safety. History of syncope 36679 62667 10308 Z86.79 Monitor vitals and MS. Chronic mi graine without aura 4288250893 17977 G43.709 No current sxs.Contin ue prednisone 10 mg qd and amitriptyl ine 10 mg qhsMonitor sxs. Stercoral colitis 891802 001 K52.89 Resolved.C ontinue bowel meds as ordered.Mo nitor bowel function. [id number] DMITRIY LEBRON NP [address] [address] 11/22/2022 13:40:59 11/29/2022 08:17:42 COVID-19 272655173 U07.1 monitor congestion paxlovid 150/100 bid for 5 days to 11/25To use paxlovid, dexamethas one, fluids, supplement al O2 prn for sxs.Contin ue to monitor O2 sats, temp, GI sxs and po intake. [id number] DMITRIY LEBRON NP [address] [address] 12/04/2022 13:19:24 12/06/2022 13:36:36 Dementia 95749214 F03.90 aricept 10 mg hsseroquel 50 mg hspsych prnAIMS 0did not tolerate slums COVID-19 731319169 U07.1 recoveredm onitor congestion paxlovid 150/100 bid for 5 days to 11/25To use paxlovid, dexamethas one, fluids, supplement al O2 prn for sxs.Contin ue to monitor O2 sats, temp, GI sxs and po intake. Acute urin marcie tract infection 805423295 N39.0 macrobid 100 mg bid for 7 days [id number] DMITRIY LEBRON NP [address] [address] 12/13/2022 11:22:57 12/15/2022 15:54:33 Retention of urine 342565189 R33.8 flomax 0.4 mg hsvoiding trial today 11/17- d, cath restartedm onitor urine outputurol ogy consult Falls 519198831 R29.6 PT OT eval and treatfall precaution sfrequent safety checks Dementia 67485829 F03.90 aricept 10 mg hsseroquel 50 mg hspsych prnAIMS 0did not tolerate slums [id number] DMITRIY LEBRON NP [address] [address] 12/20/2022 10:10:14 12/22/2022 11:38:53 Constipation 85113665 K59.00 miralax dailysenna plus bidmonitio r bm Retention of urine 95006 4002 R33.9 flomax 0.4 mg hs-increas ed to 0.8 mg hsvoiding trial today 11/17- d, will try again 12/21monito r urine outputurol ogy consult Dementia 15592686 F03.90 aricept 10 mg hsseroquel 50 mg hspsych prnAIMS 0 Glaucoma 87501575 H40.9 combigan ou bidrocklat an hs Falls 007009623 R29.6 PT OT eval and treatfall precaution sfrequent safety checks History of syncope 32964 01756 42559 Z86.79 monitor ortho vs prn Chronic mi graine without aura 0305051937 76362 G43.709 prednisone 10 mg dailyamitr iptylline 10 mg hs COVID-19 487860264 U07.1 No symptoms-r ecovered by dateTo use paxlovid, dexamethas one, fluids, supplement al O2 prn for sxs.Contin ue to monitor O2 sats, temp, GI sxs and po intake. [id number] DMITRIY LEBRON NP [address] [address] 12/28/2022 14:59:22 01/02/2023 15:51:32 Retention of urine 999386433 R33.9 flomax 0.4 mg hs-increas ed to 0.8 mg hsvoiding trial today 8/11-faile d, will try again 12/21-faile d againmonit or urine outputurol ogy consult [id number] DMITRIY LEBRON NP [address] [address] 01/03/2023 13:43:31 01/09/2023 11:51:30 Dementia 71423217 F03.90 aricept 10 mg hsseroquel 50 mg hspsych prnAIMS 0 Retention of urine 58351 4002 R33.9 flomax 0.8 mg hsvoiding trial today 11/17-faile d, will try again 12/21-faile d againmonit or urine outputurol ogy consult Constipation 44559716 K5 9.00 miralax dailysenna plus bidmonitio r bm Glaucoma 13805638 H40.9 combigan ou bidrocklat an hs Falls 463326810 R29.6 PT OT eval and treatfall precaution sfrequent safety checks History of syncope 15429 59731 33794 Z86.79 monitor ortho vs prn Chronic mi graine without aura 5962888923 05666 G43.709 prednisone 10 mg dailyamitr iptylline 10 mg hs COVID-19 833324814 U07.1 recoveredN o symptomsTo use paxlovid, dexamethas one, fluids, supplement al O2 prn for sxs.Contin ue to monitor O2 sats, temp, GI sxs and po intake. [id number] DMITRIY LEBRON NP [address] [address] 01/08/2023 16:14:21 01/12/2023 13:04:50 Dementia 88651825 F03.90 aricept 10 mg hsseroquel 50 mg hspsych prnAIMS 0 Retention of urine 08107 4002 R33.9 flomax 0.8 mg hsvoiding trial today 11/17-faile d, will try again 12/21-faile d againmonit or urine outputurol ogy consult 01/10 Constipation 32424689 K5 9.00 miralax dailysenna plus bidmonitio r bm Glaucoma 77386255 H40.9 combigan ou bidrocklat an hs Falls 940429879 R29.6 PT OT eval and treatfall precaution sfrequent safety checks History of syncope 84208 39526 98698 Z86.79 monitor ortho vs prn Chronic mi graine without aura 6266055142 79106 G43.709 prednisone 10 mg dailyamitr iptylline 10 mg hs COVID-19 216903495 U07.1 recoveredN o symptomsTo use paxlovid, dexamethas one, fluids, supplement al O2 prn for sxs.Contin ue to monitor O2 sats, temp, GI sxs and po intake. [id number] MD RODERICK Liriano RASTA [address] [place] [address] 02/09/2023 20:19:12 02/23/2023 13:46:06 Dementia 12820031 F02.B0 Continues at baselineCo ntinue aricept 10 mg qhs, seroquel 50 mg qhs and amitriptyl ine 10 mg qhs.Contin ue supportive care, expect decline.HC P invokedMon itor mood and behaviors. Psych consult prn. Retention of urine 53540 4002 R33.8 Has failed 2 voiding trials.Rep ortedly had uro appt on 01/10, no notes in chart.Cont inue tamsulosin 0.8 mg qd and bethanecol 25 mg TIDContinu e arana and f/u with uro as planned. Falls 434115704 R29.6 Remains deconditio vane.Contin ue PT/OT for strengthen ing, balance, gait training, safety and function.C ontinue fall precaution s.Monitor for safety. Chronic mi graine without aura 5826326542 42839 G43.709 Continue prednisone 10 mg qd and amitriptyl ine 10 mg qhs.Monito r sxs. COVID-19 599727555 U07.1 Tested + on 11/20Now recovered. Monitor for sequelae. Recurrent urinary tract infection 054874398 N30.20 Continue Vitamin C 500 mg BID and D-Mannose 1000 mg BID for prophylaxi s.Continue Elmiron 100 mg TID for IC pain.Monit or sxs. [id number] DMITRIY LEBRON NP [facility] [address] [place] [address] 03/07/2023 10:57:58 03/20/2023 08:53:34 Dementia 02431811 F03.90 aricept 10 mg hsseroquel 50 mg hspsych prnAIMS 0 Retention of urine 51872 4002 R33.9 flomax 0.8 mg hsvoiding trial today 11/17-faile d, will try again 12/21-faile d againd-man nose 1000 bidmonitor urine outputurol ogy consult prn Constipation 20953777 K5 9.00 miralax dailysenna plus bidmonitio r bm Glaucoma 77344881 H40.9 combigan ou bidrocklat an hs Falls 764381659 R29.6 PT OT eval and treatfall precaution sfrequent safety checks History of syncope 92569 78034 21395 Z86.79 monitor ortho vs prn Chronic mi graine without aura 6594299455 63988 G43.709 prednisone 10 mg dailyamitr iptylline 10 mg hs COVID-19 264962491 U07.1 recoveredN o symptomsTo use paxlovid, dexamethas one, fluids, supplement al O2 prn for sxs.Contin ue to monitor O2 sats, temp, GI sxs and po intake. [id number] KEVIN ESPINOZA [facility] [address] [place] [address] 05/03/2023 09:01:35 05/05/2023 03:52:24 Urinary tract infectious disease 13304296 N39.0 + UA with proteus mirabilisB actrim DS BID for 5 daysprobio tic for 7 daysmonito r for improvemen t. Dementia 69054906 F03.90 aricept 10 mg hsseroquel 50 mg hspsych prnmonitor for mood and behavior cahnges. [id number] Odalys Barber MD [facility] [address] [place] [address] 05/03/2023 20:12:49 05/16/2023 12:09:34 Urinary tract infectious disease 47791925 N30.00 + UA with proteus mirabilisB actrim DS BID for 5 d course until 05/08 and probiotic BID until 05/09.Monit or sxs. Dementia 30524601 F02.B0 Remains at baselineCo ntinue aricept 10 mg qhs, seroquel 50 mg qhs and amitriptyl ine 10 mg qhs.Contin ue supportive care, expect decline.HC P invokedMon itor mood and behaviors. Psych follows, last seen 04/30, no med changes. Retention of urine 51782 4002 R33.8 No further issues since arana d/c'dConti nue bethanecol 25 mg TID and tamsulosin 0.8 mg qdMonitor urinary function. Falls 450560745 R29.6 Remains deconditio vane.Use PT/OT as ablle/need ed.Continu e fall precaution s.Monitor for safety. Recurrent urinary tract infection N30.20 Continue Vitamin C 500 mg BID and D-Mannose 1000 mg BID for prophylaxi s.Monitor sxs. Chronic mi graine without aura 9272185129 73414 G43.709 Continue prednisone 10 mg qd and amitriptyl ine 10 mg qhs.Monito r sxs. COVID-19 559489306 U07.1 Tested + on 11/20/22Now recovered. Monitor for sequelae. [id number] KEVIN ESPINOZA RASTA [address] [place] [address] [place] [address] 06/28/2023 09:24:56 07/04/2023 14:27:17 Dementia 25397153 F02.B0 Remains at baselineCo ntinue aricept 10 mg qhs, seroquel 50 mg qhs and amitriptyl ine 10 mg qhs.Contin ue supportive care, expect decline.HC P invokedMon itor mood and behaviors. psych prn Retention of urine 27337 4002 R33.8 Continue bethanecol 25 mg TIDtamsulo sin 0.8 mg qdMonitor urinary function. Falls 851840466 R29.6 no reported recent fallsConti nue fall precaution s.Monitor for safety.Mor se 60 Recurrent urinary tract infection N30.20 Continue Vitamin C 500 mg BIDD-Vineet se 1000 mg BID for prophylaxi s.Monitor sxs. Chronic mi graine without aura 3331605082 52083 G43.709 stableCont inue prednisone 10 mg qdamitript yline 10 mg qhs.Monito r sxs. COVID-19 039281895 U07.1 With mild coughConti nue paxlovid 150/100 BID for 5 day courseWill use dexamethas one, fluids, supplement al O2 prn for sxs.Contin ue to monitor O2 sats, temp, GI sxs and po intake. Stercoral colitis 591571 001 K52.89 Resolved.C ontinue bowel meds as ordered.Mo nitor bowel function. Glaucoma 11973584 H40.89 Continue combigan ou BID and rocklatan qhsF/U with eye dr as planned. History of syncope 60157 32119 66763 Z86.79 Monitor vitals and MS. Constipation 30658672 K5 9.00 miralax dailysenna plus bidmonitio r bm Chronic pain 64075445 G8 9.29 abdominal and back painoxycod one 5 mg q 6 prn [id number] Odalys Barber MD [address] [place] [address] 09/04/2023 13:20:07 09/11/2023 11:21:18 Dementia 64736127 F02.B0 MS remains stable.Moo d good after d/c seroquel.C ontinue aricept 10 mg qhs and amitriptyl ine 10 mg qhs.Contin ue supportive care, expect decline.HC P invokedMon itor mood and behaviors. Psych continues to follow Retention of urine 54013 4002 R33.8 No further issues since arana d/c'dConti nue bethanecol 25 mg TID and tamsulosin 0.8 mg qdMonitor urinary function. Falls 029572569 R29.6 Remains deconditio vane.Use PT/OT as able/neede d.Continue fall precaution s.Monitor for safety. Recurrent urinary tract infection 568914599 N30.20 Continue Vitamin C 500 mg BID and D-Mannose 1000 mg BID for prophylaxi s.Monitor sxs. Chronic mi graine without aura 8375974146 21404 G43.709 Continue prednisone 10 mg qd and amitriptyl ine 10 mg qhs.Monito r sxs. COVID-19 018752175 U07.1 Tested + on 11/20/22Now recovered. Monitor for sequelae. Constipation 00441428 K5 9.09 Continue bowel meds as ordered.Mo nitor bowel function. Chronic pain 87921041 G8 9.29 Continue oxycodone 5 mg q 6 prn and APAP 650 mg q 6 hrs prn.Monito r sxs. [id number] KEVIN ESPINOZA [address] [address] 09/07/2023 13:56:21 09/11/2023 12:23:12 Indigestion 780810911 R10.13 see hpistart Tums 2 tabs Q4 prn TIDencoura ged to eat slowly, avoid caffeinate d drinksnurs ing to monitor for unrelieved sx nursing and update provider with changes Dysuria 29815269 R30.0 send urine for UA with C&S. [id number] KEVIN ESPINOZA [address] [address] 09/10/2023 12:44:19 09/17/2023 15:09:43 Dysuria 61926544 R30.0 send urine for UA with C&Snursing encouraged to reattemptw ill order one time dose of ativan to be given prior to attempt, hopefully to decrease resistence and combativen ess. [id number] KEVIN ESPINOZA [address] [address] 09/17/2023 08:54:06 09/20/2023 16:22:04 Recurrent urinary tract infection 431796170 N30.20 nursing was finally able to obtain [...] months.patricio sing updated to offers more fluids [id number] Barbara Peacegio Anton [address] [address] 10/26/2023 09:48:50 10/30/2023 09:29:54 Dementia 43134073 F02.B0 MS remains stable.Moo d good after d/c seroquel.C ontinue aricept 10 mg qhs and amitriptyl ine 10 mg qhs.Contin ue supportive care, expect decline.HC P invokedMon itor mood and behaviors. Psych continues to follow Falls 767963621 R29.6 Remains deconditio vane.Use PT/OT as able/neede d.Continue fall precaution s.Monitor for safety. Recurrent urinary tract infection 193401650 N30.20 Continue Vitamin C 500 mg BID and methanamin eMonitor sxs.treate d last month for UTI with bactrim Retention of urine 96832 4002 R33.8 No further issues since arana d/c'dConti nue bethanecol 25 mg TID and tamsulosin 0.8 mg qdMonitor urinary function. Chronic pain 29125353 G8 9.29 Continue oxycodone 5 mg q 6 prn and APAP 650 mg q 6 hrs prn.Monito r sxs. [id number] KEVIN ESPINOZA RASTA [address] [place] [address] 12/11/2023 11:12:57 12/13/2023 14:34:20 Bilateral lower limb edema 561033531 R60.0 see hpiappears dependent, pt sits in wheelchair for long periods of timerefer to therapy for wheelchair with leg rest for elevationc heck labs proBNP, CBC, and BMP on 12/12/23will start compressio n stocking to wear dailyconsi flo giving diuretic for worsening edemarecom mend no added salt to diet.will monitor for changes Dementia 87007989 F02.B0 alert at her baseline with confusione xpect declineCon tinue aricept 10 mg qhs, seroquel 50 mg qhs and amitriptyl ine 10 mg qhs.Contin ue supportive care, expect decline.HC P invoked- updated at bedside on above plan and is in agreementM onitor mood and behaviors. psych prn [id number] KEVIN ESPINOZA [facility] [address] [place] [address] 12/19/2023 08:36:46 12/24/2023 09:37:20 Dementia 54779980 F02.B0 MS remains stable.Con tinue aricept 10 [...] for UTI with bactrim Retention of urine 89565 4002 R33.8 No further issues since arana d/c'dConti nue bethanecol 25 mg TID and tamsulosin 0.8 mg qdMonitor urinary function. Chronic pain 30424510 G8 9.29 Continue oxycodone 5 mg q 6 prn and APAP 650 mg q 6 hrs prn.Monito r sxs. Bilateral lower limb edema 537918421 R60.0 appears dependent, pt sits in wheelchair for long periods of timerefer to therapy for wheelchair with leg rest for elevationc ompression stocking to wear dailyconsi flo giving diuretic for worsening edemarecom mend no added salt to diet.will monitor for changes [id number] KEVIN ESPINOZA [address] [place] [address] 02/14/2024 09:38:47 02/18/2024 12:51:21 Dementia 47729136 F02.B0 MS remains stable.Con tinue aricept 10 [...] for UTI with bactrim Retention of urine 91979 4002 R33.8 No further issues since arana d/c'dConti nue bethanecol 25 mg TID and tamsulosin 0.8 mg qdMonitor urinary function. Chronic pain 01115183 G8 9.29 Continue oxycodone 5 mg q 6 prn and APAP 650 mg q 6 hrs prn.Monito r sxs. Bilateral lower limb edema 271646426 R60.0 stable/ tracecompr ession stocking to wear dailyconsi flo giving diuretic for worsening edemarecom mend no added salt to diet.will monitor for changes Bereavement 40196940 Z63 .4 son 02/02- He visited with her everyday. so far she has been doing well with lost, due to her dementia she may have forgotten that her son has passed, there has been no agitation or other behaviors of expression . She will be attending his services today.will provide support along with nursing.travon mcbride need to restart ativan . [id number] KEVIN ESPINOZA [address] [place] [address] 04/07/2024 15:04:30 04/16/2024 11:19:45 Dementia 19041168 F02.B0 MS remains stable.Con tinue aricept 10 mg qhs and amitriptyl ine 10 mg qhs.Contin ue supportive care, expect decline.HC P invokedMon itor mood and behaviors. Psych continues to follow Recurrent urinary tract infection [id number] N30.20 Continue Vitamin C 500 mg BID and methenamin eMonitor sxs.treate d last month for UTI with bactrim Chronic pain [id number] G8 9.29 Continue oxycodone 5 mg q 6 prn and APAP 650 mg q 6 hrs prn.Monito r sxs. Bilateral lower limb edema [id number] R60.0 stable/ tracecompr ession stocking to wear dailyconsi flo giving diuretic for worsening edemarecom mend no added salt to diet.will monitor for changes COVID-19 [id number] U07.1 without sxdiscusse d with nursing, will provide supportive therapyupd ate provider with acute changes [id number] KEVIN ESPINOZA [address] [place] [phone] 07/06/2024 10:46:03 07/10/2024 16:17:30 Acute respiratory failure [id number] J96.00 resolvedde conditione dmonitor resp. statusPT/O T eval and tx Hypokalemia 40809310 E87 .6 3.1/replet edfollow labs Dementia [id number] F02.B0 stableCont inue aricept 10 mg qhs and amitriptyl ine 10 mg qhs.Contin ue supportive care, expect decline.HC P invokedMon itor mood and behaviors. Psych continues to follow Recurrent urinary tract infection N30.20 stablecont Cefuroxime 500 mg BID until 07/08/24Cont inue Vitamin C 500 mg BID and methenamin eMonitor sxs.increa se hydration/ water preferred to flush out toxins. [id number] Matt Lynn MD [address] [address] 07/09/2024 12:26:29 07/11/2024 08:35:31 Acute respiratory failure [id number] J96.01 see HPI treated with abx coursemoni tor respirator y status and need for repeat imaging Dementia [id number] F02.B0 baseline dementia with behaviorsH CP invokedcon tinue supportive carepsych eval prn Recurrent urinary tract infection [id number] N30.20 recently treated with rocephin for abovemonit or for recurrent infection [id number] FARHAD CHOW NP [address] [address] 07/15/2024 10:27:43 07/16/2024 15:58:16 Acute respiratory failure 18669284 J96.00 residual cough and congestion per staff.conc stephanie of acute /10 pain during the night associated with cough, [...] 1 in am, CBC, BMPMonitor closely. Hypokalemia 05283197 E87 .6 3.1/replet edfollow labs - repeat in am Dementia [id number] F02.B0 stableCont inue aricept 10 mg qhs and amitriptyl ine 10 mg qhs.Contin ue supportive care, expect decline.HC P invokedMon itor mood and behaviors. Psych continues to follow Recurrent urinary tract infection N30.20 stablecomp leted Cefuroxime 500 mg BID on 07/08/24Cont inue Vitamin C 500 mg BID and methenamin eMonitor sxs., VSMaintain fluids [id number] MARIA EUGENIA BOLES CNP [address] [phone] 07/16/2024 12:24:54 07/23/2024 11:34:10 Acute respiratory failure [id number] J96.00 RSV positive.r esidual cough and congestion resolved.C ontinueSch edule albuterol updrafts tid x 5 daysAdd mucinex 600 mg bid x 7 daysTrend VS, LS, satsMonito r closely. Hypokalemia 80829192 E87 .6 3.1/replet edrepeat lab, pending. Dementia [id number] F02.B0 stableCont inue aricept 10 mg qhs and amitriptyl ine 10 mg qhs.Contin ue supportive care, expect decline.HC P invokedMon itor mood and behaviors. Psych continues to follow Recurrent urinary tract infection N30.20 stablecomp leted Cefuroxime 500 mg BID on 07/08/24Cont inue Vitamin C 500 mg BID and methenamin eMonitor sxs., VSMaintain fluids [id number] MARIA EUGENIA BOLES CNP [address] [phone] 07/23/2024 10:34:55 07/29/2024 16:12:56 Acute respiratory failure 44342850 J96.00 RSV positive last week.impro ving, but has residual cough and congestion .Continuea lbuterol inhaler QID.Trend VS, LS, satsMonito r closely. Hypokalemia 54651952 E87 .6 stable 3.6 on 07/14. Dementia 50452717 F02.B0 stableCont inue aricept 10 mg qhs and amitriptyl ine 10 mg qhs.Contin ue supportive care, expect decline.HC P invokedMon itor mood and behaviors. Psych continues to follow Recurrent urinary tract infection N30.20 resolvedwb c stable, no s/s of recurrent UTIcomplet ed Cefuroxime 500 mg BID on 07/08/24Cont inue Vitamin C 500 mg BID and methenamin eMonitor sxs., VSMaintain fluids Health Concerns Section Related Observation LastModified by Organization Detai ls LastModified Time None Recorded Concern Status LastModified by Organization Details LastModified Time None Recorded Advance Directives Directive Y: Payers Insurance Date Sequence Insurance Name Policy Number Policy [place] Covered Member ID [place] Member ID Guarantor Name 07/29/2024 2 [place] [id number] Deann Eduardo [id number] Deann Eduardo 07/09/2024 1 [place] [employer] Deann Eduardo [id number] Deann Eduardo Notes Date Note Type Note Provider Name and Address Organization Details Recorded Time 07/06/2024 text/html This is an 83 yr old female seen for readmission. Patient readmitted to after an acute care stay for acute hypoxic respiratory failure due to acute bronchitis/pna; stay complicated by acute metabolic encephalopathy, delirium and UTI. She was tx with neb tx, steroids, and IV abx. Mentation improved and she was able to be wean off oxygen. KEVIN ESPINOZA [address] [facility], [address], [place], [address], [employer] 07/06/2024 23:15:06 07/09/2024 text/html Patient is an 83 yo female resident seen for MD visit recently readmitted from hospital after acute transfer for respiratory failure. Dx with bronchitis and encephalopathy covered with rocephin and zithromax, steroids and nebs. PMH significant for dementia and constipation Matt Lynn MD [address] [facility], [address], [place], [address], [employer] [facility] 07/09/2024 12:38:08 07/15/2024 text/html This is [...] experiencing and her inability to move comfortably. dampener operator provider notified, and duonebs and oxycodone [...] Loose congested cough. FARHAD CHOW, NAN [address] [facility], [address], [place], [address], [facility] - [employer] 07/15/2024 11:13:24 07/16/2024 text/html This is an 83 yr [...] Denies pain or SOB today. MARIA EUGENIA BOLES CNP [address], [address], [place], [address], [facility] [employer] 07/16/2024 12:42:28 07/23/2024 text/html This is an 83 yr old female seen for a routine visit. She is a LTC resident, readmitted to after an acute care stay for acute hypoxic respiratory failure due to acute bronchitis/pna; stay complicated by acute metabolic encephalopathy, delirium and UTI. She was tx with neb tx, steroids, and IV abx. Mentation improved and she was able to be wean off oxygen. Respiratory panel was positive for RSV last week. CXR result shows mild cardiomegaly. There is no evidence of pneumonia or congestive heart failure. Upon exam, Esthela is resting comfortably in bed, alert, VSS, NAD, all smiles. She is a poor historian due to dementia, but says she feels ok, still having lingering cough reported. Denies pain or SOB today. MARIA EUGENIA BOLES CNP [address], [address], [place], [address], [facility] [employer] 07/29/2024 14:03:23 OBGyn Episode No OBEpisode recorded.
--- OUTSIDE RECORDS SUMMARY | 2024-10-09 08:36 | XMS_ITS | Clinical Summary ---
Author Organization [facility] it Address [address] [place] [address] Care Team Providers Care Light Armored Reconnaissance Officer Name Role Phone Melchor Mccormack MD Primary Care Provider [phone] Allergies Active Allergy Reactions Criticality Noted Date [...] disturbance, psychotic disturbance, mood disturbance, or anxiety ([facility] V24, [facility] V28) 04/20/2022 Elevated WBC count [...] BMP Blood Test (02/01/2022) Pathologist [facility] Annual BMP Blood Test abstracted Historical Provider HEALTH MAINTENANCE Final Result * (ABNORMAL) Lipid panel (01/26/2021) [facility] LDL/HDL Ratio 2 0 - 4 [...] (World Health Organization Fracture Risk Assessment) [facility] Department of Internal Medicine recommends using [...] (World Health Organization Fracture Risk Assessment) [facility] Department of Internal Medicine recommendsusing National [...] Recently Relevant to Health Maintenance Care Teams Light Armored Reconnaissance Officer Relationship Specialty Start Date End Date Melchor Mccormack MD [address] [place] [id number] PCP - General 05/21/10
[2024-10-09 08:50] LABS: Hematocrit 39.5 % (37.0-47.0); Hemoglobin 13.0 g/dl (12.0-16.0); Imm Gran Abs Auto 0.02 X10*3/uL (0.00-0.03); Imm Gran Pct Auto 0.3 % (0.0-0.4); Lymphocytes Absolute Auto 1.8 X10*3/uL (1.2-4.9); Mean Corpuscular HGB Conc 32.9 g/dl (31.0-35.0); Mean Corpuscular Hemoglobin 30.4 pg (27.0-33.0); Mean Corpuscular Volume 92.5 fL (80.0-98.0); NRBC Abs Auto 0.000 X10*3/uL (0.0-0.012); NRBC Pct Auto 0.0 /100WBC (0.0-0.2); Platelet Count 310 X10*3/uL (160-400); Red Blood Count 4.27 X10*6/uL (4.20-5.50); White Blood Count 5.9 X10*3/uL (4.8-10.8)
[2024-10-09 09:30] LABS: Anion Gap 11 (12-20); Blood Urea Nitrogen 7 mg/dL (9-16); Calcium 8.3 mg/dL (8.4-10.2); Carbon Dioxide 28 mmol/L (22-29); Chloride 104 mmol/L (96-108); Estimated Glomerular Filt Rate > 60; Potassium 2.8 mmol/L (3.3-5.1); Sodium 140 mmol/L (135-145)
== END 2024-10-09 08:30 | disposition home or self-care (01) ==
LOC: HO.MMNH3L 08:29
PROVIDERS: Visit Provider Internal Medicine
DX: N18.4 Chronic kidney disease, stage 4 (severe) (principal)
CPT/HCPCS: 36415; 80048; 85025

== ENCOUNTER 2024-10-13 | Outpatient (REF) | payer MEDICARE, SELFPAY ==
[2024-10-13 07:20] LABS: Anion Gap 12 (12-20); Blood Urea Nitrogen 11 mg/dL (9-16); Calcium 8.2 mg/dL (8.4-10.2); Carbon Dioxide 28 mmol/L (22-29); Chloride 106 mmol/L (96-108); Estimated Glomerular Filt Rate > 60; Potassium 3.2 mmol/L (3.3-5.1); Sodium 143 mmol/L (135-145)
--- OUTSIDE RECORDS SUMMARY | 2024-10-30 08:38 | XMS_ITS | Clinical Summary ---
Author Organization [facility] ity Address [address] [place] [address] Care Team Providers Care Head Coach Name Role Phone Melchor Mccormack MD Primary Care Provider [phone] Allergies Active Allergy Reactions Criticality Noted Date [...] disturbance, psychotic disturbance, mood disturbance, or anxiety ([facility] V24, [facility] V28) 04/20/2022 Elevated WBC count [...] Surgery Date Site/Laterality Comments ESOPHAGOGASTRODUODENOSCOPY 08/29/11 PROCEDURE: CA ESOPHAGOGASTRODUODENOSCOPY TRANSORAL DIAGNOSTIC; COMMENT: normal COLONOSCOPY 2004 [...] Patients (1 - 1-dose 75+ series) 2013 Falls Risk Assessment 03/12/2022 Medicare Annual Wellness Visit 03/12/2022 Social Influencers of Health Screening 03/12/2022 Hypertension/CHF/CAD Annual BMP Blood Test 07/11/2023 02/01/2022 COVID-19 Vaccine ( - season) 2023 02/11/2021, 06/16/2020, 05/12/2020 Depression Screening 04/09/2024 Influenza Vaccine (#1) 2024 , 01/11/2022, 03/25/2021, Additional history exists Cholesterol Screening (Lipid Panel) [...] Results * Annual BMP Blood Test (02/01/2022) [facility] Annual BMP Blood Test abstracted Historical Provider HEALTH MAINTENANCE Final Result * (ABNORMAL) Lipid panel (01/26/2021) [facility] LDL/HDL Ratio 2 0 - 4 [...] (World Health Organization Fracture Risk Assessment) [facility] Department of Internal Medicine recommends using [...] (World Health Organization Fracture Risk Assessment) [facility] Department of Internal Medicine recommendsusing National [...] Recently Relevant to Health Maintenance Care Teams Head Coach Relationship Specialty Start Date End Date Melchor Mccormack MD [address] [place] [id number] PCP - General 05/21/10
--- OUTSIDE RECORDS SUMMARY | 2024-10-30 08:38 | XMS_ITS | Data Portability ---
Author Organization [facility], Main Office Address [address] [facility], [address] [place] [address] Care Team Providers Care Building Superintendent Name Role Phone CHRIS GARCIA Primary Care Provider [phone] RODERICK MAGDALENO 3RD FLOOR OTHER [phone] Assessment Encounter Date Assessment Date Assessment LastModified by Organization Details LastModified Time 07/23/2024 07/23/2024 Labs 07/03/24: wbc 5, hgb [...] and Address Organization Details Recorded Time Dementia 49299523 Active 2022 DMITRIY LEBRON NP [address] [facility], [address], [place], [address], [facility] [employer] 3 12:17:21 Retention of urine 533519328 Active 2022 DMITRIY LEBRON NP [address], [place], [address], [facility] [employer] 3 12:17:26 Constipatio n 47211056 Active 2022 DMITRIY LEBRON NP [address], [address], [place], [address], [facility] [employer] [facility] 3 12:17:32 Glaucoma 47895132 Active 2022 DMITRIY LEBRON, NAN [address], [address], [place], [address], [facility] [employer] [facility] 3 12:17:39 Falls 599845719 Active 2022 DMITRIY LEBRON NP [address], [address], [place], [address], [facility] [employer] 3 12:19:11 History of syncope 1600999123538 09 Active 2022 DMITRIY LEBRON NP [address], [address], [place], [address], [facility] [employer] [facility] 3 12:19:19 Chronic migraine without aura 1777194792782 05 Active 2022 DMITRIY LEBRON NP [address], [address], [place], [address], [facility] [employer] [facility] 3 12:24:31 COVID-19 002861663 Active 2022 DMITRIY LEBRON NP [address], [address], [place], [address], [facility] [employer] [facility] 3 13:42:03 Stercoral colitis 428874007 Active 2022 Odalys Barber MD [address], [address], [place], [address], [facility] [employer] [facility] 3 10:42:17 Glaucoma 79052640 Active 2022 Odalys Barber MD [address], [address], [place], [address], [employer] [facility] 3 10:50:01 Acute urinary tract infection 640445590 Active 2022 DMITRIY LEBRON NP [address], [address], [place], [address], [employer] [facility] 3 13:22:34 Recurrent urinary tract infection 303985115 Active 2022 Odalys Barber MD [address] [facility], [address], [place], [address], [facility] [employer] [facility] 3 21:21:00 Chronic pain 13930036 Active 2023 Odalys Barber MD [address] [facility], [address], [place], [address], [facility] [employer] [facility] 4 14:05:27 Indigestion 047318770 Active 2023 KEVIN ESPINOZA [address] [facility], [address], [place], [address], [facility] [employer] [facility] 4 13:47:57 Acute respiratory failure 13889831 Active 2024 KEVIN ESPINOZA [address] [place] [address], [address], [place], [address], [facility] [employer] [facility] 5 22:54:27 Hypokalemia 68477842 Active 2024 KEVIN ESPINOZA [address] [place] [address], [address], [place], [address], [facility] [employer] [facility] 5 22:54:55 Problem Notes None recorded. Medical Equipment None Reported. Allergies Allergen ID Allergen Name Allergen Category Reaction Reaction Severity Criticality Documentation Date Start Date Code Code System Note Provider Name and Address Organization Details Recorded Time 69045 Product containin g penicilli n (product) medicatio n Not available Not available Not available 11/17/2022 43297 8001 SNOMED DMITRIY LEBRON NP [address] [place] [address], [facility] [address], [place], [address], [facility] [employer] [facility] 3 11:50:19 Medications Name Sig Start [...] % 112/87 mm[Hg] FARHAD CHOW NP [address] [facility] [address], [place], [address], [facility] 5 10:28:22 Date Recorded Body height Heart rate Respiratory rate Body temperature Systolic And Diastolic Provider Name and Address Organization Details Last Updated DateTime 5 157.48 cm 74 /min 18 /min 97.2 [degF] 122/70 mm[Hg] MARIA EUGENIA BOLES CNP [address] [facility] [address], [place], [address], [facility] 5 11:53:57 Date Recorded Body height Provider Name an d Address Organization Details Last Updated DateTime 10/15/2024 157.48 cm KEVIN ESPINOZA [address] [facility] [address], [place], [address], [facility] 10/16/2024 19:28:34 Social History Question Answer Notes LastModified by Organizat ion Details LastModified Time Tobacco Smoking Status Unknown If Ever Smoked DMITRIY LEBRON NP [address] [facility] [address], [place], [address], [employer] 11/17/2022 11:50:31 Do You Have An Advance Directive? Yes Information not available 11/21/2022 What Is Your Code Status? Full Code [email or web address] Information not available 11/20/2022 Do You Have A Medical Power Of Cook Syrup Maker? Yes HCP Invoked Information not available 11/21/2022 [...] adjuvanted, quadrivalent, PF 01/09/2023 completed Anjana zimmer, [facility] 04/27/2023 13:03:23 Past Encounters Encounter ID Performer Location Encounter Start Date Encounter Closed Date Diagnosis/Indication Diagnosis SNOMED-CT Code Diagnosis ICD10 Code Diagnosis Note [id number] NAN ALEXANDRA [facility] [place] [address] 11/17/2022 10:29:24 11/21/2022 15:53:20 Constipation 91335345 K59.00 miralax dailysenna plus bidmonitio r bm Retention of urine 68626 4002 R33.9 flomax 0.4 mg hsvoiding trial today 11/17monito r urine output Dementia 56051674 F03.90 aricept 10 mg hsseroquel 50 mg hs psych prnAIMS 0 Glaucoma 34655578 H40.9 combigan ou bidrocklat an hs Falls 606569679 R29.6 PT OT eval and treatfall precaution sfrequent safety checks History of syncope 22769 93785 62440 Z86.79 monitor ortho vs prn Chronic mi graine without aura 5779260321 76769 G43.709 prednisone 10 mg dailyamitr iptylline 10 mg hs COVID-19 729170114 U07.1 No symptoms To use paxlovid, dexamethas one, fluids, supplement al O2 prn for sxs. Continue to monitor O2 sats, temp, GI sxs and po intake. [id number] DMITRIY LEBRON NP [address] [address] 11/20/2022 14:15:54 11/23/2022 11:39:23 COVID-19 052934236 U07.1 monitor congestion paxlovid 150/100 bid for 5 daysTo use paxlovid, dexamethas one, fluids, supplement al O2 prn for sxs.Contin ue to monitor O2 sats, temp, GI sxs and po intake. [id number] Odalys Barber MD [address] [address] 11/21/2022 13:51:52 11/28/2022 16:22:18 COVID-19 082335447 U07.1 With mild coughConti nue paxlovid 150/100 BID for 5 day courseWill use dexamethas one, fluids, supplement al O2 prn for sxs.Contin ue to monitor O2 sats, temp, GI sxs and po intake. Retention of urine 40340 4002 R33.8 Successful voiding trial on ontin ue tamsulosin 0.4 mg qdMonitor urinary function. Dementia 61526110 F03.90 Continues at baselineCo ntinue aricept 10 mg qhs, seroquel 50 mg qhs and amitriptyl ine 10 mg qhs.Contin ue supportive care, expect decline.HC P invokedMon itor mood and behaviors. Psych consult prn. Glaucoma 57278042 H40.89 Continue combigan ou BID and rocklatan qhsF/U with eye dr as planned. Falls 595500935 R29.6 Very deconditio vane and with balance issuesNeed s PT/OT for strengthen ing, balance, gait training, safety and function.C ontinue fall precaution s.Monitor for safety. History of syncope 56818 86320 00561 Z86.79 Monitor vitals and MS. Chronic mi graine without aura 4220728982 53361 G43.709 No current sxs.Contin ue prednisone 10 mg qd and amitriptyl ine 10 mg qhsMonitor sxs. Stercoral colitis 985744 001 K52.89 Resolved.C ontinue bowel meds as ordered.Mo nitor bowel function. [id number] DMITRIY LEBRON NP [address] [address] 11/22/2022 13:40:59 11/29/2022 08:17:42 COVID-19 307527176 U07.1 monitor congestion paxlovid 150/100 bid for 5 days to 11/25To use paxlovid, dexamethas one, fluids, supplement al O2 prn for sxs.Contin ue to monitor O2 sats, temp, GI sxs and po intake. [id number] DMITRIY LEBRON NP [address] [address] 12/04/2022 13:19:24 12/06/2022 13:36:36 Dementia 45445109 F03.90 aricept 10 mg hsseroquel 50 mg hspsych prnAIMS 0did not tolerate slums COVID-19 226398654 U07.1 recoveredm onitor congestion paxlovid 150/100 bid for 5 days to 11/25To use paxlovid, dexamethas one, fluids, supplement al O2 prn for sxs.Contin ue to monitor O2 sats, temp, GI sxs and po intake. Acute urin marcie tract infection 246459120 N39.0 macrobid 100 mg bid for 7 days [id number] DMITRIY LEBRON NP [address] [address] 12/13/2022 11:22:57 12/15/2022 15:54:33 Retention of urine 879080049 R33.8 flomax 0.4 mg hsvoiding trial today 11/17-faile d, cath restartedm onitor urine outputurol ogy consult [place] 882633066 R29.6 PT OT eval and treatfall precaution sfrequent safety checks Dementia 38333620 F03.90 aricept 10 mg hsseroquel 50 mg hspsych prnAIMS 0did not tolerate slums [id number] DMITRIY LEBRON NP [address] [address] 12/20/2022 10:10:14 12/22/2022 11:38:53 Constipation 23384114 K59.00 miralax dailysenna plus bidmonitio r bm Retention of urine 58767 4002 R33.9 flomax 0.4 mg hs-increas ed to 0.8 mg hsvoiding trial today 11/17-faile d, will try again 12/21monito r urine outputurol ogy consult Dementia 85426160 F03.90 aricept 10 mg hsseroquel 50 mg hspsych prnAIMS 0 Glaucoma 52440000 H40.9 combigan ou bidrocklat an hs Falls 470335117 R29.6 PT OT eval and treatfall precaution sfrequent safety checks History of syncope 25028 37399 78070 Z86.79 monitor ortho vs prn Chronic mi graine without aura 9768793980 36055 G43.709 prednisone 10 mg dailyamitr iptylline 10 mg hs COVID-19 865455320 U07.1 No symptoms-r ecovered by dateTo use paxlovid, dexamethas one, fluids, supplement al O2 prn for sxs.Contin ue to monitor O2 sats, temp, GI sxs and po intake. [id number] DMITRIY LEBRON NP [address] [address] 12/28/2022 14:59:22 01/02/2023 15:51:32 Retention of urine 455083935 R33.9 flomax 0.4 mg hs-increas ed to 0.8 mg hsvoiding trial today 11/17-faile d, will try again 12/21-faile d againmonit or urine outputurol ogy consult [id number] DMITRIY LEBRON NP [address] [address] 01/03/2023 13:43:31 01/09/2023 11:51:30 Dementia 73269287 F03.90 aricept 10 mg hsseroquel 50 mg hspsych prnAIMS 0 Retention of urine 35345 4002 R33.9 flomax 0.8 mg hsvoiding trial today 11/17-faile d, will try again 12/21-faile d againmonit or urine outputurol ogy consult Constipation 94545627 K5 9.00 miralax dailysenna plus bidmonitio r bm Glaucoma 96111203 H40.9 combigan ou bidrocklat an hs Falls 534974607 R29.6 PT OT eval and treatfall precaution sfrequent safety checks History of syncope 23505 94852 11774 Z86.79 monitor ortho vs prn Chronic mi graine without aura 4280786881 49486 G43.709 prednisone 10 mg dailyamitr iptylline 10 mg hs COVID-19 440267821 U07.1 recoveredN o symptomsTo use paxlovid, dexamethas one, fluids, supplement al O2 prn for sxs.Contin ue to monitor O2 sats, temp, GI sxs and po intake. [id number] DMITRIY LEBRON NP [address] [address] 01/08/2023 16:14:21 01/12/2023 13:04:50 Dementia 79336577 F03.90 aricept 10 mg hsseroquel 50 mg hspsych prnAIMS 0 Retention of urine 39214 4002 R33.9 flomax 0.8 mg hsvoiding trial today 11/17-faile d, will try again 12/21-faile d againmonit or urine outputurol ogy consult 10/ Constipation 60725647 K5 9.00 miralax dailysenna plus bidmonitio r bm Glaucoma 10250894 H40.9 combigan ou bidrocklat an hs Falls 591874483 R29.6 PT OT eval and treatfall precaution sfrequent safety checks History of syncope 04729 17991 34261 Z86.79 monitor ortho vs prn Chronic mi graine without aura 0745685778 28890 G43.709 prednisone 10 mg dailyamitr iptylline 10 mg hs COVID-19 189508677 U07.1 recoveredN o symptomsTo use paxlovid, dexamethas one, fluids, supplement al O2 prn for sxs.Contin ue to monitor O2 sats, temp, GI sxs and po intake. [id number] Odalys Barber MD [address] [place] [address] 02/09/2023 20:19:12 02/23/2023 13:46:06 Dementia 33161175 F02.B0 Continues at baselineCo ntinue aricept 10 mg qhs, seroquel 50 mg qhs and amitriptyl ine 10 mg qhs.Contin ue supportive care, expect decline.HC P invokedMon itor mood and behaviors. Psych consult prn. Retention of urine 41112 4002 R33.8 Has failed 2 voiding trials.Rep ortedly had uro appt on 01/10, no notes in chart.Cont inue tamsulosin 0.8 mg qd and bethanecol 25 mg TIDContinu e arana and f/u with uro as planned. Falls 969353489 R29.6 Remains deconditio vane.Contin ue PT/OT for strengthen ing, balance, gait training, safety and function.C ontinue fall precaution s.Monitor for safety. Chronic mi graine without aura 1917861559 32312 G43.709 Continue prednisone 10 mg qd and amitriptyl ine 10 mg qhs.Monito r sxs. COVID-19 016630909 U07.1 Tested + on 11/20Now recovered. Monitor for sequelae. Recurrent urinary tract infection 852003123 N30.20 Continue Vitamin C 500 mg BID and D-Mannose 1000 mg BID for prophylaxi s.Continue Elmiron 100 mg TID for IC pain.Monit or sxs. [id number] DMITRIY LEBRON NP [address] [place] [address] 03/07/2023 10:57:58 03/20/2023 08:53:34 Dementia 71549699 F03.90 aricept 10 mg hsseroquel 50 mg hspsych prnAIMS 0 Retention of urine 42786 4002 R33.9 flomax 0.8 mg hsvoiding trial today 11/17-faile d, will try again 12/21-faile d againd-man nose 1000 bidmonitor urine outputurol ogy consult prn Constipation 88723078 K5 9.00 miralax dailysenna plus bidmonitio r bm Glaucoma 73310198 H40.9 combigan ou bidrocklat an hs Falls 299711129 R29.6 PT OT eval and treatfall precaution sfrequent safety checks History of syncope 10360 81167 35617 Z86.79 monitor ortho vs prn Chronic mi graine without aura 6187887994 33902 G43.709 prednisone 10 mg dailyamitr iptylline 10 mg hs COVID-19 712376384 U07.1 recoveredN o symptomsTo use paxlovid, dexamethas one, fluids, supplement al O2 prn for sxs.Contin ue to monitor O2 sats, temp, GI sxs and po intake. [id number] [facility] [address] [place] [address] 05/03/2023 09:01:35 05/05/2023 03:52:24 Urinary tract infectious disease 21059599 N39.0 + UA with proteus mirabilisB actrim DS BID for 5 daysprobio tic for 7 daysmonito r for improvemen t. Dementia 41878652 F03.90 aricept 10 mg hsseroquel 50 mg hspsych prnmonitor for mood and behavior cahnges. [id number] Odalys Barber MD [address] [address] 05/03/2023 20:12:49 05/16/2023 12:09:34 Urinary tract infectious disease 64628625 N30.00 + UA with proteus mirabilisB actrim DS BID for 5 d course until 05/08 and probiotic BID until 05/09.Monit or sxs. Dementia 89714959 F02.B0 Remains at baselineCo ntinue aricept 10 mg qhs, seroquel 50 mg qhs and amitriptyl ine 10 mg qhs.Contin ue supportive care, expect decline.HC P invokedMon itor mood and behaviors. Psych follows, last seen 04/30, no med changes. Retention of urine 52313 4002 R33.8 No further issues since arana d/c'dConti nue bethanecol 25 mg TID and tamsulosin 0.8 mg qdMonitor urinary function. Falls 714434410 R29.6 Remains deconditio vane.Use PT/OT as ablle/need ed.Continu e fall precaution s.Monitor for safety. Recurrent urinary tract infection N30.20 Continue Vitamin C 500 mg BID and D-Mannose 1000 mg BID for prophylaxi s.Monitor sxs. Chronic mi graine without aura 5568751288 04164 G43.709 Continue prednisone 10 mg qd and amitriptyl ine 10 mg qhs.Monito r sxs. COVID-19 896035185 U07.1 Tested + on 11/20/22Now recovered. Monitor for sequelae. [id number] KEVIN ESPINOZA [address] [place] [address] 06/28/2023 09:24:56 07/04/2023 14:27:17 Dementia 21489686 F02.B0 Remains at baselineCo ntinue aricept 10 mg qhs, seroquel 50 mg qhs and amitriptyl ine 10 mg qhs.Contin ue supportive care, expect decline.HC P invokedMon itor mood and behaviors. psych prn Retention of urine 46299 4002 R33.8 Continue bethanecol 25 mg TIDtamsulo sin 0.8 mg qdMonitor urinary function. Falls 641643157 R29.6 no reported recent fallsConti nue fall precaution s.Monitor for safety.Mor se 60 Recurrent urinary tract infection N30.20 Continue Vitamin C 500 mg BIDD-Vineet se 1000 mg BID for prophylaxi s.Monitor sxs. Chronic mi graine without aura 4101901215 74055 G43.709 stableCont inue prednisone 10 mg qdamitript yline 10 mg qhs.Monito r sxs. COVID-19 527665980 U07.1 With mild coughConti nue paxlovid 150/100 BID for 5 day courseWill use dexamethas one, fluids, supplement al O2 prn for sxs.Contin ue to monitor O2 sats, temp, GI sxs and po intake. Stercoral colitis 586207 001 K52.89 Resolved.C ontinue bowel meds as ordered.Mo nitor bowel function. Glaucoma 83837737 H40.89 Continue combigan ou BID and rocklatan qhsF/U with eye dr as planned. History of syncope 96146 80512 09858 Z86.79 Monitor vitals and MS. Constipation 82805100 K5 9.00 miralax dailysenna plus bidmonitio r bm Chronic pain 51695801 G8 9.29 abdominal and back painoxycod one 5 mg q 6 prn [id number] MD RODERICK Liriano [address] [place] [address] [place] [address] 09/04/2023 13:20:07 09/11/2023 11:21:18 Dementia 32417431 F02.B0 MS remains stable.Moo d good after d/c seroquel.C ontinue aricept 10 mg qhs and amitriptyl ine 10 mg qhs.Contin ue supportive care, expect decline.HC P invokedMon itor mood and behaviors. Psych continues to follow Retention of urine 33802 4002 R33.8 No further issues since arana d/c'dConti nue bethanecol 25 mg TID and tamsulosin 0.8 mg qdMonitor urinary function. Falls 220823073 R29.6 Remains deconditio vane.Use PT/OT as able/neede d.Continue fall precaution s.Monitor for safety. Recurrent urinary tract infection 926352901 N30.20 Continue Vitamin C 500 mg BID and D-Mannose 1000 mg BID for prophylaxi s.Monitor sxs. Chronic mi graine without aura 5642177768 96078 G43.709 Continue prednisone 10 mg qd and amitriptyl ine 10 mg qhs.Monito r sxs. COVID-19 676859828 U07.1 Tested + on 11/20/22Now recovered. Monitor for sequelae. Constipation 95523363 K5 9.09 Continue bowel meds as ordered.Mo nitor bowel function. Chronic pain 32743943 G8 9.29 Continue oxycodone 5 mg q 6 prn and APAP 650 mg q 6 hrs prn.Monito r sxs. [id number] KEVIN ESPINOZA [address] [place] [address] [place] [address] 09/07/2023 13:56:21 09/11/2023 12:23:12 Indigestion 761796417 R10.13 see hpistart Tums 2 tabs Q4 prn TIDencoura ged to eat slowly, avoid caffeinate d drinksnurs ing to monitor for unrelieved sx nursing and update provider with changes Dysuria 99610703 R30.0 send urine for UA with C&S. [id number] KEVIN ESPINOZA [address] [address] 09/10/2023 12:44:19 09/17/2023 15:09:43 Dysuria 43513254 R30.0 send urine for UA with C&Snursing encouraged to reattemptw ill order one time dose of ativan to be given prior to attempt, hopefully to decrease resistence and combativen ess. [id number] KEVIN ESPINOZA [address] [address] 09/17/2023 08:54:06 09/20/2023 16:22:04 Recurrent urinary tract infection N30.20 nursing was finally able to obtain [...] months.patricio sing updated to offers more fluids [id number] Barbara Peacegio Anton [address] [address] 10/26/2023 09:48:50 10/30/2023 09:29:54 Dementia 62043089 F02.B0 MS remains stable.Moo d good after d/c seroquel.C ontinue aricept 10 mg qhs and amitriptyl ine 10 mg qhs.Contin ue supportive care, expect decline.HC P invokedMon itor mood and behaviors. Psych continues to follow Falls 852772148 R29.6 Remains deconditio vane.Use PT/OT as able/neede d.Continue fall precaution s.Monitor for safety. Recurrent urinary tract infection N30.20 Continue Vitamin C 500 mg BID and methanamin eMonitor sxs.treate d last month for UTI with bactrim Retention of urine 35428 4002 R33.8 No further issues since arana d/c'dConti nue bethanecol 25 mg TID and tamsulosin 0.8 mg qdMonitor urinary function. Chronic pain 96048522 G8 9.29 Continue oxycodone 5 mg q 6 prn and APAP 650 mg q 6 hrs prn.Monito r sxs. [id number] KEVIN ESPINOZA [address] [address] 12/11/2023 11:12:57 12/13/2023 14:34:20 Bilateral lower limb edema 070547945 R60.0 see hpiappears dependent, pt sits in wheelchair for long periods of timerefer to therapy for wheelchair with leg rest for elevationc heck labs proBNP, CBC, and BMP on 12/12/23will start compressio n stocking to wear dailyconsi flo giving diuretic for worsening edemarecom mend no added salt to diet.will monitor for changes Dementia 48697725 F02.B0 alert at her baseline with confusione xpect declineCon tinue aricept 10 mg qhs, seroquel 50 mg qhs and amitriptyl ine 10 mg qhs.Contin ue supportive care, expect decline.HC P invoked- updated at bedside on above plan and is in agreementM onitor mood and behaviors. psych prn [id number] KEVIN ESPINOZA [address] [address] 12/19/2023 08:36:46 12/24/2023 09:37:20 Dementia 42694702 F02.B0 MS remains stable.Con tinue aricept 10 mg qhs and amitriptyl ine 10 mg qhs.Contin ue supportive care, expect decline.HC P invokedMon itor mood and behaviors. Psych continues to follow Falls 130344691 R29.6 Remains deconditio vane.Use PT/OT as able/neede d.Continue fall precaution s.Monitor for safety. Recurrent urinary tract infection N30.20 Continue Vitamin C 500 mg BID and methenamin eMonitor sxs.treate d last month for UTI with bactrim Retention of urine 71406 4002 R33.8 No further issues since arana d/c'dConti nue bethanecol 25 mg TID and tamsulosin 0.8 mg qdMonitor urinary function. Chronic pain 91202361 G8 9.29 Continue oxycodone 5 mg q 6 prn and APAP 650 mg q 6 hrs prn.Monito r sxs. Bilateral lower limb edema 411102936 R60.0 appears dependent, pt sits in wheelchair for long periods of timerefer to therapy for wheelchair with leg rest for elevationc ompression stocking to wear dailyconsi flo giving diuretic for worsening edemarecom mend no added salt to diet.will monitor for changes [id number] KEVIN ESPINOZA [address] [facility] [place] [address] 02/14/2024 09:38:47 02/18/2024 12:51:21 Dementia 17587353 F02.B0 MS remains stable.Con tinue aricept 10 mg qhs and amitriptyl ine 10 mg qhs.Contin ue supportive care, expect decline.HC P invokedMon itor mood and behaviors. Psych continues to follow Falls 988924837 R29.6 Remains deconditio vane.Use PT/OT as able/neede d.Continue fall precaution s.Monitor for safety. Recurrent urinary tract infection N30.20 Continue Vitamin C 500 mg BID and methenamin eMonitor sxs.treate d last month for UTI with bactrim Retention of urine 28546 4002 R33.8 No further issues since arana d/c'dConti nue bethanecol 25 mg TID and tamsulosin 0.8 mg qdMonitor urinary function. Chronic pain 09312114 G8 9.29 Continue oxycodone 5 mg q 6 prn and APAP 650 mg q 6 hrs prn.Monito r sxs. Bilateral lower limb edema 728229648 R60.0 stable/ tracecompr ession stocking to wear dailyconsi flo giving diuretic for worsening edemarecom mend no added salt to diet.will monitor for changes Bereavement 43090806 Z63 .4 son 02/02- He visited with her everyday. so far she has been doing well with lost, due to her dementia she may have forgotten that her son has passed, there has been no agitation or other behaviors of expression . She will be attending his services today.will provide support along with nursing.travon mcbride need to restart ativan . [id number] KEVIN ESPINOZA [address] [address] 04/07/2024 15:04:30 04/16/2024 11:19:45 Dementia 08745625 F02.B0 MS remains stable.Con tinue aricept 10 mg qhs and amitriptyl ine 10 mg qhs.Contin ue supportive care, expect decline.HC P invokedMon itor mood and behaviors. Psych continues to follow Recurrent urinary tract infection N30.20 Continue Vitamin C 500 mg BID and methenamin eMonitor sxs.treate d last month for UTI with bactrim Chronic pain 79053103 G8 9.29 Continue oxycodone 5 mg q 6 prn and APAP 650 mg q 6 hrs prn.Monito r sxs. Bilateral lower limb edema 461725223 R60.0 stable/ tracecompr ession stocking to wear dailyconsi flo giving diuretic for worsening edemarecom mend no added salt to diet.will monitor for changes COVID-19 375974891 U07.1 without sxdiscusse d with nursing, will provide supportive therapyupd ate provider with acute changes [id number] KEVIN ESPINOZA [address] [address] 07/06/2024 10:46:03 07/10/2024 16:17:30 Acute respiratory failure [id number] J96.00 resolvedde conditione dmonitor resp. statusPT/O T eval and tx Hypokalemia 11739721 E87 .6 3.1/replet edfollow labs Dementia [id number] F02.B0 stableCont inue aricept 10 mg qhs and amitriptyl ine 10 mg qhs.Contin ue supportive care, expect decline.HC P invokedMon itor mood and behaviors. Psych continues to follow Recurrent urinary tract infection N30.20 stablecont Cefuroxime 500 mg BID until 07/08/24Cont inue Vitamin C 500 mg BID and methenamin eMonitor sxs.increa se hydration/ water preferred to flush out toxins. [id number] MD RODERICK Mcmahon RASTA [address] [facility] [address] 07/09/2024 12:26:29 07/11/2024 08:35:31 Acute respiratory failure [id number] J96.01 see HPI treated with abx coursemoni tor respirator y status and need for repeat imaging Dementia [id number] F02.B0 baseline dementia with behaviorsH CP invokedcon tinue supportive carepsych eval prn Recurrent urinary tract infection N30.20 recently treated with rocephin for abovemonit or for recurrent infection [id number] NAN GARCÍA RASTA [address] [facility] [place] [place] [address] 07/15/2024 10:27:43 07/16/2024 15:58:16 Acute respiratory failure [id number] J96.00 residual cough and congestion per staff.conc [...] 1 in am, CBC, BMPMonitor closely. Hypokalemia 44135045 E87 .6 3.1/replet edfollow labs - repeat in am Dementia 24490841 F02.B0 stableCont inue aricept 10 mg qhs and amitriptyl ine 10 mg qhs.Contin ue supportive care, expect decline.HC P invokedMon itor mood and behaviors. Psych continues to follow Recurrent urinary tract infection N30.20 stablecomp leted Cefuroxime 500 mg BID on 07/08/24Cont inue Vitamin C 500 mg BID and methenamin eMonitor sxs., VSMaintain fluids [id number] MARIA EUGENIA BOLES CNP [address] [address] 07/16/2024 12:24:54 07/23/2024 11:34:10 Acute respiratory failure [id number] J96.00 RSV positive.r esidual cough and congestion resolved.C ontinueSch edule albuterol updrafts tid x 5 daysAdd mucinex 600 mg bid x 7 daysTrend VS, LS, satsMonito r closely. Hypokalemia 29160327 E87 .6 3.1/replet edrepeat lab, pending. Dementia [id number] F02.B0 stableCont inue aricept 10 mg qhs and amitriptyl ine 10 mg qhs.Contin ue supportive care, expect decline.HC P invokedMon itor mood and behaviors. Psych continues to follow Recurrent urinary tract infection N30.20 stablecomp leted Cefuroxime 500 mg BID on 07/08/24Cont inue Vitamin C 500 mg BID and methenamin eMonitor sxs., VSMaintain fluids [id number] MARIA EUGENIA BOLES CNP [address] [address] 07/23/2024 10:34:55 07/29/2024 16:12:56 Acute respiratory failure 11843677 J96.00 RSV positive last week.impro ving, but has residual cough and congestion .Continuea lbuterol inhaler QID.Trend VS, LS, satsMonito r closely. Hypokalemia 49382606 E87 .6 stable 3.6 on 07/14. Dementia [id number] F02.B0 stableCont inue aricept 10 mg qhs and amitriptyl ine 10 mg qhs.Contin ue supportive care, expect decline.HC P invokedMon itor mood and behaviors. Psych continues to follow Recurrent urinary tract infection N30.20 resolvedwb c stable, no s/s of recurrent UTIcomplet ed Cefuroxime 500 mg BID on 07/08/24Cont inue Vitamin C 500 mg BID and methenamin eMonitor sxs., VSMaintain fluids [id number] KEVIN ESPINOZA [address] [place] [address] rd ROB FERNANDEZ [address] 10/15/2024 05:56:38 10/17/2024 13:10:32 Dementia [id number] F02.B0 expect declineCon tinue aricept 10 mg qhs and amitriptyl ine 10 mg qhs.Contin ue supportive careHCP invokedMon itor mood and behaviors. Psych continues to follow Recurrent urinary tract infection N30.20 Continue Vitamin C 500 mg BID and methenamin eMonitor sxs.increa se hydration/ water preferred to flush out toxins. Chronic pain [id number] G8 9.29 Continue oxycodone 5 mg q 6 prn and APAP 650 mg q 6 hrs prn.Monito r sxs. Health Concerns Section Related Observation LastModified by Organization Detai ls LastModified Time None Recorded Concern Status LastModified by Organization Details LastModified Time None Recorded Advance Directives Directive Y: Payers Insurance Date Sequence Insurance Name Policy Number Policy [place] Covered Member ID [place] Member ID Guarantor Name 10/15/2024 2 [place] [id number] Deann Eduardo [id number] Deann Eduardo 10/15/2024 1 [place] [employer] Deann Eduardo [id number] Deann Eduardo Notes Date Note Type Note Provider Name and Address Organization Details Recorded Time 07/09/2024 text/html ROS as noted in the HPI Patient is an 83 yo female resident seen for MD visit recently readmitted from hospital after acute transfer for respiratory failure. Dx with bronchitis and encephalopathy covered with rocephin and zithromax, steroids and nebs. PMH significant for dementia and constipation Matt Lynn MD [address] [facility], [address], [place], [address], [facility] [employer] 07/09/2024 12:38:08 07/15/2024 text/html ROS as noted in the HPI This is an 83 yr old female [...] and her inability to move comfortably. call box wirer provider notified, and duonebs and oxycodone ordered. [...] Loose congested cough. FARHAD CHOW, NAN [address] [facility], [address], [place], [address], [facility] [employer] 07/15/2024 11:13:24 07/16/2024 text/html ROS as noted in the HPI This is an 83 yr old female [...] SOB today. MARIA EUGENIA BOLES CNP [address] [facility], [address], [place], [address], [facility] 07/16/2024 12:42:28 07/23/2024 text/html ROS as noted in the HPI This is an 83 yr old female [...] SOB today. MARIA EUGENIA BOLES CNP [address] [facility], [address], [place], [address], [facility] [employer] [facility] 07/29/2024 14:03:23 10/15/2024 text/html ROS as noted in the HPI 83 yr old female LTC resident seen for routine rounding. Medically she has been stable, there is no acute concerns. KEVIN ESPINOZA [address] , [address], [place], [address], [facility] [employer] [facility] 10/16/2024 19:32:07 OBGyn Episode No OBEpisode recorded.
== END 2024-10-13 00:01 | disposition home or self-care (01) ==
LOC: HO.MMNH3L
PROVIDERS: Nurse Practitioner Family; Visit Provider Family Medicine
DX: R55 Syncope and collapse (principal); G43.701 Chronic migraine without aura, not intractable, with status migrainosus; F03.B0 Unspecified dementia, moderate, without behavioral disturbance, psychotic disturbance, mood disturbance, and anxiety
CPT/HCPCS: 36415; 80048

== ENCOUNTER 2024-11-10 | Outpatient (REF) | payer MEDICARE, SELFPAY ==
[2024-11-10 06:13] LABS: MANUAL DIFF FLAG NO
[2024-11-10 07:13] LABS: Hematocrit 41.1 % (37.0-47.0); Hemoglobin 13.5 g/dl (12.0-16.0); Imm Gran Abs Auto 0.02 X10*3/uL (0.00-0.03); Imm Gran Pct Auto 0.3 % (0.0-0.4); Lymphocytes Absolute Auto 1.3 X10*3/uL (1.2-4.9); Mean Corpuscular HGB Conc 32.8 g/dl (31.0-35.0); Mean Corpuscular Hemoglobin 30.4 pg (27.0-33.0); Mean Corpuscular Volume 92.6 fL (80.0-98.0); NRBC Abs Auto 0.000 X10*3/uL (0.0-0.012); NRBC Pct Auto 0.0 /100WBC (0.0-0.2); Platelet Count 286 X10*3/uL (160-400); Red Blood Count 4.44 X10*6/uL (4.20-5.50); White Blood Count 6.3 X10*3/uL (4.8-10.8)
[2024-11-10 07:18] LABS: Alanine Aminotransferase < 6 U/L (0-31); Albumin Level 3.7 g/dL (3.5-5.0); Alkaline Phosphatase 62 U/L (39-117); Anion Gap 15 (12-20); Aspartate Amino Transferase 22 U/L (5-31); Blood Urea Nitrogen 15 mg/dL (9-16); Calcium 9.2 mg/dL (8.4-10.2); Carbon Dioxide 24 mmol/L (22-29); Chloride 105 mmol/L (96-108); Estimated Glomerular Filt Rate > 60; Potassium 4.2 mmol/L (3.3-5.1); Sodium 140 mmol/L (135-145); Total Protein 6.9 g/dL (6.5-8.0)
== END 2024-11-10 00:01 | disposition home or self-care (01) ==
LOC: HO.MMNH2L
PROVIDERS: Visit Provider Family Medicine
DX: K52.89 Other specified noninfective gastroenteritis and colitis (principal); R27.8 Other lack of coordination
CPT/HCPCS: 36415; 80053; 85025

== ENCOUNTER 2024-12-09 06:15 | Outpatient (REF) | payer MEDICARE, SELFPAY ==
[2024-12-09 06:09] LABS: MANUAL DIFF FLAG NO
[2024-12-09 06:18] LABS: Hematocrit 35.9 % (37.0-47.0); Hemoglobin 12.1 g/dl (12.0-16.0); Imm Gran Abs Auto 0.01 X10*3/uL (0.00-0.03); Imm Gran Pct Auto 0.2 % (0.0-0.4); Lymphocytes Absolute Auto 1.9 X10*3/uL (1.2-4.9); Mean Corpuscular HGB Conc 33.7 g/dl (31.0-35.0); Mean Corpuscular Hemoglobin 30.2 pg (27.0-33.0); Mean Corpuscular Volume 89.5 fL (80.0-98.0); NRBC Abs Auto 0.000 X10*3/uL (0.0-0.012); NRBC Pct Auto 0.0 /100WBC (0.0-0.2); Platelet Count 449 X10*3/uL (160-400); Red Blood Count 4.01 X10*6/uL (4.20-5.50); White Blood Count 4.3 X10*3/uL (4.8-10.8)
--- OUTSIDE RECORDS SUMMARY | 2024-12-09 06:18 | XMS_ITS | Clinical Summary ---
Author Organization [facility] it Address [address] [place] [address] Care Team Providers Care Information Systems Architect Name Role Phone Melchor Mccormack MD Primary Care Provider [phone] Allergies Active Allergy Reactions Criticality Noted Date [...] disturbance, psychotic disturbance, mood disturbance, or anxiety ([facility] V24, [facility] V28) 04/20/2022 Elevated WBC count 02/06/2022 Overview [...] Surgery Date Site/Laterality Comments ESOPHAGOGASTRODUODENOSCOPY 08/29/11 PROCEDURE: SC ESOPHAGOGASTRODUODENOSCOPY TRANSORAL DIAGNOSTIC; COMMENT: normal COLONOSCOPY 2004 [...] Hypertension/CHF/CAD Annual BMP Blood Test 07/11/2023 02/01/2022 Depression Screening 04/09/2024 COVID-19 Vaccine ( - season) 2024 02/11/2021, 06/16/2020, 05/12/2020 Influenza Vaccine (#1) 2024 , 01/11/2022, 03/25/2021, [...] Results * Annual BMP Blood Test (02/01/2022) [facility] Annual BMP Blood Test abstracted Historical Provider HEALTH MAINTENANCE Final Result * (ABNORMAL) Lipid panel (01/26/2021) [facility] LDL/HDL Ratio 2 0 - 4 [...] (World Health Organization Fracture Risk Assessment) [facility] Department of Internal Medicine recommends [...] (World Health Organization Fracture Risk Assessment) [facility] Department of Internal Medicine recommendsusing [...] Recently Relevant to Health Maintenance Care Teams Information Systems Architect Relationship Specialty Start Date End Date Melchor Mccormack MD [address] [place] [id number] PCP - General 05/21/10
[2024-12-09 07:12] LABS: Anion Gap 12 (12-20); Blood Urea Nitrogen 14 mg/dL (9-16); Calcium 8.9 mg/dL (8.4-10.2); Carbon Dioxide 29 mmol/L (22-29); Chloride 105 mmol/L (96-108); Estimated Glomerular Filt Rate > 60; Sodium 143 mmol/L (135-145)
[2024-12-09 07:16] LABS: Potassium 2.7 mmol/L (3.3-5.1)
== END 2024-12-09 06:16 | disposition home or self-care (01) ==
LOC: HO.MMNH2L 06:15
PROVIDERS: Visit Provider Family Medicine
DX: R27.8 Other lack of coordination (principal); K52.89 Other specified noninfective gastroenteritis and colitis
CPT/HCPCS: 36415; 80048; 85025

== ENCOUNTER 2024-12-11 05:50 | Outpatient (REF) | payer MEDICARE, SELFPAY ==
[2024-12-11 07:20] LABS: Anion Gap 12 (12-20); Blood Urea Nitrogen 9 mg/dL (9-16); Calcium 8.9 mg/dL (8.4-10.2); Carbon Dioxide 26 mmol/L (22-29); Chloride 106 mmol/L (96-108); Estimated Glomerular Filt Rate > 60; Potassium 4.0 mmol/L (3.3-5.1); Sodium 140 mmol/L (135-145)
== END 2024-12-11 05:51 | disposition home or self-care (01) ==
LOC: HO.MMNH3L 05:50
PROVIDERS: Visit Provider Student in an Organized Health Care Education/Training Program
DX: R55 Syncope and collapse (principal); R33.8 Other retention of urine
CPT/HCPCS: 36415; 80048

== ENCOUNTER 2025-01-12 06:45 | Outpatient (REF) | payer MEDICARE, SELFPAY ==
[2025-01-12 06:33] LABS: MANUAL DIFF FLAG NO
[2025-01-12 06:50] LABS: Hematocrit 35.7 % (37.0-47.0); Hemoglobin 11.3 g/dl (12.0-16.0); Imm Gran Abs Auto 0.01 X10*3/uL (0.00-0.03); Imm Gran Pct Auto 0.2 % (0.0-0.4); Lymphocytes Absolute Auto 1.8 X10*3/uL (1.2-4.9); Mean Corpuscular HGB Conc 31.7 g/dl (31.0-35.0); Mean Corpuscular Hemoglobin 29.4 pg (27.0-33.0); Mean Corpuscular Volume 93.0 fL (80.0-98.0); NRBC Abs Auto 0.000 X10*3/uL (0.0-0.012); NRBC Pct Auto 0.0 /100WBC (0.0-0.2); Platelet Count 314 X10*3/uL (160-400); Red Blood Count 3.84 X10*6/uL (4.20-5.50); White Blood Count 6.0 X10*3/uL (4.8-10.8)
--- OUTSIDE RECORDS SUMMARY | 2025-01-12 07:01 | XMS_ITS | Data Portability ---
Author Organization [facility], Main Office Address [address] [facility], [address] [place] [address] Care Team Providers Care [employer] Name Role Phone CHRIS GARCIA Primary Care Provider [phone] RODERICK MAGDALENO 3RD FLOOR OTHER [phone] Assessment Encounter Date Assessment Date Assessment LastModified [...] and Address Organization Details Recorded Time Dementia 56313579 Active 2022 DMITRIY LEBRON NP [address] [facility], [address], [place], [address], [facility] 3 12:17:21 Retention of urine 069102722 Active 2022 DMITRIY LEBRON NP [address] , [address], [place], [address], [facility] 3 12:17:26 Constipatio n 44357431 Active 2022 DMITRIY LEBRON NP [address], [address], [place], [address], [facility] 3 12:17:32 Glaucoma 90990697 Active 2022 DMITRIY LEBRON, NAN [address], [address], [place], [address], [facility] 3 12:17:39 Falls 230976907 Active 2022 DMITRIY LEBRON NP [address], [address], [place], [address], [facility] 3 12:19:11 History of syncope 6925304473294 09 Active 2022 DMITRIY LEBRON NP [address], [address], [place], [address], [facility] 3 12:19:19 Chronic migraine without aura 0848681264141 05 Active 2022 DMITRIY LEBRON NP [address], [address], [place], [address], [facility] 3 12:24:31 COVID-19 375890049 Active 2022 DMITRIY LEBRON NP [address], [address], [place], [address], [facility] 3 13:42:03 Stercoral colitis 926711743 Active 2022 Odalys Barber MD [address], [address], [place], [address], [facility] 3 10:42:17 Glaucoma 04052301 Active 2022 Odalys Barber MD [address], [address], [place], [address], [facility] [facility] 3 10:50:01 Acute urinary tract infection 346871562 Active 2022 DMITRIY LEBRON NP [address], [address], [place], [address], [facility] 3 13:22:34 Recurrent urinary tract infection 157619148 Active 2022 Odalys Barber MD [address] [facility], [address], [place], [address], [facility] 3 21:21:00 Chronic pain 93350439 Active 2023 Odalys Barber MD [address] [facility], [address], [place], [address], [facility] 4 14:05:27 Indigestion 116379859 Active 2023 KEVIN ESPINOZA [address] [facility], [address], [place], [address], [facility] 4 13:47:57 Acute respiratory failure 14176700 Active 2024 KEVIN ESPINOZA [address] [place] [address], [address], [place], [address], [facility] 5 22:54:27 Hypokalemia 88872060 Active 2024 KEVIN ESPINOZA [address] [place] [address], [address], [place], [address], [facility] 5 22:54:55 Problem Notes None recorded. Medical Equipment None Reported. Allergies Allergen ID Allergen Name Allergen Category Reaction Reaction Severity Criticality Documentation Date Start Date Code Code System Note Provider Name and Address Organization Details Recorded Time 87617 Product containin g penicilli n (product) medicatio n Not available Not available Not available 11/17/2022 34632 8001 SNOMED DMITRIY LEBRON NP [address] [place] [address], [facility] [address], [place], [address], [facility] 3 11:50:19 Medications Name Sig Start [...] % 112/87 mm[Hg] FARHAD CHOW NP [address] [facility] [address], [place], [address], [facility] 5 10:28:22 Date Recorded Body height Heart rate Respiratory rate Body temperature Systolic And Diastolic Provider Name and Address Organization Details Last Updated DateTime 5 157.48 cm 74 /min 18 /min 97.2 [degF] 122/70 mm[Hg] MARIA EUGENIA BOLES CNP [address] [facility] [address], [place], [address], [facility] 5 11:53:57 Date Recorded Body height Provider Name an d Address Organization Details Last Updated DateTime 10/15/2024 157.48 cm KEVIN ESPINOZA [address] [facility] [address], [place], [address], [facility] 10/16/2024 19:28:34 Social History Question Answer Notes LastModified by Organizat ion Details LastModified Time Tobacco Smoking Status Unknown If Ever Smoked DMITRIY LEBRON NP [address] [facility] [address], [place], [address], [facility] 11/17/2022 11:50:31 Do You Have An Advance Directive? Yes Information not available 11/21/2022 What Is Your Code Status? Full Code [email or web address] Information not available 11/20/2022 Do You Have A Medical Power Of Ore Charger? Yes HCP Invoked Information not available 11/21/2022 [...] adjuvanted, quadrivalent, PF 01/09/2023 completed Anjana zimmer, [facility] 04/27/2023 13:03:23 Past Encounters Encounter ID Performer Location Encounter Start Date Encounter Closed Date Diagnosis/Indication Diagnosis SNOMED-CT Code Diagnosis ICD10 Code Diagnosis IMO Codes Diagnosis Note [id number] NAN ALEXANDRA [address] [facility] [place] [address] 11/17/2022 10:29:24 11/21/2022 15:53:20 Constipation 00533897 K59.00 miralax dailysenna plus bidmonitio r bm Retention of urine 69317 4002 R33.9 flomax 0.4 mg hsvoiding trial today 11/17monito r urine output Dementia 30010287 F03.90 aricept 10 mg hsseroquel 50 mg hs psych prnAIMS 0 Glaucoma 39304755 H40.9 combigan ou bidrocklat an hs Falls 400565285 R29.6 PT OT eval and treatfall precaution sfrequent safety checks History of syncope 80815 96204 82748 Z86.79 monitor ortho vs prn Chronic mi graine without aura 4602186283 61386 G43.709 prednisone 10 mg dailyamitr iptylline 10 mg hs COVID-19 911939458 U07.1 No symptoms To use paxlovid, dexamethas one, fluids, supplement al O2 prn for sxs. Continue to monitor O2 sats, temp, GI sxs and po intake. [id number] DMITRIY LEBRON NP [address] [address] 11/20/2022 14:15:54 11/23/2022 11:39:23 COVID-19 336801944 U07.1 monitor congestion paxlovid 150/100 bid for 5 daysTo use paxlovid, dexamethas one, fluids, supplement al O2 prn for sxs.Contin ue to monitor O2 sats, temp, GI sxs and po intake. [id number] Odalys Barber MD [address] [address] 11/21/2022 13:51:52 11/28/2022 16:22:18 COVID-19 290055753 U07.1 With mild coughConti nue paxlovid 150/100 BID for 5 day courseWill use dexamethas one, fluids, supplement al O2 prn for sxs.Contin ue to monitor O2 sats, temp, GI sxs and po intake. Retention of urine 63325 4002 R33.8 Successful voiding trial on ontin ue tamsulosin 0.4 mg qdMonitor urinary function. Dementia 73165947 F03.90 Continues at baselineCo ntinue aricept 10 mg qhs, seroquel 50 mg qhs and amitriptyl ine 10 mg qhs.Contin ue supportive care, expect decline.HC P invokedMon itor mood and behaviors. Psych consult prn. Glaucoma 51481836 H40.89 Continue combigan ou BID and rocklatan qhsF/U with eye dr as planned. Falls 934200349 R29.6 Very deconditio vane and with balance issuesNeed s PT/OT for strengthen ing, balance, gait training, safety and function.C ontinue fall precaution s.Monitor for safety. History of syncope 35873 80664 41944 Z86.79 Monitor vitals and MS. Chronic mi graine without aura 4609224686 27442 G43.709 No current sxs.Contin ue prednisone 10 mg qd and amitriptyl ine 10 mg qhsMonitor sxs. Stercoral colitis 747485 001 K52.89 Resolved.C ontinue bowel meds as ordered.Mo nitor bowel function. [id number] DMITRIY LEBRON NP [address] [address] 11/22/2022 13:40:59 11/29/2022 08:17:42 COVID-19 530019548 U07.1 monitor congestion paxlovid 150/100 bid for 5 days to 11/25To use paxlovid, dexamethas one, fluids, supplement al O2 prn for sxs.Contin ue to monitor O2 sats, temp, GI sxs and po intake. [id number] DMITRIY LEBRON NP [address] [address] 12/04/2022 13:19:24 12/06/2022 13:36:36 Dementia 14463551 F03.90 aricept 10 mg hsseroquel 50 mg hspsych prnAIMS 0did not tolerate slums COVID-19 849827651 U07.1 recoveredm onitor congestion paxlovid 150/100 bid for 5 days to 11/25To use paxlovid, dexamethas one, fluids, supplement al O2 prn for sxs.Contin ue to monitor O2 sats, temp, GI sxs and po intake. Acute urin marcie tract infection 946038456 N39.0 macrobid 100 mg bid for 7 days [id number] DMITRIY LEBRON NP [address] [address] 12/13/2022 11:22:57 12/15/2022 15:54:33 Retention of urine 092418036 R33.8 flomax 0.4 mg hsvoiding trial today 11/17-faile d, cath restartedm onitor urine outputurol ogy consult [place] 833424667 R29.6 PT OT eval and treatfall precaution sfrequent safety checks Dementia 30878404 F03.90 aricept 10 mg hsseroquel 50 mg hspsych prnAIMS 0did not tolerate slums [id number] DMITRIY LEBRON NP [address] [address] 12/20/2022 10:10:14 12/22/2022 11:38:53 Constipation 75851978 K59.00 miralax dailysenna plus bidmonitio r bm Retention of urine 94799 4002 R33.9 flomax 0.4 mg hs-increas ed to 0.8 mg hsvoiding trial today 11/17-faile d, will try again 12/21monito r urine outputurol ogy consult Dementia 54562079 F03.90 aricept 10 mg hsseroquel 50 mg hspsych prnAIMS 0 Glaucoma 16001380 H40.9 combigan ou bidrocklat an hs Falls 632170375 R29.6 PT OT eval and treatfall precaution sfrequent safety checks History of syncope 32529 99506 11850 Z86.79 monitor ortho vs prn Chronic mi graine without aura 5107063621 72349 G43.709 prednisone 10 mg dailyamitr iptylline 10 mg hs COVID-19 728272284 U07.1 No symptoms-r ecovered by dateTo use paxlovid, dexamethas one, fluids, supplement al O2 prn for sxs.Contin ue to monitor O2 sats, temp, GI sxs and po intake. [id number] DMITRIY LEBRON NP [address] [address] 12/28/2022 14:59:22 01/02/2023 15:51:32 Retention of urine 642386715 R33.9 flomax 0.4 mg hs-increas ed to 0.8 mg hsvoiding trial today 11/17-faile d, will try again 12/21-faile d againmonit or urine outputurol ogy consult [id number] DMITRIY LEBRON NP [address] [address] 01/03/2023 13:43:31 01/09/2023 11:51:30 Dementia 47659711 F03.90 aricept 10 mg hsseroquel 50 mg hspsych prnAIMS 0 Retention of urine 67970 4002 R33.9 flomax 0.8 mg hsvoiding trial today 11/17-faile d, will try again 12/21-faile d againmonit or urine outputurol ogy consult Constipation 68712828 K5 9.00 miralax dailysenna plus bidmonitio r bm Glaucoma 24131916 H40.9 combigan ou bidrocklat an hs Falls 789961160 R29.6 PT OT eval and treatfall precaution sfrequent safety checks History of syncope 98309 10266 93429 Z86.79 monitor ortho vs prn Chronic mi graine without aura 3263470524 46009 G43.709 prednisone 10 mg dailyamitr iptylline 10 mg hs COVID-19 974159416 U07.1 recoveredN o symptomsTo use paxlovid, dexamethas one, fluids, supplement al O2 prn for sxs.Contin ue to monitor O2 sats, temp, GI sxs and po intake. [id number] NAN ALEXANDRA RASTA [address] [place] [address] 01/08/2023 16:14:21 01/12/2023 13:04:50 Dementia 40255541 F03.90 aricept 10 mg hsseroquel 50 mg hspsych prnAIMS 0 Retention of urine 02679 4002 R33.9 flomax 0.8 mg hsvoiding trial today 11/17-faile d, will try again 12/21-faile d againmonit or urine outputurol ogy consult 10/4 Constipation 35911713 K5 9.00 miralax dailysenna plus bidmonitio r bm Glaucoma 10370966 H40.9 combigan ou bidrocklat an hs Falls 043648895 R29.6 PT OT eval and treatfall precaution sfrequent safety checks History of syncope 96620 57513 71576 Z86.79 monitor ortho vs prn Chronic mi graine without aura 0512567515 13880 G43.709 prednisone 10 mg dailyamitr iptylline 10 mg hs COVID-19 159505656 U07.1 recoveredN o symptomsTo use paxlovid, dexamethas one, fluids, supplement al O2 prn for sxs.Contin ue to monitor O2 sats, temp, GI sxs and po intake. [id number] Odalys Barber MD [facility] [address] [place] [address] [place] [address] 02/09/2023 20:19:12 02/23/2023 13:46:06 Dementia 71854808 F02.B0 Continues at baselineCo ntinue aricept 10 mg qhs, seroquel 50 mg qhs and amitriptyl ine 10 mg qhs.Contin ue supportive care, expect decline.HC P invokedMon itor mood and behaviors. Psych consult prn. Retention of urine 76853 4002 R33.8 Has failed 2 voiding trials.Rep ortedly had uro appt on 01/10, no notes in chart.Cont inue tamsulosin 0.8 mg qd and bethanecol 25 mg TIDContinu e arana and f/u with uro as planned. Falls 863583859 R29.6 Remains deconditio vane.Contin ue PT/OT for strengthen ing, balance, gait training, safety and function.C ontinue fall precaution s.Monitor for safety. Chronic mi graine without aura 9960040326 26711 G43.709 Continue prednisone 10 mg qd and amitriptyl ine 10 mg qhs.Monito r sxs. COVID-19 906844221 U07.1 Tested + on 11/20Now recovered. Monitor for sequelae. Recurrent urinary tract infection 931018430 N30.20 Continue Vitamin C 500 mg BID and D-Mannose 1000 mg BID for prophylaxi s.Continue Elmiron 100 mg TID for IC pain.Monit or sxs. [id number] DMITRIY LEBRON NP [address] [place] [address] 03/07/2023 10:57:58 03/20/2023 08:53:34 Dementia 74462833 F03.90 aricept 10 mg hsseroquel 50 mg hspsych prnAIMS 0 Retention of urine 34375 4002 R33.9 flomax 0.8 mg hsvoiding trial today 11/17-faile d, will try again 12/21-faile d againd-man nose 1000 bidmonitor urine outputurol ogy consult prn Constipation 23160285 K5 9.00 miralax dailysenna plus bidmonitio r bm Glaucoma 59955316 H40.9 combigan ou bidrocklat an hs Falls 314618485 R29.6 PT OT eval and treatfall precaution sfrequent safety checks History of syncope 84502 45768 63731 Z86.79 monitor ortho vs prn Chronic mi graine without aura 2982147502 67846 G43.709 prednisone 10 mg dailyamitr iptylline 10 mg hs COVID-19 240684287 U07.1 recoveredN o symptomsTo use paxlovid, dexamethas one, fluids, supplement al O2 prn for sxs.Contin ue to monitor O2 sats, temp, GI sxs and po intake. [id number] KEVIN ESPINOZA [address] [address] 05/03/2023 09:01:35 05/05/2023 03:52:24 Urinary tract infectious disease 83089524 N39.0 + UA with proteus mirabilisB actrim DS BID for 5 daysprobio tic for 7 daysmonito r for improvemen t. Dementia 64139790 F03.90 aricept 10 mg hsseroquel 50 mg hspsych prnmonitor for mood and behavior cahnges. [id number] Odalys Barber MD [address] [address] 05/03/2023 20:12:49 05/16/2023 12:09:34 Urinary tract infectious disease 93795287 N30.00 + UA with proteus mirabilisB actrim DS BID for 5 d course until 05/08 and probiotic BID until 05/09.Monit or sxs. Dementia 99566448 F02.B0 Remains at baselineCo ntinue aricept 10 mg qhs, seroquel 50 mg qhs and amitriptyl ine 10 mg qhs.Contin ue supportive care, expect decline.HC P invokedMon itor mood and behaviors. Psych follows, last seen 04/30, no med changes. Retention of urine 96135 4002 R33.8 No further issues since arana d/c'dConti nue bethanecol 25 mg TID and tamsulosin 0.8 mg qdMonitor urinary function. Falls 175988095 R29.6 Remains deconditio vane.Use PT/OT as ablle/need ed.Continu e fall precaution s.Monitor for safety. Recurrent urinary tract infection N30.20 Continue Vitamin C 500 mg BID and D-Mannose 1000 mg BID for prophylaxi s.Monitor sxs. Chronic mi graine without aura 3895214788 98828 G43.709 Continue prednisone 10 mg qd and amitriptyl ine 10 mg qhs.Monito r sxs. COVID-19 013591181 U07.1 Tested + on 11/20/22Now recovered. Monitor for sequelae. [id number] [facility]INOZA [facility] [address] [place] [address] rd [place] [address] 06/28/2023 09:24:56 07/04/2023 14:27:17 Dementia 31291699 F02.B0 Remains at baselineCo ntinue aricept 10 mg qhs, seroquel 50 mg qhs and amitriptyl ine 10 mg qhs.Contin ue supportive care, expect decline.HC P invokedMon itor mood and behaviors. psych prn Retention of urine 10526 4002 R33.8 Continue bethanecol 25 mg TIDtamsulo sin 0.8 mg qdMonitor urinary function. Falls 866974265 R29.6 no reported recent fallsConti nue fall precaution s.Monitor for safety.Mor se 60 Recurrent urinary tract infection N30.20 Continue Vitamin C 500 mg BIDD-Vineet se 1000 mg BID for prophylaxi s.Monitor sxs. Chronic mi graine without aura 4748811573 47513 G43.709 stableCont inue prednisone 10 mg qdamitript yline 10 mg qhs.Monito r sxs. COVID-19 274520625 U07.1 With mild coughConti nue paxlovid 150/100 BID for 5 day courseWill use dexamethas one, fluids, supplement al O2 prn for sxs.Contin ue to monitor O2 sats, temp, GI sxs and po intake. Stercoral colitis 168601 001 K52.89 Resolved.C ontinue bowel meds as ordered.Mo nitor bowel function. Glaucoma 35327796 H40.89 Continue combigan ou BID and rocklatan qhsF/U with eye dr as planned. History of syncope 92123 05941 88077 Z86.79 Monitor vitals and MS. Constipation 23353038 K5 9.00 miralax dailysenna plus bidmonitio r bm Chronic pain 59218617 G8 9.29 abdominal and back painoxycod one 5 mg q 6 prn [id number] MD RODERICK Liriano [address] [place] [address] [place] [address] 09/04/2023 13:20:07 09/11/2023 11:21:18 Dementia 26381066 F02.B0 MS remains stable.Moo d good after d/c seroquel.C ontinue aricept 10 mg qhs and amitriptyl ine 10 mg qhs.Contin ue supportive care, expect decline.HC P invokedMon itor mood and behaviors. Psych continues to follow Retention of urine 64888 4002 R33.8 No further issues since arana d/c'dConti nue bethanecol 25 mg TID and tamsulosin 0.8 mg qdMonitor urinary function. Falls 572991916 R29.6 Remains deconditio vane.Use PT/OT as able/neede d.Continue fall precaution s.Monitor for safety. Recurrent urinary tract infection 409418276 N30.20 Continue Vitamin C 500 mg BID and D-Mannose 1000 mg BID for prophylaxi s.Monitor sxs. Chronic mi graine without aura 3302681661 23812 G43.709 Continue prednisone 10 mg qd and amitriptyl ine 10 mg qhs.Monito r sxs. COVID-19 031863543 U07.1 Tested + on 11/20/22Now recovered. Monitor for sequelae. Constipation 25862558 K5 9.09 Continue bowel meds as ordered.Mo nitor bowel function. Chronic pain 26053781 G8 9.29 Continue oxycodone 5 mg q 6 prn and APAP 650 mg q 6 hrs prn.Monito r sxs. [id number] KEVIN ESPINOZA [address] [place] [address] [place] [address] 09/07/2023 13:56:21 09/11/2023 12:23:12 Indigestion 701371060 R10.13 see hpistart Tums 2 tabs Q4 prn TIDencoura ged to eat slowly, avoid caffeinate d drinksnurs ing to monitor for unrelieved sx nursing and update provider with changes Dysuria 37201435 R30.0 send urine for UA with C&S. [id number] KEVIN ESPINOZA [address] [address] 09/10/2023 12:44:19 09/17/2023 15:09:43 Dysuria 91802205 R30.0 send urine for UA with C&Snursing encouraged to reattemptw ill order one time dose of ativan to be given prior to attempt, hopefully to decrease resistence and combativen ess. [id number] KEVIN ESPINOZA [address] [address] 09/17/2023 08:54:06 09/20/2023 16:22:04 Recurrent urinary tract infection 779943162 N30.20 nursing was finally able to obtain [...] months.patricio sing updated to offers more fluids [id number] Barbara Modesta Anton [address] [address] 10/26/2023 09:48:50 10/30/2023 09:29:54 Dementia 27622808 F02.B0 MS remains stable.Moo d good after d/c seroquel.C ontinue aricept 10 mg qhs and amitriptyl ine 10 mg qhs.Contin ue supportive care, expect decline.HC P invokedMon itor mood and behaviors. Psych continues to follow Falls 480332463 R29.6 Remains deconditio vane.Use PT/OT as able/neede d.Continue fall precaution s.Monitor for safety. Recurrent urinary tract infection N30.20 Continue Vitamin C 500 mg BID and methanamin eMonitor sxs.treate d last month for UTI with bactrim Retention of urine 55440 4002 R33.8 No further issues since arana d/c'dConti nue bethanecol 25 mg TID and tamsulosin 0.8 mg qdMonitor urinary function. Chronic pain 35235024 G8 9.29 Continue oxycodone 5 mg q 6 prn and APAP 650 mg q 6 hrs prn.Monito r sxs. [id number] KEVIN ESPINOZA [address] [address] 12/11/2023 11:12:57 12/13/2023 14:34:20 Bilateral lower limb edema 183595960 R60.0 see hpiappears dependent, pt sits in wheelchair for long periods of timerefer to therapy for wheelchair with leg rest for elevationc heck labs proBNP, CBC, and BMP on 12/12/23will start compressio n stocking to wear dailyconsi flo giving diuretic for worsening edemarecom mend no added salt to diet.will monitor for changes Dementia 33383501 F02.B0 alert at her baseline with confusione xpect declineCon tinue aricept 10 mg qhs, seroquel 50 mg qhs and amitriptyl ine 10 mg qhs.Contin ue supportive care, expect decline.HC P invoked- updated at bedside on above plan and is in agreementM onitor mood and behaviors. psych prn [id number] KEVIN ESPINOZA [address] [address] 12/19/2023 08:36:46 12/24/2023 09:37:20 Dementia 66082540 F02.B0 MS remains stable.Con tinue aricept 10 mg qhs and amitriptyl ine 10 mg qhs.Contin ue supportive care, expect decline.HC P invokedMon itor mood and behaviors. Psych continues to follow Falls 824006985 R29.6 Remains deconditio vane.Use PT/OT as able/neede d.Continue fall precaution s.Monitor for safety. Recurrent urinary tract infection N30.20 Continue Vitamin C 500 mg BID and methenamin eMonitor sxs.treate d last month for UTI with bactrim Retention of urine 70108 4002 R33.8 No further issues since arana d/c'dConti nue bethanecol 25 mg TID and tamsulosin 0.8 mg qdMonitor urinary function. Chronic pain 25055728 G8 9.29 Continue oxycodone 5 mg q 6 prn and APAP 650 mg q 6 hrs prn.Monito r sxs. Bilateral lower limb edema 695081761 R60.0 appears dependent, pt sits in wheelchair for long periods of timerefer to therapy for wheelchair with leg rest for elevationc ompression stocking to wear dailyconsi flo giving diuretic for worsening edemarecom mend no added salt to diet.will monitor for changes [id number] KEVIN ESPINOZA [address] [place] [address] [place] [address] 02/14/2024 09:38:47 02/18/2024 12:51:21 Dementia 70511738 F02.B0 MS remains stable.Con tinue aricept 10 mg qhs and amitriptyl ine 10 mg qhs.Contin ue supportive care, expect decline.HC P invokedMon itor mood and behaviors. Psych continues to follow Falls 872864382 R29.6 Remains deconditio vane.Use PT/OT as able/neede d.Continue fall precaution s.Monitor for safety. Recurrent urinary tract infection N30.20 Continue Vitamin C 500 mg BID and methenamin eMonitor sxs.treate d last month for UTI with bactrim Retention of urine 56966 4002 R33.8 No further issues since arana d/c'dConti nue bethanecol 25 mg TID and tamsulosin 0.8 mg qdMonitor urinary function. Chronic pain 50811372 G8 9.29 Continue oxycodone 5 mg q 6 prn and APAP 650 mg q 6 hrs prn.Monito r sxs. Bilateral lower limb edema 772444470 R60.0 stable/ tracecompr ession stocking to wear dailyconsi flo giving diuretic for worsening edemarecom mend no added salt to diet.will monitor for changes Bereavement 71007205 Z63 .4 son 02/02- He visited with her everyday. so far she has been doing well with lost, due to her dementia she may have forgotten that her son has passed, there has been no agitation or other behaviors of expression . She will be attending his services today.will provide support along with nursing.travon mcbride need to restart ativan . [id number] KEVIN ESPINOZA [address] [address] 04/07/2024 15:04:30 04/16/2024 11:19:45 Dementia 64150464 F02.B0 MS remains stable.Con tinue aricept 10 mg qhs and amitriptyl ine 10 mg qhs.Contin ue supportive care, expect decline.HC P invokedMon itor mood and behaviors. Psych continues to follow Recurrent urinary tract infection 242284460 N30.20 Continue Vitamin C 500 mg BID and methenamin eMonitor sxs.treate d last month for UTI with bactrim Chronic pain 35669475 G8 9.29 Continue oxycodone 5 mg q 6 prn and APAP 650 mg q 6 hrs prn.Monito r sxs. Bilateral lower limb edema 788881761 R60.0 stable/ tracecompr ession stocking to wear dailyconsi flo giving diuretic for worsening edemarecom mend no added salt to diet.will monitor for changes COVID-19 [id number] U07.1 without sxdiscusse d with nursing, will provide supportive therapyupd ate provider with acute changes [id number] KEVIN ESPINOZA [address] [address] 07/06/2024 10:46:03 07/10/2024 16:17:30 Acute respiratory failure [id number] J96.00 resolvedde conditione dmonitor resp. statusPT/O T eval and tx Hypokalemia [id number] E87 .6 3.1/replet edfollow labs Dementia [id number] F02.B0 stableCont inue aricept 10 mg qhs and amitriptyl ine 10 mg qhs.Contin ue supportive care, expect decline.HC P invokedMon itor mood and behaviors. Psych continues to follow Recurrent urinary tract infection N30.20 stablecont Cefuroxime 500 mg BID until 07/08/24Cont inue Vitamin C 500 mg BID and methenamin eMonitor sxs.increa se hydration/ water preferred to flush out toxins. [id number] MD RODERICK Mcmahon [address] [facility] [place] [address] 07/09/2024 12:26:29 07/11/2024 08:35:31 Acute respiratory failure [id number] J96.01 see HPI treated with abx coursemoni tor respirator y status and need for repeat imaging Dementia [id number] F02.B0 baseline dementia with behaviorsH CP invokedcon tinue supportive carepsych eval prn Recurrent urinary tract infection N30.20 recently treated with rocephin for abovemonit or for recurrent infection [id number] FARHAD CHOW NP RODERICK MAGDALENO [address] [facility] [place] [address] 07/15/2024 10:27:43 07/16/2024 15:58:16 Acute respiratory failure [id number] J96.00 residual cough and congestion per staff.conc stephanie of acute 01/16 pain during the night associated with cough, [...] 1 in am, CBC, BMPMonitor closely. Hypokalemia 05800275 E87 .6 3.1/replet edfollow labs - repeat in am Dementia [id number] F02.B0 stableCont inue aricept 10 mg qhs and amitriptyl ine 10 mg qhs.Contin ue supportive care, expect decline.HC P invokedMon itor mood and behaviors. Psych continues to follow Recurrent urinary tract infection N30.20 stablecomp leted Cefuroxime 500 mg BID on 07/08/24Cont inue Vitamin C 500 mg BID and methenamin eMonitor sxs., VSMaintain fluids [id number] MARIA EUGENIA BOLES CNP [address] [address] 07/16/2024 12:24:54 07/23/2024 11:34:10 Acute respiratory failure [id number] J96.00 RSV positive.r esidual cough and congestion resolved.C ontinueSch edule albuterol updrafts tid x 5 daysAdd mucinex 600 mg bid x 7 daysTrend VS, LS, satsMonito r closely. Hypokalemia [id number] E87 .6 3.1/replet edrepeat lab, pending. Dementia [id number] F02.B0 stableCont inue aricept 10 mg qhs and amitriptyl ine 10 mg qhs.Contin ue supportive care, expect decline.HC P invokedMon itor mood and behaviors. Psych continues to follow Recurrent urinary tract infection N30.20 stablecomp leted Cefuroxime 500 mg BID on 07/08/24Cont inue Vitamin C 500 mg BID and methenamin eMonitor sxs., VSMaintain fluids [id number] MARIA EUGENIA BOLES CNP [address] [address] 07/23/2024 10:34:55 07/29/2024 16:12:56 Acute respiratory failure [id number] J96.00 RSV positive last week.impro ving, but has residual cough and congestion .Continuea lbuterol inhaler QID.Trend VS, LS, satsMonito r closely. Hypokalemia 09429856 E87 .6 stable 3.6 on 07/14. Dementia [id number] F02.B0 stableCont inue aricept 10 mg qhs and amitriptyl ine 10 mg qhs.Contin ue supportive care, expect decline.HC P invokedMon itor mood and behaviors. Psych continues to follow Recurrent urinary tract infection N30.20 resolvedwb c stable, no s/s of recurrent UTIcomplet ed Cefuroxime 500 mg BID on 07/08/24Cont inue Vitamin C 500 mg BID and methenamin eMonitor sxs., VSMaintain fluids [id number] [facility] [address] [place] [address] rd ROB FERNANDEZ [address] 10/15/2024 05:56:38 10/17/2024 13:10:32 Dementia [id number] F02.B0 expect declineCon tinue aricept 10 mg qhs and amitriptyl ine 10 mg qhs.Contin ue supportive careHCP invokedMon itor mood and behaviors. Psych continues to follow Recurrent urinary tract infection [id number] N30.20 Continue Vitamin C 500 mg BID and methenamin eMonitor sxs.increa se hydration/ water preferred to flush out toxins. Chronic pain [id number] G8 9.29 Continue oxycodone 5 mg q [...] Name 10/15/2024 2 [place] [id number] Deann Eduardo [id number] Deann Eduardo 10/15/2024 1 [place] [employer] Deann Eduardo [id number] Deann Eduardo Notes Date Note Type [...] dementia and constipation Matt Lynn MD [address] [facility], [address], [place], [address], [facility] 07/09/2024 12:38:08 07/15/2024 text/html ROS as noted [...] and her inability to move comfortably. call center coordinator provider notified, and duonebs and oxycodone ordered. [...] GI or complaints. Loose congested cough. FARHAD CHOW NP [address] [facility], [address], [place], [address], [facility] 07/15/2024 11:13:24 07/16/2024 text/html ROS as noted [...] SOB today. MARIA EUGENIA BOLES CNP [address] [facility], [address], [place], [address], [facility] 07/16/2024 12:42:28 07/23/2024 text/html ROS as [...] SOB today. MARIA EUGENIA BOLES CNP [address] [facility], [address], [place], [address], [facility] [employer] [facility] 07/29/2024 14:03:23 10/15/2024 text/html ROS as noted in the HPI 83 yr old female LTC resident seen for routine rounding. Medically she has been stable, there is no acute concerns. KEVIN ESPINOZA [address] [facility], [address], [place], [address], [facility] [employer] [facility] 10/16/2024 19:32:07 OBGyn Episode No OBEpisode recorded.
[2025-01-12 07:30] LABS: Anion Gap 11 (12-20); Blood Urea Nitrogen 13 mg/dL (9-16); Calcium 8.8 mg/dL (8.4-10.2); Carbon Dioxide 26 mmol/L (22-29); Chloride 107 mmol/L (96-108); Estimated Glomerular Filt Rate > 60; Potassium 3.4 mmol/L (3.3-5.1); Sodium 141 mmol/L (135-145)
== END 2025-01-12 06:46 | disposition home or self-care (01) ==
LOC: HO.MMNH3L 06:45
PROVIDERS: Visit Provider Family Medicine
DX: R27.8 Other lack of coordination (principal); K52.89 Other specified noninfective gastroenteritis and colitis
CPT/HCPCS: 36415; 80048; 85025

== ENCOUNTER 2025-01-22 05:35 | Outpatient (REF) | payer MEDICARE, SELFPAY ==
[2025-01-22 06:04] LABS: Anion Gap 13 (12-20); Blood Urea Nitrogen 10 mg/dL (9-16); Calcium 8.4 mg/dL (8.4-10.2); Carbon Dioxide 26 mmol/L (22-29); Chloride 107 mmol/L (96-108); Estimated Glomerular Filt Rate > 60; Potassium 3.3 mmol/L (3.3-5.1); Sodium 143 mmol/L (135-145)
== END 2025-01-22 05:36 | disposition home or self-care (01) ==
LOC: HO.MMNH3L 05:35
PROVIDERS: Visit Provider Student in an Organized Health Care Education/Training Program
DX: F33.9 Major depressive disorder, recurrent, unspecified (principal); H40.9 Unspecified glaucoma; F03.B0 Unspecified dementia, moderate, without behavioral disturbance, psychotic disturbance, mood disturbance, and anxiety
CPT/HCPCS: 36415; 80048

== ENCOUNTER 2025-02-20 06:21 | Outpatient (REF) | payer MEDICARE, SELFPAY ==
[2025-02-20 06:24] LABS: MANUAL DIFF FLAG NO
--- OUTSIDE RECORDS SUMMARY | 2025-02-20 06:26 | XMS_ITS | Data Portability ---
Author Organization [facility], Main Office Address [address], [address] [place] [address] Care Team Providers Care Jet Handler Name Role Phone CHRIS GARCIA Primary Care [...] and Address Organization Details Recorded Time Dementia 44410304 Active 2022 DMITRIY LEBRON NP [address] [facility], [address], [place], [address], [facility] [employer] [facility] 3 12:17:21 Retention of urine 483469197 Active 2022 DMITRIY LEBRON NP [address] , [address], [place], [address], [facility] [employer] [facility] 3 12:17:26 Constipatio n 72390726 Active 2022 DMITRIY LEBRON NP [address], [address], [place], [address], [facility] 3 12:17:32 Glaucoma 56343378 Active 2022 DMITRIY LEBRON, NAN [address], [address], [place], [address], [facility] 3 12:17:39 Falls 447283845 Active 2022 DMITRIY LEBRON NP [address], [address], [place], [address], [facility] 3 12:19:11 History of syncope 5040229369619 09 Active 2022 DMITRIY LEBRON NP [address], [address], [place], [address], [facility] 3 12:19:19 Chronic migraine without aura 5156700672309 05 Active 2022 DMITRIY LEBRON NP [address], [address], [place], [address], [facility] 3 12:24:31 COVID-19 438029192 Active 2022 DMITRIY LEBRON NP [address], [address], [place], [address], [facility] 3 13:42:03 Stercoral colitis 245207407 Active 2022 Odalys Barber MD [address], [address], [place], [address], [facility] 3 10:42:17 Glaucoma 25661816 Active 2022 Odalys Barber MD [address], [address], [place], [address], [facility] 3 10:50:01 Acute urinary tract infection 337766841 Active 2022 DMITRIY LEBRON NP [address], [address], [place], [address], [facility] 3 13:22:34 Recurrent urinary tract infection 042334283 Active 2022 Odalys Barber MD [address] [facility], [address], [place], [address], [facility] 3 21:21:00 Chronic pain 19569762 Active 2023 Odalys Barber MD [address] [facility], [address], [place], [address], [facility] 4 14:05:27 Indigestion 171455074 Active 2023 KEVIN ESPINOZA [address] [facility], [address], [place], [address], [facility] 4 13:47:57 Acute respiratory failure 04793958 Active 2024 KEVIN ESPINOZA [address] [place] [address], [address], [place], [address], [facility] 5 22:54:27 Hypokalemia 68386551 Active 2024 KEVIN ESPINOZA [address] [place] [address], [address], [place], [address], [facility] 5 22:54:55 Problem Notes None recorded. Medical Equipment None Reported. Allergies Allergen ID Allergen Name Allergen Category Reaction Reaction Severity Criticality Documentation Date Start Date Code Code System Note Provider Name and Address Organization Details Recorded Time 85357 Product containin g penicilli n (product) medicatio n Not available Not available Not available 11/17/2022 35810 8001 SNOMED DMITRIY LEBRON NP [address] [place] [address], [facility] [address], [place], [address], [facility] 3 11:50:19 Medications Name Sig Start [...] % 112/87 mm[Hg] FARHAD CHOW NP [address] [facility] [address], [place], [address], [facility] 5 10:28:22 Date Recorded Body height Heart rate Respiratory rate Body temperature Systolic And Diastolic Provider Name and Address Organization Details Last Updated DateTime 5 157.48 cm 74 /min 18 /min 97.2 [degF] 122/70 mm[Hg] MARIA EUGENIA BOLES CNP [address] [facility] [address], [place], [address], [facility] 5 11:53:57 Date Recorded Body height Provider Name an d Address Organization Details Last Updated DateTime 10/15/2024 157.48 cm KEVIN ESPINOZA [address] [facility] [address], [place], [address], [facility] 10/16/2024 19:28:34 Social History Question Answer Notes LastModified by Organizat ion Details LastModified Time Tobacco Smoking Status Unknown If Ever Smoked DMITRIY LEBRON NP [address] [facility] [address], [place], [address], [facility] 11/17/2022 11:50:31 Do You Have An Advance Directive? Yes Information not available 11/21/2022 What Is Your Code Status? Full Code [email or web address] Information not available 11/20/2022 Do You Have A Medical Power Of Stores Assistant? Yes HCP Invoked Information not available 11/21/2022 [...] adjuvanted, quadrivalent, PF 01/09/2023 completed Anjana zimmer, [facility] 04/27/2023 13:03:23 Past Encounters Encounter ID Performer Location Encounter Start Date Encounter Closed Date Diagnosis/Indication Diagnosis SNOMED-CT Code Diagnosis ICD10 Code Diagnosis IMO Codes Diagnosis Note [id number] NAN ALEXANDRA [address] [facility] [place] [address] 11/17/2022 10:29:24 11/21/2022 15:53:20 Constipation 51954451 K59.00 miralax dailysenna plus bidmonitio r bm Retention of urine 68764 4002 R33.9 flomax 0.4 mg hsvoiding trial today 11/17monito r urine output Dementia 27805885 F03.90 aricept 10 mg hsseroquel 50 mg hs psych prnAIMS 0 Glaucoma 43658131 H40.9 combigan ou bidrocklat an hs Falls 790782935 R29.6 PT OT eval and treatfall precaution sfrequent safety checks History of syncope 25469 06588 86960 Z86.79 monitor ortho vs prn Chronic mi graine without aura 7451921272 14202 G43.709 prednisone 10 mg dailyamitr iptylline 10 mg hs COVID-19 683255709 U07.1 No symptoms To use paxlovid, dexamethas one, fluids, supplement al O2 prn for sxs. Continue to monitor O2 sats, temp, GI sxs and po intake. [id number] DMITRIY LEBRON NP [address] [address] 11/20/2022 14:15:54 11/23/2022 11:39:23 COVID-19 012126297 U07.1 monitor congestion paxlovid 150/100 bid for 5 daysTo use paxlovid, dexamethas one, fluids, supplement al O2 prn for sxs.Contin ue to monitor O2 sats, temp, GI sxs and po intake. [id number] Odalys Barber MD [address] [address] 11/21/2022 13:51:52 11/28/2022 16:22:18 COVID-19 007340999 U07.1 With mild coughConti nue paxlovid 150/100 BID for 5 day courseWill use dexamethas one, fluids, supplement al O2 prn for sxs.Contin ue to monitor O2 sats, temp, GI sxs and po intake. Retention of urine 35602 4002 R33.8 Successful voiding trial on ontin ue tamsulosin 0.4 mg qdMonitor urinary function. Dementia 36508951 F03.90 Continues at baselineCo ntinue aricept 10 mg qhs, seroquel 50 mg qhs and amitriptyl ine 10 mg qhs.Contin ue supportive care, expect decline.HC P invokedMon itor mood and behaviors. Psych consult prn. Glaucoma 10426558 H40.89 Continue combigan ou BID and rocklatan qhsF/U with eye dr as planned. Falls 248432435 R29.6 Very deconditio vane and with balance issuesNeed s PT/OT for strengthen ing, balance, gait training, safety and function.C ontinue fall precaution s.Monitor for safety. History of syncope 01392 31279 75602 Z86.79 Monitor vitals and MS. Chronic mi graine without aura 6246394560 69019 G43.709 No current sxs.Contin ue prednisone 10 mg qd and amitriptyl ine 10 mg qhsMonitor sxs. Stercoral colitis 577799 001 K52.89 Resolved.C ontinue bowel meds as ordered.Mo nitor bowel function. [id number] DMITRIY LEBRON NP [address] [address] 11/22/2022 13:40:59 11/29/2022 08:17:42 COVID-19 694044294 U07.1 monitor congestion paxlovid 150/100 bid for 5 days to 11/25To use paxlovid, dexamethas one, fluids, supplement al O2 prn for sxs.Contin ue to monitor O2 sats, temp, GI sxs and po intake. [id number] DMITRIY LEBRON NP [address] [address] 12/04/2022 13:19:24 12/06/2022 13:36:36 Dementia 60628805 F03.90 aricept 10 mg hsseroquel 50 mg hspsych prnAIMS 0did not tolerate slums COVID-19 514435620 U07.1 recoveredm onitor congestion paxlovid 150/100 bid for 5 days to 11/25To use paxlovid, dexamethas one, fluids, supplement al O2 prn for sxs.Contin ue to monitor O2 sats, temp, GI sxs and po intake. Acute urin marcie tract infection 959041074 N39.0 macrobid 100 mg bid for 7 days [id number] DMITRIY LEBRON NP [address] [address] 12/13/2022 11:22:57 12/15/2022 15:54:33 Retention of urine 571439956 R33.8 flomax 0.4 mg hsvoiding trial today 11/17-faile d, cath restartedm onitor urine outputurol ogy consult [place] 669948884 R29.6 PT OT eval and treatfall precaution sfrequent safety checks Dementia 07237441 F03.90 aricept 10 mg hsseroquel 50 mg hspsych prnAIMS 0did not tolerate slums [id number] DMITRIY LEBRON NP [address] [address] 12/20/2022 10:10:14 12/22/2022 11:38:53 Constipation 49915432 K59.00 miralax dailysenna plus bidmonitio r bm Retention of urine 71125 4002 R33.9 flomax 0.4 mg hs-increas ed to 0.8 mg hsvoiding trial today 11/17-faile d, will try again 12/21monito r urine outputurol ogy consult Dementia 74689943 F03.90 aricept 10 mg hsseroquel 50 mg hspsych prnAIMS 0 Glaucoma 83896251 H40.9 combigan ou bidrocklat an hs [place] 098633373 R29.6 PT OT eval and treatfall precaution sfrequent safety checks History of syncope 03292 81847 33906 Z86.79 monitor ortho vs prn Chronic mi graine without aura 7987310351 63268 G43.709 prednisone 10 mg dailyamitr iptylline 10 mg hs COVID-19 624095287 U07.1 No symptoms-r ecovered by dateTo use paxlovid, dexamethas one, fluids, supplement al O2 prn for sxs.Contin ue to monitor O2 sats, temp, GI sxs and po intake. [id number] DMITRIY LEBRON NP [address] [address] 12/28/2022 14:59:22 01/02/2023 15:51:32 Retention of urine 682719728 R33.9 flomax 0.4 mg hs-increas ed to 0.8 mg hsvoiding trial today 11/17-faile d, will try again 12/21-faile d againmonit or urine outputurol ogy consult [id number] DMITRIY LEBRON NP [address] [address] 01/03/2023 13:43:31 01/09/2023 11:51:30 Dementia 97901905 F03.90 aricept 10 mg hsseroquel 50 mg hspsych prnAIMS 0 Retention of urine 27786 4002 R33.9 flomax 0.8 mg hsvoiding trial today 11/17-faile d, will try again 12/21-faile d againmonit or urine outputurol ogy consult Constipation 30058604 K5 9.00 miralax dailysenna plus bidmonitio r bm Glaucoma 66630143 H40.9 combigan ou bidrocklat an hs [place] 050985820 R29.6 PT OT eval and treatfall precaution sfrequent safety checks History of syncope 67838 38796 87060 Z86.79 monitor ortho vs prn Chronic mi graine without aura 5862544082 21685 G43.709 prednisone 10 mg dailyamitr iptylline 10 mg hs COVID-19 582562194 U07.1 recoveredN o symptomsTo use paxlovid, dexamethas one, fluids, supplement al O2 prn for sxs.Contin ue to monitor O2 sats, temp, GI sxs and po intake. [id number] NAN ALEXANDRA RASTA [address] [place] [address] 01/08/2023 16:14:21 01/12/2023 13:04:50 Dementia 72332450 F03.90 aricept 10 mg hsseroquel 50 mg hspsych prnAIMS 0 Retention of urine 05825 4002 R33.9 flomax 0.8 mg hsvoiding trial today 11/17-faile d, will try again 12/21-faile d againmonit or urine outputurol ogy consult 10/4 Constipation 32209683 K5 9.00 miralax dailysenna plus bidmonitio r bm Glaucoma 96984628 H40.9 combigan ou bidrocklat an hs [place] 402430396 R29.6 PT OT eval and treatfall precaution sfrequent safety checks History of syncope 40659 46966 59638 Z86.79 monitor ortho vs prn Chronic mi graine without aura 9250980524 24425 G43.709 prednisone 10 mg dailyamitr iptylline 10 mg hs COVID-19 740244460 U07.1 recoveredN o symptomsTo use paxlovid, dexamethas one, fluids, supplement al O2 prn for sxs.Contin ue to monitor O2 sats, temp, GI sxs and po intake. [id number] Odalys Barber MD [facility] RA[facility] [address] [place] [address] [place] [address] 02/09/2023 20:19:12 02/23/2023 13:46:06 Dementia 08024864 F02.B0 Continues at baselineCo ntinue aricept 10 mg qhs, seroquel 50 mg qhs and amitriptyl ine 10 mg qhs.Contin ue supportive care, expect decline.HC P invokedMon itor mood and behaviors. Psych consult prn. Retention of urine 31716 4002 R33.8 Has failed 2 voiding trials.Rep ortedly had uro appt on 01/10, no notes in chart.Cont inue tamsulosin 0.8 mg qd and bethanecol 25 mg TIDContinu e arana and f/u with uro as planned. Falls 072891566 R29.6 Remains deconditio vane.Contin ue PT/OT for strengthen ing, balance, gait training, safety and function.C ontinue fall precaution s.Monitor for safety. Chronic mi graine without aura 1564270755 31019 G43.709 Continue prednisone 10 mg qd and amitriptyl ine 10 mg qhs.Monito r sxs. COVID-19 570022185 U07.1 Tested + on 11/20Now recovered. Monitor for sequelae. Recurrent urinary tract infection 710993986 N30.20 Continue Vitamin C 500 mg BID and D-Mannose 1000 mg BID for prophylaxi s.Continue Elmiron 100 mg TID for IC pain.Monit or sxs. [id number] DMITRIY LEBRON NP [address] [place] [address] 03/07/2023 10:57:58 03/20/2023 08:53:34 Dementia 77709240 F03.90 aricept 10 mg hsseroquel 50 mg hspsych prnAIMS 0 Retention of urine 73327 4002 R33.9 flomax 0.8 mg hsvoiding trial today 11/17-faile d, will try again 12/21-faile d againd-man nose 1000 bidmonitor urine outputurol ogy consult prn Constipation 01510455 K5 9.00 miralax dailysenna plus bidmonitio r bm Glaucoma 80315802 H40.9 combigan ou bidrocklat an hs [place] 050610846 R29.6 PT OT eval and treatfall precaution sfrequent safety checks History of syncope 49668 50358 59351 Z86.79 monitor ortho vs prn Chronic mi graine without aura 8632966285 32702 G43.709 prednisone 10 mg dailyamitr iptylline 10 mg hs COVID-19 906065420 U07.1 recoveredN o symptomsTo use paxlovid, dexamethas one, fluids, supplement al O2 prn for sxs.Contin ue to monitor O2 sats, temp, GI sxs and po intake. [id number] KEVIN ESPINOZA [address] [address] 05/03/2023 09:01:35 05/05/2023 03:52:24 Urinary tract infectious disease 69022838 N39.0 + UA with proteus mirabilisB actrim DS BID for 5 daysprobio tic for 7 daysmonito r for improvemen t. Dementia 06019344 F03.90 aricept 10 mg hsseroquel 50 mg hspsych prnmonitor for mood and behavior cahnges. [id number] Odalys Barber MD [address] [address] 05/03/2023 20:12:49 05/16/2023 12:09:34 Urinary tract infectious disease 09400656 N30.00 + UA with proteus mirabilisB actrim DS BID for 5 d course until 05/08 and probiotic BID until 05/09.Monit or sxs. Dementia 46471933 F02.B0 Remains at baselineCo ntinue aricept 10 mg qhs, seroquel 50 mg qhs and amitriptyl ine 10 mg qhs.Contin ue supportive care, expect decline.HC P invokedMon itor mood and behaviors. Psych follows, last seen 04/30, no med changes. Retention of urine 17040 4002 R33.8 No further issues since arana d/c'dConti nue bethanecol 25 mg TID and tamsulosin 0.8 mg qdMonitor urinary function. Falls 504661063 R29.6 Remains deconditio vane.Use PT/OT as ablle/need ed.Continu e fall precaution s.Monitor for safety. Recurrent urinary tract infection N30.20 Continue Vitamin C 500 mg BID and D-Mannose 1000 mg BID for prophylaxi s.Monitor sxs. Chronic mi graine without aura 7838402559 71352 G43.709 Continue prednisone 10 mg qd and amitriptyl ine 10 mg qhs.Monito r sxs. COVID-19 165962870 U07.1 Tested + on 11/20/22Now recovered. Monitor for sequelae. [id number] KEVIN ESPINOZA [facility] [address] [place] [address] rd [place] [address] 06/28/2023 09:24:56 07/04/2023 14:27:17 Dementia 07787852 F02.B0 Remains at baselineCo ntinue aricept 10 mg qhs, seroquel 50 mg qhs and amitriptyl ine 10 mg qhs.Contin ue supportive care, expect decline.HC P invokedMon itor mood and behaviors. psych prn Retention of urine 23991 4002 R33.8 Continue bethanecol 25 mg TIDtamsulo sin 0.8 mg qdMonitor urinary function. Falls 252549475 R29.6 no reported recent fallsConti nue fall precaution s.Monitor for safety.Mor se 60 Recurrent urinary tract infection N30.20 Continue Vitamin C 500 mg BIDD-Vineet se 1000 mg BID for prophylaxi s.Monitor sxs. Chronic mi graine without aura 8907273829 86840 G43.709 stableCont inue prednisone 10 mg qdamitript yline 10 mg qhs.Monito r sxs. COVID-19 858730777 U07.1 With mild coughConti nue paxlovid 150/100 BID for 5 day courseWill use dexamethas one, fluids, supplement al O2 prn for sxs.Contin ue to monitor O2 sats, temp, GI sxs and po intake. Stercoral colitis 511415 001 K52.89 Resolved.C ontinue bowel meds as ordered.Mo nitor bowel function. Glaucoma 06712365 H40.89 Continue combigan ou BID and rocklatan qhsF/U with eye dr as planned. History of syncope 12845 81935 82521 Z86.79 Monitor vitals and MS. Constipation 37400752 K5 9.00 miralax dailysenna plus bidmonitio r bm Chronic pain 58629874 G8 9.29 abdominal and back painoxycod one 5 mg q 6 prn [id number] MD RODERICK Liriano [address] [place] [address] [place] [address] 09/04/2023 13:20:07 09/11/2023 11:21:18 Dementia 21489570 F02.B0 MS remains stable.Moo d good after d/c seroquel.C ontinue aricept 10 mg qhs and amitriptyl ine 10 mg qhs.Contin ue supportive care, expect decline.HC P invokedMon itor mood and behaviors. Psych continues to follow Retention of urine 46114 4002 R33.8 No further issues since arana d/c'dConti nue bethanecol 25 mg TID and tamsulosin 0.8 mg qdMonitor urinary function. Falls 943464815 R29.6 Remains deconditio vane.Use PT/OT as able/neede d.Continue fall precaution s.Monitor for safety. Recurrent urinary tract infection 924712444 N30.20 Continue Vitamin C 500 mg BID and D-Mannose 1000 mg BID for prophylaxi s.Monitor sxs. Chronic mi graine without aura 5142309955 51685 G43.709 Continue prednisone 10 mg qd and amitriptyl ine 10 mg qhs.Monito r sxs. COVID-19 329591877 U07.1 Tested + on 11/20/22Now recovered. Monitor for sequelae. Constipation 91018658 K5 9.09 Continue bowel meds as ordered.Mo nitor bowel function. Chronic pain 40282017 G8 9.29 Continue oxycodone 5 mg q 6 prn and APAP 650 mg q 6 hrs prn.Monito r sxs. [id number] KEVIN ESPINOZA [address] [place] [address] [place] [address] 09/07/2023 13:56:21 09/11/2023 12:23:12 Indigestion 365659675 R10.13 see hpistart Tums 2 tabs Q4 prn TIDencoura ged to eat slowly, avoid caffeinate d drinksnurs ing to monitor for unrelieved sx nursing and update provider with changes Dysuria 68488824 R30.0 send urine for UA with C&S. [id number] KEVIN ESPINOZA [address] [address] 09/10/2023 12:44:19 09/17/2023 15:09:43 Dysuria 41117866 R30.0 send urine for UA with C&Snursing encouraged to reattemptw ill order one time dose of ativan to be given prior to attempt, hopefully to decrease resistence and combativen ess. [id number] KEVIN ESPINOZA [address] [address] 09/17/2023 08:54:06 09/20/2023 16:22:04 Recurrent urinary tract infection 614525888 N30.20 nursing was finally able to obtain [...] months.patricio sing updated to offers more fluids [id number] Barbara Modesta Anton [address] [address] 10/26/2023 09:48:50 10/30/2023 09:29:54 Dementia 40639200 F02.B0 MS remains stable.Moo d good after d/c seroquel.C ontinue aricept 10 mg qhs and amitriptyl ine 10 mg qhs.Contin ue supportive care, expect decline.HC P invokedMon itor mood and behaviors. Psych continues to follow Falls 620746830 R29.6 Remains deconditio vane.Use PT/OT as able/neede d.Continue fall precaution s.Monitor for safety. Recurrent urinary tract infection N30.20 Continue Vitamin C 500 mg BID and methanamin eMonitor sxs.treate d last month for UTI with bactrim Retention of urine 35786 4002 R33.8 No further issues since arana d/c'dConti nue bethanecol 25 mg TID and tamsulosin 0.8 mg qdMonitor urinary function. Chronic pain 09984274 G8 9.29 Continue oxycodone 5 mg q 6 prn and APAP 650 mg q 6 hrs prn.Monito r sxs. [id number] KEVIN ESPINOZA [address] [address] 12/11/2023 11:12:57 12/13/2023 14:34:20 Bilateral lower limb edema 601431898 R60.0 see hpiappears dependent, pt sits in wheelchair for long periods of timerefer to therapy for wheelchair with leg rest for elevationc heck labs proBNP, CBC, and BMP on 12/12/23will start compressio n stocking to wear dailyconsi flo giving diuretic for worsening edemarecom mend no added salt to diet.will monitor for changes Dementia 92575504 F02.B0 alert at her baseline with confusione xpect declineCon tinue aricept 10 mg qhs, seroquel 50 mg qhs and amitriptyl ine 10 mg qhs.Contin ue supportive care, expect decline.HC P invoked- updated at bedside on above plan and is in agreementM onitor mood and behaviors. psych prn [id number] KEVIN ESPINOZA [address] [address] 12/19/2023 08:36:46 12/24/2023 09:37:20 Dementia 89154042 F02.B0 MS remains stable.Con tinue aricept 10 mg qhs and amitriptyl ine 10 mg qhs.Contin ue supportive care, expect decline.HC P invokedMon itor mood and behaviors. Psych continues to follow [place] 203681346 R29.6 Remains deconditio vane.Use PT/OT as able/neede d.Continue fall precaution s.Monitor for safety. Recurrent urinary tract infection N30.20 Continue Vitamin C 500 mg BID and methenamin eMonitor sxs.treate d last month for UTI with bactrim Retention of urine 95637 4002 R33.8 No further issues since arana d/c'dConti nue bethanecol 25 mg TID and tamsulosin 0.8 mg qdMonitor urinary function. Chronic pain 59426126 G8 9.29 Continue oxycodone 5 mg q 6 prn and APAP 650 mg q 6 hrs prn.Monito r sxs. Bilateral lower limb edema 408271441 R60.0 appears dependent, pt sits in wheelchair for long periods of timerefer to therapy for wheelchair with leg rest for elevationc ompression stocking to wear dailyconsi flo giving diuretic for worsening edemarecom mend no added salt to diet.will monitor for changes [id number] KEVIN ESPINOZA [address] [place] [address] [place] [address] 02/14/2024 09:38:47 02/18/2024 12:51:21 Dementia 13447501 F02.B0 MS remains stable.Con tinue aricept 10 mg qhs and amitriptyl ine 10 mg qhs.Contin ue supportive care, expect decline.HC P invokedMon itor mood and behaviors. Psych continues to follow [place] 348226213 R29.6 Remains deconditio vane.Use PT/OT as able/neede d.Continue fall precaution s.Monitor for safety. Recurrent urinary tract infection N30.20 Continue Vitamin C 500 mg BID and methenamin eMonitor sxs.treate d last month for UTI with bactrim Retention of urine 13412 4002 R33.8 No further issues since arana d/c'dConti nue bethanecol 25 mg TID and tamsulosin 0.8 mg qdMonitor urinary function. Chronic pain 60616531 G8 9.29 Continue oxycodone 5 mg q 6 prn and APAP 650 mg q 6 hrs prn.Monito r sxs. Bilateral lower limb edema 245433832 R60.0 stable/ tracecompr ession stocking to wear dailyconsi flo giving diuretic for worsening edemarecom mend no added salt to diet.will monitor for changes Bereavement 00542431 Z63 .4 son 02/02- He visited with her everyday. so far she has been doing well with lost, due to her dementia she may have forgotten that her son has passed, there has been no agitation or other behaviors of expression . She will be attending his services today.will provide support along with nursing.travon mcbride need to restart ativan . [id number] KEVIN ESPINOZA [address] [address] 04/07/2024 15:04:30 04/16/2024 11:19:45 Dementia 03418028 F02.B0 MS remains stable.Con tinue aricept 10 mg qhs and amitriptyl ine 10 mg qhs.Contin ue supportive care, expect decline.HC P invokedMon itor mood and behaviors. Psych continues to follow Recurrent urinary tract infection 258937332 N30.20 Continue Vitamin C 500 mg BID and methenamin eMonitor sxs.treate d last month for UTI with bactrim Chronic pain 06909077 G8 9.29 Continue oxycodone 5 mg q 6 prn and APAP 650 mg q 6 hrs prn.Monito r sxs. Bilateral lower limb edema 063004279 R60.0 stable/ tracecompr ession stocking to wear dailyconsi flo giving diuretic for worsening edemarecom mend no added salt to diet.will monitor for changes COVID-19 507563031 U07.1 without sxdiscusse d with nursing, will provide supportive therapyupd ate provider with acute changes [id number] KEVIN ESPINOZA [address] [address] 07/06/2024 10:46:03 07/10/2024 16:17:30 Acute respiratory failure 95478929 J96.00 resolvedde conditione dmonitor resp. statusPT/O T eval and tx Hypokalemia [id number] E87 .6 3.1/replet edfollow labs Dementia [id number] F02.B0 stableCont inue aricept 10 mg qhs and amitriptyl ine 10 mg qhs.Contin ue supportive care, expect decline.HC P invokedMon itor mood and behaviors. Psych continues to follow Recurrent urinary tract infection N30.20 stablecont Cefuroxime 500 mg BID until 07/08/24Cont inue Vitamin C 500 mg BID and methenamin eMonitor sxs.increa se hydration/ water preferred to flush out toxins. [id number] MD RODERICK Mcmahon [address] [facility] [place] [phone] 07/09/2024 12:26:29 07/11/2024 08:35:31 Acute respiratory failure [id number] J96.01 see HPI treated with abx coursemoni tor respirator y status and need for repeat imaging Dementia [id number] F02.B0 baseline dementia with behaviorsH CP invokedcon tinue supportive carepsych eval prn Recurrent urinary tract infection N30.20 recently treated with rocephin for abovemonit or for recurrent infection [id number] FARHAD CHOW NP RODERICK MAGDALENO [address] [facility] [place] [address] 07/15/2024 10:27:43 07/16/2024 15:58:16 Acute respiratory failure [id number] J96.00 residual cough and congestion per staff.conc [...] 1 in am, CBC, BMPMonitor closely. Hypokalemia [id number] E87 .6 3.1/replet edfollow labs - repeat in am Dementia [id number] F02.B0 stableCont inue aricept 10 mg qhs and amitriptyl ine 10 mg qhs.Contin ue supportive care, expect decline.HC P invokedMon itor mood and behaviors. Psych continues to follow Recurrent urinary tract infection N30.20 stablecomp leted Cefuroxime 500 mg BID on 07/08/24Cont inue Vitamin C 500 mg BID and methenamin eMonitor sxs., VSMaintain fluids [id number] MARIA EUGENIA BOLES CNP [address] [phone] 07/16/2024 12:24:54 07/23/2024 11:34:10 Acute respiratory failure [id number] J96.00 RSV positive.r esidual cough and congestion resolved.C ontinueSch edule albuterol updrafts tid x 5 daysAdd mucinex 600 mg bid x 7 daysTrend VS, LS, satsMonito r closely. Hypokalemia [id number] E87 .6 3.1/replet edrepeat lab, pending. Dementia [id number] F02.B0 stableCont inue aricept 10 mg qhs and amitriptyl ine 10 mg qhs.Contin ue supportive care, expect decline.HC P invokedMon itor mood and behaviors. Psych continues to follow Recurrent urinary tract infection N30.20 stablecomp leted Cefuroxime 500 mg BID on 07/08/24Cont inue Vitamin C 500 mg BID and methenamin eMonitor sxs., VSMaintain fluids [id number] MARIA EUGENIA BOLES CNP [address] [phone] 07/23/2024 10:34:55 07/29/2024 16:12:56 Acute respiratory failure [id number] J96.00 RSV positive last week.impro ving, but has residual cough and congestion .Continuea lbuterol inhaler QID.Trend VS, LS, satsMonito r closely. Hypokalemia 67778134 E87 .6 stable 3.6 on 07/14. Dementia [id number] F02.B0 stableCont inue aricept 10 mg qhs and amitriptyl ine 10 mg qhs.Contin ue supportive care, expect decline.HC P invokedMon itor mood and behaviors. Psych continues to follow Recurrent urinary tract infection N30.20 resolvedwb c stable, no s/s of recurrent UTIcomplet ed Cefuroxime 500 mg BID on 07/08/24Cont inue Vitamin C 500 mg BID and methenamin eMonitor sxs., VSMaintain fluids [id number] KEVIN ESPINOZA [facility] [address] [place] [address] rd ROB FERNANDEZ [phone] 10/15/2024 05:56:38 10/17/2024 13:10:32 Dementia [id number] F02.B0 expect declineCon tinue aricept 10 mg qhs and amitriptyl ine 10 mg qhs.Contin ue supportive careHCP invokedMon itor mood and behaviors. Psych continues to follow Recurrent urinary tract infection [id number] N30.20 Continue Vitamin C 500 mg BID and methenamin eMonitor sxs.increa se hydration/ water preferred to flush out toxins. Chronic pain [id number] G8 9.29 Continue oxycodone 5 mg q [...] Name 10/15/2024 2 [place] [id number] Deann Eduardo [id number] Deann Eudardo 10/15/2024 1 [place] [employer] Deann Eduardo [id number] Deann Eduardo Notes Date Note Type [...] dementia and constipation Matt Lynn MD [address] [facility] [address], [address], [place], [address], [facility] 07/09/2024 12:38:08 07/15/2024 text/html ROS as [...] experiencing and her inability to move comfortably. rn call center provider notified, and duonebs and oxycodone ordered. [...] Loose congested cough. FARHAD CHOW NP [address], [address], [place], [address], [facility] [employer] 07/15/2024 11:13:24 07/16/2024 text/html ROS as noted [...] SOB today. MARIA EUGENIA BOLES CNP [address] [facility] [facility], [address], [place], [address], [facility] 07/16/2024 12:42:28 07/23/2024 text/html ROS as [...] cough reported. Denies pain or SOB today. AMRIA EUGENIA BOLES CNP [address] [facility], [address], [place], [address], [facility] [employer] [facility] 07/29/2024 14:03:23 10/15/2024 text/html ROS as noted in the HPI 83 yr old female LTC resident seen for routine rounding. Medically she has been stable, there is no acute concerns. KEVIN ESPINOZA [address] [facility] [address], [address], [place], [address], [facility] [employer] [facility] 10/16/2024 19:32:07 OBGyn Episode No OBEpisode recorded.
[2025-02-20 07:32] LABS: Hematocrit 38.0 % (37.0-47.0); Hemoglobin 12.2 g/dl (12.0-16.0); Imm Gran Abs Auto 0.01 X10*3/uL (0.00-0.03); Imm Gran Pct Auto 0.2 % (0.0-0.4); Lymphocytes Absolute Auto 2.2 X10*3/uL (1.2-4.9); Mean Corpuscular HGB Conc 32.1 g/dl (31.0-35.0); Mean Corpuscular Hemoglobin 29.4 pg (27.0-33.0); Mean Corpuscular Volume 91.6 fL (80.0-98.0); NRBC Abs Auto 0.000 X10*3/uL (0.0-0.012); NRBC Pct Auto 0.0 /100WBC (0.0-0.2); Platelet Count 385 X10*3/uL (160-400); Red Blood Count 4.15 X10*6/uL (4.20-5.50); White Blood Count 5.1 X10*3/uL (4.8-10.8)
[2025-02-20 07:48] LABS: Alanine Aminotransferase 7 U/L (0-31); Albumin Level 3.6 g/dL (3.5-5.0); Alkaline Phosphatase 57 U/L (39-117); Anion Gap 15 (12-20); Aspartate Amino Transferase 20 U/L (5-31); Blood Urea Nitrogen 8 mg/dL (9-16); Calcium 9.0 mg/dL (8.4-10.2); Carbon Dioxide 26 mmol/L (22-29); Chloride 107 mmol/L (96-108); Estimated Glomerular Filt Rate > 60; Potassium 3.5 mmol/L (3.3-5.1); Sodium 144 mmol/L (135-145); Total Protein 6.3 g/dL (6.5-8.0)
== END 2025-02-20 06:22 | disposition home or self-care (01) ==
LOC: HO.MMNH3L 06:21
PROVIDERS: Visit Provider Physician Assistant Medical
DX: Z13.1 Encounter for screening for diabetes mellitus (principal); F03.B0 Unspecified dementia, moderate, without behavioral disturbance, psychotic disturbance, mood disturbance, and anxiety
CPT/HCPCS: 36415; 80053; 83036; 84443; 85025

== ENCOUNTER 2025-03-12 07:05 | Outpatient (REF) | payer MEDICARE, SELFPAY ==
[2025-03-12 07:08] LABS: MANUAL DIFF FLAG NO
--- OUTSIDE RECORDS SUMMARY | 2025-03-12 07:09 | XMS_ITS | Data Portability ---
Author Organization [facility], Main Office Address [address] [facility] [address] [place] [address] Care Team Providers Care Loom Inspector Name Role Phone CHRIS GARCIA Primary Care [...] and Address Organization Details Recorded Time Dementia 86728822 Active 2022 DMITRIY LEBRON NP [address] [facility], [address], [place], [address], [facility] 3 12:17:21 Retention of urine 885250084 Active 2022 DMITRIY LEBRON NP [address] , [address], [place], [address], [facility] 3 12:17:26 Constipatio n 01792059 Active 2022 DMITRIY LEBRON NP [address], [address], [place], [address], [facility] [facility] 3 12:17:32 Glaucoma 02521792 Active 2022 DMITRIY LEBRON, NAN [address], [address], [place], [address], [facility] 3 12:17:39 Falls 223873406 Active 2022 DMITRIY LEBRON NP [address], [address], [place], [address], [facility] 3 12:19:11 History of syncope 9702261266968 09 Active 2022 DMITRIY LEBRON NP [address], [address], [place], [address], [facility] 3 12:19:19 Chronic migraine without aura 2171982204701 05 Active 2022 DMITRIY LEBRON NP [address], [address], [place], [address], [facility] 3 12:24:31 COVID-19 557824786 Active 2022 DMITRIY LEBRON NP [address], [address], [place], [address], [facility] 3 13:42:03 Stercoral colitis 166746591 Active 2022 Odalys Barber MD [address], [address], [place], [address], [facility] 3 10:42:17 Glaucoma 55997270 Active 2022 Odalys Barber MD [address], [address], [place], [address], [facility] 3 10:50:01 Acute urinary tract infection 162572579 Active 2022 DMITRIY LEBRON NP [address], [address], [place], [address], [facility] 3 13:22:34 Recurrent urinary tract infection 376887200 Active 2022 Odalys Barber MD [address] [facility], [address], [place], [address], [facility] 3 21:21:00 Chronic pain 98907360 Active 2023 Odalys Barber MD [address] [facility], [address], [place], [address], [facility] 4 14:05:27 Indigestion 878386843 Active 2023 KEVIN ESPINOZA [address] [facility], [address], [place], [address], [facility] 4 13:47:57 Acute respiratory failure 93399764 Active 2024 KEVIN ESPINOZA [address] [place] [address], [address], [place], [address], [facility] 5 22:54:27 Hypokalemia 60928330 Active 2024 KEVIN ESPINOZA [address] [place] [address], [address], [place], [address], [facility] 5 22:54:55 Problem Notes None recorded. Medical Equipment None Reported. Allergies Allergen ID Allergen Name Allergen Category Reaction Reaction Severity Criticality Documentation Date Start Date Code Code System Note Provider Name and Address Organization Details Recorded Time 04153 Product containin g penicilli n (product) medicatio n Not available Not available Not available 11/17/2022 38897 8001 SNOMED DMITRIY LEBRON NP [address] [place] [address], [facility] [address], [place], [address], [facility] 3 11:50:19 Medications Name Sig Start [...] rate Respiratory rate Body temperature Oxygen saturation Systolic And Diastolic Provider Name and Address Organization Details Last Updated DateTime 157.48 cm 95 /min 18 /min 97.2 [degF] 93 % 112/87 mm[Hg] FARHAD CHOW NP [address] [facility] [address], [place], [address], [facility] 5 10:28:22 Date Recorded Body height Heart rate Respiratory rate Body temperature Systolic And Diastolic Provider Name and Address Organization Details Last Updated DateTime 5 157.48 cm 74 /min 18 /min 97.2 [degF] 122/70 mm[Hg] MARIA EUGENIA BOLES CNP [address] [facility], [facility] [address], [place], [address], [facility] 5 11:53:57 Date Recorded Body height Provider Name an d Address Organization Details Last Updated DateTime 10/15/2024 157.48 cm KEVIN ESPINOZA [address] [facility], [facility] [address], [place], [address], [facility] 10/16/2024 19:28:34 Social History Question Answer Notes LastModified by Organizat ion Details LastModified Time Tobacco Smoking Status Unknown If Ever Smoked DMITRIY LEBRON NP [address] [facility], [facility] [address], [place], [address], [facility] 11/17/2022 11:50:31 Do You Have An Advance Directive? Yes Information not available 11/21/2022 What Is Your Code Status? Full Code [email or web address] Information not available 11/20/2022 Do You Have A Medical Power Of Smudger? Yes HCP Invoked Information not available 11/21/2022 [...] Time Influenza, adjuvanted, quadrivalent, PF 01/09/2023 completed Anjnaa zimmer [place] [facility] 04/27/2023 13:03:23 Past Encounters Encounter ID Performer Location Encounter Start Date Encounter Closed Date Diagnosis/Indication Diagnosis SNOMED-CT Code Diagnosis ICD10 Code Diagnosis IMO Codes Diagnosis Note [id number] NAN ALEXANDRA [address] [facility] [place] [address] 11/17/2022 10:29:24 11/21/2022 15:53:20 Constipation 72158156 K59.00 miralax dailysenna plus bidmonitio r bm Retention of urine 37908 4002 R33.9 flomax 0.4 mg hsvoiding trial today 11/17monito r urine output Dementia 69949413 F03.90 aricept 10 mg hsseroquel 50 mg hs psych prnAIMS 0 Glaucoma 52841841 H40.9 combigan ou bidrocklat an hs Falls 954865694 R29.6 PT OT eval and treatfall precaution sfrequent safety checks History of syncope 93501 94426 63850 Z86.79 monitor ortho vs prn Chronic mi graine without aura 3142019218 92958 G43.709 prednisone 10 mg dailyamitr iptylline 10 mg hs COVID-19 532815214 U07.1 No symptoms To use paxlovid, dexamethas one, fluids, supplement al O2 prn for sxs. Continue to monitor O2 sats, temp, GI sxs and po intake. [id number] DMITRIY LEBRON NP [address] [address] 11/20/2022 14:15:54 11/23/2022 11:39:23 COVID-19 055476233 U07.1 monitor congestion paxlovid 150/100 bid for 5 daysTo use paxlovid, dexamethas one, fluids, supplement al O2 prn for sxs.Contin ue to monitor O2 sats, temp, GI sxs and po intake. [id number] Odalys Barber MD [address] [address] 11/21/2022 13:51:52 11/28/2022 16:22:18 COVID-19 695456283 U07.1 With mild coughConti nue paxlovid 150/100 BID for 5 day courseWill use dexamethas one, fluids, supplement al O2 prn for sxs.Contin ue to monitor O2 sats, temp, GI sxs and po intake. Retention of urine 45002 4002 R33.8 Successful voiding trial on ontin ue tamsulosin 0.4 mg qdMonitor urinary function. Dementia 26862446 F03.90 Continues at baselineCo ntinue aricept 10 mg qhs, seroquel 50 mg qhs and amitriptyl ine 10 mg qhs.Contin ue supportive care, expect decline.HC P invokedMon itor mood and behaviors. Psych consult prn. Glaucoma 76724464 H40.89 Continue combigan ou BID and rocklatan qhsF/U with eye dr as planned. Falls 195446717 R29.6 Very deconditio vane and with balance issuesNeed s PT/OT for strengthen ing, balance, gait training, safety and function.C ontinue fall precaution s.Monitor for safety. History of syncope 91630 87028 14048 Z86.79 Monitor vitals and MS. Chronic mi graine without aura 9831070501 65701 G43.709 No current sxs.Contin ue prednisone 10 mg qd and amitriptyl ine 10 mg qhsMonitor sxs. Stercoral colitis 172401 001 K52.89 Resolved.C ontinue bowel meds as ordered.Mo nitor bowel function. [id number] DMITRIY LEBRON NP [address] [address] 11/22/2022 13:40:59 11/29/2022 08:17:42 COVID-19 061639330 U07.1 monitor congestion paxlovid 150/100 bid for 5 days to 11/25To use paxlovid, dexamethas one, fluids, supplement al O2 prn for sxs.Contin ue to monitor O2 sats, temp, GI sxs and po intake. [id number] DMITRIY LEBRON NP [address] [address] 12/04/2022 13:19:24 12/06/2022 13:36:36 Dementia 15321360 F03.90 aricept 10 mg hsseroquel 50 mg hspsych prnAIMS 0did not tolerate slums COVID-19 028058459 U07.1 recoveredm onitor congestion paxlovid 150/100 bid for 5 days to 11/25To use paxlovid, dexamethas one, fluids, supplement al O2 prn for sxs.Contin ue to monitor O2 sats, temp, GI sxs and po intake. Acute urin marcie tract infection 047085785 N39.0 macrobid 100 mg bid for 7 days [id number] DMITRIY LEBRON NP [address] [address] 12/13/2022 11:22:57 12/15/2022 15:54:33 Retention of urine 318559871 R33.8 flomax 0.4 mg hsvoiding trial today 11/17-faile d, cath restartedm onitor urine outputurol ogy consult [place] 620077214 R29.6 PT OT eval and treatfall precaution sfrequent safety checks Dementia 21380051 F03.90 aricept 10 mg hsseroquel 50 mg hspsych prnAIMS 0did not tolerate slums [id number] DMITRIY LEBRON NP [address] [address] 12/20/2022 10:10:14 12/22/2022 11:38:53 Constipation 07695195 K59.00 miralax dailysenna plus bidmonitio r bm Retention of urine 41358 4002 R33.9 flomax 0.4 mg hs-increas ed to 0.8 mg hsvoiding trial today 11/17-faile d, will try again 12/21monito r urine outputurol ogy consult Dementia 05075099 F03.90 aricept 10 mg hsseroquel 50 mg hspsych prnAIMS 0 Glaucoma 62429133 H40.9 combigan ou bidrocklat an hs Falls 542937335 R29.6 PT OT eval and treatfall precaution sfrequent safety checks History of syncope 38327 73858 73292 Z86.79 monitor ortho vs prn Chronic mi graine without aura 9701891194 98994 G43.709 prednisone 10 mg dailyamitr iptylline 10 mg hs COVID-19 235994508 U07.1 No symptoms-r ecovered by dateTo use paxlovid, dexamethas one, fluids, supplement al O2 prn for sxs.Contin ue to monitor O2 sats, temp, GI sxs and po intake. [id number] DMITRIY LEBRON NP [address] [address] 12/28/2022 14:59:22 01/02/2023 15:51:32 Retention of urine 955800379 R33.9 flomax 0.4 mg hs-increas ed to 0.8 mg hsvoiding trial today 11/17-faile d, will try again 12/21-faile d againmonit or urine outputurol ogy consult [id number] DMITRIY LEBRON NP [address] [address] 01/03/2023 13:43:31 01/09/2023 11:51:30 Dementia 34582107 F03.90 aricept 10 mg hsseroquel 50 mg hspsych prnAIMS 0 Retention of urine 06662 4002 R33.9 flomax 0.8 mg hsvoiding trial today 11/17-faile d, will try again 12/21-faile d againmonit or urine outputurol ogy consult Constipation 08086147 K5 9.00 miralax dailysenna plus bidmonitio r bm Glaucoma 67487472 H40.9 combigan ou bidrocklat an hs Falls 230325800 R29.6 PT OT eval and treatfall precaution sfrequent safety checks History of syncope 66862 18187 72209 Z86.79 monitor ortho vs prn Chronic mi graine without aura 5618366856 86567 G43.709 prednisone 10 mg dailyamitr iptylline 10 mg hs COVID-19 256595764 U07.1 recoveredN o symptomsTo use paxlovid, dexamethas one, fluids, supplement al O2 prn for sxs.Contin ue to monitor O2 sats, temp, GI sxs and po intake. [id number] NAN ALEXANDRA RASTA [address] [place] [address] [place] [address] 01/08/2023 16:14:21 01/12/2023 13:04:50 Dementia 85399577 F03.90 aricept 10 mg hsseroquel 50 mg hspsych prnAIMS 0 Retention of urine 57949 4002 R33.9 flomax 0.8 mg hsvoiding trial today 11/17-faile d, will try again 12/21-faile d againmonit or urine outputurol ogy consult 10/4 Constipation 02705626 K5 9.00 miralax dailysenna plus bidmonitio r bm Glaucoma 70139097 H40.9 combigan ou bidrocklat an hs [place] 408429263 R29.6 PT OT eval and treatfall precaution sfrequent safety checks History of syncope 16719 83697 91804 Z86.79 monitor ortho vs prn Chronic mi graine without aura 8340104433 79742 G43.709 prednisone 10 mg dailyamitr iptylline 10 mg hs COVID-19 709386973 U07.1 recoveredN o symptomsTo use paxlovid, dexamethas one, fluids, supplement al O2 prn for sxs.Contin ue to monitor O2 sats, temp, GI sxs and po intake. [id number] MD RODERICK Liriano [address] [place] [address] [place] [address] 02/09/2023 20:19:12 02/23/2023 13:46:06 Dementia 45152974 F02.B0 Continues at baselineCo ntinue aricept 10 mg qhs, seroquel 50 mg qhs and amitriptyl ine 10 mg qhs.Contin ue supportive care, expect decline.HC P invokedMon itor mood and behaviors. Psych consult prn. Retention of urine 43183 4002 R33.8 Has failed 2 voiding trials.Rep ortedly had uro appt on 01/10, no notes in chart.Cont inue tamsulosin 0.8 mg qd and bethanecol 25 mg TIDContinu e arana and f/u with uro as planned. Falls 499805565 R29.6 Remains deconditio vane.Contin ue PT/OT for strengthen ing, balance, gait training, safety and function.C ontinue fall precaution s.Monitor for safety. Chronic mi graine without aura 3298224403 66293 G43.709 Continue prednisone 10 mg qd and amitriptyl ine 10 mg qhs.Monito r sxs. COVID-19 565879699 U07.1 Tested + on 11/20Now recovered. Monitor for sequelae. Recurrent urinary tract infection 955447769 N30.20 Continue Vitamin C 500 mg BID and D-Mannose 1000 mg BID for prophylaxi s.Continue Elmiron 100 mg TID for IC pain.Monit or sxs. [id number] DMITRIY LEBRON NP [facility] [address] [place] [address] [place] [address] 03/07/2023 10:57:58 03/20/2023 08:53:34 Dementia 46705097 F03.90 aricept 10 mg hsseroquel 50 mg hspsych prnAIMS 0 Retention of urine 48937 4002 R33.9 flomax 0.8 mg hsvoiding trial today 11/17-faile d, will try again 12/21-faile d againd-man nose 1000 bidmonitor urine outputurol ogy consult prn Constipation 94409587 K5 9.00 miralax dailysenna plus bidmonitio r bm Glaucoma 67325974 H40.9 combigan ou bidrocklat an hs [place] 360317918 R29.6 PT OT eval and treatfall precaution sfrequent safety checks History of syncope 34606 24792 08630 Z86.79 monitor ortho vs prn Chronic mi graine without aura 6058866352 55694 G43.709 prednisone 10 mg dailyamitr iptylline 10 mg hs COVID-19 613050916 U07.1 recoveredN o symptomsTo use paxlovid, dexamethas one, fluids, supplement al O2 prn for sxs.Contin ue to monitor O2 sats, temp, GI sxs and po intake. [id number] KEVIN ESPINOZA [facility] [address] [place] [address] 05/03/2023 09:01:35 05/05/2023 03:52:24 Urinary tract infectious disease 34050564 N39.0 + UA with proteus mirabilisB actrim DS BID for 5 daysprobio tic for 7 daysmonito r for improvemen t. Dementia 66089988 F03.90 aricept 10 mg hsseroquel 50 mg hspsych prnmonitor for mood and behavior cahnges. [id number] Odalys Barber MD [facility] [address] [place] [address] 05/03/2023 20:12:49 05/16/2023 12:09:34 Urinary tract infectious disease 14767713 N30.00 + UA with proteus mirabilisB actrim DS BID for 5 d course until 05/08 and probiotic BID until 05/09.Monit or sxs. Dementia 04653867 F02.B0 Remains at baselineCo ntinue aricept 10 mg qhs, seroquel 50 mg qhs and amitriptyl ine 10 mg qhs.Contin ue supportive care, expect decline.HC P invokedMon itor mood and behaviors. Psych follows, last seen 04/30, no med changes. Retention of urine 59164 4002 R33.8 No further issues since arana d/c'dConti nue bethanecol 25 mg TID and tamsulosin 0.8 mg qdMonitor urinary function. Falls 929836023 R29.6 Remains deconditio vane.Use PT/OT as ablle/need ed.Continu e fall precaution s.Monitor for safety. Recurrent urinary tract infection N30.20 Continue Vitamin C 500 mg BID and D-Mannose 1000 mg BID for prophylaxi s.Monitor sxs. Chronic mi graine without aura 5635669105 19322 G43.709 Continue prednisone 10 mg qd and amitriptyl ine 10 mg qhs.Monito r sxs. COVID-19 887656726 U07.1 Tested + on 11/20/22Now recovered. Monitor for sequelae. [id number] KEVIN ESPINOZA [facility] [address] [place] [address] 06/28/2023 09:24:56 07/04/2023 14:27:17 Dementia 54552882 F02.B0 Remains at baselineCo ntinue aricept 10 mg qhs, seroquel 50 mg qhs and amitriptyl ine 10 mg qhs.Contin ue supportive care, expect decline.HC P invokedMon itor mood and behaviors. psych prn Retention of urine 46778 4002 R33.8 Continue bethanecol 25 mg TIDtamsulo sin 0.8 mg qdMonitor urinary function. Falls 558835939 R29.6 no reported recent fallsConti nue fall precaution s.Monitor for safety.Mor se 60 Recurrent urinary tract infection N30.20 Continue Vitamin C 500 mg BIDD-Vineet se 1000 mg BID for prophylaxi s.Monitor sxs. Chronic mi graine without aura 2352448333 98998 G43.709 stableCont inue prednisone 10 mg qdamitript yline 10 mg qhs.Monito r sxs. COVID-19 670579789 U07.1 With mild coughConti nue paxlovid 150/100 BID for 5 day courseWill use dexamethas one, fluids, supplement al O2 prn for sxs.Contin ue to monitor O2 sats, temp, GI sxs and po intake. Stercoral colitis 271737 001 K52.89 Resolved.C ontinue bowel meds as ordered.Mo nitor bowel function. Glaucoma 15049870 H40.89 Continue combigan ou BID and rocklatan qhsF/U with eye dr as planned. History of syncope 31999 46134 63224 Z86.79 Monitor vitals and MS. Constipation 77917245 K5 9.00 miralax dailysenna plus bidmonitio r bm Chronic pain 19104500 G8 9.29 abdominal and back painoxycod one 5 mg q 6 prn [id number] MD RODERICK Liriano [address] [place] [address] [place] [address] 09/04/2023 13:20:07 09/11/2023 11:21:18 Dementia 92962900 F02.B0 MS remains stable.Moo d good after d/c seroquel.C ontinue aricept 10 mg qhs and amitriptyl ine 10 mg qhs.Contin ue supportive care, expect decline.HC P invokedMon itor mood and behaviors. Psych continues to follow Retention of urine 15589 4002 R33.8 No further issues since arana d/c'dConti nue bethanecol 25 mg TID and tamsulosin 0.8 mg qdMonitor urinary function. Falls 562003677 R29.6 Remains deconditio vane.Use PT/OT as able/neede d.Continue fall precaution s.Monitor for safety. Recurrent urinary tract infection 217372613 N30.20 Continue Vitamin C 500 mg BID and D-Mannose 1000 mg BID for prophylaxi s.Monitor sxs. Chronic mi graine without aura 6437014766 56355 G43.709 Continue prednisone 10 mg qd and amitriptyl ine 10 mg qhs.Monito r sxs. COVID-19 470047785 U07.1 Tested + on 11/20/22Now recovered. Monitor for sequelae. Constipation 78636876 K5 9.09 Continue bowel meds as ordered.Mo nitor bowel function. Chronic pain 45039670 G8 9.29 Continue oxycodone 5 mg q 6 prn and APAP 650 mg q 6 hrs prn.Monito r sxs. [id number] KEVIN ESPINOZA [address] [place] [address] [place] [address] 09/07/2023 13:56:21 09/11/2023 12:23:12 Indigestion 415430566 R10.13 see hpistart Tums 2 tabs Q4 prn TIDencoura ged to eat slowly, avoid caffeinate d drinksnurs ing to monitor for unrelieved sx nursing and update provider with changes Dysuria 84582907 R30.0 send urine for UA with C&S. [id number] KEVIN ESPINOZA [address] [address] 09/10/2023 12:44:19 09/17/2023 15:09:43 Dysuria 36790915 R30.0 send urine for UA with C&Snursing encouraged to reattemptw ill order one time dose of ativan to be given prior to attempt, hopefully to decrease resistence and combativen ess. [id number] KEVIN ESPINOZA [address] [address] 09/17/2023 08:54:06 09/20/2023 16:22:04 Recurrent urinary [...] months.patricio sing updated to offers more fluids [id number] Barbara GatesEmiliano Anton [address] [address] 10/26/2023 09:48:50 10/30/2023 09:29:54 Dementia 59847556 F02.B0 MS remains stable.Moo d good after d/c seroquel.C ontinue aricept 10 mg qhs and amitriptyl ine 10 mg qhs.Contin ue supportive care, expect decline.HC P invokedMon itor mood and behaviors. Psych continues to follow Falls 973413625 R29.6 Remains deconditio vane.Use PT/OT as able/neede d.Continue fall precaution s.Monitor for safety. Recurrent urinary tract infection 551168702 N30.20 Continue Vitamin C 500 mg BID and methanamin eMonitor sxs.treate d last month for UTI with bactrim Retention of urine 62037 4002 R33.8 No further issues since arana d/c'dConti nue bethanecol 25 mg TID and tamsulosin 0.8 mg qdMonitor urinary function. Chronic pain 89140662 G8 9.29 Continue oxycodone 5 mg q 6 prn and APAP 650 mg q 6 hrs prn.Monito r sxs. [id number] KEVIN ESPINOZA [address] [address] 12/11/2023 11:12:57 12/13/2023 14:34:20 Bilateral lower limb edema 006335646 R60.0 see hpiappears dependent, pt sits in wheelchair for long periods of timerefer to therapy for wheelchair with leg rest for elevationc heck labs proBNP, CBC, and BMP on 12/12/23will start compressio n stocking to wear dailyconsi flo giving diuretic for worsening edemarecom mend no added salt to diet.will monitor for changes Dementia 28829510 F02.B0 alert at her baseline with confusione xpect declineCon tinue aricept 10 mg qhs, seroquel 50 mg qhs and amitriptyl ine 10 mg qhs.Contin ue supportive care, expect decline.HC P invoked- updated at bedside on above plan and is in agreementM onitor mood and behaviors. psych prn [id number] KEVIN ESPINOZA [address] [address] 12/19/2023 08:36:46 12/24/2023 09:37:20 Dementia 49283034 F02.B0 MS remains stable.Con tinue aricept 10 mg qhs and amitriptyl ine 10 mg qhs.Contin ue supportive care, expect decline.HC P invokedMon itor mood and behaviors. Psych continues to follow Falls 715973608 R29.6 Remains deconditio vane.Use PT/OT as able/neede d.Continue fall precaution s.Monitor for safety. Recurrent urinary tract infection 084583369 N30.20 Continue Vitamin C 500 mg BID and methenamin eMonitor sxs.treate d last month for UTI with bactrim Retention of urine 44110 4002 R33.8 No further issues since arana d/c'dConti nue bethanecol 25 mg TID and tamsulosin 0.8 mg qdMonitor urinary function. Chronic pain 53170429 G8 9.29 Continue oxycodone 5 mg q 6 prn and APAP 650 mg q 6 hrs prn.Monito r sxs. Bilateral lower limb edema 378810066 R60.0 appears dependent, pt sits in wheelchair for long periods of timerefer to therapy for wheelchair with leg rest for elevationc ompression stocking to wear dailyconsi flo giving diuretic for worsening edemarecom mend no added salt to diet.will monitor for changes [id number] KEVIN ESPINOZA [address] [place] [address] 02/14/2024 09:38:47 02/18/2024 12:51:21 Dementia 82507848 F02.B0 MS remains stable.Con tinue aricept 10 mg qhs and amitriptyl ine 10 mg qhs.Contin ue supportive care, expect decline.HC P invokedMon itor mood and behaviors. Psych continues to follow Falls 330962121 R29.6 Remains deconditio vane.Use PT/OT as able/neede d.Continue fall precaution s.Monitor for safety. Recurrent urinary tract infection 566589865 N30.20 Continue Vitamin C 500 mg BID and methenamin eMonitor sxs.treate d last month for UTI with bactrim Retention of urine 37868 4002 R33.8 No further issues since arana d/c'dConti nue bethanecol 25 mg TID and tamsulosin 0.8 mg qdMonitor urinary function. Chronic pain 52745811 G8 9.29 Continue oxycodone 5 mg q 6 prn and APAP 650 mg q 6 hrs prn.Monito r sxs. Bilateral lower limb edema 733929599 R60.0 stable/ tracecompr ession stocking to wear dailyconsi flo giving diuretic for worsening edemarecom mend no added salt to diet.will monitor for changes Bereavement 62170836 Z63 .4 son 02/02- He visited with her everyday. so far she has been doing well with lost, due to her dementia she may have forgotten that her son has passed, there has been no agitation or other behaviors of expression . She will be attending his services today.will provide support along with nursing.travon mcbride need to restart ativan . [id number] KEVIN ESPINOZA [address] [address] 04/07/2024 15:04:30 04/16/2024 11:19:45 Dementia 65531068 F02.B0 MS remains stable.Con tinue aricept 10 mg qhs and amitriptyl ine 10 mg qhs.Contin ue supportive care, expect decline.HC P invokedMon itor mood and behaviors. Psych continues to follow Recurrent urinary tract infection N30.20 Continue Vitamin C 500 mg BID and methenamin eMonitor sxs.treate d last month for UTI with bactrim Chronic pain 03983052 G8 9.29 Continue oxycodone 5 mg q 6 prn and APAP 650 mg q 6 hrs prn.Monito r sxs. Bilateral lower limb edema 376682302 R60.0 stable/ tracecompr ession stocking to wear dailyconsi flo giving diuretic for worsening [employer] mend no added salt to diet.will monitor for changes COVID-19 [id number] U07.1 without sxdiscusse d with nursing, will provide supportive therapyupd ate provider with acute changes [id number] KEVIN ESPINOZA [address] [address] 07/06/2024 10:46:03 07/10/2024 16:17:30 Acute respiratory failure [id number] J96.00 resolvedde conditione dmonitor resp. statusPT/O T eval and tx Hypokalemia [id number] E87 .6 3.1/replet edfollow labs Dementia [id number] F02.B0 stableCont inue aricept 10 mg qhs and amitriptyl ine 10 mg qhs.Contin ue supportive care, expect decline.HC P invokedMon itor mood and behaviors. Psych continues to follow Recurrent urinary tract infection N30.20 stablecont Cefuroxime 500 mg BID until 07/08/24Cont inue Vitamin C 500 mg BID and methenamin eMonitor sxs.increa se hydration/ water preferred to flush out toxins. [id number] MD RODERICK Mcmahon RASTA [address] [facility] [place] [address] 07/09/2024 12:26:29 07/11/2024 08:35:31 Acute respiratory failure [id number] J96.01 see HPI treated with abx coursemoni tor respirator y status and need for repeat imaging Dementia [id number] F02.B0 baseline dementia with behaviorsH CP invokedcon tinue supportive carepsych eval prn Recurrent urinary tract infection N30.20 recently treated with rocephin for abovemonit or for recurrent infection [id number] FARHAD CHOW NP RODERICK RASTA [address] [facility] [place] [address] 07/15/2024 10:27:43 07/16/2024 15:58:16 Acute respiratory failure [id number] J96.00 residual cough and congestion per staff.conc [...] 1 in am, CBC, BMPMonitor closely. Hypokalemia [id number] E87 .6 3.1/replet edfollow labs - repeat in am Dementia [id number] F02.B0 stableCont inue aricept 10 mg qhs and amitriptyl ine 10 mg qhs.Contin ue supportive care, expect decline.HC P invokedMon itor mood and behaviors. Psych continues to follow Recurrent urinary tract infection N30.20 stablecomp leted Cefuroxime 500 mg BID on 07/08/24Cont inue Vitamin C 500 mg BID and methenamin eMonitor sxs., VSMaintain fluids [id number] MARIA EUGENIA BOLES CNP [address] [address] 07/16/2024 12:24:54 07/23/2024 11:34:10 Acute respiratory failure [id number] J96.00 RSV positive.r esidual cough and congestion resolved.C ontinueSch edule albuterol updrafts tid x 5 daysAdd mucinex 600 mg bid x 7 daysTrend VS, LS, satsMonito r closely. Hypokalemia [id number] E87 .6 3.1/replet edrepeat lab, pending. Dementia [id number] F02.B0 stableCont inue aricept 10 mg qhs and amitriptyl ine 10 mg qhs.Contin ue supportive care, expect decline.HC P invokedMon itor mood and behaviors. Psych continues to follow Recurrent urinary tract infection N30.20 stablecomp leted Cefuroxime 500 mg BID on 07/08/24Cont inue Vitamin C 500 mg BID and methenamin eMonitor sxs., VSMaintain fluids [id number] MARIA EUGENIA BOLES CNP [address] [address] 07/23/2024 10:34:55 07/29/2024 16:12:56 Acute respiratory failure [id number] J96.00 RSV positive last week.impro ving, but has residual cough and congestion .Continuea lbuterol inhaler QID.Trend VS, LS, satsMonito r closely. Hypokalemia 84246199 E87 .6 stable 3.6 on 07/14. Dementia [id number] F02.B0 stableCont inue aricept 10 mg qhs and amitriptyl ine 10 mg qhs.Contin ue supportive care, expect decline.HC P invokedMon itor mood and behaviors. Psych continues to follow Recurrent urinary tract infection N30.20 resolvedwb c stable, no s/s of recurrent UTIcomplet ed Cefuroxime 500 mg BID on 07/08/24Cont inue Vitamin C 500 mg BID and methenamin eMonitor sxs., VSMaintain fluids [id number] KEVIN ESPINOZA [address] [facility] [facility] [address] [place] [address] 10/15/2024 05:56:38 10/17/2024 13:10:32 Dementia [id number] F02.B0 expect declineCon tinue aricept 10 mg qhs and amitriptyl ine 10 mg qhs.Contin ue supportive careHCP invokedMon itor mood and behaviors. Psych continues to follow Recurrent urinary tract infection N30.20 Continue Vitamin C 500 mg BID and methenamin eMonitor sxs.increa se hydration/ water preferred to flush out toxins. Chronic pain [id number] G8 9.29 Continue oxycodone 5 mg q [...] Name 10/15/2024 2 [place] [id number] Deann Eduardo [id number] Deann Eduardo 10/15/2024 1 [place] [employer] Deann Eduardo [id number] Deann Eduardo Notes Date Note Type [...] MD [address] [facility], [address], [place], [address], [facility] [employer] 07/09/2024 12:38:08 07/15/2024 text/html ROS as noted [...] her inability to move comfortably. call center rn provider notified, and duonebs and oxycodone ordered. [...] Loose congested cough. FARHAD CHOW, NAN [address] [facility], [address], [place], [address], [facility] [employer] 07/15/2024 11:13:24 07/16/2024 text/html ROS as noted [...] SOB today. MARIA EUGENIA BOLES CNP [address] [facility], [address], [place], [address], [facility] [employer] [facility] 07/16/2024 12:42:28 07/23/2024 text/html ROS as noted [...] SOB today. MARIA EUGENIA BOLES CNP [address] [facility], [address], [place], [address], [facility] [employer] [facility] 07/29/2024 14:03:23 10/15/2024 text/html ROS as noted in the HPI 83 yr old female LTC resident seen for routine rounding. Medically she has been stable, there is no acute concerns. KEVIN ESPINOZA [address] [facility], [address], [place], [address], [facility] [employer] 10/16/2024 19:32:07 OBGyn Episode No OBEpisode recorded.
[2025-03-12 07:48] LABS: Hematocrit 35.9 % (37.0-47.0); Hemoglobin 11.5 g/dl (12.0-16.0); Imm Gran Abs Auto 0.02 X10*3/uL (0.00-0.03); Imm Gran Pct Auto 0.3 % (0.0-0.4); Lymphocytes Absolute Auto 1.6 X10*3/uL (1.2-4.9); Mean Corpuscular HGB Conc 32.0 g/dl (31.0-35.0); Mean Corpuscular Hemoglobin 29.3 pg (27.0-33.0); Mean Corpuscular Volume 91.3 fL (80.0-98.0); NRBC Abs Auto 0.000 X10*3/uL (0.0-0.012); NRBC Pct Auto 0.0 /100WBC (0.0-0.2); Platelet Count 365 X10*3/uL (160-400); Red Blood Count 3.93 X10*6/uL (4.20-5.50); White Blood Count 6.7 X10*3/uL (4.8-10.8)
[2025-03-12 07:57] LABS: Anion Gap 13 (12-20); Blood Urea Nitrogen 13 mg/dL (9-16); Calcium 8.8 mg/dL (8.4-10.2); Carbon Dioxide 28 mmol/L (22-29); Chloride 106 mmol/L (96-108); Estimated Glomerular Filt Rate > 60; Potassium 3.1 mmol/L (3.3-5.1); Sodium 144 mmol/L (135-145)
== END 2025-03-12 07:06 | disposition home or self-care (01) ==
LOC: HO.MMNH3L 07:05
PROVIDERS: Visit Provider Physician Assistant Medical
DX: Z13.89 Encounter for screening for other disorder (principal)
CPT/HCPCS: 36415; 80048; 85025

== ENCOUNTER 2025-03-25 07:14 | Outpatient (REF) | payer MEDICARE, SELFPAY ==
--- OUTSIDE RECORDS SUMMARY | 2025-03-25 07:16 | XMS_ITS | Data Portability ---
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 Name Role Phone CHRIS GARCIA Primary Care Provider RODERICK MAGDALENO 3RD FLOOR OTHER [phone] Assessment Encounter Date Assessment Date Assessment LastModified [...] and Address Organization Details Recorded Time Dementia 93008573 Active 2022 DMITRIY LEBRON NP [address] [facility], [address], [place], [address], [facility] 3 12:17:21 Retention of urine 344685899 Active 2022 DMITRIY LEBRON NP [address] , [address], [place], [address], [facility] [place] 3 12:17:26 Constipatio n 10697789 Active 2022 DMITRIY LEBRON NP [address], [address], [place], [address], [facility] 3 12:17:32 Glaucoma 02823347 Active 2022 DMITRIY LEBRON, NAN [address], [address], [place], [address], [facility] 3 12:17:39 Falls 726372308 Active 2022 DMITRIY LEBRON NP [address], [address], [place], [address], [facility] 3 12:19:11 History of syncope 9046395507887 09 Active 2022 DMITRIY LEBRON NP [address], [address], [place], [address], [facility] 3 12:19:19 Chronic migraine without aura 1339343680107 05 Active 2022 DMITRIY LEBRON NP [address], [address], [place], [address], [facility] 3 12:24:31 COVID-19 586840654 Active 2022 DMITRIY LEBRON NP [address], [address], [place], [address], [facility] [place] [facility] 3 13:42:03 Stercoral colitis 051328153 Active 2022 Odalys Barber MD [address], [address], [place], [address], [facility] [place] [facility] 3 10:42:17 Glaucoma 02262219 Active 2022 Odalys Barber MD [address], [address], [place], [address], [employer] [facility] 3 10:50:01 Acute urinary tract infection 955183491 Active 2022 DMITRIY LEBRON NP [address], [address], [place], [address], [facility] 3 13:22:34 Recurrent urinary tract infection 397025190 Active 2022 Odalys Barber MD [address] [facility], [address], [place], [address], [facility] [place] [facility] 3 21:21:00 Chronic pain 99635088 Active 2023 Odalys Barber MD [address] [facility], [address], [place], [address], [facility] [place] 4 14:05:27 Indigestion 261395581 Active 2023 KEVIN ESPINOZA [address] [facility], [address], [place], [address], [facility] [place] [facility] 4 13:47:57 Acute respiratory failure 92638462 Active 2024 KEVIN ESPINOZA [address] [place] [address], [address], [place], [address], [facility] [place] [facility] 5 22:54:27 Hypokalemia 30843928 Active 2024 KEVIN ESPINOZA [address] [place] [address], [address], [place], [address], [facility] [place] [facility] 5 22:54:55 Problem Notes None recorded. Medical Equipment None Reported. Allergies Allergen ID Allergen Name Allergen Category Reaction Reaction Severity Criticality Documentation Date Start Date Code Code System Note Provider Name and Address Organization Details Recorded Time 94938 Product containin g penicilli n (product) medicatio n Not available Not available Not available 11/17/2022 57109 8001 SNOMED DMITRIY LEBRON NP [address] [place] [address], [facility] [address], [place], [address], [facility] [place] [facility] 3 11:50:19 Medications Name Sig Start [...] % 112/87 mm[Hg] FARHAD CHOW NP [address] [facility] [address], [place], [address], [facility] 5 10:28:22 Date Recorded Body height Heart rate Respiratory rate Body temperature Systolic And Diastolic Provider Name and Address Organization Details Last Updated DateTime 5 157.48 cm 74 /min 18 /min 97.2 [degF] 122/70 mm[Hg] MARIA EUGENIA BOLES CNP [address] [facility], [facility] [address], [place], [address], [facility] 5 11:53:57 Date Recorded Body height Provider Name an d Address Organization Details Last Updated DateTime 10/15/2024 157.48 cm KEVIN ESPINOZA [address] [facility], [facility] [address], [place], [address], [facility] 10/16/2024 19:28:34 Social History Question Answer Notes LastModified by Organizat ion Details LastModified Time Tobacco Smoking Status Unknown If Ever Smoked DMITRIY LEBRON NP [address] [facility], [facility] [address], [place], [address], [facility] 11/17/2022 11:50:31 Do You Have An Advance Directive? Yes Information not available 11/21/2022 What Is Your Code Status? Full Code [email or web address] Information not available 11/20/2022 Do You Have A Medical Power Of Digital Media Buyer? Yes HCP Invoked Information not available 11/21/2022 [...] Influenza, adjuvanted, quadrivalent, PF 01/09/2023 completed Anjana zimmer [facility] 04/27/2023 13:03:23 Past Encounters Encounter ID Performer Location Encounter Start Date Encounter Closed Date Diagnosis/Indication Diagnosis SNOMED-CT Code Diagnosis ICD10 Code Diagnosis IMO Codes Diagnosis Note [id number] NAN ALEXANDRA [address] [facility] [address] [place] [address] 11/17/2022 10:29:24 11/21/2022 15:53:20 Constipation 73327726 K59.00 miralax dailysenna plus bidmonitio r bm Retention of urine 66023 4002 R33.9 flomax 0.4 mg hsvoiding trial today 11/17monito r urine output Dementia 46002083 F03.90 aricept 10 mg hsseroquel 50 mg hs psych prnAIMS 0 Glaucoma 03692249 H40.9 combigan ou bidrocklat an hs [place] 642766292 R29.6 PT OT eval and treatfall precaution sfrequent safety checks History of syncope 51587 84141 28179 Z86.79 monitor ortho vs prn Chronic mi graine without aura 1906345918 69143 G43.709 prednisone 10 mg dailyamitr iptylline 10 mg hs COVID-19 709525062 U07.1 No symptoms To use paxlovid, dexamethas one, fluids, supplement al O2 prn for sxs. Continue to monitor O2 sats, temp, GI sxs and po intake. [id number] DMITRIY LEBRON NP [address] [address] 11/20/2022 14:15:54 11/23/2022 11:39:23 COVID-19 883142158 U07.1 monitor congestion paxlovid 150/100 bid for 5 daysTo use paxlovid, dexamethas one, fluids, supplement al O2 prn for sxs.Contin ue to monitor O2 sats, temp, GI sxs and po intake. [id number] Odalys Barber MD [address] [address] 11/21/2022 13:51:52 11/28/2022 16:22:18 COVID-19 921378401 U07.1 With mild coughConti nue paxlovid 150/100 BID for 5 day courseWill use dexamethas one, fluids, supplement al O2 prn for sxs.Contin ue to monitor O2 sats, temp, GI sxs and po intake. Retention of urine 53101 4002 R33.8 Successful voiding trial on ontin ue tamsulosin 0.4 mg qdMonitor urinary function. Dementia 85909253 F03.90 Continues at baselineCo ntinue aricept 10 mg qhs, seroquel 50 mg qhs and amitriptyl ine 10 mg qhs.Contin ue supportive care, expect decline.HC P invokedMon itor mood and behaviors. Psych consult prn. Glaucoma 25882863 H40.89 Continue combigan ou BID and rocklatan qhsF/U with eye dr as planned. Falls 948466930 R29.6 Very deconditio vane and with balance issuesNeed s PT/OT for strengthen ing, balance, gait training, safety and function.C ontinue fall precaution s.Monitor for safety. History of syncope 24831 80137 17997 Z86.79 Monitor vitals and MS. Chronic mi graine without aura 7096675323 84068 G43.709 No current sxs.Contin ue prednisone 10 mg qd and amitriptyl ine 10 mg qhsMonitor sxs. Stercoral colitis 839443 001 K52.89 Resolved.C ontinue bowel meds as ordered.Mo nitor bowel function. [id number] DMITRIY LEBRON NP [address] [address] 11/22/2022 13:40:59 11/29/2022 08:17:42 COVID-19 871331080 U07.1 monitor congestion paxlovid 150/100 bid for 5 days to 11/25To use paxlovid, dexamethas one, fluids, supplement al O2 prn for sxs.Contin ue to monitor O2 sats, temp, GI sxs and po intake. [id number] DMITRIY LEBRON NP [address] [address] 12/04/2022 13:19:24 12/06/2022 13:36:36 Dementia 70900221 F03.90 aricept 10 mg hsseroquel 50 mg hspsych prnAIMS 0did not tolerate slums COVID-19 698127481 U07.1 recoveredm onitor congestion paxlovid 150/100 bid for 5 days to 11/25To use paxlovid, dexamethas one, fluids, supplement al O2 prn for sxs.Contin ue to monitor O2 sats, temp, GI sxs and po intake. Acute urin marcie tract infection 421054581 N39.0 macrobid 100 mg bid for 7 days [id number] DMITRIY LEBRON NP [address] [address] 12/13/2022 11:22:57 12/15/2022 15:54:33 Retention of urine 954980721 R33.8 flomax 0.4 mg hsvoiding trial today 11/17-faile d, cath restartedm onitor urine outputurol ogy consult [place] 915221028 R29.6 PT OT eval and treatfall precaution sfrequent safety checks Dementia 84054100 F03.90 aricept 10 mg hsseroquel 50 mg hspsych prnAIMS 0did not tolerate slums [id number] DMITRIY LEBRON NP [address] [address] 12/20/2022 10:10:14 12/22/2022 11:38:53 Constipation 82324844 K59.00 miralax dailysenna plus bidmonitio r bm Retention of urine 89162 4002 R33.9 flomax 0.4 mg hs-increas ed to 0.8 mg hsvoiding trial today 11/17-faile d, will try again 12/21monito r urine outputurol ogy consult Dementia 74868403 F03.90 aricept 10 mg hsseroquel 50 mg hspsych prnAIMS 0 Glaucoma 63295906 H40.9 combigan ou bidrocklat an hs [place] 054210840 R29.6 PT OT eval and treatfall precaution sfrequent safety checks History of syncope 68692 28712 34982 Z86.79 monitor ortho vs prn Chronic mi graine without aura 0104070095 54147 G43.709 prednisone 10 mg dailyamitr iptylline 10 mg hs COVID-19 263347224 U07.1 No symptoms-r ecovered by dateTo use paxlovid, dexamethas one, fluids, supplement al O2 prn for sxs.Contin ue to monitor O2 sats, temp, GI sxs and po intake. [id number] DMITRIY LEBRON NP [address] [address] 12/28/2022 14:59:22 01/02/2023 15:51:32 Retention of urine 076450107 R33.9 flomax 0.4 mg hs-increas ed to 0.8 mg hsvoiding trial today 11/17-faile d, will try again 12/21-faile d againmonit or urine outputurol ogy consult [id number] DMITRIY LEBRON NP [address] [address] 01/03/2023 13:43:31 01/09/2023 11:51:30 Dementia 68198139 F03.90 aricept 10 mg hsseroquel 50 mg hspsych prnAIMS 0 Retention of urine 31372 4002 R33.9 flomax 0.8 mg hsvoiding trial today 11/17-faile d, will try again 12/21-faile d againmonit or urine outputurol ogy consult Constipation 58617177 K5 9.00 miralax dailysenna plus bidmonitio r bm Glaucoma 50266471 H40.9 combigan ou bidrocklat an hs [place] 717345427 R29.6 PT OT eval and treatfall precaution sfrequent safety checks History of syncope 94688 50856 40541 Z86.79 monitor ortho vs prn Chronic mi graine without aura 3591567261 97339 G43.709 prednisone 10 mg dailyamitr iptylline 10 mg hs COVID-19 353897167 U07.1 recoveredN o symptomsTo use paxlovid, dexamethas one, fluids, supplement al O2 prn for sxs.Contin ue to monitor O2 sats, temp, GI sxs and po intake. [id number] NAN ALEXANDRA RASTA [address] [place] [address] [place] [address] 01/08/2023 16:14:21 01/12/2023 13:04:50 Dementia 06608141 F03.90 aricept 10 mg hsseroquel 50 mg hspsych prnAIMS 0 Retention of urine 05486 4002 R33.9 flomax 0.8 mg hsvoiding trial today 11/17-faile d, will try again 12/21-faile d againmonit or urine outputurol ogy consult 10/4 Constipation 21475394 K5 9.00 miralax dailysenna plus bidmonitio r bm Glaucoma 72538320 H40.9 combigan ou bidrocklat an hs [place] 016260914 R29.6 PT OT eval and treatfall precaution sfrequent safety checks History of syncope 64352 74750 95829 Z86.79 monitor ortho vs prn Chronic mi graine without aura 8621527016 42546 G43.709 prednisone 10 mg dailyamitr iptylline 10 mg hs COVID-19 029070211 U07.1 recoveredN o symptomsTo use paxlovid, dexamethas one, fluids, supplement al O2 prn for sxs.Contin ue to monitor O2 sats, temp, GI sxs and po intake. [id number] MD RODERICK Liriano [address] [place] [address] [place] [address] 02/09/2023 20:19:12 02/23/2023 13:46:06 Dementia 05848910 F02.B0 Continues at baselineCo ntinue aricept 10 mg qhs, seroquel 50 mg qhs and amitriptyl ine 10 mg qhs.Contin ue supportive care, expect decline.HC P invokedMon itor mood and behaviors. Psych consult prn. Retention of urine 08958 4002 R33.8 Has failed 2 voiding trials.Rep ortedly had uro appt on 01/10, no notes in chart.Cont inue tamsulosin 0.8 mg qd and bethanecol 25 mg TIDContinu e arnaa and f/u with uro as planned. Falls 562503761 R29.6 Remains deconditio vane.Contin ue PT/OT for strengthen ing, balance, gait training, safety and function.C ontinue fall precaution s.Monitor for safety. Chronic mi graine without aura 0977802582 41256 G43.709 Continue prednisone 10 mg qd and amitriptyl ine 10 mg qhs.Monito r sxs. COVID-19 286754570 U07.1 Tested + on 11/20Now recovered. Monitor for sequelae. Recurrent urinary tract infection 451919079 N30.20 Continue Vitamin C 500 mg BID and D-Mannose 1000 mg BID for prophylaxi s.Continue Elmiron 100 mg TID for IC pain.Monit or sxs. [id number] [facility]Y LEBR[facility] NP [facility] [address] [place] [address] [place] [address] 03/07/2023 10:57:58 03/20/2023 08:53:34 Dementia 35297818 F03.90 aricept 10 mg hsseroquel 50 mg hspsych prnAIMS 0 Retention of urine 37686 4002 R33.9 flomax 0.8 mg hsvoiding trial today 11/17-faile d, will try again 12/21-faile d againd-man nose 1000 bidmonitor urine outputurol ogy consult prn Constipation 17307916 K5 9.00 miralax dailysenna plus bidmonitio r bm Glaucoma 81734521 H40.9 combigan ou bidrocklat an hs [place] 422972141 R29.6 PT OT eval and treatfall precaution sfrequent safety checks History of syncope 60967 67077 56415 Z86.79 monitor ortho vs prn Chronic mi graine without aura 8516728821 74757 G43.709 prednisone 10 mg dailyamitr iptylline 10 mg hs COVID-19 253133254 U07.1 recoveredN o symptomsTo use paxlovid, dexamethas one, fluids, supplement al O2 prn for sxs.Contin ue to monitor O2 sats, temp, GI sxs and po intake. [id number] KEVIN ESPINOZA [facility] [address] [place] [address] 05/03/2023 09:01:35 05/05/2023 03:52:24 Urinary tract infectious disease 03668695 N39.0 + UA with proteus mirabilisB actrim DS BID for 5 daysprobio tic for 7 daysmonito r for improvemen t. Dementia 06599192 F03.90 aricept 10 mg hsseroquel 50 mg hspsych prnmonitor for mood and behavior cahnges. [id number] Odalys Barber MD [facility] [address] [place] [address] 05/03/2023 20:12:49 05/16/2023 12:09:34 Urinary tract infectious disease 40790995 N30.00 + UA with proteus mirabilisB actrim DS BID for 5 d course until 05/08 and probiotic BID until 05/09.Monit or sxs. Dementia 44610610 F02.B0 Remains at baselineCo ntinue aricept 10 mg qhs, seroquel 50 mg qhs and amitriptyl ine 10 mg qhs.Contin ue supportive care, expect decline.HC P invokedMon itor mood and behaviors. Psych follows, last seen 04/30, no med changes. Retention of urine 28872 4002 R33.8 No further issues since arana d/c'dConti nue bethanecol 25 mg TID and tamsulosin 0.8 mg qdMonitor urinary function. Falls 558088196 R29.6 Remains deconditio vane.Use PT/OT as ablle/need ed.Continu e fall precaution s.Monitor for safety. Recurrent urinary tract infection N30.20 Continue Vitamin C 500 mg BID and D-Mannose 1000 mg BID for prophylaxi s.Monitor sxs. Chronic mi graine without aura 4212514237 76405 G43.709 Continue prednisone 10 mg qd and amitriptyl ine 10 mg qhs.Monito r sxs. COVID-19 608687951 U07.1 Tested + on 11/20/22Now recovered. Monitor for sequelae. [id number] KEVIN ESPINOZA [facility] [address] [facility] [address] [place] [address] 06/28/2023 09:24:56 07/04/2023 14:27:17 Dementia 39173303 F02.B0 Remains at baselineCo ntinue aricept 10 mg qhs, seroquel 50 mg qhs and amitriptyl ine 10 mg qhs.Contin ue supportive care, expect decline.HC P invokedMon itor mood and behaviors. psych prn Retention of urine 11276 4002 R33.8 Continue bethanecol 25 mg TIDtamsulo sin 0.8 mg qdMonitor urinary function. Falls 900555287 R29.6 no reported recent fallsConti nue fall precaution s.Monitor for safety.Mor se 60 Recurrent urinary tract infection N30.20 Continue Vitamin C 500 mg BIDD-Vineet se 1000 mg BID for prophylaxi s.Monitor sxs. Chronic mi graine without aura 5619665050 92080 G43.709 stableCont inue prednisone 10 mg qdamitript yline 10 mg qhs.Monito r sxs. COVID-19 240931418 U07.1 With mild coughConti nue paxlovid 150/100 BID for 5 day courseWill use dexamethas one, fluids, supplement al O2 prn for sxs.Contin ue to monitor O2 sats, temp, GI sxs and po intake. Stercoral colitis 718091 001 K52.89 Resolved.C ontinue bowel meds as ordered.Mo nitor bowel function. Glaucoma 02103767 H40.89 Continue combigan ou BID and rocklatan qhsF/U with eye dr as planned. History of syncope 64399 40985 53067 Z86.79 Monitor vitals and MS. Constipation 88832213 K5 9.00 miralax dailysenna plus bidmonitio r bm Chronic pain 36822422 G8 9.29 abdominal and back painoxycod one 5 mg q 6 prn [id number] MD RODERICK Liriano [address] [place] [address] [place] [address] 09/04/2023 13:20:07 09/11/2023 11:21:18 Dementia 04462965 F02.B0 MS remains stable.Moo d good after d/c seroquel.C ontinue aricept 10 mg qhs and amitriptyl ine 10 mg qhs.Contin ue supportive care, expect decline.HC P invokedMon itor mood and behaviors. Psych continues to follow Retention of urine 34439 4002 R33.8 No further issues since arana d/c'dConti nue bethanecol 25 mg TID and tamsulosin 0.8 mg qdMonitor urinary function. Falls 178898918 R29.6 Remains deconditio vane.Use PT/OT as able/neede d.Continue fall precaution s.Monitor for safety. Recurrent urinary tract infection 269425088 N30.20 Continue Vitamin C 500 mg BID and D-Mannose 1000 mg BID for prophylaxi s.Monitor sxs. Chronic mi graine without aura 0985586508 03824 G43.709 Continue prednisone 10 mg qd and amitriptyl ine 10 mg qhs.Monito r sxs. COVID-19 460793867 U07.1 Tested + on 11/20/22Now recovered. Monitor for sequelae. Constipation 64388414 K5 9.09 Continue bowel meds as ordered.Mo nitor bowel function. Chronic pain 49045584 G8 9.29 Continue oxycodone 5 mg q 6 prn and APAP 650 mg q 6 hrs prn.Monito r sxs. [id number] KEVIN ESPINOZA [address] [place] [address] [place] [address] 09/07/2023 13:56:21 09/11/2023 12:23:12 Indigestion 855281861 R10.13 see hpistart Tums 2 tabs Q4 prn TIDencoura ged to eat slowly, avoid caffeinate d drinksnurs ing to monitor for unrelieved sx nursing and update provider with changes Dysuria 12986666 R30.0 send urine for UA with C&S. [id number] KEVIN ESPINOZA [address] [address] 09/10/2023 12:44:19 09/17/2023 15:09:43 Dysuria 54043377 R30.0 send urine for UA with C&Snursing encouraged to reattemptw ill order one time dose of ativan to be given prior to attempt, hopefully to decrease resistence and combativen ess. [id number] KEVIN ESPINOZA [address] [address] 09/17/2023 08:54:06 09/20/2023 16:22:04 Recurrent urinary [...] months.patricio sing updated to offers more fluids [id number] Barbara GatesEmiliano Anton [address] [address] 10/26/2023 09:48:50 10/30/2023 09:29:54 Dementia 09428424 F02.B0 MS remains stable.Moo d good after d/c seroquel.C ontinue aricept 10 mg qhs and amitriptyl ine 10 mg qhs.Contin ue supportive care, expect decline.HC P invokedMon itor mood and behaviors. Psych continues to follow Falls 992999431 R29.6 Remains deconditio vane.Use PT/OT as able/neede d.Continue fall precaution s.Monitor for safety. Recurrent urinary tract infection 686415515 N30.20 Continue Vitamin C 500 mg BID and methanamin eMonitor sxs.treate d last month for UTI with bactrim Retention of urine 46887 4002 R33.8 No further issues since arana d/c'dConti nue bethanecol 25 mg TID and tamsulosin 0.8 mg qdMonitor urinary function. Chronic pain 40321385 G8 9.29 Continue oxycodone 5 mg q 6 prn and APAP 650 mg q 6 hrs prn.Monito r sxs. [id number] KEVIN ESPINOZA [address] [address] 12/11/2023 11:12:57 12/13/2023 14:34:20 Bilateral lower limb edema 114587385 R60.0 see hpiappears dependent, pt sits in wheelchair for long periods of timerefer to therapy for wheelchair with leg rest for elevationc heck labs proBNP, CBC, and BMP on 12/12/23will start compressio n stocking to wear dailyconsi flo giving diuretic for worsening edemarecom mend no added salt to diet.will monitor for changes Dementia 96910249 F02.B0 alert at her baseline with confusione xpect declineCon tinue aricept 10 mg qhs, seroquel 50 mg qhs and amitriptyl ine 10 mg qhs.Contin ue supportive care, expect decline.HC P invoked- updated at bedside on above plan and is in agreementM onitor mood and behaviors. psych prn [id number] KEVIN ESPINOZA [address] [address] 12/19/2023 08:36:46 12/24/2023 09:37:20 Dementia 88567778 F02.B0 MS remains stable.Con tinue aricept 10 mg qhs and amitriptyl ine 10 mg qhs.Contin ue supportive care, expect decline.HC P invokedMon itor mood and behaviors. Psych continues to follow Falls 473804774 R29.6 Remains deconditio vane.Use PT/OT as able/neede d.Continue fall precaution s.Monitor for safety. Recurrent urinary tract infection 115451207 N30.20 Continue Vitamin C 500 mg BID and methenamin eMonitor sxs.treate d last month for UTI with bactrim Retention of urine 92998 4002 R33.8 No further issues since arana d/c'dConti nue bethanecol 25 mg TID and tamsulosin 0.8 mg qdMonitor urinary function. Chronic pain 21639324 G8 9.29 Continue oxycodone 5 mg q 6 prn and APAP 650 mg q 6 hrs prn.Monito r sxs. Bilateral lower limb edema 506170524 R60.0 appears dependent, pt sits in wheelchair for long periods of timerefer to therapy for wheelchair with leg rest for elevationc ompression stocking to wear dailyconsi flo giving diuretic for worsening edemarecom mend no added salt to diet.will monitor for changes [id number] KEVIN ESPINOZA [address] [facility] [place] [address] 02/14/2024 09:38:47 02/18/2024 12:51:21 Dementia 18724780 F02.B0 MS remains stable.Con tinue aricept 10 mg qhs and amitriptyl ine 10 mg qhs.Contin ue supportive care, expect decline.HC P invokedMon itor mood and behaviors. Psych continues to follow [place] 242271246 R29.6 Remains deconditio vaen.Use PT/OT as able/neede d.Continue fall precaution s.Monitor for safety. Recurrent urinary tract infection 427186008 N30.20 Continue Vitamin C 500 mg BID and methenamin eMonitor sxs.treate d last month for UTI with bactrim Retention of urine 57884 4002 R33.8 No further issues since arana d/c'dConti nue bethanecol 25 mg TID and tamsulosin 0.8 mg qdMonitor urinary function. Chronic pain 49392758 G8 9.29 Continue oxycodone 5 mg q 6 prn and APAP 650 mg q 6 hrs prn.Monito r sxs. Bilateral lower limb edema 240412446 R60.0 stable/ tracecompr ession stocking to wear dailyconsi flo giving diuretic for worsening edemarecom mend no added salt to diet.will monitor for changes Bereavement 99140729 Z63 .4 son 02/02- He visited with her everyday. so far she has been doing well with lost, due to her dementia she may have forgotten that her son has passed, there has been no agitation or other behaviors of expression . She will be attending his services today.will provide support along with nursing.travon mcbride need to restart ativan . [id number] KEVIN ESPINOZA [address] [address] 04/07/2024 15:04:30 04/16/2024 11:19:45 Dementia 54949234 F02.B0 MS remains stable.Con tinue aricept 10 mg qhs and amitriptyl ine 10 mg qhs.Contin ue supportive care, expect decline.HC P invokedMon itor mood and behaviors. Psych continues to follow Recurrent urinary tract infection N30.20 Continue Vitamin C 500 mg BID and methenamin eMonitor sxs.treate d last month for UTI with bactrim Chronic pain 89856777 G8 9.29 Continue oxycodone 5 mg q 6 prn and APAP 650 mg q 6 hrs prn.Monito r sxs. Bilateral lower limb edema 446208082 R60.0 stable/ tracecompr ession stocking to wear dailyconsi flo giving diuretic for worsening edemarecom mend no added salt to diet.will monitor for changes COVID-19 [id number] U07.1 without sxdiscusse d with nursing, will provide supportive therapyupd ate provider with acute changes [id number] KEVIN ESPINOZA [address] [address] 07/06/2024 10:46:03 07/10/2024 16:17:30 Acute respiratory failure [id number] J96.00 resolvedde conditione dmonitor resp. statusPT/O T eval and tx Hypokalemia [id number] E87 .6 3.1/replet edfollow labs Dementia [id number] F02.B0 stableCont inue aricept 10 mg qhs and amitriptyl ine 10 mg qhs.Contin ue supportive care, expect decline.HC P invokedMon itor mood and behaviors. Psych continues to follow Recurrent urinary tract infection N30.20 stablecont Cefuroxime 500 mg BID until 07/08/24Cont inue Vitamin C 500 mg BID and methenamin eMonitor sxs.increa se hydration/ water preferred to flush out toxins. [id number] MD RODERICK Mcmahon RASTA [address] [place] [address] 07/09/2024 12:26:29 07/11/2024 08:35:31 Acute respiratory failure [id number] J96.01 see HPI treated with abx coursemoni tor respirator y status and need for repeat imaging Dementia [id number] F02.B0 baseline dementia with behaviorsH CP invokedcon tinue supportive carepsych eval prn Recurrent urinary tract infection N30.20 recently treated with rocephin for abovemonit or for recurrent infection [id number] FARHAD CHOW NP RODERICK RASTA [address] [place] [address] 07/15/2024 10:27:43 07/16/2024 15:58:16 Acute respiratory failure [id number] J96.00 residual cough and congestion per staff.conc [...] 1 in am, CBC, BMPMonitor closely. Hypokalemia 20533019 E87 .6 3.1/replet edfollow labs - repeat in am Dementia [id number] F02.B0 stableCont inue aricept 10 mg qhs and amitriptyl ine 10 mg qhs.Contin ue supportive care, expect decline.HC P invokedMon itor mood and behaviors. Psych continues to follow Recurrent urinary tract infection N30.20 stablecomp leted Cefuroxime 500 mg BID on 07/08/24Cont inue Vitamin C 500 mg BID and methenamin eMonitor sxs., VSMaintain fluids [id number] MARIA EUGENIA BOLES CNP [address] [address] 07/16/2024 12:24:54 07/23/2024 11:34:10 Acute respiratory failure [id number] J96.00 RSV positive.r esidual cough and congestion resolved.C ontinueSch edule albuterol updrafts tid x 5 daysAdd mucinex 600 mg bid x 7 daysTrend VS, LS, satsMonito r closely. Hypokalemia [id number] E87 .6 3.1/replet edrepeat lab, pending. Dementia [id number] F02.B0 stableCont inue aricept 10 mg qhs and amitriptyl ine 10 mg qhs.Contin ue supportive care, expect decline.HC P invokedMon itor mood and behaviors. Psych continues to follow Recurrent urinary tract infection N30.20 stablecomp leted Cefuroxime 500 mg BID on 07/08/24Cont inue Vitamin C 500 mg BID and methenamin eMonitor sxs., VSMaintain fluids [id number] MARIA EUGENIA BOLES CNP [address] [address] 07/23/2024 10:34:55 07/29/2024 16:12:56 Acute respiratory failure [id number] J96.00 RSV positive last week.impro ving, but has residual cough and congestion .Continuea lbuterol inhaler QID.Trend VS, LS, satsMonito r closely. Hypokalemia 32512768 E87 .6 stable 3.6 on 07/14. Dementia [id number] F02.B0 stableCont inue aricept 10 mg qhs and amitriptyl ine 10 mg qhs.Contin ue supportive care, expect decline.HC P invokedMon itor mood and behaviors. Psych continues to follow Recurrent urinary tract infection N30.20 resolvedwb c stable, no s/s of recurrent UTIcomplet ed Cefuroxime 500 mg BID on 07/08/24Cont inue Vitamin C 500 mg BID and methenamin eMonitor sxs., VSMaintain fluids [id number] KEVIN ESPINOZA [address] [facility] [address] [place] [phone] 10/15/2024 05:56:38 10/17/2024 13:10:32 Dementia [id number] F02.B0 expect declineCon tinue aricept 10 mg qhs and amitriptyl ine 10 mg qhs.Contin ue supportive careHCP invokedMon itor mood and behaviors. Psych continues to follow Recurrent urinary tract infection N30.20 Continue Vitamin C 500 mg BID and methenamin eMonitor sxs.increa se hydration/ water preferred to flush out toxins. Chronic pain [id number] G8 9.29 Continue oxycodone 5 mg q [...] Name 10/15/2024 2 [place] [id number] Deann Eduardo [id number] Deann Eduardo 10/15/2024 1 [place] [employer] Deann Eduardo [id number] Deann Eduardo Notes Date Note Type [...] dementia and constipation Matt Lynn MD [address] [facility], [address], [place], [address], [facility] [employer] 07/09/2024 12:38:08 07/15/2024 text/html ROS as noted [...] experiencing and her inability to move comfortably. 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 [...] Loose congested cough. FARHAD CHOW, NAN [address] [facility], [address], [place], [address], [facility] [employer] 07/15/2024 11:13:24 07/16/2024 text/html ROS as noted [...] SOB today. MARIA EUGENIA BOLES CNP [address] [facility], [address], [place], [address], [facility] [employer] [facility] 07/16/2024 12:42:28 07/23/2024 text/html ROS as [...] SOB today. MARIA EUGENIA BOLES CNP [address] [facility], [address], [place], [address], [facility] [employer] [facility] 07/29/2024 14:03:23 10/15/2024 text/html ROS as noted in the HPI 83 yr old female LTC resident seen for routine rounding. Medically she has been stable, there is no acute concerns. KEVIN ESPINOZA [address] [facility], [address], [place], [address], [facility] [employer] 10/16/2024 19:32:07 OBGyn Episode No OBEpisode recorded.
[2025-03-25 07:17] LABS: MANUAL DIFF FLAG NO
[2025-03-25 08:01] LABS: Hematocrit 35.3 % (37.0-47.0); Hemoglobin 11.5 g/dl (12.0-16.0); Imm Gran Abs Auto 0.02 X10*3/uL (0.00-0.03); Imm Gran Pct Auto 0.3 % (0.0-0.4); Lymphocytes Absolute Auto 1.8 X10*3/uL (1.2-4.9); Mean Corpuscular HGB Conc 32.6 g/dl (31.0-35.0); Mean Corpuscular Hemoglobin 29.6 pg (27.0-33.0); Mean Corpuscular Volume 91.0 fL (80.0-98.0); NRBC Abs Auto 0.000 X10*3/uL (0.0-0.012); NRBC Pct Auto 0.0 /100WBC (0.0-0.2); Platelet Count 329 X10*3/uL (160-400); Red Blood Count 3.88 X10*6/uL (4.20-5.50); White Blood Count 5.9 X10*3/uL (4.8-10.8)
[2025-03-25 08:12] LABS: Alanine Aminotransferase < 6 U/L (0-31); Albumin Level 3.3 g/dL (3.5-5.0); Alkaline Phosphatase 58 U/L (39-117); Anion Gap 11 (12-20); Aspartate Amino Transferase 14 U/L (5-31); Blood Urea Nitrogen 8 mg/dL (9-16); Calcium 8.7 mg/dL (8.4-10.2); Carbon Dioxide 26 mmol/L (22-29); Chloride 105 mmol/L (96-108); Estimated Glomerular Filt Rate > 60; Potassium 3.3 mmol/L (3.3-5.1); Sodium 139 mmol/L (135-145); Total Protein 5.9 g/dL (6.5-8.0)
== END 2025-03-25 07:15 | disposition home or self-care (01) ==
LOC: HO.MMNH3L 07:14
PROVIDERS: Visit Provider Physician Assistant Medical
DX: R33.8 Other retention of urine (principal); R55 Syncope and collapse
CPT/HCPCS: 36415; 80053; 85025